=== PATIENT | female | born 1940 | race Caucasian/White ===

== ENCOUNTER 2016-06-26 16:55 | Observation (INO) | payer OTHER ==
[~2016-06-26] VITALS: Ht 151.1 cm; Wt 66.1 kg
[~2016-06-26 16:55] MED LIST: ACET-1256 PO; ALEN70TA2 PO; ALUM-51 PO; ARTISOL OPB; ASPI81TA28 PO; ATOR-24 PO; CHOL100027 PO; CLON1TAB3 PO; GABA-113 PO; GABA300C19 PO; IMD/2 PO; LEVO75TA PO; LISI5TAB PO; NTRGSL/4 UT; PANT1TAB48 PO; POLY335040 PO; TRAM-10 PO; VENL75CA PO; VNCS125 PO; [UNRECOGNIZED DRUG - OTHER] PO; [UNRECOGNIZED DRUG - SUPPLY]; [UNRECOGNIZED DRUG - SUPPLY]
[2016-06-26] MEDS ORDERED: PRLSR20 PO (17:34)
[2016-06-26] MEDS ORDERED: PHARMACIST DISCHARGE MED REC CONSULT PRN (17:45)
[2016-06-26] MEDS ORDERED: ACETAMINOPHEN 325 MG TAB PO PRN (18:45)
[2016-06-26] MEDS ORDERED: ONDANSETRON INJ 2 MG/ML 2 ML VIAL IV PRN (18:45)
[2016-06-26 20:45] VITALS: BP 160/63; PULSE 60; TEMP 36.6; O2SAT 97
--- NOTE | 2016-06-26 21:01 | DIAGNOSTIC IMAGING REPORT ---
BILATERAL CAROTID DOPPLER STUDY HISTORY: Stroke symptoms. Headache. Altered mental status. COMPARISON: Carotid Doppler 01/29/2012. TECHNIQUE: Real-time, grayscale, and color Doppler sonography of the carotid arteries was performed. Imaging reviewed in the transverse and longitudinal planes. All measurements were calculated based on NASCET criteria. FINDINGS: Antegrade flow is seen in the bilateral vertebral arteries. The brachial pressures are hemodynamically similar. Mild calcified plaque within the right carotid bifurcation. The peak systolic velocity within the right ICA is 75 cm/s. The right systolic ratio is 1.1. The peak systolic velocity within the left ICA is 90 cm/s. The left systolic ratio is 1.1. IMPRESSION: No hemodynamically significant stenosis seen within the carotid arteries. Electronically signed by: Yinka Mora M.D. 06/26/2016 9:00 PM Dictated Date/Time: 06/26/2016 8:58 PM
[2016-06-26 21:37] LABS: BASO % 0.7 %; BASO ABS # 0.04 K/uL (0-0.2); COMPLETE YES; EOS % 1.7 %; HEMATOCRIT 40.9 % (37-47); IG% 0.3 %; LYMPH % 45.4 %; LYMPH ABS # 2.63 K/uL (1.2-3.4); MEAN CELL VOLUME 91.9 fL (80-100); MEAN CORPUSCULAR HEMOGLOBIN 30.3 pg (25-34); MEAN PLATELET VOLUME 9.9 fL (7.4-10.4); MONO % 10.2 %; NEUT % 41.7 %; PLATELET COUNT 206 K/uL (130-400); RED BLOOD COUNT 4.45 M/uL (4.2-5.4); WHITE BLOOD COUNT 5.79 K/uL (4.8-10.8)
[2016-06-26] MEDS ORDERED: IV FLUIDS COMPLETED PRN (21:45)
[2016-06-26 22:09] VITALS: BP 164/99; TEMP 37; O2SAT 95; Ht 151.1 cm; Wt 66.1 kg
[2016-06-26 22:27] LABS: BLOOD UREA NITROGEN 16 mg/dl (7-18); BUN/CREATININE RATIO 11.3 (10-20); CALCIUM 9.5 mg/dl (8.5-10.1); CARBON DIOXIDE 24 mmol/L (21-32); CHLORIDE 109 mmol/L (98-107); GLUCOSE 86 mg/dl (70-99); POTASSIUM 3.8 mmol/L (3.5-5.1); SODIUM 143 mmol/L (136-145)
[2016-06-26] MEDS ORDERED: CLONIDINE HCL 0.1 MG TAB PO PRN (23:30)
--- NOTE | 2016-06-26 23:49 | History and Physical ---
History & Physical Date & Time of Service: Jun 26, 2016 at 23:31 Chief Complaint: Altered Awareness, Transient Primary Care Physician: Roberto Galeas M.D. History of Present Illness Source: patient, family, other (ER MD from [place]) 76 year old female, resident of [place], with history of CAD/CABG, DM, HTN, CKD 3, Hypothyroidism, Depression/Anxiety presenting with syncope followed by confusion, slurred speech. Patient follow with Dr. Galeas for PCP. Patient was apparently at her baseline state of health until this morning. She was with her son who was supposed to have a dental surgery in [facility] today. Upon learning that her son's surgery was cancelled, patient became very upset. She reported headache, then was noted to be weak and passed out for a few seconds. No seizure like movements, no incontinence/tongue biting. Son noted that patient woke up after a few seconds, but was incoherent, with slurred speech. She was then brought to the ED. CT head was negative. During observation, patient's family noted that she was still not responding to questions, cannot move her extremities, not following commands, and at one point , was "stiff", which lasted for a few seconds. ER doctor requested transfer to [facility]. She only became more responsive while en route to [facility]. On my exam, patient was awake, alert, oriented x 3. Denies any symptoms. Family at the bedside states she has been having frequent spells the past few weeks described as being "spacy", disoriented which lasts for a few seconds, sometimes preceded with emotional upset. Past Medical/Surgical History Medical Problems: (1) CAD (coronary artery disease) Status: Chronic (2) CKD (chronic kidney disease), stage III Status: Chronic (3) CVA (cerebral vascular accident) Status: Chronic (4) Depression Status: Chronic (5) HLD (hyperlipidemia) Status: Chronic (6) HTN (hypertension) Status: Chronic (7) Hypothyroidism Status: Chronic Surgical Problems: (1) H/O: hysterectomy Status: Chronic (2) History of appendectomy Status: Chronic (3) History of carpal tunnel surgery Status: Chronic (4) History of esophagogastroduodenoscopy (EGD) Status: Chronic (5) Hx of CABG Status: Chronic (6) S/P cholecystectomy Status: Chronic Family History FHx: diabetes mellitus Social History Smoking Status: Former Smoker Marital Status: Housing status: assisted living Occupational Status: retired Immunizations History of Influenza Vaccine: Yes Influenza Vaccine Date: Jan 27, 2012 History of Tetanus Vaccine?: No History of Pneumococcal: Yes Pneumococcal Date: Feb 03, 2012 History of Hepatitis B Vaccine: No Multi-Drug Resistant Organisms History of MDRO: Yes Type of MDRO: MRSA Allergies Coded Allergies: No Known Allergies (Verified , 06/26/16) Home Medications Scheduled Acetaminophen (Tylenol), 1,000 MG PO TID Alendronate Sodium (Fosamax), 70 MG PO WK Artificial Tear Solution (Tears Naturale), 2 DROPS OPB QID Atorvastatin (Lipitor), 40 MG PO QPM Cholecalciferol (Vitamin D 1000 Unit), 1,000 INTER.UNIT PO 3XWK Clonazepam (Klonopin), 2 MG PO QPM Clonazepam (Klonopin), 0.5 MG PO BID Gabapentin (Neurontin), 600 MG PO HS Gabapentin (Neurontin), 300 MG PO BID Levothyroxine Sodium (Synthroid), 75 MCG PO QAM Lisinopril (Prinivil), 5 MG PO QAM Omeprazole (Prilosec), 20 MG PO BID Polyethylene (Miralax Powder Packet), 17 GM PO Q24H PRN Tramadol (Ultram), 50 MG PO TID Venlafaxine Hcl (Effexor Xr), 75 MG PO BID Scheduled PRN Alum & Mag Hydrox-Simethicone (Qc Antacid), 0 PO QID PRN for Indigestion Loperamide Hcl (Imodium), 2 MG PO DAILY PRN for Diarrhea Nitroglycerin (Nitrostat), 0.4 MG UT UD PRN for Chest Pain Review of Systems Constitutional- no fever; no weight loss Eyes- no acute visual changes ENT- no sinus drainage; no pharyngitis Pulmonary- no cough, no wheezing, no shortness of breath Cardiac- no chest pain, no palpitations, no orthopnea, no dependent edema GI- no nausea, no vomiting, no diarrhea, no melena, no hematochezia - no dysuria, no hematuria Musculoskeletal- no arthralgias, no myalgias Derm- no rashes, no new skin lesions, no changing skin lesions Hematologic- no unusual bruising, no unusual bleeding Lymphatics- no adenopathy Endocrine- no polyuria or polydipsia; no heat or cold intolerance Neuro- (+) as noted above Psych- (+) as noted above Physical Exam Vital Signs Date Time Temp Pulse Resp B/P Pulse Ox O2 Delivery O2 Flow Rate FiO2 06/26/16 22:09 37.0 18 164/99 95 Room Air 06/26/16 20:08 62 18 164/99 97 Room Air 06/26/16 18:50 82 18 161/74 95 Room Air 06/26/16 16:55 37.0 66 18 176/79 99 Room Air General Appearance: WD/WN, no apparent distress Head: normocephalic, atraumatic Eyes: normal inspection, PERRL, EOMI, sclerae normal ENT: normal ENT inspection, hearing grossly normal, pharynx normal Neck: supple, no adenopathy, thyroid normal, no JVD, trachea midline Respiratory/Chest: chest non-tender, lungs clear, normal breath sounds, no respiratory distress, no accessory muscle use Cardiovascular: regular rate, rhythm, no edema, no JVD, no murmur, normal peripheral pulses Abdomen/GI: normal bowel sounds, non tender, soft, no organomegaly Back: normal inspection, no CVA tenderness Extremities/Musculoskelatal: normal inspection, no calf tenderness, normal capillary refill, no pedal edema, normal range of motion Neurologic/Psych: case monitor II-XII nml as tested, no motor/sensory deficits, alert, normal mood/affect, normal reflexes, oriented x 3 Skin: normal color, warm/dry, no rash Lymphatic: no adenopathy Diagnostics Laboratory Results Results Past 24 Hours Test 06/26/16 17:41 06/26/16 21:06 Range/Units Creatine Kinase MB Ratio 0-3.0 White Blood Count 5.79 4.8-10.8 K/uL Red Blood Count 4.45 4.2-5.4 M/uL Hemoglobin 13.5 12.0-16.0 g/dL Hematocrit 40.9 37-47 % Mean Corpuscular Volume 91.9 80-100 fL Mean Corpuscular Hemoglobin 30.3 25-34 pg Mean Corpuscular Hemoglobin Concent 33.0 32-36 g/dl Platelet Count 206 130-400 K/uL Mean Platelet Volume 9.9 7.4-10.4 fL Neutrophils (%) (Auto) 41.7 % Lymphocytes (%) (Auto) 45.4 % Monocytes (%) (Auto) 10.2 % Eosinophils (%) (Auto) 1.7 % Basophils (%) (Auto) 0.7 % Neutrophils # (Auto) 2.41 1.4-6.5 K/uL Lymphocytes # (Auto) 2.63 1.2-3.4 K/uL Monocytes # (Auto) 0.59 0.11-0.59 K/uL Eosinophils # (Auto) 0.10 0-0.5 K/uL Basophils # (Auto) 0.04 0-0.2 K/uL RDW Standard Deviation 46.9 36.4-46.3 fL RDW Coefficient of Variation 13.9 11.5-14.5 % Immature Granulocyte % (Auto) 0.3 % Immature Granulocyte # (Auto) 0.02 0.00-0.02 K/uL Sodium Level 143 136-145 mmol/L Potassium Level 3.8 3.5-5.1 mmol/L Chloride Level 109 98-107 mmol/L Carbon Dioxide Level 24 21-32 mmol/L Anion Gap 10.0 3-11 mmol/L Blood Urea Nitrogen 16 7-18 mg/dl Creatinine 1.40 0.60-1.20 mg/dl Est Creatinine Clear Calc Drug Dose 28.3 ml/min Estimated GFR () 41.9 Estimated GFR (Non- 36.2 BUN/Creatinine Ratio 11.3 10-20 Random Glucose 86 70-99 mg/dl Calcium Level 9.5 8.5-10.1 mg/dl Total Creatine Kinase 45 26-192 U/L Creatine Kinase MB < 0.5 0.5-3.6 ng/ml Troponin I < 0.015 0-0.045 ng/ml Diagnostic Radiology CT head from [facility]: no acute findings Impression Assessment and Plan 76 year old female, resident of [place], with history of CAD/CABG, DM, HTN, CKD 3, Hypothyroidism, Depression/Anxiety presenting with syncope followed by confusion, slurred speech. SYNCOPE WITH ALTERED MENTAL STATUS r/o TIA/CVA, SEIZURE, ARRHYTHMIA, HYPERTENSIVE URGENCY - check Brain MRI, Carotid US EEG ECHO, Telemetry monitoring - Neurology consult ACUTE RENAL FAILURE ON CKD 3 baseline 0.9 IV fluids monitor CAD EKG no change from baseline HISTORY OF DM not on medications ISS HYPERTENSION continue Lisinopril monitor HYPOTHYROIDISM continue L thyroxine DEPRESSION/ANXIETY continue usual medications HISTORY OF DM diet controlled last a1c 5.9 monitor BSGs DVT prophylaxis SCDs Disposition pending resident of [facility] Advanced Directives Existing Living Will: No Existing Power of Marketer: No VTE Prophylaxis VTE Risk Assessment Done? Y/N: Yes Risk Level: Moderate
[2016-06-26] MEDS ORDERED: CLONAZEPAM 1 MG TAB ONE (23:53)
[2016-06-27] VITALS (11 sets, daily range): BP systolic 114–163; BP diastolic 44–90; PULSE 63–85; TEMP 36.4–36.9; O2SAT 95–98
[2016-06-27] MEDS ORDERED: SODIUM CHLORIDE 0.9% 1000ML 1,000 ML IV SCH ×2 (02:00→19:30)
[2016-06-27] MEDS: LEVOTHYROXINE 75 MCG TAB PO SCH (05:53)
[2016-06-27 06:56] LABS: ESTIMATED AVERAGE GLUCOSE 117 mg/dl; HA1C FLAG Normal (Normal)
[2016-06-27 08:32] LABS: BASO % 0.5 %; BASO ABS # 0.03 K/uL (0-0.2); COMPLETE YES; EOS % 1.1 %; IG% 0.3 %; LYMPH % 28.5 %; MEAN CELL VOLUME 92.7 fL (80-100); MEAN CORPUSCULAR HEMOGLOBIN 30.2 pg (25-34); MEAN CORPUSCULAR HGB CONC 32.6 g/dl (32-36); MEAN PLATELET VOLUME 10.1 fL (7.4-10.4); MONO % 9.3 %; NEUT % 60.3 %; PLATELET COUNT 223 K/uL (130-400); RED BLOOD COUNT 4.64 M/uL (4.2-5.4); WHITE BLOOD COUNT 6.66 K/uL (4.8-10.8)
[2016-06-27 08:45] LABS: BUN/CREATININE RATIO 13.1 (10-20); CALCIUM 9.5 mg/dl (8.5-10.1); CREATININE 1.4 mg/dl (0.60-1.20); POTASSIUM 4.1 mmol/L (3.5-5.1)
[2016-06-27] MEDS: ARTIFICIAL TEARS OP SOLN OPB SCH ×8 (09:00→21:55)
--- NOTE | 2016-06-27 09:06 | DIAGNOSTIC IMAGING REPORT ---
MRI OF THE BRAIN WITHOUT CONTRAST CLINICAL HISTORY: Stroke like symptoms. Altered mental status. Headache. COMPARISON STUDY: Head CT dated 01/10/2016, MRI the brain dated 01/29/2012 FINDINGS: Sagittal T1, axial diffusion, proton density and T2 weighted axial, coronal FLAIR, and axial T1-weighted images were acquired. No intra or extra-axial mass lesions are visualized Axial diffusion-weighted images reveal no evidence of acute or subacute infarction. There is no evidence of ventricular dilatation. Proton density T2-weighted and FLAIR images reveal scattered foci of increased T2 signal within the white matter, likely on a small vessel basis. There are no abnormal flow voids. There is a stable expanded empty sella. There are foci of increased T2 signal within the left mastoid, likely inflammatory IMPRESSION: 1. No acute intracranial findings 2. No evidence of acute or subacute infarction 3. Stable expanded empty sella 4. Scattered foci of increased T2 signal within the white matter, likely on a small vessel basis Electronically signed by: Keyon Arreola M.D. 06/27/2016 9:05 AM Dictated Date/Time: 06/27/2016 8:52 AM
--- NOTE | 2016-06-27 09:10 | ECHOCARDIOGRAM REPORT ---
*NOTICE TO RECEIVING REPUBLICAN AGENCY This information is strictly Confidential and protected under [place] law. [place] law prohibits you from making any further disclosure of this information unless further disclosure is expressly permitted by the written consent of the person to whom it pertains or is authorized by law. A general authorization for the release of medical or other information is not sufficient for this purpose. Hospital accepts no responsibility if the information is made available to any other person, INCLUDING THE PATIENT. Interpretation Summary * Name: SOPHIA JORDAN Study Date: 06/27/2016 08:19 AM BP: 150/78 mmHg * Patient Location: .[facility]\S\N279\S\1 HR: 78 * : 1940 (M/d/yyyy) Gender: Female Height: 59 in * Age: 76 yrs Ethnicity: CA Weight: 150 lb * Ordering Physician: Yuriy Mead * Referring Physician: Self, Referred * Performed By: Alda Roper RCS * * Reason For Study: SYNCOPE * BSA: 1.6 m2 * -- Conclusions -- * No change compared to previous study of 01/10/16. * Normal LV chamber size with moderate concentric LVH. * Normal LV systolic function, EF 55-60%. * No segmental left ventricular wall motion abnormalities are noted. * Grade I diastolic dysfunction. * Aortic valve sclerosis mild, without significant aortic valvular stenosis. Mild aortic regurgitation. * Moderate atheromatous diisease of the ascending aorta. Procedure Details * A complete two-dimensional transthoracic echocardiogram was performed (2D, M-mode, Doppler and color flow Doppler). Left Ventricle * The left ventricle is normal in size. * There is moderate concentric left ventricular hypertrophy. * Ejection Fraction = 55-60%. * Left ventricular systolic function is normal. * No segmental left ventricular wall motion abnormalities are noted. * The left ventricular wall motion is normal. Right Ventricle * The right ventricular cavity size is normal (basal dimension <4.2 cm in right ventricular apical 4-chamber view). * The right ventricular systolic function is normal as assessed by tricuspid annular plane systolic excursion (TAPSE) (normal >1.5 cm). Atria * The left atrial size is normal. * Right atrial size is normal. * No ASD detected; PFO is not assessed. Mitral Valve * The mitral valve is normal in structure and function. Tricuspid Valve * The tricuspid valve is normal in structure and function. Aortic Valve * Aortic valve sclerosis mild, without significant aortic valvular stenosis. * No hemodynamically significant valvular aortic stenosis. * Mild aortic regurgitation. Pulmonic Valve * The pulmonary valve is not well seen, but the Doppler examination is normal without significant regurgitation or stenosis. Great Vessels * The aortic root and proximal ascending aorta are normal sized. Pericardium/Pleural * There is no pericardial effusion. Left Ventricular Diastolic Function * Grade I diastolic dysfunction, (abnormal relaxation pattern). MMode 2D Measurements and Calculations IVSd 1.4 cm IVSs 2.4 cm LVIDd 4.6 cm LVIDs 3.4 cm LVPWd 1.1 cm LVPWs 1.3 cm IVS/LVPW 1.2 FS 25.5 % EDV(Teich) 95.1 ml ESV(Teich) 47.2 ml EF(Teich) 50.4 % EDV(cubed) 94.5 ml ESV(cubed) 39.1 ml EF(cubed) 58.6 % % IVS thick 67.2 % % LVPW thick 11.3 % LV mass(C)d 223.8 grams LV mass(C)dI 137.1 grams/m\S\2 LV mass(C)s 260.7 grams LV mass(C)sI 159.8 grams/m\S\2 SV(Teich) 47.9 ml SI(Teich) 29.4 ml/m\S\2 SV(cubed) 55.4 ml SI(cubed) 34.0 ml/m\S\2 Ao root diam 3.7 cm Ao root area 10.8 cm\S\2 ACS 2.1 cm LA dimension 2.4 cm LA/Ao 0.65 LVOT diam 2.0 cm LVOT area 3.0 cm\S\2 LVAd ap4 17.7 cm\S\2 LVLd ap4 5.7 cm EDV(MOD-sp4) 46.6 ml EDV(sp4-el) 46.7 ml LVAs ap4 12.3 cm\S\2 LVLs ap4 5.1 cm ESV(MOD-sp4) 25.8 ml ESV(sp4-el) 25.4 ml EF(MOD-sp4) 44.6 % EF(sp4-el) 45.5 % LVAd ap2 16.3 cm\S\2 LVLd ap2 5.7 cm EDV(MOD-sp2) 39.0 ml EDV(sp2-el) 39.5 ml LVAs ap2 11.8 cm\S\2 LVLs ap2 5.5 cm ESV(MOD-sp2) 21.4 ml ESV(sp2-el) 21.5 ml EF(MOD-sp2) 45.2 % EF(sp2-el) 45.6 % LVLd %diff 0.87 % EDV(MOD-bp) 42.4 ml LVLs %diff 7.7 % ESV(MOD-bp) 24.2 ml EF(MOD-bp) 42.9 % SV(MOD-sp4) 20.8 ml SI(MOD-sp4) 12.8 ml/m\S\2 SV(MOD-sp2) 17.6 ml SI(MOD-sp2) 10.8 ml/m\S\2 SV(MOD-bp) 18.2 ml SI(MOD-bp) 11.2 ml/m\S\2 SV(sp4-el) 21.2 ml SI(sp4-el) 13.0 ml/m\S\2 SV(sp2-el) 18.0 ml SI(sp2-el) 11.1 ml/m\S\2 Doppler Measurements and Calculations MV E max wing 63.6 cm/sec MV A max wing 100.8 cm/sec MV E/A 0.63 MV P1/2t max wing 70.6 cm/sec MV P1/2t 99.6 msec MVA(P1/2t) 2.2 cm\S\2 MV dec slope 207.7 cm/sec\S\2 MV dec time 0.27 sec Ao V2 max 104.8 cm/sec Ao max PG 4.4 mmHg Ao max PG (full) 2.2 mmHg LISSETTE(V,A) 2.2 cm\S\2 LISSETTE(V,D) 2.2 cm\S\2 AI max wing 434.3 cm/sec AI max PG 75.5 mmHg AI dec slope 167.1 cm/sec\S\2 AI P1/2t 761.4 msec LV V1 max PG 2.2 mmHg LV V1 max 74.4 cm/sec PA V2 max 88.3 cm/sec PA max PG 3.1 mmHg TR max wing 220.1 cm/sec
[2016-06-27] MEDS: ASPIRIN 81 MG ECTAB PO SCH (09:49)
[2016-06-27] MEDS: ACETAMINOPHEN 500 MG TAB PO SCH ×3 (09:50→21:59)
[2016-06-27] MEDS: PANTOprazole SOD 40 MG TAB PO SCH ×2 (09:50→21:58)
[2016-06-27] MEDS: LISINOPRIL 5 MG TAB PO SCH (09:51)
[2016-06-27] MEDS: VENLAFAXINE HCL XR 75 MG CAPXR PO SCH ×2 (09:51→21:57)
[2016-06-27] MEDS: GABAPENTIN 300 MG CAP PO SCH ×2 (09:52→14:38)
[2016-06-27] MEDS: TRAMADOL HCL 50 MG TAB PO SCH ×3 (09:58→22:00)
[2016-06-27] MEDS: CLONAZEPAM 1 MG TAB PO SCH ×2 (09:58→13:11)
--- NOTE | 2016-06-27 12:59 | Neurology Consultation ---
Neurology Consultation Date of Consultation: Jun 27, 2016. Attending Physician: Prashant Lion MD Primary Care Physician: Roberto Galeas M.D. Reason for Consultation: altered MS History of Present Illness Source: patient Yvonne is a 76 year old woman with a PMH CAD, HTN, HLD, hypothyroid, CKD who was with her son who was supposed to have a dental surgery in [facility] today. Upon learning that her son's surgery was cancelled, patient became very upset. She reported headache, then was noted to be weak and passed out for a few seconds. She states afterward she was having difficulty speaking but denies biting her tongue, incontinence of bowel or urine. She states she remembers feeling weak all over. She states when she gets upset she does shudder and that was happening during this event. She thinks by the time she got to [facility] she was back to baseline. She states she has no history of stroke or seizure disorder. denies ill exposures, fever, chills, night sweats, CP, SOB , dizziness, N, V, current weakness, numbness, tingling. According to OSH record her blood pressure was 141/52, O2 99%, T: 36.5, pulse 70 , R-20, BS 203 Past Medical/Surgical History Medical Problems: (1) Abdominal pain Status: Acute (2) Bilateral flank pain Status: Acute (3) Confusion Status: Acute (4) Diarrhea Status: Acute (5) Fever Status: Acute (6) Fever Status: Acute (7) Hypomagnesemia Status: Acute (8) Hypotension Status: Acute (9) Leukocytosis Status: Acute (10) UTI (lower urinary tract infection) Status: Acute Social History Smoking Status: Former smoker Marital Status: Housing Status: correction Occupation Status: retired Allergies Coded Allergies: No Known Allergies (Verified , 06/26/16) Current Inpatient Medications Current Inpatient Medications Medications (Trade) Dose Ordered Sig/Ana Route Start Time Stop Time Status Last Admin Dose Admin Miscellaneous Information (Pharmacist Discharge Med Rec Consult) 1 ea UD PRN N/A 06/26/16 17:45 07/26/16 17:44 Ondansetron HCl (Zofran Inj) 4 mg Q6H PRN IV 06/26/16 18:45 07/26/16 18:44 Miscellaneous (Iv Fluids Completed) 1 ea PRN PRN N/A 06/26/16 21:45 06/26/17 21:44 Acetaminophen (Tylenol Tab) 1,000 mg TID PO 06/27/16 09:00 07/27/16 08:59 06/27/16 09:50 1,000 MG Atorvastatin Calcium (Lipitor Tab) 40 mg QPM PO 06/27/16 21:00 07/27/16 20:59 Clonazepam (Klonopin Tab) 0.5 mg BID@0900,1400 PO 06/27/16 09:00 07/27/16 08:59 06/27/16 09:58 0.5 MG Clonazepam (Klonopin Tab) 1 mg QPM PO 06/27/16 21:00 07/27/16 20:59 Gabapentin (Neurontin Cap) 300 mg BID@0900,1400 PO 06/27/16 09:00 07/27/16 08:59 06/27/16 09:52 300 MG Gabapentin (Neurontin Tab) 600 mg HS PO 06/27/16 21:00 07/27/16 20:59 Levothyroxine Sodium (Synthroid Tab) 75 mcg DAILYBB PO 06/27/16 06:30 07/27/16 06:29 06/27/16 05:53 75 MCG Lisinopril (Zestril Tab) 5 mg QAM PO 06/27/16 09:00 07/27/16 08:59 06/27/16 09:51 5 MG Tramadol HCl (Ultram Tab) 50 mg TID PO 06/27/16 09:00 07/27/16 08:59 06/27/16 09:58 50 MG Venlafaxine HCl (effeXOR EXTENDED REL CAP) 75 mg BID PO 06/27/16 09:00 07/27/16 08:59 06/27/16 09:51 75 MG Artificial Tears (Artificial Tears) 2 drops QID OPB 06/27/16 09:00 07/27/16 08:59 Pantoprazole Sodium (Protonix Tab) 40 mg BID PO 06/27/16 09:00 07/27/16 08:59 06/27/16 09:50 40 MG Clonidine HCl (Catapres Tab) 0.1 mg Q6H PRN PO 06/26/16 23:30 07/26/16 23:29 Aspirin 81 mg 81 mg QAM PO 06/27/16 09:00 07/27/16 08:59 06/27/16 09:49 81 MG Sodium Chloride (Nss 1000ml) 1,000 ml @ 75 mls/hr [id number] IV 06/27/16 02:00 06/27/16 15:19 06/27/16 02:08 75 MLS/HR Physical Exam Vital Signs (Past 24 Hrs): Date Time Temp Pulse Resp B/P Pulse Ox O2 Delivery O2 Flow Rate FiO2 06/27/16 11:16 36.8 83 22 146/77 98 Room Air 06/27/16 08:00 97 Room Air 06/27/16 07:32 36.4 69 20 150/78 97 06/27/16 05:02 36.6 71 18 158/67 97 Room Air 06/27/16 04:00 Room Air 06/27/16 00:06 36.5 67 18 114/44 95 Room Air 06/27/16 00:00 Room Air 06/26/16 22:09 37.0 18 164/99 95 Room Air 06/26/16 20:45 36.6 60 18 160/63 97 Room Air 06/26/16 20:08 62 18 164/99 97 Room Air 06/26/16 18:50 82 18 161/74 95 Room Air 06/26/16 16:55 37.0 66 18 176/79 99 Room Air Physical Exam: Constitutional: appearance nourished, healthy and obese Ears, Nose, Mouth and Throat: mucous membranes moist, no injection and skin normal, eyes normal Cardiovascular: normal S-1 and S-2 and regular rate and rhythm Respiratory: clear to auscultation (CTA) and no rales, rhonchi or wheeze Musculoskeletal: no peripheral edema and good distal pulses Skin: no stigmata of neurocutaneous disease noted and normal and intact Eyes: extraocular muscles intact (EOMI) and pupils equal, round and reactive to light (PERRL) NEUROLOGIC EXAMINATION: Mental status: Alert and interactive Oriented 2017, at [facility], red Olguin is president Oriented to person Speech fluent with no evidence of aphasia Cranial Nerves smile, eye brow raise symmetric, tongue midline Reflexes: Deep tendon reflexes were symmetrical and graded 2/5. Plantar responses were flexor. Sensory: no deficit to light touch Coordination: finger to nose with no bi pass or tremor Gait/Stance: sitting in bed Motor: Negative for pronator drift of out stretched arms with eyes closed. 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 Laboratory Results Past 24 Hours: 06/27/16 08:07 Red Blood Count 4.64, Mean Corpuscular Volume 92.7, Mean Corpuscular Hemoglobin 30.2, Mean Corpuscular Hemoglobin Concent 32.6, Mean Platelet Volume 10.1, Neutrophils (%) (Auto) 60.3, Lymphocytes (%) (Auto) 28.5, Monocytes (%) (Auto) 9.3, Eosinophils (%) (Auto) 1.1, Basophils (%) (Auto) 0.5, Neutrophils # (Auto) 4.02, Lymphocytes # (Auto) 1.90, Monocytes # (Auto) 0.62, Eosinophils # (Auto) 0.07, Basophils # (Auto) 0.03 06/27/16 08:07 Test 06/26/16 21:06 06/27/16 08:07 06/27/16 11:19 Estimated Average Glucose 117 mg/dl Hemoglobin A1c 5.7 % (4.5-5.6) Total Creatine Kinase 45 U/L (26-192) Creatine Kinase MB < 0.5 ng/ml (0.5-3.6) Creatine Kinase MB Ratio (0-3.0) Troponin I < 0.015 ng/ml (0-0.045) White Blood Count 6.66 K/uL (4.8-10.8) Red Blood Count 4.64 M/uL (4.2-5.4) Hemoglobin 14.0 g/dL (12.0-16.0) Hematocrit 43.0 % (37-47) Mean Corpuscular Volume 92.7 fL (80-100) Mean Corpuscular Hemoglobin 30.2 pg (25-34) Mean Corpuscular Hemoglobin Concent 32.6 g/dl (32-36) Platelet Count 223 K/uL (130-400) Mean Platelet Volume 10.1 fL (7.4-10.4) Neutrophils (%) (Auto) 60.3 % Lymphocytes (%) (Auto) 28.5 % Monocytes (%) (Auto) 9.3 % Eosinophils (%) (Auto) 1.1 % Basophils (%) (Auto) 0.5 % Neutrophils # (Auto) 4.02 K/uL (1.4-6.5) Lymphocytes # (Auto) 1.90 K/uL (1.2-3.4) Monocytes # (Auto) 0.62 K/uL (0.11-0.59) Eosinophils # (Auto) 0.07 K/uL (0-0.5) Basophils # (Auto) 0.03 K/uL (0-0.2) RDW Standard Deviation 47.7 fL (36.4-46.3) RDW Coefficient of Variation 14.1 % (11.5-14.5) Immature Granulocyte % (Auto) 0.3 % Immature Granulocyte # (Auto) 0.02 K/uL (0.00-0.02) Anion Gap 11.0 mmol/L (3-11) Est Creatinine Clear Calc Drug Dose 28.6 ml/min Estimated GFR () 41.9 Estimated GFR (Non- 36.2 BUN/Creatinine Ratio 13.1 (10-20) Calcium Level 9.5 mg/dl (8.5-10.1) Bedside Glucose 141 mg/dl (70-90) Imaging MRI brain without- FINDINGS: Sagittal T1, axial diffusion, proton density and T2 weighted axial, coronal FLAIR, and axial T1-weighted images were acquired. No intra or extra-axial mass lesions are visualized Axial diffusion-weighted images reveal no evidence of acute or subacute infarction. There is no evidence of ventricular dilatation.Proton density T2-weighted and FLAIR images reveal scattered foci of increased T2 signal within the white matter, likely on a small vessel basis. There are no abnormal flow voids.There is a stable expanded empty sella. There are foci of increased T2 signal within the left mastoid, likely inflammatory TTE- No change compared to previous study of 01/10/16. * Normal LV chamber size with moderate concentric LVH. * Normal LV systolic function, EF 55-60%. * No segmental left ventricular wall motion abnormalities are noted. * Grade I diastolic dysfunction. * Aortic valve sclerosis mild, without significant aortic valvular stenosis. Mild aortic regurgitation. * Moderate atheromatous disease of the ascending aorta. NO ASD Carotid doppler- No hemodynamically significant stenosis seen within the carotid arteries. Impression 76 year old with syncope episode Plan 1. cardiac work up so far no revealing findings. 2. EEG -pending 3. MRI with no acute or subacute findings 4. according to outside facility she stated she had a headache and then said she was going to pass out. She also was talking to her son during the time she was in their ER but would not cooperate during their evaluation 5. orthostatic blood pressure 6. currently on aspirin 81 mg 7. fall precautions 8. further recommendations to follow Reviewed and discussed with Candice Salas and patient interviewed and examined imaging and eeg reviewed event was more of a near syncopal one precipitated by stress and she apparently has had similar but less dramatic events in the past in stressful situations denies migraines etc currently exam is normal her mental status is clear there are no indications that this was a seizure and mri and eeg normnal If cleared by cardioology she could be discharged from neurology point of view Andrew Norton MD I have seen and discussed above patient with Dr Andrew Norton
--- NOTE | 2016-06-27 14:38 | ELECTROENCEPHALOGRAPH REPORT ---
REQUESTING PHYSICIAN: Dr. Mead. CLINICAL DIAGNOSIS: Transient altered awareness with memory loss and near syncope. ELECTROENCEPHALOGRAM DIAGNOSIS: Essentially normal during wakefulness. DESCRIPTION OF TRACING: This EEG obtained during full clinical wakefulness is of reasonable technical quality with a few muscle movement artifacts. Video analysis of patient movement and behavior was performed and photic stimulation was the only stimulus parameter utilized. Hyperventilation was not performed. Drowsiness and light sleep were not recorded. Under these conditions, there is evidence for normal appearing background rhythm in the alpha range of up to 10 Hz of maximum frequency and of up to 30 microvolts of maximum amplitude. This is maximum in posterior head regions and bilaterally symmetrical. Polymorphic mid frequency theta activity is seen over all head regions without clear focal or regional predominance. Anterior head region maximum bilaterally symmetrical low voltage fast activity in the beta range is present. Photic stimulation provoked some modest driving response without a photomyogenic or photoparoxysmal component. At no time during the waking tracing is there evidence for potentially epileptogenic activity in the form of polyspike or spike wave bursts, focal sharp waves or focal spikes. INTERPRETATION: This EEG is essentially normal during wakefulness without evidence for focal or generalized encephalopathy and without evidence for potentially epileptogenic activity. MTDD
--- NOTE | 2016-06-27 19:18 | Progress Note ---
Internal Med Progress Note Date of Service: Jun 27, 2016. Provider Documentation: SUBJECTIVE: Patient is seen and examined at bedside. She feels she is back to her baseline. Denies any dizziness, headache, blurry vision, slurred speech, chest pain, SOB, palpitations. OBJECTIVE: Vital Signs-as noted below Exam: Physical Exam: General Appearance:Moderately built and nourished, no apparent distress Head: normocephalic, Atraumatic Eyes: normal inspection, EOMI, PERRLA Neck: supple, Trachea midline Respiratory/Chest: Normal breath sounds, CTA Cardiovascular: S1, S2, No murmur Abdomen/GI:Soft, Non tender, Bowel sounds present Extremities/Musculoskelatal:normal inspection, no edema Neurologic/Psych:Grossly no focal neurological deficits Skin: normal color, warm Lab data as noted below. ASSESSMENT & PLAN: Patient is a 76 yr old female, resident of [place], with PMH of CAD/CABG, DM II, HTN, CKD 3, Hypothyroidism, Depression/Anxiety presents with an episode of syncope followed by confusion, slurred speech. SYNCOPE WITH ALTERED MENTAL STATUS Likely Vasovagal CT head/MRI brain, ECHO, Carotid Duplex, EEG: Negative Neurology on board Symptoms completely resolved Check Orthostatics Speech and Swallow eval DIANE on CKD III: baseline 0.9 Cr:1.4 today Continue IV fluids monitor renal function CAD EKG no change from baseline Continue home meds H/O DM II Diet controlled ISS, Accu checks Last A1C: HYPERTENSION Stable continue Lisinopril HYPOTHYROIDISM continue L thyroxine DEPRESSION/ANXIETY continue home meds DVT prophylaxis SCDs Disposition Resident of [facility] SN[facility] Likely discharge tomorrow once cleared by Neurology Vital Signs: Date Time Temp Pulse Resp B/P Pulse Ox O2 Delivery O2 Flow Rate FiO2 06/27/16 16:00 97 Room Air 06/27/16 14:40 36.8 65 20 163/72 97 74 148/85 85 153/84 06/27/16 12:00 95 Room Air 06/27/16 11:16 36.8 83 22 146/77 98 Room Air 06/27/16 08:00 97 Room Air 06/27/16 07:32 36.4 69 20 150/78 97 06/27/16 05:02 36.6 71 18 158/67 97 Room Air 06/27/16 04:00 Room Air 06/27/16 00:06 36.5 67 18 114/44 95 Room Air 06/27/16 00:00 Room Air 06/26/16 22:09 37.0 18 164/99 95 Room Air 06/26/16 20:45 36.6 60 18 160/63 97 Room Air 06/26/16 20:08 62 18 164/99 97 Room Air Lab Results: Results Past 24 Hours Test 06/26/16 21:06 06/27/16 07:32 06/27/16 08:07 06/27/16 11:19 Range/Units White Blood Count 5.79 6.66 4.8-10.8 K/uL Red Blood Count 4.45 4.64 4.2-5.4 M/uL Hemoglobin 13.5 14.0 12.0-16.0 g/dL Hematocrit 40.9 43.0 37-47 % Mean Corpuscular Volume 91.9 92.7 80-100 fL Mean Corpuscular Hemoglobin 30.3 30.2 25-34 pg Mean Corpuscular Hemoglobin Concent 33.0 32.6 32-36 g/dl Platelet Count 206 223 130-400 K/uL Mean Platelet Volume 9.9 10.1 7.4-10.4 fL Neutrophils (%) (Auto) 41.7 60.3 % Lymphocytes (%) (Auto) 45.4 28.5 % Monocytes (%) (Auto) 10.2 9.3 % Eosinophils (%) (Auto) 1.7 1.1 % Basophils (%) (Auto) 0.7 0.5 % Neutrophils # (Auto) 2.41 4.02 1.4-6.5 K/uL Lymphocytes # (Auto) 2.63 1.90 1.2-3.4 K/uL Monocytes # (Auto) 0.59 0.62 0.11-0.59 K/uL Eosinophils # (Auto) 0.10 0.07 0-0.5 K/uL Basophils # (Auto) 0.04 0.03 0-0.2 K/uL RDW Standard Deviation 46.9 47.7 36.4-46.3 fL RDW Coefficient of Variation 13.9 14.1 11.5-14.5 % Immature Granulocyte % (Auto) 0.3 0.3 % Immature Granulocyte # (Auto) 0.02 0.02 0.00-0.02 K/uL Sodium Level 143 143 136-145 mmol/L Potassium Level 3.8 4.1 3.5-5.1 mmol/L Chloride Level 109 111 98-107 mmol/L Carbon Dioxide Level 24 21 21-32 mmol/L Anion Gap 10.0 11.0 3-11 mmol/L Blood Urea Nitrogen 16 18 7-18 mg/dl Creatinine 1.40 1.40 0.60-1.20 mg/dl Est Creatinine Clear Calc Drug Dose 28.3 28.6 ml/min Estimated GFR () 41.9 41.9 Estimated GFR (Non- 36.2 36.2 BUN/Creatinine Ratio 11.3 13.1 10-20 Random Glucose 86 151 70-99 mg/dl Estimated Average Glucose 117 mg/dl Hemoglobin A1c 5.7 4.5-5.6 % Calcium Level 9.5 9.5 8.5-10.1 mg/dl Total Creatine Kinase 45 26-192 U/L Creatine Kinase MB < 0.5 0.5-3.6 ng/ml Creatine Kinase MB Ratio 0-3.0 Troponin I < 0.015 0-0.045 ng/ml Bedside Glucose 125 141 70-90 mg/dl Test 06/27/16 16:07 Range/Units Bedside Glucose 112 70-90 mg/dl Microbiology Results 06/26/16 MRSA DNA Surveillance Screen, Received Pending
[2016-06-27] MEDS ORDERED: GABAPENTIN 600 MG TAB PO SCH (21:00)
[2016-06-27] MEDS ORDERED: CLONAZEPAM 1 MG TAB PO SCH (21:00)
[2016-06-27] MEDS ORDERED: ATORVASTATIN 40 MG TAB PO SCH (21:00)
[2016-06-28 04:35] VITALS: BP 127/94; PULSE 62; TEMP 36.4; O2SAT 99
[2016-06-28] MEDS: LEVOTHYROXINE 75 MCG TAB PO SCH (06:21)
[2016-06-28 06:48] LABS: BASO % 0.4 %; BASO ABS # 0.02 K/uL (0-0.2); COMPLETE YES; EOS % 1.7 %; HEMATOCRIT 39.4 % (37-47); LYMPH % 42.4 %; LYMPH ABS # 1.94 K/uL (1.2-3.4); MEAN CELL VOLUME 92.3 fL (80-100); MEAN CORPUSCULAR HEMOGLOBIN 31.1 pg (25-34); MEAN CORPUSCULAR HGB CONC 33.8 g/dl (32-36); MONO % 8.7 %; NEUT % 46.8 %; PLATELET COUNT 197 K/uL (130-400); RED BLOOD COUNT 4.27 M/uL (4.2-5.4); WHITE BLOOD COUNT 4.58 K/uL (4.8-10.8)
[2016-06-28 07:07] LABS: BUN/CREATININE RATIO 13.6 (10-20); CALCIUM 9.7 mg/dl (8.5-10.1); CREATININE 1.4 mg/dl (0.60-1.20); POTASSIUM 3.9 mmol/L (3.5-5.1)
[2016-06-28 07:17] VITALS: BP 169/79; PULSE 66; TEMP 36.5; O2SAT 99
[2016-06-28 08:00] VITALS: O2SAT 99
[2016-06-28] MEDS: ARTIFICIAL TEARS OP SOLN OPB SCH ×4 (09:00→14:06)
[2016-06-28] MEDS: TRAMADOL HCL 50 MG TAB PO SCH ×2 (09:00→14:06)
[2016-06-28] MEDS: CLONAZEPAM 1 MG TAB PO SCH ×2 (09:01→14:06)
[2016-06-28] MEDS: VENLAFAXINE HCL XR 75 MG CAPXR PO SCH (09:02)
[2016-06-28] MEDS: PANTOprazole SOD 40 MG TAB PO SCH (09:02)
[2016-06-28] MEDS: LISINOPRIL 5 MG TAB PO SCH (09:03)
[2016-06-28] MEDS: GABAPENTIN 300 MG CAP PO SCH ×2 (09:03→14:07)
[2016-06-28] MEDS: ACETAMINOPHEN 500 MG TAB PO SCH ×2 (09:03→14:08)
[2016-06-28] MEDS: ASPIRIN 81 MG ECTAB PO SCH (09:04)
[2016-06-28 11:21] VITALS: BP 164/90; PULSE 93; TEMP 36.5; O2SAT 98
[2016-06-28 12:00] VITALS: O2SAT 99
--- NOTE | 2016-06-28 13:44 | Progress Note ---
Internal Med Progress Note Date of Service: Jun 28, 2016. Provider Documentation: SUBJECTIVE: Patient is seen and examined at bedside. She feels much better. Denies any symptoms. Slurred speech resolved. No syncopal episodes since admission. OBJECTIVE: Vital Signs-as noted below Exam: Physical Exam: General Appearance:Moderately built and nourished, no apparent distress Head: normocephalic, Atraumatic Eyes: normal inspection, EOMI, PERRLA Neck: supple, Trachea midline Respiratory/Chest: Normal breath sounds, CTA Cardiovascular: S1, S2, No murmur Abdomen/GI:Soft, Non tender, Bowel sounds present Extremities/Musculoskelatal:normal inspection, no edema Neurologic/Psych:Grossly no focal neurological deficits Skin: normal color, warm Lab data as noted below. ASSESSMENT & PLAN: Patient is a 76 yr old female, resident of [place], with PMH of CAD/CABG, DM II, HTN, CKD 3, Hypothyroidism, Depression/Anxiety presents with an episode of syncope followed by confusion, slurred speech. SYNCOPE WITH ALTERED MENTAL STATUS Likely Vasovagal CT head/MRI brain, ECHO, Carotid Duplex, EEG: Negative Neurology on board Symptoms completely resolved Check Orthostatics-Negative DIANE on CKD III: Cr:1.4 Conitor renal function Encourage to increase oral fluid intake CAD EKG no change from baseline Continue home meds H/O DM II Diet controlled ISS, Accu checks HYPERTENSION Stable continue Lisinopril HYPOTHYROIDISM continue L thyroxine DEPRESSION/ANXIETY continue home meds DVT prophylaxis SCDs Disposition Resident of [facility] SN[facility] Plan to discharge today. Vital Signs: Date Time Temp Pulse Resp B/P Pulse Ox O2 Delivery O2 Flow Rate FiO2 06/28/16 11:21 36.5 93 16 164/90 98 Room Air 06/28/16 08:00 99 Room Air 06/28/16 07:17 36.5 66 16 169/79 99 Room Air 06/28/16 04:35 36.4 62 18 127/94 99 Room Air 06/28/16 04:00 Room Air 06/28/16 00:00 Room Air 06/27/16 20:32 63 163/76 63 163/90 63 148/83 06/27/16 20:00 97 Room Air 06/27/16 19:36 36.9 65 18 157/71 96 Room Air 06/27/16 16:00 97 Room Air 06/27/16 14:40 36.8 65 20 163/72 97 74 148/85 85 153/84 Lab Results: Results Past 24 Hours Test 06/27/16 16:07 06/27/16 20:06 06/28/16 06:31 06/28/16 07:27 Range/Units Bedside Glucose 112 99 129 70-90 mg/dl White Blood Count 4.58 4.8-10.8 K/uL Red Blood Count 4.27 4.2-5.4 M/uL Hemoglobin 13.3 12.0-16.0 g/dL Hematocrit 39.4 37-47 % Mean Corpuscular Volume 92.3 80-100 fL Mean Corpuscular Hemoglobin 31.1 25-34 pg Mean Corpuscular Hemoglobin Concent 33.8 32-36 g/dl Platelet Count 197 130-400 K/uL Mean Platelet Volume 10.0 7.4-10.4 fL Neutrophils (%) (Auto) 46.8 % Lymphocytes (%) (Auto) 42.4 % Monocytes (%) (Auto) 8.7 % Eosinophils (%) (Auto) 1.7 % Basophils (%) (Auto) 0.4 % Neutrophils # (Auto) 2.14 1.4-6.5 K/uL Lymphocytes # (Auto) 1.94 1.2-3.4 K/uL Monocytes # (Auto) 0.40 0.11-0.59 K/uL Eosinophils # (Auto) 0.08 0-0.5 K/uL Basophils # (Auto) 0.02 0-0.2 K/uL RDW Standard Deviation 47.5 36.4-46.3 fL RDW Coefficient of Variation 14.1 11.5-14.5 % Immature Granulocyte % (Auto) 0.0 % Immature Granulocyte # (Auto) 0.00 0.00-0.02 K/uL Sodium Level 145 136-145 mmol/L Potassium Level 3.9 3.5-5.1 mmol/L Chloride Level 111 98-107 mmol/L Carbon Dioxide Level 23 21-32 mmol/L Anion Gap 11.0 3-11 mmol/L Blood Urea Nitrogen 19 7-18 mg/dl Creatinine 1.40 0.60-1.20 mg/dl Est Creatinine Clear Calc Drug Dose 28.2 ml/min Estimated GFR () 41.9 Estimated GFR (Non- 36.2 BUN/Creatinine Ratio 13.6 10-20 Random Glucose 122 70-99 mg/dl Calcium Level 9.7 8.5-10.1 mg/dl Test 06/28/16 11:35 Range/Units Bedside Glucose 159 70-90 mg/dl Microbiology Results 06/27/16 MRSA DNA Surveillance Screen, Cris Batch Pending
--- NOTE | 2016-06-28 13:52 | Discharge Instructions ---
Discharge Instructions Admission Reason for Admission: Altered Awareness, Transient Discharge Discharge Diagnosis / Problem: Syncope-Likley Vasovagal Discharge Goals Goal(s): Decrease discomfort, Improve function Activity Recommendations Activity Limitations: resume your previous activity Exercise/Sports Limitations: as tolerated . Instructions / Follow-Up Instructions / Follow-Up Follow up with on 07/02/16 at 3:20PM Seek immediate medical attention if your symptoms reoccur. Current Hospital Diet Patient's current hospital diet: AHA Diet (Heart Healthy), Diabetes Type 2 Diet Discharge Diet Recommended Diet: Diabetes Type 2 Diet Pending Studies Studies pending at discharge: no Laboratory Results Hemoglobin A1c Test 06/26/16 21:06 Range/Units Estimated Average Glucose 117 mg/dl Hemoglobin A1c 5.7 H 4.5-5.6 % Medical Emergencies . Who to Call and When: Medical Emergencies: If at any time you feel your situation is an emergency, please call 911 immediately. . Non-Emergent Contact Non-Emergency issues call your: Primary Care Provider Call Non-Emergent contact if: you have any medication questions You experience any dizziness, slurred speech, weakness, blurred vision. . . "Provider Documentation" section prepared by Prashant Lion. VTE Core Measure Inpt VTE Proph given/why not?: SCD's
[2016-06-28 13:54] VITALS: BP 164/90; PULSE 93; TEMP 36.5; O2SAT 98
--- NOTE | 2016-06-28 14:29 | PROGRESS NOTE ---
DATE: 06/28/2016 DATE: 06/28/2016. Yvonne looks great today. She is wanting to go home. Apparently there has been no cardiac arrhythmias. From a neurologic point of view we found no evidence for structural disease of significance and no evidence for a seizure. The whole event, in retrospect may simply have been an emotionally triggered one and she admits that she often will have similar events when under stress. She claims that she really was not totally unconscious, that she was aware of people talking to her and just felt lightheaded and was unable to communicate. Whatever the case, I do not think she needs further neurologic evaluation and as per my note yesterday I think she can be discharged if cleared medically. I did discuss this with Dr. Lion today and I am simply going to recommend that she go back with her primary care physician and if he or she feels neurology needs to see her we would be happy to reassess her, but for now I do not think she needs followup. ELTON
--- NOTE | 2016-06-28 19:29 | Discharge Summary ---
Discharge Summary Admission Date: Jun 26, 2016 at 17:38 Discharge Date: Jun 28, 2016 Discharge Disposition: Personal care Principal Diagnosis: Syncope-Likely Vasovagal Procedures: MRI Brain: 1. No acute intracranial findings 2. No evidence of acute or subacute infarction 3. Stable expanded empty sella 4. Scattered foci of increased T2 signal within the white matter, likely on a small vessel basis Carotid Duplex: No hemodynamically significant stenosis seen within the carotid arteries. ECHO: No change compared to previous study of 01/10/16. * Normal LV chamber size with moderate concentric LVH. * Normal LV systolic function, EF 55-60%. * No segmental left ventricular wall motion abnormalities are noted. * Grade I diastolic dysfunction. * Aortic valve sclerosis mild, without significant aortic valvular stenosis. Mild aortic regurgitation. * Moderate atheromatous diisease of the ascending aorta. EEG: This EEG is essentially normal during wakefulness without evidence for focal or generalized encephalopathy and without evidence for potentially epileptogenic activity Consultations: Neurology Pending Studies/Follow-Up: Follow up with on 07/02/16 at 3:20PM Medication Reconciliation Continued Medications: Acetaminophen (Tylenol) 500 Mg Tab 1000 MG PO TID, TAB Alendronate Sodium (Fosamax) 70 Mg Tab 70 MG PO WK, TAB Alum & Mag Hydrox-Simethicone (Qc Antacid) 1 Corina Corina 0 PO QID PRN for Indigestion Artificial Tear Solution (Tears Naturale) 1 Kimberly Kimberly 2 DROPS OPB QID Atorvastatin (Lipitor) 40 Mg Tab 40 MG PO QPM, TAB Cholecalciferol (Vitamin D 1000 Unit) 1,000 Unit Cap 1000 INTER.UNIT PO 3XWK, CAP Clonazepam (Klonopin) 1 Mg Tab 2 MG PO QPM, TAB Clonazepam (Klonopin) 1 Mg Tab 0.5 MG PO BID Gabapentin (Neurontin) 300 Mg Cap 600 MG PO HS, CAP Gabapentin (Neurontin) 300 Mg Cap 300 MG PO BID, CAP Levothyroxine Sodium (Synthroid) 75 Mcg Tab 75 MCG PO QAM, TAB Lisinopril (Prinivil) 5 Mg Tab 5 MG PO QAM, TAB Loperamide Hcl (Imodium) 2 Mg Cap 2 MG PO DAILY PRN for Diarrhea, CAP Nitroglycerin (Nitrostat) 0.4 Mg Tab 0.4 MG UT UD PRN for Chest Pain Omeprazole (Prilosec) 20 Mg Capcr 20 MG PO BID, CAP Polyethylene (Miralax Powder Packet) 17 Gm Pack 17 GM PO Q24H PRN, PACK Tramadol (Ultram) 50 Mg Tab 50 MG PO TID Venlafaxine Hcl (Effexor Xr) 75 Mg Cap 75 MG PO BID Admission Information HPI (per Admitting provider): 76 year old female, resident of [place], with history of CAD/CABG, DM, HTN, CKD 3, Hypothyroidism, Depression/Anxiety presenting with syncope followed by confusion, slurred speech. Patient follow with Dr. Galeas for PCP. Patient was apparently at her baseline state of health until this morning. She was with her son who was supposed to have a dental surgery in [facility] today. Upon learning that her son's surgery was cancelled, patient became very upset. She reported headache, then was noted to be weak and passed out for a few seconds. No seizure like movements, no incontinence/tongue biting. Son noted that patient woke up after a few seconds, but was incoherent, with slurred speech. She was then brought to the ED. CT head was negative. During observation, patient's family noted that she was still not responding to questions, cannot move her extremities, not following commands, and at one point , was "stiff", which lasted for a few seconds. ER doctor requested transfer to [facility]. She only became more responsive while en route to [facility]. On my exam, patient was awake, alert, oriented x 3. Denies any symptoms. Family at the bedside states she has been having frequent spells the past few weeks described as being "spacy", disoriented which lasts for a few seconds, sometimes preceded with emotional upset. Physical Exam (per Admitting): General Appearance: WD/WN, no apparent distress Head: normocephalic, atraumatic Eyes: normal inspection, PERRL, EOMI, sclerae normal ENT: normal ENT inspection, hearing grossly normal, pharynx normal Neck: supple, no adenopathy, thyroid normal, no JVD, trachea midline Respiratory/Chest: chest non-tender, lungs clear, normal breath sounds, no respiratory distress, no accessory muscle use Cardiovascular: regular rate, rhythm, no edema, no JVD, no murmur, normal peripheral pulses Abdomen/GI: normal bowel sounds, non tender, soft, no organomegaly Back: normal inspection, no CVA tenderness Extremities/Musculoskelatal: normal inspection, no calf tenderness, normal capillary refill, no pedal edema, normal range of motion 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 SYNCOPE WITH ALTERED MENTAL STATUS Likely Vasovagal CT head/MRI brain, ECHO, Carotid Duplex, EEG: Negative Neurology on board Symptoms completely resolved Check Orthostatics-Negative DIANE on CKD III: Cr:1.4 Conitor renal function Encourage to increase oral fluid intake CAD EKG no change from baseline Continue home meds H/O DM II Diet controlled ISS, Accu checks HYPERTENSION Stable continue Lisinopril HYPOTHYROIDISM continue L thyroxine DEPRESSION/ANXIETY continue home meds DVT prophylaxis SCDs Disposition Resident of [facility] Plan to discharge today. Total time spent on discharge = This includes examination of the patient, discharge planning, medication reconciliation, and communication with other providers. Discharge Instructions Discharge Instructions Admission Reason for Admission: Altered Awareness, Transient Discharge Discharge Diagnosis / Problem: Syncope-Likely Vasovagal Discharge Goals Goal(s): Decrease discomfort, Improve function Activity Recommendations Activity Limitations: resume your previous activity Exercise/Sports Limitations: as tolerated . Instructions / Follow-Up Instructions / Follow-Up Follow up with on 07/02/16 at 3:20PM Seek immediate medical attention if your symptoms reoccur. Current Hospital Diet Patient's current hospital diet: AHA Diet (Heart Healthy), Diabetes Type 2 Diet Discharge Diet Recommended Diet: Diabetes Type 2 Diet Pending Studies Studies pending at discharge: no Laboratory Results Hemoglobin A1c Test 06/26/16 21:06 Range/Units Estimated Average Glucose 117 mg/dl Hemoglobin A1c 5.7 H 4.5-5.6 % Medical Emergencies . Who to Call and When: Medical Emergencies: If at any time you feel your situation is an emergency, please call 911 immediately. . Non-Emergent Contact Non-Emergency issues call your: Primary Care Provider Call Non-Emergent contact if: you have any medication questions You experience any dizziness, slurred speech, weakness, blurred vision. . . "Provider Documentation" section prepared by Prashant Lion. VTE Core Measure Inpt VTE Proph given/why not?: SCD's
== END 2016-06-28 15:51 | disposition home or self-care (01) ==
LOC: ENRESERVDT → ENRESERVTM → EDBD 16:55 → C.EDA 17:00 → C.MED 17:38 → EDBEDREQ 18:07
PROVIDERS: ADMIT Internal Medicine; ATTEND Internal Medicine
DX: F32.9 Major depressive disorder, single episode, unspecified (principal); E03.9 Hypothyroidism, unspecified; E11.9 Type 2 diabetes mellitus without complications; E78.5 Hyperlipidemia, unspecified; F41.9 Anxiety disorder, unspecified; G93.40 Encephalopathy, unspecified; I12.9 Hypertensive chronic kidney disease with stage 1 through stage 4 chronic kidney disease, or unspecified chronic kidney disease; I25.10 Atherosclerotic heart disease of native coronary artery without angina pectoris; I35.1 Nonrheumatic aortic (valve) insufficiency; N17.9 Acute kidney failure, unspecified; N18.3 Chronic kidney disease, stage 3 (moderate); R55 Syncope and collapse; Z86.73 Personal history of transient ischemic attack (TIA), and cerebral infarction without residual deficits; Z87.891 Personal history of nicotine dependence; Z95.1 Presence of aortocoronary bypass graft

== ENCOUNTER → 2017-04-13 | Day surgery (SDC) | payer OTHER ==
[~2017-04-13] VITALS: Ht 149.9 cm; Wt 68.0 kg
[~2017-04-13] MED LIST changes: -ALUM-51 PO; +ATROPINE SULFATE 0.1 MG/ML 5ML SYR IV PRN; +CLON0.5T3 PO; -CLON1TAB3 PO; +EpHEDrine SULFATE INJ 50 MG/ML AMP IV PRN; +GABA-1218 PO; -GABA300C19 PO; -IMD/2 PO; +LIDOCAINE HCL 2% 2 ML VIAL (20MG/ML) ONE; +NEOM-25 TOP; -PANT1TAB48 PO; +PANT40TA PO; -POLY335040 PO; +PROPOFOL IV EMULSION 10 MG/ML 20 ML VIAL IV ONE; +SODIUM CHLORIDE 0.9% 500ML 500 ML IV ONE; +THROLOZ22 PO; +VENL150T33 PO; -VENL75CA PO; -VNCS125 PO; +[UNRECOGNIZED DRUG - OTHER] PO; -[UNRECOGNIZED DRUG - OTHER] PO; -[UNRECOGNIZED DRUG - SUPPLY]; -[UNRECOGNIZED DRUG - SUPPLY]
[2017-04-13 09:41] VITALS: Ht 149.9 cm; Wt 68.0 kg
--- NOTE | 2017-04-13 09:52 | Endo History and Physical ---
History & Physical Date of Service: Apr 13, 2017. Chief Complaint: dysphagia, food getting stuck Referring Physician: Dr. Galeas History of Present Illness Patient with dysphagia. Past Medical History Diabetes, Hypertension, Other, Depression Past Surgical History Hx Cardiac Surgery: Yes Hx Internal Defibrillator: No Hx Abdominal Surgery: Yes Hx Cancer Surgery: Yes Hx Thoracic Surgery: No Hx Orthopedic: Yes Hx Urinary Tract Surgery: No Family History None Social History Smoking Status: Former Smoker Hx Substance Use: Yes (occasional smoker in the past) Hx Alcohol Use: Yes (occasional beer) Allergies Coded Allergies: No Known Allergies (Verified , 04/09/17) Current Medications Reported Home Medications Medications Dose Route/Sig Max Daily Dose Days Date Category Aspirin Ec (Aspirin) 81 Mg Tab 81 Mg PO DAILY 04/09/17 Reported Triple Antibiotic (Dvbljqtn-Cvxdrmashw-Ictjwosjq) 1 Oin Oin 1 Dose TOP DAILY PRN 04/09/17 Reported [Qc Cough & Cold Hbp] 1 Tab PO Q4H PRN 04/09/17 Reported [place] Cough Drops (Menthol (Mouth-Throat)) 7 Mg Jessica 1 Jessica PO UD PRN 04/09/17 Reported Protonix (Pantoprazole Sodium) 40 Mg Tab 40 Mg PO DAILY 04/09/17 Reported Klonopin (Clonazepam) 0.5 Mg Tab 1 Tab PO BID 04/09/17 Reported Klonopin (Clonazepam) 0.5 Mg Tab 2 Tabs PO QPM 04/09/17 Reported Venlafaxine Hcl Er (Venlafaxine Hcl) 150 Mg Tab 1 Tab PO DAILY 04/09/17 Reported Tylenol (Acetaminophen) 500 Mg Tab 1,000 Mg PO TID 01/24/16 Reported Nitrostat (Nitroglycerin) 0.4 Mg Tab 0.4 Mg UT UD PRN 11/20/15 Reported Lipitor (Atorvastatin Calcium) 40 Mg Tab 40 Mg PO QPM 11/20/15 Reported Fosamax (Alendronate Sodium) 70 Mg Tab 70 Mg PO WK 11/20/15 Reported Tears Naturale (Artificial Tear Solution) 1 Kimberly Kimberly 2 Drops OPB QID 10/19/14 Reported Neurontin (Gabapentin) 300 Mg Cap 300 Mg PO BID 10/19/14 Reported Prinivil (Lisinopril) 5 Mg Tab 5 Mg PO QAM 10/19/14 Reported Synthroid (Levothyroxine Sodium) 75 Mcg Tab 75 Mcg PO QAM 10/19/14 Reported Ultram (Tramadol HCl) 50 Mg Tab 50 Mg PO TID 09/01/13 Reported Neurontin (Gabapentin) 300 Mg Cap 600 Mg PO HS 09/01/13 Reported Vitamin D 1000 Unit (Cholecalciferol) 1,000 Unit Cap 1,000 Inter.unit PO DAILY 01/19/12 Reported Vital Signs Weight (Kilograms): 68.00 Height (Feet): 4 Height (Inches): 11 Date Time Temp Pulse Resp B/P (MAP) Pulse Ox O2 Delivery O2 Flow Rate FiO2 04/13/17 09:46 36.8 84 18 169/60 (96) 97 Room Air Physical Exam General Appearance: no apparent distress Respiratory/Chest: Auscultation: breath sounds normal Cardiovascular: Heart Auscultation: RRR Abdomen: Inspection & Palpation: soft Liver: non-tender Assessment and Plan stable for EGD
--- NOTE | 2017-04-13 10:24 | GI REPORT ---
Procedure Date: 04/13/2017 9:54 AM Procedure: Upper GI endoscopy Indications: Dysphagia, Heartburn Medicines: See the Anesthesia note for documentation of the administered medications Complications: No immediate complications. Estimated Blood Loss: Estimated blood loss was minimal. Procedure: Pre-Anesthesia Assessment: - Prior to the procedure, a History and Physical was performed, and patient medications, allergies and sensitivities were reviewed. The patient's tolerance of previous anesthesia was reviewed. - The risks and benefits of the procedure and the sedation options and risks were discussed with the patient. All questions were answered and informed consent was obtained. - Patient identification and proposed procedure were verified prior to the procedure by the physician and the nurse. The procedure was verified in the pre-procedure area. - Pre-procedure physical examination revealed no contraindications to sedation. - After reviewing the risks and benefits, the patient was deemed in satisfactory condition to undergo the procedure. After obtaining informed consent, the endoscope was passed under direct vision. Throughout the procedure, the patient's blood pressure, pulse, and oxygen saturations were monitored continuously. The Scope was introduced through the mouth, and advanced to the third part of duodenum. The upper GI endoscopy was accomplished without difficulty. The patient tolerated the procedure well. Findings: The esophagus was normal. Diffuse mildly erythematous mucosa without bleeding was found in the gastric antrum. Biopsies were taken with a cold forceps for Helicobacter pylori testing. Verification of patient identification for the specimen was done by the physician and nurse using the patient's name and medical record number. Estimated blood loss was minimal. The examined duodenum was normal. The cardia and gastric fundus were normal on retroflexion. Impression: - Normal esophagus. - No stricture seen. - Erythematous mucosa in the antrum, most likely from ASA use. Biopsied. - Normal examined duodenum. Recommendation: - Await pathology results. - Discharge patient to home. Reggie Torres M.D. Reggie Torres MD 04/13/2017 10:23:43 AM This report has been signed electronically. Note Initiated On: 04/13/2017 9:54 AM I attest to the content of the Intraoperative Record and orders documented therein, exceptions below
--- NOTE | 2017-04-13 10:30 | Discharge Instructions ---
Endoscopy Patient Instructions Date / Procedure(s) Performed Apr 13, 2017. EGD Allergy Information Coded Allergies: No Known Allergies (Verified , 04/09/17) Discharge Date / Findings Apr 13, 2017. No worrisome pathology seen. Provider Instructions Activity Restrictions - No exercising or heavy lifting for 24 hours. - Do not drink alcohol the day of the procedure. - Do not drive a car or operate machinery until the day after the procedure. - Do not make any important decisions or sign important papers in 24 hours after the procedure. Following Day: - Return to full activity which may include returning to work/school. Diet Start your diet with liquids and light foods (jello, soup, juice, toast). Then eat your usual diet if not nauseated. Treatment For Common After Affects For mild abdominal pain, bloating, or excessive gas: - Rest - Eat lightly - Lie on right side Follow-Up Information Follow-up with Dr. Galeas as scheduled Anesthesia Information What You Should Know You have had a procedure that required some medicine to reduce anxiety and discomfort. This treatment is called moderate sedation. After receiving the treatment, you may be sleepy, but you will be able to breathe on your own. The effects of the treatment may last for several hours. Follow these instructions along with Activity/Diet recommendations noted above: * Do NOT do anything where dizziness or clumsiness would be dangerous. * Rest quietly at home today, then you can be up and about tomorrow. * Have a responsible person stay with you the rest of today. * You may have had an I.V. today. If so, you may take the dressing off later today. Recommendations Call your doctor if: * Trouble breathing * Continuous vomiting for more than 24 hours * Temperature above 101 degrees * Severe abdominal pain or bloating * Pain not relieved by pain medicine ordered * There is increased drainage or redness from any incision * A large amount of rectal bleeding greater than 2-3 tablespoons. (If you had a polyp/s removed or have hemorrhoids, a small amount of blood - from the rectum is to be expected.) * You have any unanswered questions or concerns. IN THE EVENT OF A SERIOUS EMERGENCY, GO TO THE NEAREST EMERGENCY ROOM Your discharge instructions were prepared by provider Reggie Torres. Patient Instructions Signature Page Yvonne Greenfield Patient (or Guardian) Signature/Date: I have read and understand the instructions given to me by my caregivers. Caregiver/RN/Doctor Signature/Date: The above-named patient and/or guardian has received patient instructions on this date. + Original Patient Signature Page (only) stays with chart. Please make copy for patient.
[2017-04-13 10:50] VITALS: BP 164/68; PULSE 81; O2SAT 96
--- NOTE | 2017-04-13 10:56 | Anesthesiology Progress Note ---
Anesthesia Post Op Note Date & Time Apr 13, 2017 at 10:55 Vital Signs Pain Intensity: 0 Vital Signs Past 12 Hours Date Time Temp Pulse Resp B/P (MAP) Pulse Ox O2 Delivery O2 Flow Rate FiO2 04/13/17 10:50 81 18 164/68 (100) 96 Room Air 04/13/17 10:35 79 18 136/67 (90) 96 Room Air 04/13/17 10:25 36.4 79 18 127/59 (81) 94 Room Air 04/13/17 09:46 36.8 84 18 169/60 (96) 97 Room Air Notes Mental Status: alert / awake / arousable, participated in evaluation Pt Amnestic to Procedure: Yes Nausea / Vomiting: adequately controlled Pain: adequately controlled Airway Patency, RR, SpO2: stable & adequate BP & HR: stable & adequate Hydration State: stable & adequate Anesthetic Complications: no major complications apparent
== END | disposition home or self-care (01) ==
LOC: C.GI 09:22
PROVIDERS: ATTEND Internal Medicine Gastroenterology
DX: K29.50 Unspecified chronic gastritis without bleeding (principal); R13.10 Dysphagia, unspecified; E11.9 Type 2 diabetes mellitus without complications; I10 Essential (primary) hypertension; F32.9 Major depressive disorder, single episode, unspecified; Z87.891 Personal history of nicotine dependence; Z79.82 Long term (current) use of aspirin; Z79.899 Other long term (current) drug therapy

== ENCOUNTER → 2017-05-05 | Outpatient (CLI) | payer OTHER ==
[~2017-05-05] MED LIST changes: -ATROPINE SULFATE 0.1 MG/ML 5ML SYR IV PRN; -EpHEDrine SULFATE INJ 50 MG/ML AMP IV PRN; -LIDOCAINE HCL 2% 2 ML VIAL (20MG/ML) ONE; -PROPOFOL IV EMULSION 10 MG/ML 20 ML VIAL IV ONE; -SODIUM CHLORIDE 0.9% 500ML 500 ML IV ONE
[2017-05-05 08:32] LABS: URINE APPEARANCE CLEAR (CLEAR); URINE BILIRUBIN NEG (NEG); URINE COLOR YELLOW; URINE NITRITE NEG (NEG); URINE PH 5.5 (4.5-7.5); UROBILINOGEN NEG (NEG)
[2017-05-05 08:35] LABS: MANUAL MICROSCOPIC REQUIRED? NO; REVIEW REQ? NO
== END | disposition home or self-care (01) ==
LOC: C.LABWYN 07:57
PROVIDERS: ATTEND Family Medicine
DX: R30.0 Dysuria (principal)

== ENCOUNTER → 2017-07-10 | Outpatient (CLI) | payer OTHER | END | disposition home or self-care (01) | LOC: C.LABWYN 12:09 | PROVIDERS: ATTEND Family Medicine | DX: R30.0 Dysuria (principal); R32 Unspecified urinary incontinence ==

== ENCOUNTER 2017-10-06 08:51 | Emergency (ER) | payer OTHER ==
[~2017-10-06] VITALS: Ht 147.3 cm; Wt 67.5 kg
[2017-10-06 08:59] VITALS: TEMP 37; Ht 147.3 cm; Wt 67.5 kg
[2017-10-06] MEDS ORDERED: ONDANSETRON INJ 2 MG/ML 2 ML VIAL IV STA (09:28)
[2017-10-06] MEDS ORDERED: MoRPHine SULFATE 4 MG/ML 1 ML CARP\\VIAL IV STA (09:28)
[2017-10-06] MEDS ORDERED: SODIUM CHLORIDE 0.9% 500ML 500 ML IV STA (09:28)
[2017-10-06 09:36] VITALS: O2SAT 95
[2017-10-06] MEDS ORDERED: OPTIRAY 320 IV PRN (09:45)
[2017-10-06 09:48] LABS: BASO % 0.7 %; BASO ABS # 0.04 K/uL (0-0.2); EOS % 1.3 %; EOS ABS # 0.07 K/uL (0-0.5); HEMOGLOBIN 13.7 g/dL (12.0-16.0); IG# 0.01 K/uL (0.00-0.02); LYMPH % 27.2 %; LYMPH ABS # 1.48 K/uL (1.2-3.4); MEAN CELL VOLUME 93.6 fL (80-100); MEAN CORPUSCULAR HEMOGLOBIN 31.3 pg (25-34); MEAN CORPUSCULAR HGB CONC 33.4 g/dl (32-36); MONO % 9.7 %; MONO ABS # 0.53 K/uL (0.11-0.59); NEUT % 60.9 %; NEUT ABS # 3.32 K/uL (1.4-6.5); PLATELET COUNT 221 K/uL (130-400); RED CELL DISTRIBUTION WIDTH CV 12.7 % (11.5-14.5); RED CELL DISTRIBUTION WIDTH SD 43.5 fL (36.4-46.3); WHITE BLOOD COUNT 5.45 K/uL (4.8-10.8)
--- NOTE | 2017-10-06 09:52 | EMERGENCY ROOM VISIT NOTE ---
History Report prepared by Iliana: Tony Llanos Under the Supervision of: Dr. Chucho Alas M.D. First contact with patient: 09:18 Chief Complaint: FLANK PAIN Stated Complaint: PAIN IN BACK AND SIDES,POSSIBLE KIDNEY PROBLEM History of Present Illness The patient is a 77 year old female who presents to the Emergency Room with complaints of worsening pain in her lower back/flanks bilaterally. The patient states that this pain has been present for "a long time," but has worsened acutely over the past week. The patient's pain is worsened by deep inhalation. She continues to complain of diffuse "aches." She adds that she believes she has issues with her kidneys, which per PCP is aware of. Source of History: patient Onset: 1 week Position: back (lower) Quality: ache Timing: worsening Modifying Factors (Worsening): breathing (deep inhalation) Review of Systems See HPI for pertinent positives & negatives. A total of 10 systems reviewed and were otherwise negative. Past Medical & Surgical Medical Problems: (1) Altered awareness, transient (2) CAD (coronary artery disease) (3) CKD (chronic kidney disease), stage III (4) CVA (cerebral vascular accident) (5) Depression (6) HLD (hyperlipidemia) (7) HTN (hypertension) (8) Hypothyroidism Surgical Problems: (1) H/O: hysterectomy (2) History of appendectomy (3) History of carpal tunnel surgery (4) History of cataract surgery (5) History of esophagogastroduodenoscopy (EGD) (6) Hx of CABG (7) S/P cholecystectomy Family History FHx: diabetes mellitus Social History Smoking Status: Current Some Day Smoker Marital Status: Housing Status: detention Occupation Status: retired Current/Historical Medications Scheduled Acetaminophen (Tylenol), 1,000 MG PO TID Alendronate Sodium (Fosamax), 70 MG PO WK Artificial Tear Solution (Tears Naturale), 2 DROPS OPB QID Aspirin (Aspirin Ec), 81 MG PO DAILY Atorvastatin (Lipitor), 40 MG PO QPM Cholecalciferol (Vitamin D 1000 Unit), 1,000 INTER.UNIT PO DAILY Clonazepam (Klonopin), 1 MG PO QPM Clonazepam (Klonopin), 0.5 MG PO BID Docusate Sodium (Colace), 1 CAP PO BID Gabapentin (Neurontin), 600 MG PO HS Gabapentin (Neurontin), 300 MG PO BID Levothyroxine Sodium (Synthroid), 75 MCG PO QAM Lidocaine (Lidocaine), 5 % TD DAILY Lisinopril (Prinivil), 5 MG PO QAM Pantoprazole (Protonix), 40 MG PO DAILY Polyethylene Glycol 3350 (Miralax), 17 GM PO Q2D Sennosides (Senokot), 8.6 MG PO HS Tramadol (Ultram), 50 MG PO TID Valacyclovir Hcl (Valtrex), 1,000 MG PO TID Venlafaxine Hcl (Venlafaxine Hcl Er), 150 MG PO DAILY Scheduled PRN Menthol (Mouth-Throat) ([place] Cough Drops), 1 NITA PO UD PRN for Cough Ytxyhdfe-Aibcdchfqb-Vevpohflo (Triple Antibiotic), 1 DOSE TOP DAILY PRN for PRN Nitroglycerin (Nitrostat), 0.4 MG UT UD PRN for Chest Pain Oxycodone Immediate Rel Tab (Roxicodone Ir), 1-2 TAB PO Q4H PRN for Severe Pain Allergies Coded Allergies: No Known Allergies (Verified , 04/09/17) Physical Exam Vital Signs Date Time Temp Pulse Resp B/P (MAP) Pulse Ox O2 Delivery O2 Flow Rate FiO2 10/06/17 12:47 72 156/71 98 Room Air 10/06/17 11:33 68 166/78 95 Nasal Cannula 2.0 10/06/17 10:20 64 10/06/17 10:16 67 18 166/78 95 Room Air 10/06/17 09:36 97 Room Air 10/06/17 09:36 95 Room Air 10/06/17 08:59 37.0 88 20 114/74 99 Room Air Physical Exam GENERAL: Awake, alert, well-appearing, in no acute distress HENT: Normocephalic, atraumatic. Oropharynx unremarkable. EYES: Normal conjunctiva. Sclera non-icteric. NECK: Supple. No nuchal rigidity. FROM. No JVD. RESPIRATORY: Clear to auscultation. CARDIAC: Regular rate, normal rhythm. Extremities warm and well perfused. Pulses equal. ABDOMEN: Soft, non-distended. No tenderness to palpation. No rebound or guarding. No masses. RECTAL: Deferred. MUSCULOSKELETAL: Chest examination reveals no tenderness. The back is symmetrical on inspection without obvious abnormality. There is no CVA tenderness to palpation. No joint edema. LOWER EXTREMITIES: Calves are equal size bilaterally and non-tender. No edema. No discoloration. NEURO: Normal sensorium. No sensory or motor deficits noted. SKIN: There is a rash pattern in one dermatome that reaches around the back. The beginning of what appears to be a blister type rash. Medical Decision & Procedures ER Provider Diagnostic Interpretation: Radiology results as stated below per my review and radiologist interpretation: CT ABD/PELVIS IV AND ORAL CONT CLINICAL HISTORY: Diffuse abdominal pain COMPARISON STUDY: January 10, 2016 TECHNIQUE: Following the IV administration of 119 mL of Optiray-320, CT scan of the abdomen and pelvis was performed from the lung bases to the proximal femurs. Images are reviewed in the axial, sagittal, and coronal planes. IV contrast was administered without complication. A dose lowering technique was utilized adhering to the principles of ALARA. CT DOSE: FINDINGS: Lower chest: There are coronary artery calcifications. There are dependent atelectatic changes present. Liver: No space-occupying hepatic masses are visualized. There is pneumobilia present similar to the preceding study. Common bile duct is mildly dilated measuring 11 mm. Gallbladder: Surgically absent Spleen: Normal in size and attenuation. Pancreas: Unremarkable. Adrenal glands: Unremarkable. Kidneys: Both kidneys demonstrate a lobulated contour. No solid renal masses are visualized. There are bilateral renal cysts. The largest measures 8 mm on the left and 14 mm in the right. There is no hydronephrosis. Bowel: There are no transition zones indicate bowel obstruction. By history the patient is status post a prior appendectomy. There is extensive left colonic diverticulosis. There are no acute peridiverticular inflammatory changes. Incidental note is made of distal ileal diverticulosis. Peritoneum: There is no intraperitoneal free air or abdominal ascites. There is a tiny fat-containing umbilical hernia. Vasculature: The abdominal aorta is normal in course and caliber. Adenopathy: None. Pelvic viscera: The patient is status post a prior hysterectomy. Skeletal structures: No destructive osseous lesions are seen. IMPRESSION: 1. No acute abdominal or pelvic findings 2. Stable pneumobilia 3. No evidence of bowel obstruction. No evidence of free air 4. Colonic and ileal diverticulosis. No evidence of acute diverticulitis Electronically signed by: Keyon Arreola M.D. 10/06/2017 12:54 PM Dictated Date/Time: 10/06/2017 12:48 PM CHEST ONE VIEW PORTABLE HISTORY: Atypical CHEST PAIN COMPARISON: Chest 01/24/2016. FINDINGS: No pneumothorax. No pleural effusions. Cholecystectomy. Poststernotomy changes. No focal lung consolidations to suggest pneumonia. No evidence for pulmonary edema. The heart is normal in size. A 6 mm nodule within the right upper lobe. A few linear densities at the left lung base favor subsegmental atelectasis. IMPRESSION: 1. No acute process within the chest. 2. A 6 mm right upper lobe nodule. This could represent a calcified granuloma. This will be better assessed on the same day chest CT. Electronically signed by: Yinka Mora M.D. 10/06/2017 10:11 AM Dictated Date/Time: 10/06/2017 10:[address] ANGIOGRAM OF THE CHEST CLINICAL HISTORY: Atypical chest pain. Back pain. COMPARISON STUDY: Chest CT dated 10/06/2017. TECHNIQUE: Following the IV administration of 119 cc of Optiray 320, CT angiogram of the chest was performed from the upper abdomen to the thoracic inlet utilizing the pulmonary embolus protocol. Images are reviewed in the axial, sagittal, and coronal planes. 3-D MIPS images are created and assessed. IV contrast was administered without complication. A dose lowering technique was utilized adhering to the principles of ALARA. CT DOSE: 1010.63 mGy.cm FINDINGS: Thyroid: Atrophic. Thoracic aorta: There is atherosclerotic calcification of the thoracic aorta, which is normal in caliber and demonstrates standard 3-vessel arch anatomy. No dissection is seen. Pulmonary vasculature: Enlargement of the pulmonary arteries suggests pulmonary artery hypertension. There are no filling defects identified in main, lobar, or segmental pulmonary branches to suggest pulmonary embolus. Heart: The patient is status post midline sternotomy. The heart is enlarged and without pericardial effusion. Lungs and pleural spaces: Evaluation of lung parenchyma is degraded by motion artifact. No airspace consolidation or pleural effusion is identified. Dependent scarring/atelectasis is noted. The trachea and central airways are clear. Mediastinum: There is no mediastinal lymphadenopathy. Julissa: Clear. Axillae: There is no axillary lymphadenopathy. Upper abdomen: Cholecystectomy clips are noted. There is pneumobilia and mild intrahepatic biliary ductal dilatation. This is similar to previous. Numerous calcified splenic granulomas are observed. There is a tiny hiatal hernia. Diverticulosis is noted in the partially imaged colon. 1.4 cm cyst is seen in the partially imaged right kidney. Skeletal structures: The skeletal structures are osteopenic. Degenerative change and hyperkyphosis are noted in the thoracic spine. No lytic or blastic bony lesions are seen. Arthritic change is noted in the shoulders. IMPRESSION: 1. There is no evidence of pulmonary embolus in the main, lobar, or segmental pulmonary arteries. 2. Cardiomegaly. 3. There is no airspace consolidation or pleural effusion. 4. Additional findings as above. Electronically signed by: Todd Perales M.D. 10/06/2017 12:58 PM Dictated Date/Time: 10/06/2017 12:52 PM Laboratory Results 10/06/17 09:35 Red Blood Count 4.38, Mean Corpuscular Volume 93.6, Mean Corpuscular Hemoglobin 31.3, Mean Corpuscular Hemoglobin Concent 33.4, Mean Platelet Volume 9.0, Neutrophils (%) (Auto) 60.9, Lymphocytes (%) (Auto) 27.2, Monocytes (%) (Auto) 9.7, Eosinophils (%) (Auto) 1.3, Basophils (%) (Auto) 0.7, Neutrophils # (Auto) 3.32, Lymphocytes # (Auto) 1.48, Monocytes # (Auto) 0.53, Eosinophils # (Auto) 0.07, Basophils # (Auto) 0.04 10/06/17 09:35 Test 10/06/17 09:35 10/06/17 12:12 White Blood Count 5.45 K/uL (4.8-10.8) Red Blood Count 4.38 M/uL (4.2-5.4) Hemoglobin 13.7 g/dL (12.0-16.0) Hematocrit 41.0 % (37-47) Mean Corpuscular Volume 93.6 fL (80-100) Mean Corpuscular Hemoglobin 31.3 pg (25-34) Mean Corpuscular Hemoglobin Concent 33.4 g/dl (32-36) Platelet Count 221 K/uL (130-400) Mean Platelet Volume 9.0 fL (7.4-10.4) Neutrophils (%) (Auto) 60.9 % Lymphocytes (%) (Auto) 27.2 % Monocytes (%) (Auto) 9.7 % Eosinophils (%) (Auto) 1.3 % Basophils (%) (Auto) 0.7 % Neutrophils # (Auto) 3.32 K/uL (1.4-6.5) Lymphocytes # (Auto) 1.48 K/uL (1.2-3.4) Monocytes # (Auto) 0.53 K/uL (0.11-0.59) Eosinophils # (Auto) 0.07 K/uL (0-0.5) Basophils # (Auto) 0.04 K/uL (0-0.2) RDW Standard Deviation 43.5 fL (36.4-46.3) RDW Coefficient of Variation 12.7 % (11.5-14.5) Immature Granulocyte % (Auto) 0.2 % Immature Granulocyte # (Auto) 0.01 K/uL (0.00-0.02) Prothrombin Time 10.4 SECONDS (9.0-12.0) Prothromb Time International Ratio 1.0 (0.9-1.1) Anion Gap 8.0 mmol/L (3-11) Est Creatinine Clear Calc Drug Dose 24.7 ml/min Estimated GFR () 37.4 Estimated GFR (Non- 32.2 BUN/Creatinine Ratio 13.1 (10-20) Calcium Level 9.8 mg/dl (8.5-10.1) Total Bilirubin 0.4 mg/dl (0.2-1) Direct Bilirubin 0.1 mg/dl (0-0.2) Aspartate Amino Transf (AST/SGOT) 17 U/L (15-37) Alanine Aminotransferase (ALT/SGPT) 23 U/L (12-78) Alkaline Phosphatase 73 U/L (45-117) Total Creatine Kinase 59 U/L (26-192) Creatine Kinase MB < 0.5 ng/ml (0.5-3.6) Creatine Kinase MB Ratio (0-3.0) Troponin I < 0.015 ng/ml (0-0.045) Total Protein 7.4 gm/dl (6.4-8.2) Albumin 3.9 gm/dl (3.4-5.0) Lipase 172 U/L (73-393) Urine Color YELLOW Urine Appearance CLEAR (CLEAR) Urine pH 6.5 (4.5-7.5) Urine Specific [place] 1.008 (1.000-1.030) Urine Protein NEG (NEG) Urine Glucose (UA) NEG (NEG) Urine Ketones NEG (NEG) Urine Occult Blood NEG (NEG) Urine Nitrite NEG (NEG) Urine Bilirubin NEG (NEG) Urine Urobilinogen NEG (NEG) Urine Leukocyte Esterase NEG (NEG) Labs reviewed by ED physician. Medications Administered Medications (Trade) Dose Ordered Sig/Ana Route Start Time Stop Time Status Last Admin Dose Admin Morphine Sulfate (MoRPHine SULFATE INJ) 4 mg NOW STAT IV 10/06/17 09:28 10/06/17 09:32 DC 10/06/17 10:13 4 MG Ondansetron HCl (Zofran Inj) 4 mg NOW STAT IV 10/06/17 09:28 10/06/17 09:32 DC 10/06/17 10:13 4 MG Sodium Chloride 500 ml @ 999 mls/hr Q31M STAT IV 10/06/17 09:28 10/06/17 09:58 DC 10/06/17 10:13 999 MLS/HR Valacyclovir HCl (Valtrex Tab) 1,000 mg NOW STAT PO 10/06/17 13:21 10/06/17 13:22 DC 10/06/17 13:39 1,000 MG ECG Per My Interpretation Indication: back/shoulder pain Rate (beats per minute): 66 Rhythm: normal sinus Findings: RBBB, other (No JAZMYNE/STD) Comparison ECG Date: 06/27/2016 Change: no significant change ED Course 0922: Past medical records reviewed. The patient was evaluated in room A10. A complete history and physical examination was performed. 0928: Ordered Sodium Chloride 500 mL @ 999 mL/hr IV, Zofran 4 mg IV, Morphine Sulfate 4 mg IV. 1334: Upon reexamination the patient is resting in bed. I discussed results and treatment plan with the patient. She verbalizes agreement and understanding. The patient is ready for discharge. Medical Decision Differential diagnosis: Etiologies such as musculoskeletal, disc herniation, fracture, aortic disease, metastatic disease, cord compression, discitis, infection, renal colic, gastrointestinal, acute exacerbation of chronic back pain, sciatica, cauda equina, as well as others were entertained. This is a 77-year-old female who presents emergency department complaining of right-sided flank pain. Because of the nature of the patient's complaints she was sent for CAT scan of the chest abdomen and pelvis as well as the thoracic spine however this does not show any evidence of acute process. On examination the patient has a very faint rash in the pattern of a dermatome and I suspect this may be a shingles outbreak. Because of this I placed the patient on a Lidoderm patch and placed her on Valtrex. I will know she has a normal CBC normal renal profile normal liver profile normal lipase normal cardiac enzymes normal EKG. She was given 4 mg of morphine in the emergency department repeat examination revealed much improvement the patient's symptoms. I do feel that the patient is well enough to be discharged home follow-up with her primary care physician. Patient was in agreement with the treatment plan. Medication Reconcilliation Current Medication List: was personally reviewed by me Blood Pressure Screening Patient's blood pressure: Elevated blood pressure Blood pressure disposition: Referred to PCP Impression Primary Impression: Right flank pain Scribe Attestation The scribe's documentation has been prepared under my direction and personally reviewed by me in its entirety. I confirm that the note above accurately reflects all work, treatment, procedures, and medical decision making performed by me. Departure Information Dispostion Home / Self-Care Prescriptions Lidocaine (Lidocaine) 1 Patch Tdsy 5 % TD DAILY for 30 Days, #30 PATCH Prov: Chucho Alas MD 10/06/17 Docusate Sodium (COLACE) 100 Mg Cap 1 CAP PO BID for 15 Days, #30 CAP Prov: Chucho Alas MD 10/06/17 Sennosides (SENOKOT) 8.6 Mg Tab 8.6 MG PO HS for 30 Days, #30 TAB Prov: Chucho Alas MD 10/06/17 Oxycodone Immediate Rel Tab (ROXICODONE IR) 5 Mg Tab 1-2 TAB PO Q4H Y for Severe Pain, #14 TAB Prov: Chucho Alas MD 10/06/17 Valacyclovir Hcl (VALTREX) 1 Gm Tab 1000 MG PO TID, #21 TAB Prov: Chucho Alas MD 10/06/17 Referrals [facility] CARLY REYES (PCP) Forms HOME CARE DOCUMENTATION FORM, IMPORTANT VISIT INFORMATION Patient Instructions My [facility] Additional Instructions STRONGLY SUSPECT SHINGLES You received narcotic or benzodiazepene medication while in the emergency room today. This is an addictive medication that may cause drowziness as well as constipation. Do not drive, operate heavy machinery, or drink alcohol under the influence of this medication. Take 1000 mg Tylenol every 6 hours Apply Lidoderm patch Take oxy for breakthrough pain You have been examined and treated today on an emergency basis only. This is not a substitute for, or an effort to provide, complete comprehensive medical care. It is impossible to recognize and treat all injuries or illnesses in a single emergency department visit. It is therefore important that you follow up closely with Dr Galeas. Call as soon as possible for an appointment. Thank you for your time and consideration. I look forward to speaking with you again soon. Please don't hesitate to call us if you have any questions.
--- NOTE | 2017-10-06 10:12 | DIAGNOSTIC IMAGING REPORT ---
CHEST ONE VIEW PORTABLE HISTORY: Atypical CHEST PAIN COMPARISON: Chest 01/24/2016. FINDINGS: No pneumothorax. No pleural effusions. Cholecystectomy. Poststernotomy changes. No focal lung consolidations to suggest pneumonia. No evidence for pulmonary edema. The heart is normal in size. A 6 mm nodule within the right upper lobe. A few linear densities at the left lung base favor subsegmental atelectasis. IMPRESSION: 1. No acute process within the chest. 2. A 6 mm right upper lobe nodule. This could represent a calcified granuloma. This will be better assessed on the same day chest CT. Electronically signed by: Yinka Mora M.D. 10/06/2017 10:11 AM Dictated Date/Time: 10/06/2017 10:09 AM
[2017-10-06 10:18] LABS: BLOOD UREA NITROGEN 20 mg/dl (7-18); CREATININE 1.53 mg/dl (0.60-1.20); GLUCOSE 124 mg/dl (70-99); POTASSIUM 4.3 mmol/L (3.5-5.1); SODIUM 137 mmol/L (136-145)
[2017-10-06 10:19] LABS: ALBUMIN 3.9 gm/dl (3.4-5.0); ALKALINE PHOSPHATASE 73 U/L (45-117); ALT/SGPT 23 U/L (12-78); AST/SGOT 17 U/L (15-37); CALCIUM 9.8 mg/dl (8.5-10.1); CARBON DIOXIDE 26 mmol/L (21-32); CKMB < 0.5 ng/ml (0.5-3.6); LIPASE 172 U/L (73-393); TOTAL PROTEIN 7.4 gm/dl (6.4-8.2)
[2017-10-06] MEDS ORDERED: POLY335019 PO (10:31)
[2017-10-06 12:47] VITALS: BP 156/71
--- NOTE | 2017-10-06 12:55 | DIAGNOSTIC IMAGING REPORT ---
CT ABD/PELVIS IV AND ORAL CONT CLINICAL HISTORY: Diffuse abdominal pain COMPARISON STUDY: January 10, 2016 TECHNIQUE: Following the IV administration of 119 mL of Optiray-320, CT scan of the abdomen and pelvis was performed from the lung bases to the proximal femurs. Images are reviewed in the axial, sagittal, and coronal planes. IV contrast was administered without complication. A dose lowering technique was utilized adhering to the principles of ALARA. CT DOSE: FINDINGS: Lower chest: There are coronary artery calcifications. There are dependent atelectatic changes present. Liver: No space-occupying hepatic masses are visualized. There is pneumobilia present similar to the preceding study. Common bile duct is mildly dilated measuring 11 mm. Gallbladder: Surgically absent Spleen: Normal in size and attenuation. Pancreas: Unremarkable. Adrenal glands: Unremarkable. Kidneys: Both kidneys demonstrate a lobulated contour. No solid renal masses are visualized. There are bilateral renal cysts. The largest measures 8 mm on the left and 14 mm in the right. There is no hydronephrosis. Bowel: There are no transition zones indicate bowel obstruction. By history the patient is status post a prior appendectomy. There is extensive left colonic diverticulosis. There are no acute peridiverticular inflammatory changes. Incidental note is made of distal ileal diverticulosis. Peritoneum: There is no intraperitoneal free air or abdominal ascites. There is a tiny fat-containing umbilical hernia. Vasculature: The abdominal aorta is normal in course and caliber. Adenopathy: None. Pelvic viscera: The patient is status post a prior hysterectomy. Skeletal structures: No destructive osseous lesions are seen. IMPRESSION: 1. No acute abdominal or pelvic findings 2. Stable pneumobilia 3. No evidence of bowel obstruction. No evidence of free air 4. Colonic and ileal diverticulosis. No evidence of acute diverticulitis Electronically signed by: Keyon Arreola M.D. 10/06/2017 12:54 PM Dictated Date/Time: 10/06/2017 12:48 PM
--- NOTE | 2017-10-06 12:59 | DIAGNOSTIC IMAGING REPORT ---
CT ANGIOGRAM OF THE CHEST CLINICAL HISTORY: Atypical chest pain. Back pain. COMPARISON STUDY: Chest CT dated 10/06/2017. TECHNIQUE: Following the IV administration of 119 cc of Optiray 320, CT angiogram of the chest was performed from the upper abdomen to the thoracic inlet utilizing the pulmonary embolus protocol. Images are reviewed in the axial, sagittal, and coronal planes. 3-D MIPS images are created and assessed. IV contrast was administered without complication. A dose lowering technique was utilized adhering to the principles of ALARA. CT DOSE: 1010.63 mGy.cm FINDINGS: Thyroid: Atrophic. Thoracic aorta: There is atherosclerotic calcification of the thoracic aorta, which is normal in caliber and demonstrates standard 3-vessel arch anatomy. No dissection is seen. Pulmonary vasculature: Enlargement of the pulmonary arteries suggests pulmonary artery hypertension. There are no filling defects identified in main, lobar, or segmental pulmonary branches to suggest pulmonary embolus. Heart: The patient is status post midline sternotomy. The heart is enlarged and without pericardial effusion. Lungs and pleural spaces: Evaluation of lung parenchyma is degraded by motion artifact. No airspace consolidation or pleural effusion is identified. Dependent scarring/atelectasis is noted. The trachea and central airways are clear. Mediastinum: There is no mediastinal lymphadenopathy. Julissa: Clear. Axillae: There is no axillary lymphadenopathy. Upper abdomen: Cholecystectomy clips are noted. There is pneumobilia and mild intrahepatic biliary ductal dilatation. This is similar to previous. Numerous calcified splenic granulomas are observed. There is a tiny hiatal hernia. Diverticulosis is noted in the partially imaged colon. 1.4 cm cyst is seen in the partially imaged right kidney. Skeletal structures: The skeletal structures are osteopenic. Degenerative change and hyperkyphosis are noted in the thoracic spine. No lytic or blastic bony lesions are seen. Arthritic change is noted in the shoulders. IMPRESSION: 1. There is no evidence of pulmonary embolus in the main, lobar, or segmental pulmonary arteries. 2. Cardiomegaly. 3. There is no airspace consolidation or pleural effusion. 4. Additional findings as above. Electronically signed by: Todd Perales M.D. 10/06/2017 12:58 PM Dictated Date/Time: 10/06/2017 12:52 PM
[2017-10-06] MEDS ORDERED: LIDODERM (LIDOCAINE) PATCH 5% TD STA (13:21)
--- NOTE | 2017-10-06 13:22 | DIAGNOSTIC IMAGING REPORT ---
THORACIC SPINE CT CT DOSE: HISTORY: Pt c/o back pain TECHNIQUE: Multiaxial CT images of the thoracic spine were performed and reformatted in the sagittal and coronal plane without the use of contrast. A dose lowering technique was utilized adhering to the principles of ALARA. COMPARISON: None. FINDINGS: Mild dextroscoliosis of the thoracic spine. There are flowing anterior osteophytes consistent with diffuse hepatic skeletal hyperostosis. No fracture or subluxation. Mild disc space narrowing throughout the majority of the thoracic spine. No pneumothorax. IMPRESSION: No fractures within the thoracic spine. Electronically signed by: Yinka Mora M.D. 10/06/2017 1:21 PM Dictated Date/Time: 10/06/2017 12:53 PM
[2017-10-06] MEDS ORDERED: VALA1TAB2 PO (13:23)
[2017-10-06] MEDS ORDERED: OXYC1TAB3 PO (13:23)
[2017-10-06] MEDS ORDERED: DOCU-94 PO (13:23)
[2017-10-06] MEDS ORDERED: SENN1TAB77 PO (13:23)
[2017-10-06] MEDS ORDERED: LDDP5 TD (13:29)
[2017-10-06 13:40] VITALS: PULSE 75; O2SAT 98
--- NOTE | 2017-10-06 18:39 | Pharmacy Progress Note ---
ED Pharmacist Progress Note Date of Service: October 06, 2017. Received call from outpatient pharmacy requesting change to lidocaine patch - they noted lidocaine 5% patch would be well above $100-200 but that 4% patch would only be $30-40. Case discussed w Dr. Allison - confirmed switch to 4% patch was OK. Notified outpatient pharmacist.
== END 2017-10-06 13:40 | disposition home or self-care (01) ==
LOC: C.EDB 08:52 → C.EDA 13:40
DX: R10.31 Right lower quadrant pain (principal); R21 Rash and other nonspecific skin eruption; I25.10 Atherosclerotic heart disease of native coronary artery without angina pectoris; N18.3 Chronic kidney disease, stage 3 (moderate); I12.9 Hypertensive chronic kidney disease with stage 1 through stage 4 chronic kidney disease, or unspecified chronic kidney disease; Z86.73 Personal history of transient ischemic attack (TIA), and cerebral infarction without residual deficits; F32.9 Major depressive disorder, single episode, unspecified; E78.5 Hyperlipidemia, unspecified; E03.9 Hypothyroidism, unspecified; Z90.49 Acquired absence of other specified parts of digestive tract; Z90.710 Acquired absence of both cervix and uterus; Z98.49 Cataract extraction status, unspecified eye; Z95.1 Presence of aortocoronary bypass graft; F17.210 Nicotine dependence, cigarettes, uncomplicated; Z83.3 Family history of diabetes mellitus; Z79.82 Long term (current) use of aspirin; Z79.899 Other long term (current) drug therapy

== ENCOUNTER 2018-11-14 13:18 | Observation (INO) ==
[2018-11-14] MEDS ORDERED: ASPIRIN CHEW 324 MG PO STA (13:36)
[2018-11-14] MEDS ORDERED: SODIUM CHLORIDE 0.9% 500 ML IV SCH (13:45)
[2018-11-14 13:55] LABS: Basophils # (auto) 0.04 K/uL (0-0.2); Basophils % (auto) 0.9 %; Eosinophils # (auto) 0.08 K/uL (0-0.5); Eosinophils % (auto) 1.7 %; Hematocrit (blood only) 37.1 % (37-47); Hemoglobin 12.5 g/dL (12.0-16.0); Immature Granulocytes # (auto) 0.01 K/uL (0.00-0.02); Immature Granulocytes % (auto) 0.2 %; Lymphocytes # (auto) 1.89 K/uL (1.2-3.4); Lymphocytes % (auto) 40.2 %; Mean Corpuscular Hgb Conc 33.7 g/dL (32-36); Mean Corpuscular Volume 90.7 fL (80-100); Mean Platelet Volume 9.1 fL (7.4-10.4); Monocytes # (auto) 0.49 K/uL (0.11-0.59); Monocytes % (auto) 10.4 %; Neutrophils # (auto) 2.19 K/uL (1.4-6.5); Neutrophils % (auto) 46.6 %; Platelet Count 201 K/uL (130-400); RDW Coefficient of Variation 12.5 % (11.5-14.5); RDW Standard Deviation 41.5 fL (36.4-46.3); Red Blood Count 4.09 M/uL (4.2-5.4)
[2018-11-14] MEDS: NITROGLYCERIN SL 0.4 MG/TAB TAB SL PRN ×2 (13:55→14:02)
--- NOTE | 2018-11-14 13:59 | XRay Report ---
XR chest 1V portable CLINICAL HISTORY: Atypical chest pain COMPARISON STUDY: 10/06/2017 FINDINGS: There are postsurgical changes of a midline sternotomy. The heart is normal in size. There is no failure. There is no focal pulmonary consolidation. There are no pleural effusions.[ IMPRESSION: No active disease in the chest. Electronically signed by: Keyon Arreola M.D. 11/14/2018 1:58 PM
[2018-11-14 14:05] LABS: Partial Thromboplastin Time 27.2 Seconds (21.0-31.0); Prothrombin Time 10.3 Seconds (9.0-12.0)
[2018-11-14 14:16] LABS: Alanine Aminotransferase 24 U/L (12-78); Albumin Level 3.5 gm/dl (3.4-5.0); Aspartate Aminotransferase 16 U/L (15-37); BUN Creatinine Ratio 13.5 (10-20); Blood Urea Nitrogen 19 mg/dl (7-18); Calcium 8.6 mg/dl (8.5-10.1); Carbon Dioxide 29 mmol/L (21-32); Chloride 99 mmol/L (98-107); Est GFR (African American) 39.9; Est GFR (Non-African American) 34.5; Glucose 88 mg/dl (70-99); Potassium 4.3 mmol/L (3.5-5.1); Sodium 135 mmol/L (136-145)
[2018-11-14] MEDS ORDERED: fentaNYL citrate 100 MCG/2 ML VIAL IV ONE (14:18)
[2018-11-14 14:21] LABS: Albumin Globulin Ratio 0.9 (0.9-2); Alkaline Phosphatase 127 U/L (45-117); Bilirubin,Total 0.3 mg/dl (0.2-1); Globulin 3.7 gm/dl (2.5-4.0); Total Protein 7.2 gm/dl (6.4-8.2); Troponin I < 0.015 ng/ml (0-0.045)
[2018-11-14] MEDS ORDERED: OPTIRAY 320 125ml IV PRN (14:38)
--- NOTE | 2018-11-14 15:07 | CT Scan Report ---
CT ANGIOGRAPHY THE CHEST WITHOUT A WITH CONTRAST CLINICAL HISTORY: Atypical chest pain. Possible dissection. COMPARISON STUDY: Chest CT dated 10/06/2017 TECHNIQUE: Unenhanced images were obtained through the chest. The patient was then scanned in a dynam ic helical fashion during intravenous administration 120 cc of Optiray 320. MIP imaging was performed . IV contrast was administered without complication. A dose lowering technique was utilized adhering to the principles of ALARA. CT DOSE: FINDINGS: Thyroid: Imaged portions of the thyroid gland are normal in appearance. Thoracic aorta: Noncontrast images reveal no evidence of acute aortic hematoma. Postcontrast images r eveal no evidence of aortic aneurysm or dissection. Pulmonary vasculature: There are no filling defects to indicate acute pulmonary embolism. HEART: There are postsurgical changes of a midline sternotomy. There are coronary artery calcificatio ns present. There is no significant pericardial effusion. Lungs and pleural spaces: No pleural effusions are visualized. There are mild dependent atelectatic c hanges. There is a 15 mm groundglass opacity within the right upper lobe. This is likely infectious/i nflammatory. A three-month follow-up study is recommended Mediastinum: There is no mediastinal lymphadenopathy. Julissa: There is no evidence of pathologic hilar lymphadenopathy Axilla: There is no evidence of pathologic axillary lymphadenopathy Upper abdomen: There is pneumobilia Skeletal structures: There are no lytic or blastic osseous lesions. IMPRESSION: 1. No evidence of acute pulmonary embolism 2. No evidence of thoracic aortic aneurysm or dissection 3. 15 mm groundglass opacity within the right upper lobe. This is likely infectious/inflammatory. A p recautionary three-month follow-up chest CT is recommended. Electronically signed by: Keyon Arreola M.D. 11/14/2018 3:06 PM
--- NOTE | 2018-11-14 15:14 | CT Scan Report ---
CT angio abd pelvis wo/w con CT DOSE: 1000.86 mGy.cm CLINICAL HISTORY: Abdominal pain. Possible aneurysm/dissection. TECHNIQUE: Unenhanced images were obtained through the upper abdomen. CT angiography was then perform ed in a dynamic helical fashion during intravenous administration of 120 cc of Optiray 320. MIP IMAGE S WERE ACQUIRED. A dose lowering technique was utilized adhering to the principles of ALARA. COMPARISON STUDY: September 2017 FINDINGS: Lung bases reveal mild dependent atelectatic changes. No focal hepatic masses are visualized. There is pneumobilia. The gallbladder surgically absent. No splenic masses are visualized. No pancreatic masses are visualized. No adrenal masses are visualized. No renal calculi are visualized. There are no solid renal masses. There are several small renal cysts the largest of which measures 13 mm. There are no transition zones indicate bowel obstruction. There is colonic diverticulosis. There is n o evidence of acute diverticulitis. The appendix is surgically absent. There is no pathologic adenopathy. There is no evidence for abdominal aortic aneurysm or dissection. There is no evidence for celiac or superior mesenteric arterial stenosis. There is a greater than 80% stenosis of the proximal left lianne l artery. Inferior mesenteric artery is patent. There is no ascites. There is no free air. There is small fat-containing umbilical hernia. The uterus is surgically absent. IMPRESSION: 1. No evidence of bowel obstruction. No evidence of free air 2. Stable pneumobilia 3. Diverticulosis. No evidence of acute diverticulitis 4. No evidence of abdominal aortic aneurysm or dissection 5. Proximal left renal artery stenosis Electronically signed by: Keyon Arreola M.D. 11/14/2018 3:12 PM
--- NOTE | 2018-11-14 15:44 | Emergency Department Note ---
Entered by Cedric Barrett acting as a scribe for Andre Wilburn M.D. History of Present Illness General Chief complaint: Chest Pain Stated complaint: CHEST PAIN,NUMBNESS,SOB,DIZZINESS Source: patient History of Present Illness Onset (ago): day(s) 1 Location: chest Radiation: back and extremity Pain Consistency: + constant Exacerbated By: + other (breathing) Associated symptoms: + other (denies abominal or lower back pain); no nausea/ vomiting and no shortness of breath The patient is a 78 year old female who presents to the Emergency Room with complaints of constant left-sided chest pain beginning yesterday that worsened in the past few hours. The patient reports that the pain radiates to her left shoulder and to the back around her shoulder blade. The patient denies shortness of breath but states that her pain is worsened with breathing. She notes that over the past 2 months she has had intermittent numbness in the left shoulder. She states that she takes baby aspirin. She took her usual medications prior to arrival but has not taken any pain medications. The patient denies abdominal pain, lower back pain, nausea, increased leg swelling, recent travel, or history of these symptoms. Family reports that the patient had CABG performed 20 years ago. They note that the patient has kidney problems and on some days is unable to urinate. Home Medications Home Medications Medication Instructions Recorded Confirmed Type Artificial Tears (PF) 2 drp OPHTHALMIC (EYE) BID 06/02/18 11/14/18 History acetaminophen [Acetaminophen Extra 1,000 mg PO PM PRN 06/02/18 11/14/18 History Strength] alendronate 70 mg PO WK 06/02/18 11/14/18 History aspirin [Aspirin Low Dose] 81 mg PO QAM 06/02/18 11/14/18 History atorvastatin 40 mg PO PM 06/02/18 11/14/18 History cholecalciferol (vitamin D3) 1,000 unit PO QAM 06/02/18 11/14/18 History [Vitamin D3] cinacalcet [Sensipar] 30 mg PO QAM 06/02/18 11/14/18 History clonazepam 0.5 mg PO BID 06/02/18 11/14/18 History clonazepam 2 tabs PO QPM 06/02/18 11/14/18 History docusate sodium [Colace] 100 mg PO BID 06/02/18 11/14/18 History gabapentin 300 mg PO BID 06/02/18 11/14/18 History gabapentin 600 mg PO HS 06/02/18 11/14/18 History levothyroxine 75 mcg PO QAM 06/02/18 11/14/18 History lisinopril 1 tab PO QAM 06/02/18 11/14/18 History nitroglycerin 1 tab SUBLINGUAL UD PRN 06/02/18 11/14/18 History pantoprazole 40 mg PO QAM 06/02/18 11/14/18 History polyethylene glycol 3350 17 g PO Q OTHER DAY PRN 06/02/18 11/14/18 History tramadol 50 mg PO TID PRN 06/02/18 11/14/18 History venlafaxine 150 mg PO QAM 06/02/18 11/14/18 History melatonin 10 mg PO HS PRN 11/14/18 11/14/18 History sennosides [senna] 8.6 mg PO BID 11/14/18 11/14/18 History Allergies Allergy/AdvReac Type Severity Reaction Status Date / Time No Known Allergies Allergy Verified 06/07/18 09:09 Past Med/Surg History Medical History Chronic kidney disease (CKD) Coronary artery disease Degenerative joint disease Diabetes mellitus Dysphagia Gastritis HTN (hypertension) Neurotic depression Panic disorder Syncope Trigeminal neuralgia Surgical History History of appendectomy History of bilateral carpal tunnel release History of cardiac catheterization History of cholecystectomy History of esophagogastroduodenoscopy (EGD) History of facial surgery facial nerve surgery History of surgery on extremity left leg/knee History of total abdominal hysterectomy and bilateral salpingo-oophorectomy S/P CABG x 3 Family History Other Family history non-contributory Social History Preferred Language: Luxembourger Communication Ability: Effective Beliefs That Will Affect Care: None Current Living Situation: Group Home Feels Safe at Home: Yes Smoking Status: Never smoker Hx Alcohol Use: No (unknown, pt is a resident of [facility]) Hx Substance Use: No (unknown, pt is a resident of [facility]) Review of Systems See HPI for pertinent positives & negatives. and A total of 10 systems reviewed and were otherwise negative Physical Exam Vital Signs Vital Signs - 24 hr 11/14/18 13:20 11/14/18 13:33 11/14/18 13:55 Temperature 36.9 C Temperature Source Oral Sepsis Recent Fever Within 48 Hours No Sepsis New/Unexplained Change in Mental Status No Sepsis Action Taken by Nursing No Action Required Pulse Rate 65 Pulse Rate [Apical] 68 65 Respiratory Rate 20 18 18 Respiratory Effort / Characteristics Non-Labored Respiratory Depth Normal Blood Pressure 174/81 H Blood Pressure [Right Arm] 192/112 H 173/78 H Blood Pressure Mean 112 Blood Pressure Mean [Right Arm] 138 109 Pulse Oximetry 99 98 94 Oxygen Delivery Method Room Air Room Air Room Air 11/14/18 14:01 11/14/18 14:09 11/14/18 15:03 Temperature Temperature Source Sepsis Recent Fever Within 48 Hours Sepsis New/Unexplained Change in Mental Status Sepsis Action Taken by Nursing Pulse Rate Pulse Rate [Apical] 74 72 68 Respiratory Rate 18 18 18 Respiratory Effort / Characteristics Non-Labored Non-Labored Non-Labored Respiratory Depth Normal Normal Normal Blood Pressure Blood Pressure [Right Arm] 133/81 141/65 H 189/77 H Blood Pressure Mean Blood Pressure Mean [Right Arm] 98 90 114 Pulse Oximetry 93 93 95 Oxygen Delivery Method Room Air Room Air Room Air GENERAL: Eyes closed, uncomfortable appearing HENT: Normocephalic, atraumatic. EYES: Normal conjunctiva. Sclera non-icteric. NECK: Supple. No nuchal rigidity. RESPIRATORY: Clear to auscultation. No wheezes. Normal respiratory effort. CARDIAC: Normal rate. Normal rhythm. Extremities warm and well perfused. GI: Soft, non-distended. Mild abdominal tenderness to palpation. No rebound or guarding. No masses. RECTAL: Deferred. MUSCULOSKELETAL: Atraumatic. Chest examination reveals left-sided tenderness. There is some left upper back tenderness. There is no CVA tenderness to palpation. LOWER EXTREMITIES: Calves are equal size bilaterally and non-tender. No edema NEURO: Normal sensorium. No sensory or motor deficits noted. No facial droop or slurred speech. SKIN: Warm and dry. No rash or jaundice noted. Course 1331: The patient was evaluated in room B4B. A complete history and physical examination were performed. 1520: I discussed current findings with the patient and family. 1545: I consulted Dr. Jarvis Mullen Hospitalist. The patient will be reevaluated for hospitalization. Administered Medications Ioversol (Optiray 320 125ml) 120 ml IV ONCE PRN PRN Reason: Interaction Checking Stop: 11/18/18 14:37 Last Admin: 11/14/18 14:38 Dose: 120 ml Documented by: [id number] Nitroglycerin (Nitrostat) 0.4 mg SL UD PRN PRN Reason: Chest Pain Stop: 12/14/18 13:35 Last Admin: 11/14/18 14:02 Dose: 0.4 mg Documented by: [id number] Admin: 11/14/18 13:55 Dose: 0.4 mg Documented by: [id number] Discontinued Medications Aspirin (Aspirin) 324 mg PO NOW STA Stop: 11/14/18 13:37 Last Admin: 11/14/18 13:55 Dose: 324 mg Documented by: [id number] Fentanyl Citrate (Fentanyl Citrate) 25 mcg IV NOW ONE Stop: 11/14/18 14:19 Last Admin: 11/14/18 14:24 Dose: 25 mcg Documented by: [id number] Sodium Chloride (Nss) 500 mls @ 999 mls/hr IV .Q31M SAHRA Stop: 11/14/18 14:15 Last Infusion: 11/14/18 14:27 Dose: 0 mls/hr Documented by: [id number] Admin: 11/14/18 13:57 Dose: 999 mls/hr Documented by: [id number] Medical Decision Making Differential Diagnosis Differential diagnosis includes: cardiac ischemia, aortic dissection, pulmonary embolism, pneumonia, pneumothorax, musculoskeletal, infections, pericarditis, myocarditis, esophageal rupture, gastrointestinal, as well as others were entertained. Medical Records Attestation: I reviewed the patient's medical records. Home Medications Current Medication List: was personally reviewed by me Laboratory Data Attestation: I reviewed the patient's lab results. Result diagrams: 11/14/18 13:46 11/14/18 13:45 Lab Results 11/14/18 11/14/18 11/14/18 Range/Units 13:45 13:45 13:46 WBC 4.70 L (4.8-10.8) K/uL RBC 4.09 L (4.2-5.4) M/uL Hgb 12.5 (12.0-16.0) g/dL Hct 37.1 (37-47) % MCV 90.7 (80-100) fL MCH 30.6 (25-34) pg MCHC 33.7 (32-36) g/dL RDW Std Deviation 41.5 (36.4-46.3) fL RDW Coeff of Keshia 12.5 (11.5-14.5) % Plt Count 201 (130-400) K/uL MPV 9.1 (7.4-10.4) fL Immature Gran % (Auto) 0.2 % Neut % (Auto) 46.6 % Lymph % (Auto) 40.2 % Bethel % (Auto) 10.4 % Eos % (Auto) 1.7 % Baso % (Auto) 0.9 % Immature Gran # (Auto) 0.01 (0.00-0.02) K/uL Neut # (Auto) 2.19 (1.4-6.5) K/uL Lymph # (Auto) 1.89 (1.2-3.4) K/uL Bethel # (Auto) 0.49 (0.11-0.59) K/uL Eos # (Auto) 0.08 (0-0.5) K/uL Baso # (Auto) 0.04 (0-0.2) K/uL PT 10.3 (9.0-12.0) Seconds INR 1.0 (0.9-1.1) APTT 27.2 (21.0-31.0) Seconds PTT Ratio 1.0 Sodium 135 L (136-145) mmol/L Potassium 4.3 (3.5-5.1) mmol/L Chloride 99 (98-107) mmol/L Carbon Dioxide 29 (21-32) mmol/L Anion Gap 7.0 (3-11) BUN 19 H (7-18) mg/dl Creatinine 1.44 H (0.6-1.2) mg/dl Est Cr Clr Drug Dosing Not Reportable Est GFR ( Amer) 39.9 Est GFR (Non-Af Amer) 34.5 BUN/Creatinine Ratio 13.5 (10-20) Glucose 88 (70-99) mg/dl Calcium 8.6 (8.5-10.1) mg/dl Total Bilirubin 0.3 (0.2-1) mg/dl AST 16 (15-37) U/L ALT 24 (12-78) U/L Alkaline Phosphatase 127 H (45-117) U/L Troponin I < 0.015 (0-0.045) ng/ml Total Protein 7.2 (6.4-8.2) gm/dl Albumin 3.5 (3.4-5.0) gm/dl Globulin 3.7 (2.5-4.0) gm/dl Albumin/Globulin Ratio 0.9 (0.9-2) Lipase 188 (73-393) U/L Imaging Data Radiologist's Impression: Radiology results as stated below per my review and the radiologist's interpreta tion: CT angio abd pelvis wo/w con CT DOSE: 1000.86 mGy.cm CLINICAL HISTORY: Abdominal pain. Possible aneurysm/dissection. TECHNIQUE: Unenhanced images were obtained through the upper abdomen. CT angiography was then performed in a dynamic helical fashion during intravenous administration of 120 cc of Optiray 320. MIP IMAGES WERE ACQUIRED. A dose lowering technique was utilized adhering to the principles of ALARA. COMPARISON STUDY: September 2017 FINDINGS: Lung bases reveal mild dependent atelectatic changes. No focal hepatic masses are visualized. There is pneumobilia. The gallbladder surgically absent. No splenic masses are visualized. No pancreatic masses are visualized. No adrenal masses are visualized. No renal calculi are visualized. There are no solid renal masses. There are several small renal cysts the largest of which measures 13 mm. There are no transition zones indicate bowel obstruction. There is colonic diverticulosis. There is no evidence of acute diverticulitis. The appendix is surgically absent. There is no pathologic adenopathy. There is no evidence for abdominal aortic aneurysm or dissection. There is no evidence for celiac or superior mesenteric arterial stenosis. There is a greater than 80% stenosis of the proximal left renal artery. Inferior mesenteric artery is patent. There is no ascites. There is no free air. There is small fat-containing umbilical hernia. The uterus is surgically absent. IMPRESSION: 1. No evidence of bowel obstruction. No evidence of free air 2. Stable pneumobilia 3. Diverticulosis. No evidence of acute diverticulitis 4. No evidence of abdominal aortic aneurysm or dissection 5. Proximal left renal artery stenosis Electronically signed by: Keyon Arreola M.D. 11/14/2018 3:[address] ANGIOGRAPHY THE CHEST WITHOUT A WITH CONTRAST CLINICAL HISTORY: Atypical chest pain. Possible dissection. COMPARISON STUDY: Chest CT dated 10/06/2017 TECHNIQUE: Unenhanced images were obtained through the chest. The patient was then scanned in a dynamic helical fashion during intravenous administration 120 cc of Optiray 320. MIP imaging was performed. IV contrast was administered without complication. A dose lowering technique was utilized adhering to the principles of ALARA. CT DOSE: FINDINGS: Thyroid: Imaged portions of the thyroid gland are normal in appearance. Thoracic aorta: Noncontrast images reveal no evidence of acute aortic hematoma. Postcontrast images reveal no evidence of aortic aneurysm or dissection. Pulmonary vasculature: There are no filling defects to indicate acute pulmonary embolism. HEART: There are postsurgical changes of a midline sternotomy. There are coronary artery calcifications present. There is no significant pericardial effusion. Lungs and pleural spaces: No pleural effusions are visualized. There are mild dependent atelectatic changes. There is a 15 mm groundglass opacity within the right upper lobe. This is likely infectious/inflammatory. A three-month follow- up study is recommended Mediastinum: There is no mediastinal lymphadenopathy. Julissa: There is no evidence of pathologic hilar lymphadenopathy Axilla: There is no evidence of pathologic axillary lymphadenopathy Upper abdomen: There is pneumobilia Skeletal structures: There are no lytic or blastic osseous lesions. IMPRESSION: 1. No evidence of acute pulmonary embolism 2. No evidence of thoracic aortic aneurysm or dissection 3. 15 mm groundglass opacity within the right upper lobe. This is likely infectious/inflammatory. A precautionary three-month follow-up chest CT is recommended. Electronically signed by: Keyon Arreola M.D. 11/14/2018 3:06 PM XR chest 1V portable CLINICAL HISTORY: Atypical chest pain COMPARISON STUDY: 10/06/2017 FINDINGS: There are postsurgical changes of a midline sternotomy. The heart is normal in size. There is no failure. There is no focal pulmonary consolidation. There are no pleural effusions.[ IMPRESSION: No active disease in the chest. Electronically signed by: Keyon Arreola M.D. 11/14/2018 1:58 PM ECG Data Attestation: I personally reviewed and interpreted this ECG as follows: Indication: chest pain Rate (beats per minute): 65 Rhythm: normal sinus Findings: + RBBB and + T-wave inversion (anterior); no PVC and no ST elevation Comparison ECG Date: from (10/06/17) Change: no significant change Blood Pressure Blood Pressure Findings: Elevated blood pressure Blood Pressure Disposition: further management by hospitalist EVELYN Narrative Patient is a 78-year-old female with a past medical history of CAD, hypertension, hyperlipidemia, CKD, CVA, CABG presenting today with complaints of chest pain with inspiration and some shortness of breath. Started yesterday. No trauma or fevers reported. Brought in by granddaughter. Patient started yesterday but again significant he worsened over the last 3 to 4 hours. Pain left upper shoulder in the left upper back. Patient does have CKD. Stat creatinine was ordered. Given a small amount of duration, aspirin, nitroglycerin to try to help with pain symptoms. Does additionally have a little bit of pain with palpation of the abdomen. In discussion with the family proceed with a CT angiogram of the chest abdomen pelvis to exclude aortic disease. EKG today appears similar to previous from September 2017 with persistent T wave inversions right bundle branch block. No acute ST segment elevation is noted. Troponin was sent and returned negative. Lipase is also negative without evidence of acute hepatitis. Kidney function with GFR greater than 30 discussed with patient and feel that its best to proceed with CTs. CT showed no acute aortic pathology. Only noted finding was acute with some right upper lobe nodularity question inflammatory versus infectious but does not correlate with symptoms at all. Symptoms could be more musculoskeletal in nature but have concerns history and risk factors and she has a moderate risk heart score. We did discuss this is more likely muscular but they also concerned about going home on any pain medicine. Given this discussed with the hospitalist as the patient and family wish to proceed with observation overnight. No change in pain with nitro. Some mild improvement with morphine. Impression & Plan Chest pain, Acute pain of left shoulder Discharge Plan Visit Data Chief Complaint: Chest Pain Stated Complaint: CHEST PAIN,NUMBNESS,SOB,DIZZINESS ED Provider: Andre Wilburn Discharge Problem: Chest pain, Acute pain of left shoulder Patient Disposition: Being Evaluated by Hospitalist Forms Stand Alone Forms: Call Back Authorization, [employer] Prescriptions Prescriptions: No Action atorvastatin 40 mg Tablet 40 mg PO PM RF: 0 polyethylene glycol 3350 17 gram Powder In Packet 17 g PO Q OTHER DAY PRN (Reason: Constipation) RF: 0 alendronate 70 mg Tablet 70 mg PO WK RF: 0 clonazepam 0.5 mg Tablet 2 tabs PO QPM RF: 0 clonazepam 0.5 mg Tablet 0.5 mg PO BID RF: 0 venlafaxine 150 mg Capsule,Extended Release 24hr 150 mg PO QAM RF: 0 aspirin [Aspirin Low Dose] 81 mg Tablet,Delayed Release (Dr/Ec) 81 mg PO QAM RF: 0 tramadol 50 mg Tablet 50 mg PO TID PRN (Reason: Pain) RF: 0 acetaminophen [Acetaminophen Extra Strength] 500 mg Tablet 1,000 mg PO PM PRN (Reason: Pain) RF: 0 levothyroxine 75 mcg Tablet 75 mcg PO QAM RF: 0 pantoprazole 40 mg Tablet,Delayed Release (Dr/Ec) 40 mg PO QAM RF: 0 nitroglycerin 0.4 mg Tablet, Sublingual 1 tab Sublingual UD PRN (Reason: Angina) RF: 0 docusate sodium [Colace] 100 mg Capsule 100 mg PO BID RF: 0 gabapentin 300 mg Capsule 300 mg PO BID RF: 0 gabapentin 300 mg Capsule 600 mg PO HS RF: 0 lisinopril 5 mg Tablet 1 tab PO QAM RF: 0 cholecalciferol (vitamin D3) [Vitamin D3] 1,000 unit Capsule 1,000 unit PO QAM RF: 0 Artificial Tears (PF) Dropperette 2 drp OPHTHALMIC (EYE) BID RF: 0 cinacalcet [Sensipar] 30 mg Tablet 30 mg PO QAM RF: 0 sennosides [senna] 8.6 mg Tablet 8.6 mg PO BID RF: 0 melatonin 10 mg Tablet 10 mg PO HS PRN (Reason: Insomnia) RF: 0 Referrals Referrals: Melody Hassan [Primary Care Provider] - Discharge Problem: Chest pain Qualifiers: Chest pain type: unspecified Qualified Code(s): R07.9 - Chest pain, unspecified The scribe's documentation has been prepared under my direction and personally reviewed by me in its entirety. I confirm that the note above accurately reflects all work, treatment, procedures, and medical decision making performed by me.
--- NOTE | 2018-11-14 17:25 | History & Physical Report ---
Date of Service November 14, 2018 Assessment & Plan (1) Acute pain of left shoulder: (2) Back pain: (3) Neck pain: Present with neck pain/back pain radiating to her left shoulder associated with SOB and palpitation Mostly related to muscular skeleton Need to R/O ACS due to her cardiac history Initial troponin negative EKG showed no significant changes when compared to previous one CTA showed no PE or aortic dissection Will trend troponin Will get an echo in am Will get xray of the neck Continue pain control Continue aspirin and statin Will monitor in tele (4) Hypothyroidism: Check TSH in am Continue levothyroxine (5) HTN (hypertension): BP elevated Possible related to hospital setting On lisinopril 5 mg daily Will add hydralazine prn Continue monitor BP (6) CAD (coronary artery disease): Continue aspirin and statin Not on beta luis, Might consider to add on low dose metoprolol (7) Renal artery stenosis: CT abd/pelvis showed left renal artery stenosis Will consult nephrology Monitor BP closely (8) CKD (chronic kidney disease), stage III: Creatinine 1.4 on admission Monitor BMP stable Diabetes Not on any DM meds Last Hba1c 5.9 on 04/11 Will check HBa1c DVT px on heparin subq Code Status FULL CODE History of Present Illness Chief Complaint: Back and Neck Pain Primary Care Provider: [facility] Melody 78 yo Female from [facility] with PMH of Vit D deficiency, CKD stage 3, HTN, Dyslipidemia, Hypothyroidism, type 2 DM, anxiety, GERD, hyperparathyroidism was sent to the ER for Neck and back pain. Pt said that neck pain started last night while sitting on the chair. Pt said that today pain worsening in the neck radiating to back and left shoulder blade area. Pt described the pain as sharp and constant. She said that the pain is very bad and worsening with movement and deep breathing. She said that she was given tylenol and tramadol with no relief. Pt said that she had palpitation but now palpitation resolves. She said that she did not have any chest pain. Pt said that she CABG performed 20 years ago. Currently she said that pain improves after receiving pain med in the ER. Denies abdominal pain, fever, dizziness, nausea, vomiting and SOB. Allergies Allergy/AdvReac Type Severity Reaction Status Date / Time No Known Allergies Allergy Verified 06/07/18 09:09 Home Medications Home Medications Medication Instructions Recorded Confirmed Type Artificial Tears (PF) 2 drp OPHTHALMIC (EYE) BID 06/02/18 11/14/18 History acetaminophen [Acetaminophen Extra 1,000 mg PO PM PRN 06/02/18 11/14/18 History Strength] alendronate 70 mg PO WK 06/02/18 11/14/18 History aspirin [Aspirin Low Dose] 81 mg PO QAM 06/02/18 11/14/18 History atorvastatin 40 mg PO PM 06/02/18 11/14/18 History cholecalciferol (vitamin D3) 1,000 unit PO QAM 06/02/18 11/14/18 History [Vitamin D3] cinacalcet [Sensipar] 30 mg PO QAM 06/02/18 11/14/18 History clonazepam 0.5 mg PO BID 06/02/18 11/14/18 History clonazepam 2 tabs PO QPM 06/02/18 11/14/18 History docusate sodium [Colace] 100 mg PO BID 06/02/18 11/14/18 History gabapentin 300 mg PO BID 06/02/18 11/14/18 History gabapentin 600 mg PO HS 06/02/18 11/14/18 History levothyroxine 75 mcg PO QAM 06/02/18 11/14/18 History lisinopril 1 tab PO QAM 06/02/18 11/14/18 History nitroglycerin 1 tab SUBLINGUAL UD PRN 06/02/18 11/14/18 History pantoprazole 40 mg PO QAM 06/02/18 11/14/18 History polyethylene glycol 3350 17 g PO Q OTHER DAY PRN 06/02/18 11/14/18 History tramadol 50 mg PO TID PRN 06/02/18 11/14/18 History venlafaxine 150 mg PO QAM 06/02/18 11/14/18 History melatonin 10 mg PO HS PRN 11/14/18 11/14/18 History sennosides [senna] 8.6 mg PO BID 11/14/18 11/14/18 History Past Med/Surg History Medical History Chronic kidney disease (CKD) Coronary artery disease Degenerative joint disease Diabetes mellitus Dysphagia Gastritis HTN (hypertension) Neurotic depression Panic disorder Syncope Trigeminal neuralgia Surgical History History of appendectomy History of bilateral carpal tunnel release History of cardiac catheterization History of cholecystectomy History of esophagogastroduodenoscopy (EGD) History of facial surgery facial nerve surgery History of surgery on extremity left leg/knee History of total abdominal hysterectomy and bilateral salpingo-oophorectomy S/P CABG x 3 Family History Other Family history non-contributory Social History Preferred Language: Portuguese Communication Ability: Effective 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: No Beliefs That Will Affect Care: None Current Living Situation: Skilled Nursing Other Information That Helps Us Care for You: No Feels Safe at Home: Yes Safety Concerns: Feels Safe At This Time Smoking Status: Current every day smoker Tobacco Type: cigarettes Cigarettes Per Day: 30 Do You Dip or Chew Tobacco: No Second Hand Exposure: No Tobacco Cessation Education Requested by Patient: No Hx Alcohol Use: No Hx Substance Use: Yes substance use type: marijuana Last Used Substance: Unknown Last Used Substance Other:: history in 2018 Review of Systems Review of Systems: All systems reviewed & are unremarkable except as noted in HPI & below Physical Exam Physical Exam: General- No acute distress Head- atraumatic Eyes- PERRL, EOMI, ENT- oropharynx clear Neck- supple, no JVD Lungs- clear to auscultation Heart- regular rhythm; no murmur Abdomen- normal bowel sounds, soft, nontender Extremities- no calf tenderness Neuro- alert, oriented x 3; PERRL, EOMI; no facial palsy; no dysarthria Skin- warm & dry Results & Data Vital Signs (Past 12 Hours) Vital Signs Temp Pulse Pulse Resp BP BP Pulse Ox 11/14/18 15:03 68 18 189/77 H 95 11/14/18 14:09 72 18 141/65 H 93 11/14/18 14:01 74 18 133/81 93 11/14/18 13:55 65 18 173/78 H 94 11/14/18 13:33 68 18 192/112 H 98 11/14/18 13:20 36.9 C 65 20 174/81 H 99 Diagnostic Findings XR chest 1V portable CLINICAL HISTORY: Atypical chest pain COMPARISON STUDY: 10/06/2017 FINDINGS: There are postsurgical changes of a midline sternotomy. The heart is normal in size. There is no failure. There is no focal pulmonary consolidation. There are no pleural effusions.[ IMPRESSION: No active disease in the chest. Electronically signed by: Keyon Arreola M.D. 11/14/2018 1:58 PM Dictated: 11/14/18 1357 Transcribed: 11/14/[address] angio abd pelvis wo/w con CT DOSE: 1000.86 mGy.cm CLINICAL HISTORY: Abdominal pain. Possible aneurysm/dissection. TECHNIQUE: Unenhanced images were obtained through the upper abdomen. CT angiography was then performed in a dynamic helical fashion during intravenous administration of 120 cc of Optiray 320. MIP IMAGES WERE ACQUIRED. A dose lowering technique was utilized adhering to the principles of ALARA. COMPARISON STUDY: September 2017 FINDINGS: Lung bases reveal mild dependent atelectatic changes. No focal hepatic masses are visualized. There is pneumobilia. The gallbladder surgically absent. No splenic masses are visualized. No pancreatic masses are visualized. No adrenal masses are visualized. No renal calculi are visualized. There are no solid renal masses. There are several small renal cysts the largest of which measures 13 mm. There are no transition zones indicate bowel obstruction. There is colonic diverticulosis. There is no evidence of acute diverticulitis. The appendix is surgically absent. There is no pathologic adenopathy. There is no evidence for abdominal aortic aneurysm or dissection. There is no evidence for celiac or superior mesenteric arterial stenosis. There is a greater than 80% stenosis of the proximal left renal artery. Inferior mesenteric artery is patent. There is no ascites. There is no free air. There is small fat-containing umbilical hernia. The uterus is surgically absent. IMPRESSION: 1. No evidence of bowel obstruction. No evidence of free air 2. Stable pneumobilia 3. Diverticulosis. No evidence of acute diverticulitis 4. No evidence of abdominal aortic aneurysm or dissection 5. Proximal left renal artery stenosis Electronically signed by: Keyon Arreola M.D. 11/14/2018 3:12 PM Dictated: 11/14/18 1506 Transcribed: 11/14/[address] ANGIOGRAPHY THE CHEST WITHOUT A WITH CONTRAST CLINICAL HISTORY: Atypical chest pain. Possible dissection. COMPARISON STUDY: Chest CT dated 10/06/2017 TECHNIQUE: Unenhanced images were obtained through the chest. The patient was then scanned in a dynamic helical fashion during intravenous administration 120 cc of Optiray 320. MIP imaging was performed. IV contrast was administered without complication. A dose lowering technique was utilized adhering to the principles of ALARA. CT DOSE: FINDINGS: Thyroid: Imaged portions of the thyroid gland are normal in appearance. Thoracic aorta: Noncontrast images reveal no evidence of acute aortic hematoma. Postcontrast images reveal no evidence of aortic aneurysm or dissection. Pulmonary vasculature: There are no filling defects to indicate acute pulmonary embolism. HEART: There are postsurgical changes of a midline sternotomy. There are coronary artery calcifications present. There is no significant pericardial effusion. Lungs and pleural spaces: No pleural effusions are visualized. There are mild dependent atelectatic changes. There is a 15 mm groundglass opacity within the right upper lobe. This is likely infectious/inflammatory. A three-month follow- up study is recommended Mediastinum: There is no mediastinal lymphadenopathy. Julissa: There is no evidence of pathologic hilar lymphadenopathy Axilla: There is no evidence of pathologic axillary lymphadenopathy Upper abdomen: There is pneumobilia Skeletal structures: There are no lytic or blastic osseous lesions. IMPRESSION: 1. No evidence of acute pulmonary embolism 2. No evidence of thoracic aortic aneurysm or dissection 3. 15 mm groundglass opacity within the right upper lobe. This is likely infectious/inflammatory. A precautionary three-month follow-up chest CT is recommended. Electronically signed by: Keyon Arreola M.D. 11/14/2018 3:06 PM Dictated: 11/14/18 1458 Transcribed: 11/14/18 1501
[2018-11-14] MEDS ORDERED: NITROGLYCERIN SL 0.4 MG/TAB TAB SL PRN (18:12)
[2018-11-14] MEDS ORDERED: HydrALAZINE HCL 20 MG/ML VIAL IV PRN (18:12)
[2018-11-14] MEDS ORDERED: TRAMADOL HCL 50 MG TABLET PO PRN ×2 (18:12→22:15)
[2018-11-14] MEDS: LIDOCAINE 5% 1 PATCH TD SCH (18:28)
[2018-11-14 19:46] LABS: Hemoglobin 13.5 g/dL (12.0-16.0); Mean Corpuscular Hgb Conc 34.6 g/dL (32-36); Mean Corpuscular Volume 91.1 fL (80-100); Mean Platelet Volume 9.2 fL (7.4-10.4); Platelet Count 218 K/uL (130-400); RDW Coefficient of Variation 12.5 % (11.5-14.5); RDW Standard Deviation 41.7 fL (36.4-46.3); Red Blood Count 4.28 M/uL (4.2-5.4); White Blood Count 5.67 K/uL (4.8-10.8)
--- NOTE | 2018-11-14 19:51 | XRay Report ---
XR cervical spine 2 or 3V CLINICAL HISTORY: neck pain COMPARISON STUDY: No previous studies for comparison. FINDINGS: The prevertebral soft tissues are normal. No fractures are visualized. There are degenerati ve changes with disc space narrowing at the C5-6 level. There is 2.5 mm of anterolisthesis of C6 on C 7, likely arthritic. IMPRESSION: 1. No acute fractures 2. Degenerative changes most pronounced the C5-6 level 3. 2.5 mm of anterolisthesis of C6 on C7, statistically arthritic Electronically signed by: Keyon Arreola M.D. 11/14/2018 7:50 PM
[2018-11-14 20:03] LABS: BUN Creatinine Ratio 15.2 (10-20); Blood Urea Nitrogen 21 mg/dl (7-18); Calcium 8.6 mg/dl (8.5-10.1); Carbon Dioxide 27 mmol/L (21-32); Chloride 103 mmol/L (98-107); Creatinine Clr Calc Pharmacy 26.9 ml/min; Est GFR (African American) 41.7; Glucose 104 mg/dl (70-99); Potassium 4.1 mmol/L (3.5-5.1); Sodium 137 mmol/L (136-145)
[2018-11-14 20:07] LABS: Troponin I < 0.015 ng/ml (0-0.045)
[2018-11-14] MEDS: ARTIFICIAL TEARS OP SCH (20:28)
[2018-11-14] MEDS: ATORVASTATIN 40 MG TAB PO SCH (20:31)
[2018-11-14] MEDS: GABAPENTIN 300 MG CAP PO SCH (20:32)
[2018-11-14] MEDS: DOCUSATE SODIUM 100 MG CAP PO SCH (20:32)
[2018-11-14] MEDS: SENNA 8.6 MG TAB PO SCH (20:32)
[2018-11-14] MEDS: HEPARIN SOD 5,000 UNIT/0.5 ML VIAL SQ SCH (20:33)
[2018-11-14] MEDS: clonazePAM 0.5 MG TAB PO SCH (20:35)
[2018-11-14] MEDS ORDERED: HYDROmorphone INJ 0.5 MG/0.5 ML SYR IV PRN (22:14)
[2018-11-14] MEDS ORDERED: HYDROmorphone INJ 0.5 MG/0.5 ML SYR ONE (22:22)
[2018-11-15 02:29] LABS: Troponin I < 0.015 ng/ml (0-0.045)
[2018-11-15] MEDS: HEPARIN SOD 5,000 UNIT/0.5 ML VIAL SQ SCH ×3 (06:04→21:21)
[2018-11-15 06:32] LABS: Estimated Average Glucose 114 mg/dl; Hemoglobin A1C 5.6 % (4.5-5.6)
[2018-11-15] MEDS: LEVOTHYROXINE SODIUM 75 MCG TABLET PO SCH (07:04)
[2018-11-15] MEDS: LISINOPRIL 5 MG TAB PO SCH (08:55)
[2018-11-15] MEDS: ASPIRIN 81 MG ECTAB PO SCH (08:55)
[2018-11-15] MEDS: GABAPENTIN 300 MG CAP PO SCH ×3 (08:55→21:20)
[2018-11-15] MEDS: VENLAFAXINE HCL XR 150 MG CAPXR PO SCH (08:55)
[2018-11-15] MEDS: SENNA 8.6 MG TAB PO SCH ×2 (08:55→21:20)
[2018-11-15] MEDS: DOCUSATE SODIUM 100 MG CAP PO SCH ×2 (08:55→21:20)
[2018-11-15] MEDS: ARTIFICIAL TEARS OP SCH ×2 (08:56→21:20)
[2018-11-15] MEDS: CHOLECALCIFEROL 1,000 UNITS TAB PO SCH (08:56)
[2018-11-15] MEDS: PANTOprazole 40 MG TAB PO SCH (08:56)
[2018-11-15] MEDS ORDERED: LEVOTHYROXINE SODIUM 75 MCG TABLET PO SCH (09:00)
[2018-11-15] MEDS: clonazePAM 0.5 MG TAB PO SCH ×2 (09:17→21:20)
[2018-11-15] MEDS: LIDOCAINE 5% 1 PATCH TD SCH (09:18)
[2018-11-15] MEDS ORDERED: PERFLUTREN LIPID MICROSPHERE (DEFINITY) IV ONE (11:54)
--- NOTE | 2018-11-15 16:45 | Hospitalist Progress Note ---
Date of Service November 15, 2018 Assessment & Plan (1) Acute pain of left shoulder: (2) Back pain: (3) Neck pain: Cervical Radiculopathy Secondary to degenerative disc disease, arthritis Neck X ray:No acute fractures. Degenerative changes most pronounced the C5-6 level. 2.5 mm of anterolisthesis of C6 on C7, statistically arthritic Pain control Continue gabapentin Patient prefers no surgical procedures Likely will need evaluation by orthopedics as outpatient PT/OT CAD S/P CABG R/O ACS CTA: No PE, No evidence of thoracic aortic aneurysm or dissection. 15 mm groundglass opacity within the right upper lobe. This is likely infectious/inflammatory. A precautionary three-month follow-up chest CT is recommended. Cardiac Enzymes X 3: negative ECHO: No segmental wall motion abnormalities EKG: NSR, RBBB, nonspecific T wave abnormality improved in inferior leads when compared to prior EKG Currently denies any chest pain, SOB Continue Aspirin, Statin, lisinopril Right upper lobe ground glass opacity: No known smoking history Incidental finding on CAT scan Denies any respiratory symptoms currently Empirically start on Doxycycline Needs repeat chest CT in 3 months and follow-up as outpatient (4) Hypothyroidism: TSH: Normal Continue levothyroxine (5) HTN (hypertension): BP slightly elevated Likely situational due to pain Continue lisinopril 5 mg daily Hydralazine PRN monitor (6) CAD (coronary artery disease): Continue aspirin, statin, lisinopril Not on beta luis at home (7) Renal artery stenosis: CT abd/pelvis showed left renal artery stenosis Appreciate Nephrology Input Continue Aspirin, statin BP control (8) CKD (chronic kidney disease), stage III: Creatinine at baseline Monitor renal function Avoid nephrotoxic agents as able DM II: Diet controlled Hb A1C:5.6 DVT Px: Heparin SQ Code Status: FULL Subjective Patient is seen and examined at bedside Neck and back pain improved when compared to yesterday Denies any chest pain, shortness of breath, nausea, dizziness, abd pain Discussed with Nephrology and patient's family in detail Offers no other complaints Blood pressure slightly elevated, asymptomatic Review of Systems Review of Systems: All systems reviewed & are unremarkable except as noted in HPI & below Physical Exam Physical Exam: Physical Exam: Vitals signs as noted above General Appearance:Moderately built and nourished, no apparent distress Head: normocephalic, Atraumatic Eyes: normal inspection, EOMI Neck: supple, Trachea midline Respiratory/Chest: Normal breath sounds, CTA Cardiovascular: S1, S2, No murmur Abdomen/GI:Soft, Non tender, Bowel sounds present Extremities/Musculoskelatal:normal inspection, no edema Neurologic/Psych:AAOX3, grossly no focal neurological deficits Skin: normal color, warm Results & Data Vital Signs (Past 12 Hours) Vital Signs Temp Pulse Pulse Resp BP BP Pulse Ox 11/15/18 15:26 71 11/15/18 14:56 36.7 C 80 18 155/89 H 96 11/15/18 11:26 36.7 C 73 18 132/79 94 11/15/18 08:15 37.1 C 57 L 20 147/71 H 96 11/15/18 07:00 68 11/15/18 04:40 36.5 C 78 20 130/63 97 Laboratory Results Short CBC 11/14/18 Range/Units 19:34 WBC 5.67 (4.8-10.8) K/uL Hgb 13.5 (12.0-16.0) g/dL Hct 39.0 (37-47) % Plt Count 218 (130-400) K/uL BMP 11/14/18 19:34 Sodium 137 Potassium 4.1 Chloride 103 Carbon Dioxide 27 BUN 21 H Creatinine 1.39 H Glucose 104 H Calcium 8.6 Cardiac Enzymes 11/14/18 11/15/18 Range/Units 19:34 01:48 Troponin I < 0.015 < 0.015 (0-0.045) ng/ml
--- NOTE | 2018-11-15 21:04 | Nephrology Consultation ---
Date of Consultation November 15, 2018 Assessment & Plan (1) Renal artery stenosis: Patient found to have left renal artery stenosis of 80%. She has small kidneys at baseline. I do believe her renal stenosis is chronic given small kidneys at baseline. Her renal function is at baseline. Her BP is acceptable today. BP was high yesterday but in setting of pain. Given stability in her renal function and improving BP today, I recommend conservative management at this point. Will consider vascular surgery evaluation as an outpatient (2) HTN (hypertension): BP is acceptable today. Continue current regimen (3) CKD (chronic kidney disease), stage III: Renal function is at baseline. Monitor with daily BMP. Patient got a lot contrast and is at risk for MODE. avoid further nephrotoxins. (4) Back pain: Likely musculoskeletal. She might benefit from ortho or sport medicine eval. She knows not to take NSAIDs. History of Present Illness Reason for Consultation: CKD, renal artery stenosis Requesting Physician: Prashant Lion MD Attending Physician: Prashant Lion MD History of Present Illness 78 yo Female from [facility] with PMH of Vit D deficiency, CKD stage 3, HTN, Dyslipidemia, Hypothyroidism, type 2 DM, anxiety, GERD, hyperparathyroidism who was admitted 11/14 with Neck and back pain for 2 days. Pt said that today pain worsening in the neck radiating to back and left shoulder blade area. Pt described the pain as sharp and constant. She said that the pain is very bad and worsening with movement and deep breathing. She said that she was given tylenol and tramadol with no relief. In the ED CTA of chest and abdomen showed no PE or dissection. She was found to have left renal artery stenosis of 80%. We are asked to comment on her CKD, HTN and renal artery stenosis. her BP has been albile. Today, she feels better but still mild neck pain and chest pain. No SOB or urinary symptoms Allergies Allergy/AdvReac Type Severity Reaction Status Date / Time No Known Allergies Allergy Verified 06/07/18 09:09 Home Medications Home Medications Medication Instructions Recorded Confirmed Type Artificial Tears (PF) 2 drp OPHTHALMIC (EYE) BID 06/02/18 11/14/18 History acetaminophen [Acetaminophen Extra 1,000 mg PO PM PRN 06/02/18 11/14/18 History Strength] alendronate 70 mg PO WK 06/02/18 11/14/18 History aspirin [Aspirin Low Dose] 81 mg PO QAM 06/02/18 11/14/18 History atorvastatin 40 mg PO PM 06/02/18 11/14/18 History cholecalciferol (vitamin D3) 1,000 unit PO QAM 06/02/18 11/14/18 History [Vitamin D3] cinacalcet [Sensipar] 30 mg PO QAM 06/02/18 11/14/18 History clonazepam 0.5 mg PO BID 06/02/18 11/14/18 History clonazepam 2 tabs PO QPM 06/02/18 11/14/18 History docusate sodium [Colace] 100 mg PO BID 06/02/18 11/14/18 History gabapentin 300 mg PO BID 06/02/18 11/14/18 History gabapentin 600 mg PO HS 06/02/18 11/14/18 History levothyroxine 75 mcg PO QAM 06/02/18 11/14/18 History lisinopril 1 tab PO QAM 06/02/18 11/14/18 History nitroglycerin 1 tab SUBLINGUAL UD PRN 06/02/18 11/14/18 History pantoprazole 40 mg PO QAM 06/02/18 11/14/18 History polyethylene glycol 3350 17 g PO Q OTHER DAY PRN 06/02/18 11/14/18 History tramadol 50 mg PO TID PRN 06/02/18 11/14/18 History venlafaxine 150 mg PO QAM 06/02/18 11/14/18 History melatonin 10 mg PO HS PRN 11/14/18 11/14/18 History sennosides [senna] 8.6 mg PO BID 11/14/18 11/14/18 History Patient History Medical History Chronic kidney disease (CKD) Coronary artery disease Degenerative joint disease Diabetes mellitus Dysphagia Gastritis HTN (hypertension) Neurotic depression Panic disorder Syncope Trigeminal neuralgia Surgical History History of appendectomy History of bilateral carpal tunnel release History of cardiac catheterization History of cholecystectomy History of esophagogastroduodenoscopy (EGD) History of facial surgery facial nerve surgery History of surgery on extremity left leg/knee History of total abdominal hysterectomy and bilateral salpingo-oophorectomy S/P CABG x 3 Family History Other Family history non-contributory Social History Preferred Language: [place] Verdean Communication Ability: Effective Presser Cotton Ginning Required: No Beliefs That Will Affect Care: None Current Living Situation: Care Home Other Information That Helps Us Care for You: No Feels Safe at Home: Yes Safety Concerns: Feels Safe At This Time Smoking Status: Current every day smoker Tobacco Type: cigarettes Cigarettes Per Day: 30 Do You Dip or Chew Tobacco: No Second Hand Exposure: No Tobacco Cessation Education Requested by Patient: No Hx Alcohol Use: No Hx Substance Use: Yes substance use type: marijuana Last Used Substance: Unk nown Last Used Substance Other:: history in 2018 Review of Systems Review of Systems: All systems reviewed & are unremarkable except as noted in HPI & below Physical Exam Physical Exam: General exam: Appears comfortable, no acute distress HEENT: Pupils are equal and reactive to light Neck: No JVD, neck is supple trachea is midline Respiratory system: Clear breath sounds bilaterally. Gastrointestinal: Abdomen is soft, non distended, non tender, bowel sounds are present CVS: Regular rate and rhythm. No murmurs, rubs or gallops Musculoskeletal: cervical tenderness Extremities: Non tender, no edema, peripheral pulses are present Neuro: Oriented, no tremors, no focal neurological deficits Skin: No rashes Results & Data Vital Signs (Past 12 Hours) Vital Signs Temp Pulse Pulse Resp BP BP Pulse Ox 11/15/18 20:01 36.5 C 64 18 156/75 H 98 11/15/18 15:26 71 11/15/18 14:56 36.7 C 80 18 155/89 H 96 11/15/18 11:26 36.7 C 73 18 132/79 94 Laboratory Results Laboratory Results - last 24 hr 11/15/18 11/15/18 01:48 01:48 Estimat Average Glucose 114 Hemoglobin A1c 5.6 Troponin I < 0.015 TSH 3.610
[2018-11-15] MEDS: DOXYCYCLINE HYCLATE 100 MG CAP PO SCH (21:20)
[2018-11-15] MEDS: ATORVASTATIN 40 MG TAB PO SCH (21:20)
[2018-11-16] MEDS: LEVOTHYROXINE SODIUM 75 MCG TABLET PO SCH (05:59)
[2018-11-16] MEDS: HEPARIN SOD 5,000 UNIT/0.5 ML VIAL SQ SCH (05:59)
[2018-11-16 06:54] LABS: Calcium 8.4 mg/dl (8.5-10.1); Creatinine Clr Calc Pharmacy 25.6 ml/min; Est GFR (African American) 39.3; Est GFR (Non-African American) 33.9; Potassium 4.4 mmol/L (3.5-5.1)
[2018-11-16] MEDS: clonazePAM 0.5 MG TAB PO SCH (08:59)
[2018-11-16] MEDS: SENNA 8.6 MG TAB PO SCH (08:59)
[2018-11-16] MEDS: LIDOCAINE 5% 1 PATCH TD SCH (09:00)
[2018-11-16] MEDS: DOCUSATE SODIUM 100 MG CAP PO SCH (09:01)
[2018-11-16] MEDS: DOXYCYCLINE HYCLATE 100 MG CAP PO SCH (09:01)
[2018-11-16] MEDS: ASPIRIN 81 MG ECTAB PO SCH (09:01)
[2018-11-16] MEDS: GABAPENTIN 300 MG CAP PO SCH (09:01)
[2018-11-16] MEDS: ARTIFICIAL TEARS OP SCH (09:01)
[2018-11-16] MEDS: PANTOprazole 40 MG TAB PO SCH (09:01)
[2018-11-16] MEDS: LISINOPRIL 5 MG TAB PO SCH (09:01)
[2018-11-16] MEDS: CHOLECALCIFEROL 1,000 UNITS TAB PO SCH (09:01)
[2018-11-16] MEDS: VENLAFAXINE HCL XR 150 MG CAPXR PO SCH (09:01)
--- NOTE | 2018-11-16 11:25 | Hospitalist Progress Note ---
Date of Service November 16, 2018 Assessment & Plan (1) Acute pain of left shoulder: (2) Back pain: (3) Neck pain: Cervical Radiculopathy Secondary to degenerative disc disease, arthritis Neck X ray:No acute fractures. Degenerative changes most pronounced the C5-6 level. 2.5 mm of anterolisthesis of C6 on C7, statistically arthritic Pain control Continue gabapentin Patient prefers no surgical procedures Likely will need evaluation by orthopedics as outpatient Neck pain much improved Continue pain control CAD S/P CABG R/O ACS CTA: No PE, No evidence of thoracic aortic aneurysm or dissection. 15 mm groundglass opacity within the right upper lobe. This is likely infectious/i nflammatory. A precautionary three-month follow-up chest CT is recommended. Cardiac Enzymes X 3: negative ECHO: No segmental wall motion abnormalities EKG: NSR, RBBB, nonspecific T wave abnormality improved in inferior leads when compared to prior EKG Currently denies any chest pain, SOB Continue Aspirin, Statin, lisinopril Right upper lobe ground glass opacity: No known smoking history Incidental finding on CAT scan Denies any respiratory symptoms currently Empirically Continue Doxycycline Day 2/[address] in 3 months and follow-up as outpatient (4) Hypothyroidism: TSH: Normal Continue levothyroxine (5) HTN (hypertension): Elevated initially likely situational due to pain Continue lisinopril 5 mg daily Hydralazine PRN monitor (6) CAD (coronary artery disease): Continue aspirin, statin, lisinopril Not on beta luis at home (7) Renal artery stenosis: CT abd/pelvis showed left renal artery stenosis 80% Likely chronic given small kidneys at baseline Appreciate Nephrology Input Continue Aspirin, statin Needs follow up with Nephrology as outpatient (8) CKD (chronic kidney disease), stage III: Creatinine at baseline Monitor renal function Avoid nephrotoxic agents as able DM II: Diet controlled Hb A1C:5.6 DVT Px: Heparin SQ Code Status: FULL Disposition: Plan to discharge back to personal Retirement Subjective Patient is seen and examined at bedside Doing much better today Neck and back pain much improved. Denies any chest pain, shortness of breath, nausea, dizziness, abd pain Discussed with Nephrology today Offers no other complaints Blood pressure stable Review of Systems Review of Systems: All systems reviewed & are unremarkable except as noted in HPI & below Physical Exam Physical Exam: Physical Exam: Vitals signs as noted above General Appearance:Moderately built and nourished, no apparent distress Head: normocephalic, Atraumatic Eyes: normal inspection, EOMI Neck: supple, Trachea midline Respiratory/Chest: Normal breath sounds, CTA Cardiovascular: S1, S2, No murmur Abdomen/GI:Soft, Non tender, Bowel sounds present Extremities/Musculoskelatal:normal inspection, no edema Neurologic/Psych:AAOX3, grossly no focal neurological deficits Skin: normal color, warm Results & Data Vital Signs (Past 12 Hours) Vital Signs Temp Pulse Pulse Resp BP Pulse Ox 11/16/18 09:34 63 11/16/18 07:40 36.8 C 72 20 133/79 98 11/16/18 04:40 36.6 C 71 18 150/77 H 95 11/15/18 23:59 65 11/15/18 23:52 36.9 C 69 18 159/76 H 97 Laboratory Results [facility] 11/16/18 05:55 Sodium 135 L Potassium 4.4 Chloride 103 Carbon Dioxide 26 BUN 23 H Creatinine 1.46 H Glucose 90 Calcium 8.4 L
--- NOTE | 2018-11-16 11:32 | Discharge Summary ---
Date of Service November 16, 2018 Admission HPI Per Admitting Provider 78 yo Female from [facility] with PMH of Vit D deficiency, CKD stage 3, HTN, Dyslipidemia, Hypothyroidism, type 2 DM, anxiety, GERD, hyperparathyroidism was sent to the ER for Neck and back pain. Pt said that neck pain started last night while sitting on the chair. Pt said that today pain worsening in the neck radiating to back and left shoulder blade area. Pt described the pain as sharp and constant. She said that the pain is very bad and worsening with movement and deep breathing. She said that she was given tylenol and tramadol with no relief. Pt said that she had palpitation but now palpitation resolves. She said that she did not have any chest pain. Pt said that she CABG performed 20 years ago. Currently she said that pain improves after receiving pain med in the ER. Denies abdominal pain, fever, dizziness, nausea, vomiting and SOB. Admission Exam Per Admitting Provider General- No acute distress Head- atraumatic Eyes- PERRL, EOMI, ENT- oropharynx clear Neck- supple, no JVD Lungs- clear to auscultation Heart- regular rhythm; no murmur Abdomen- normal bowel sounds, soft, nontender Extremities- no calf tenderness Neuro- alert, oriented x 3; PERRL, EOMI; no facial palsy; no dysarthria Skin- warm & dry Principal Diagnosis Discharge Information Discharge Diagnosis Cervical Radiculopathy Right upper lobe ground glass opacity Left Renal artery stenosis Discharge Goals Decrease discomfort,Improve disease control, Improve function Discharge Activity Limitations Resume your previous activity Discharge Data Allergies Allergy/AdvReac Type Severity Reaction Status Date / Time No Known Allergies Allergy Verified 06/07/18 09:09 Consultations 11/14/18 15:43 ED Decision to Admit Stat 11/14/18 18:24 Consult Nephrology Routine Procedures Performed ABD CTA: 1. No evidence of bowel obstruction. No evidence of free air 2. Stable pneumobilia 3. Diverticulosis. No evidence of acute diverticulitis 4. No evidence of abdominal aortic aneurysm or dissection 5. Proximal left renal artery stenosis Chest CTA: 1. No evidence of acute pulmonary embolism 2. No evidence of thoracic aortic aneurysm or dissection 3. 15 mm groundglass opacity within the right upper lobe. This is likely infectious/inflammatory. A precautionary three-month follow-up chest CT is recommended. Neck X ray: 1. No acute fractures 2. Degenerative changes most pronounced the C5-6 level 3. 2.5 mm of anterolisthesis of C6 on C7, statistically arthritic Ordered Studies 11/14/18 14:18 CT angio abd pelvis wo/w con Stat CT angio chest dissec wo/w con Stat Hospital Course (1) Acute pain of left shoulder: (2) Back pain: (3) Neck pain: Cervical Radiculopathy Secondary to degenerative disc disease, arthritis Neck X ray:No acute fractures. Degenerative changes most pronounced the C5-6 level. 2.5 mm of anterolisthesis of C6 on C7, statistically arthritic Pain control Continue gabapentin Patient prefers no surgical procedures Likely will need evaluation by orthopedics as outpatient Neck pain much improved Continue pain control CAD S/P CABG R/O ACS CTA: No PE, No evidence of thoracic aortic aneurysm or dissection. 15 mm groundglass opacity within the right upper lobe. This is likely infectious/inflammatory. A precautionary three-month follow-up chest CT is recommended. Cardiac Enzymes X 3: negative ECHO: No segmental wall motion abnormalities EKG: NSR, RBBB, nonspecific T wave abnormality improved in inferior leads when compared to prior EKG Currently denies any chest pain, SOB Continue Aspirin, Statin, lisinopril Right upper lobe ground glass opacity: No known smoking history Incidental finding on CAT scan Denies any respiratory symptoms currently Empirically Continue Doxycycline Day 2/[address] in 3 months and follow-up as outpatient (4) Hypothyroidism: TSH: Normal Continue levothyroxine (5) HTN (hypertension): Elevated initially likely situational due to pain Continue lisinopril 5 mg daily Hydralazine PRN monitor (6) CAD (coronary artery disease): Continue aspirin, statin, lisinopril Not on beta luis at home (7) Renal artery stenosis: CT abd/pelvis showed left renal artery stenosis 80% Likely chronic given small kidneys at baseline Appreciate Nephrology Input Continue Aspirin, statin Needs follow up with Nephrology as outpatient (8) CKD (chronic kidney disease), stage III: Creatinine at baseline Monitor renal function Avoid nephrotoxic agents as able DM II: Diet controlled Hb A1C:5.6 DVT Px: Heparin SQ Code Status: FULL Disposition: Plan to discharge back to [facility] Total Time Total Time Spent Total Time Spent (In Minutes): 39 minutes Total Time Includes: Examination of the Patient, Discharge Planning, Medication Reconciliation, Communication With Other Providers and Other Discharge Plan Discharge Items Patient Disposition: [facility] Reason For Visit: back pain/neck pain Discharge Diagnosis: Cervical Radiculopathy Right upper lobe ground glass opacity Left Renal artery stenosis Discharge Goals: Decrease discomfort, Improve disease control and Improve function Activity: Resume your previous activity Exercise/Sports: Gradually increase as tolerated Non-emergency contact: Primary Care Provider and Visiting Professor Call non-emergency contact if: you have any medication questions, your symptoms worsen, your pain is not controlled, your pain is worsening, your pain is unusual for you, your pain is concerning for you and you have a fever Follow-up/Referrals: Melody Hassan [Primary Care Provider] - Diet: Carb Consistent or DM2 and Heart Healthy Diet Texture: Dental soft (bite-sized) Addtl Provider Instructions: Follow-up with your primary care physician Dr. Galeas on November 22, 2018 at 2:55 PM Follow-up with your rewards consultant Dr. Gillette in 4 to 6 weeks Follow-up with your orthopedic surgeon for evaluation of your neck pain as advised Complete the antibiotic course as prescribed Get repeat CT chest in 2 to 3 months as advised. Follow-up with your primary care physician for further management. Seek immediate medical attention if your symptoms reoccur or worsen Prescriptions: New doxycycline hyclate 100 mg Capsule 100 mg PO BID Qty: 8 RF: 0 Continued atorvastatin 40 mg Tablet 40 mg PO PM RF: 0 polyethylene glycol 3350 17 gram Powder In Packet 17 g PO Q OTHER DAY PRN (Reason: Constipation) RF: 0 alendronate 70 mg Tablet 70 mg PO WK RF: 0 clonazepam 0.5 mg Tablet 2 tabs PO QPM RF: 0 clonazepam 0.5 mg Tablet 0.5 mg PO BID RF: 0 venlafaxine 150 mg Capsule,Extended Release 24hr 150 mg PO QAM RF: 0 aspirin [Aspirin Low Dose] 81 mg Tablet,Delayed Release (Dr/Ec) 81 mg PO QAM RF: 0 tramadol 50 mg Tablet 50 mg PO TID PRN (Reason: Pain) RF: 0 acetaminophen [Acetaminophen Extra Strength] 500 mg Tablet 1,000 mg PO PM PRN (Reason: Pain) RF: 0 levothyroxine 75 mcg Tablet 75 mcg PO QAM RF: 0 pantoprazole 40 mg Tablet,Delayed Release (Dr/Ec) 40 mg PO QAM RF: 0 nitroglycerin 0.4 mg Tablet, Sublingual 1 tab Sublingual UD PRN (Reason: Angina) RF: 0 docusate sodium [Colace] 100 mg Capsule 100 mg PO BID RF: 0 gabapentin 300 mg Capsule 300 mg PO BID RF: 0 gabapentin 300 mg Capsule 600 mg PO HS RF: 0 lisinopril 5 mg Tablet 1 tab PO QAM RF: 0 cholecalciferol (vitamin D3) [Vitamin D3] 1,000 unit Capsule 1,000 unit PO QAM RF: 0 Artificial Tears (PF) Dropperette 2 drp OPHTHALMIC (EYE) BID RF: 0 cinacalcet [Sensipar] 30 mg Tablet 30 mg PO QAM RF: 0 sennosides [senna] 8.6 mg Tablet 8.6 mg PO BID RF: 0 melatonin 10 mg Tablet 10 mg PO HS PRN (Reason: Insomnia) RF: 0 Stand-Alone Forms: Call Back Authorization, [facility] Discharge Orders: Discharge Order (Routine); Ordered 11/16/18 Ordered By: Prashant Lion Admission Data Admit Date/Time: 11/14/18 17:16 Attending Provider: Prashant Lion Admit Provider: Lenny Conley Primary Care Provider: Melody Hassan Other Providers: Lenny Conley ; Adrianne Gillette Service: Telemetry Medical Other Interventions: Discharge Summary Assessment (RN) Last Done: 11/16/18 11:44 Pending Studies at Discharge: No DC Date/Time DO NOT enter until pt leaves facility: 11/16/18 13:00
--- NOTE | 2018-11-16 19:56 | Nephrology Progress Note ---
Date of Service November 16, 2018 Assessment & Plan (1) Renal artery stenosis: Patient found to have left renal artery stenosis of 80%. She has small kidneys at baseline. I do believe her renal stenosis is chronic given small kidneys at baseline. Her renal function is at baseline. Her BP is acceptable today. Given stability in her renal function and improving BP today, I recommend conservative management at this point. Will consider vascular surgery evaluation as an outpatien. she will follow up with me in clinic (2) HTN (hypertension): BP is acceptable today. Continue current regimen (3) CKD (chronic kidney disease), stage III: Renal functionis a little worse, cr at 1.46. Monitor with daily BMP. Patient got a lot contrast and is at risk for MODE. avoid further nephrotoxins. (4) Back pain: Likely musculoskeletal. She might benefit from ortho or sport medicine eval. She knows not to take NSAIDs. Subjective Seen in the morning during rounds. She feels better, denies back or neck pain. No SOB or urinary symptoms. Cr stable. BP controlled. Pt eager to go back to [place] Review of Systems Review of Systems: All systems reviewed & are unremarkable except as noted in HPI & below Physical Exam Physical Exam: General exam: Appears comfortable, no acute distress HEENT: Pupils are equal and reactive to light Neck: No JVD, neck is supple trachea is midline Respiratory system: Clear breath sounds bilaterally. Gastrointestinal: Abdomen is soft, non distended, non tender, bowel sounds are present CVS: Regular rate and rhythm. No murmurs, rubs or gallops Musculoskeletal: No joint or muscle tenderness Extremities: Non tender, no edema, peripheral pulses are present Neuro: Oriented, no tremors, no focal neurological deficits Skin: No rashes Results & Data Vital Signs (Past 12 Hours) Vital Signs Temp Pulse Pulse Resp BP BP Pulse Ox 11/16/18 12:38 36.3 C L 65 18 150/84 H 96 11/16/18 11:44 36.8 C 72 20 132/79 133/79 98 11/16/18 09:34 63 Laboratory Results Laboratory Results - last 24 hr 11/16/18 05:55 Sodium 135 L Potassium 4.4 Chloride 103 Carbon Dioxide 26 Anion Gap 6.0 BUN 23 H Creatinine 1.46 H Est Cr Clr Drug Dosing 25.6 Est GFR ( Amer) 39.3 Est GFR (Non-Af Amer) 33.9 BUN/Creatinine Ratio 16.0 Glucose 90 Calcium 8.4 L
== END 2018-11-16 13:00 | disposition home or self-care (01) ==
LOC: ED 13:18 → 2N 13:18
DX: I12.9 Hypertensive chronic kidney disease with stage 1 through stage 4 chronic kidney disease, or unspecified chronic kidney disease; E11.22 Type 2 diabetes mellitus with diabetic chronic kidney disease; Z95.5 Presence of coronary angioplasty implant and graft; R07.9 Chest pain, unspecified; M54.12 Radiculopathy, cervical region; Z79.899 Other long term (current) drug therapy; R91.8 Other nonspecific abnormal finding of lung field; I70.1 Atherosclerosis of renal artery; I25.10 Atherosclerotic heart disease of native coronary artery without angina pectoris; E03.9 Hypothyroidism, unspecified; N18.3 Chronic kidney disease, stage 3 (moderate); Z86.73 Personal history of transient ischemic attack (TIA), and cerebral infarction without residual deficits; Z79.82 Long term (current) use of aspirin

== ENCOUNTER 2021-10-17 18:21 | Inpatient (IN) ==
--- NOTE | 2021-10-17 18:25 | Emergency Department Note ---
Impression & Plan Weakness, COVID-19, Hypomagnesemia, Acute electrocardiogram changes ED Provider Note NAME: SOPHIA JORDAN AGE: 81 SEX: F : 1940 ARRIVES VIA: Ambulance INFORMANT: Patient, ED PROVIDER(S): Tani William MD Chief Complaint: Weakness, covid+ HPI: Patient presents due to concern for fatigue and tiredness. The patient noticed that she was having increasing sleep over the last week and was tested today for COVID and was positive. The patient does complain of some chronic low back discomfort thinks may be related to her kidneys that she has "kidney trouble." The patient denies any dysuria or hematuria. The patient states that she has a recurrence of falls and states that she struck the back of her head on her bed frame today. The patient does have an irregular potentially traumatic left pupil and when questioned the patient states that she has had that for many months. 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 Patient denies any recent changes. Patient denies any chest pains or shortness of breath. The patient has had productive cough with discolored sputum. Patient is a non-smoker. Patient does reside at [facility]. The patient does have some mild abdominal discomfort but no nausea or vomiting. The patient is a decreased p.o. intake. ROS: See HPI for pertinent positives and negatives. A total of 10 systems were reviewed and otherwise negative. Past medical history: See below Surgical history: See below Social history: See below Physical Exam: GENERAL: NAD, wearing a mask, non-toxic. EYE EXAM: Normal conjunctiva. PERRL, no anisocoria and EOM's grossly intact w/o pain. OROPHARYNX: Moist mucus membranes. Grossly normal dentition. NECK: Supple, no nuchal rigidity, no adenopathy, non-tender. No signs of meningismus. LUNGS: Clear to auscultation. Normal chest wall mechanics. HEART: NSR, no MRG. ABDOMEN: Abdomen soft, mild diffuse discomfort but without localizing pain, normo-active bowel sounds, no masses, no rebound or guarding. BACK: No CVA TTP. SKIN: No rashes and no bruising. UPPER EXTREMITIES: Skin tear of the lateral aspect of the right elbow, hemostatic, neurovascular tact distally soft compartments and no pain LOWER EXTREMITIES: Grossly normal, no edema. NEURO EXAM: A&O x3, cranial nerves II-XII grossly intact, normal speech, moves all 4 extremities on command w/o issue. Good finger to nose, no drift, no sensory deficits. Differential diagnoses: Infection, dehydration, metabolic abnormality, hypo/hyperglycemia, electrolyte disturbance, anemia, hypoxia, cardiac sources, intracerebral event, toxicologic, neurologic, as well as other pathologies. Course: Patient was seen and evaluated the bedside. Full history physical exam was performed. EKG interpreted by ct Sinus with PACs, rate of 70, wide QRS, right bundle branch block pattern, T wave inversion anteriorly. Patient's right bundle branch block appears to be old from comparison EKG April 12, 2020. T wave inversions may be new Imaging Studies: See Below Cardiac monitoring: An order was placed for continuous cardiac monitoring. The monitor shows a rate of with rhythm. MDM: Patient was seen due to concern for recent COVID illness weakness and fatigue. The patient did have associated lumbar discomfort recent fall with head pain and had some vague abdominal discomfort. Blood work was obtained along with CT of the head lumbar spine and abdomen pelvis. Patient's blood work shows leukopenia with a normal H&H and platelet count. Patient does have mild elevation in creatinine 1.8 baseline of 1.4. Patient does have mild hypomagnesemia. Given the patient's slightly elevated troponin believe the patient would benefit from continuing to trend enzymes. Patient denies any current chest pains. Procalcitonin is not elevated. Patient's EKG does show some new T wave inversions compared to prior but prior was from March 2020. L spine CT shows old superior endplate compression deformity at L1 patient CT of the head is negative. Chest x-ray with no acute findings. Patient's CT is not show any concerning findings. I did speak the on-call hospitalist Dr. Okeefe and the patient was admitted to the medicine service. Past Med/Surg History Medical History (Updated 10/17/21 @ 22:58 by Tani William MD) Chronic kidney disease (CKD) Coronary artery disease Degenerative joint disease Diabetes mellitus Dysphagia Gastritis HTN (hypertension) Neurotic depression Panic disorder Syncope Trigeminal neuralgia Surgical History History of appendectomy History of bilateral carpal tunnel release History of cardiac catheterization History of cholecystectomy History of esophagogastroduodenoscopy (EGD) History of facial surgery facial nerve surgery History of surgery on extremity left leg/knee History of total abdominal hysterectomy and bilateral salpingo-oophorectomy S/P CABG x 3 Family History Other Family history non-contributory Social History Smoking Status: Never smoker Second Hand Exposure: No; Hx Alcohol Use: No Hx Substance Use: Yes Last Used Substance: Unknown Last Used Substance Other:: history in 2018 Preferred Language: French Communication Ability: Effective Production Internship Required: No Beliefs That Will Affect Care: None Current Living Situation: Group Home Feels Safe at Home: Yes Assistive Devices: Glasses and Walker Allergies Allergies Allergy/AdvReac Type Severity Reaction Status Date / Time No Known Allergies Allergy Verified 10/17/21 20:05 Home Meds Home Medications Medication Instructions Recorded Confirmed acetaminophen 500 mg tablet 1,000 mg PO HS 06/02/18 10/17/21 (Acetaminophen Extra Strength) alendronate 70 mg tablet 70 mg PO WK 06/02/18 10/17/21 aspirin 81 mg tablet,delayed 81 mg PO QAM 06/02/18 10/17/21 release (Aspirin Low Dose) cholecalciferol (vitamin D3) 25 1,000 unit PO QAM 06/02/18 10/17/21 mcg (1,000 unit) capsule (Vitamin D3) clonazepam 0.5 mg tablet 0.5 mg PO BID 06/02/18 10/17/21 clonazepam 0.5 mg tablet 2 tabs PO HS 06/02/18 10/17/21 dextran 70-hypromellose eye drops 2 drp OPB BID 06/02/18 10/17/21 in a dropperette (Artificial Tears (PF)) gabapentin 300 mg capsule 300 mg PO BID 06/02/18 10/17/21 gabapentin 300 mg capsule 600 mg PO HS 06/02/18 10/17/21 levothyroxine 75 mcg tablet 75 mcg PO QAM 06/02/18 10/17/21 lisinopril 5 mg tablet 5 mg PO QAM 06/02/18 10/17/21 pantoprazole 40 mg tablet,delayed 40 mg PO QAM 06/02/18 10/17/21 release tramadol 50 mg tablet 50 mg PO TID PRN 06/02/18 10/17/21 venlafaxine 150 mg 150 mg PO QAM 06/02/18 10/17/21 capsule,extended release 24 hr acetaminophen 500 mg tablet 1,000 mg PO BID PRN 07/21/20 10/17/21 (Tylenol Extra Strength) biotin 1,000 mcg chewable tablet 1,000 mcg PO DAILY 07/21/20 10/17/21 carboxymethylcellulose sodium 1 % 1 drp OPB BID 07/21/20 10/17/21 eye liquid gel drops (Refresh Liquigel) cimetidine 400 mg tablet 400 mg PO HS 07/21/20 10/17/21 docusate sodium 100 mg capsule 100 mg PO DAILY 07/21/20 10/17/21 rosuvastatin 40 mg tablet (Crestor) 40 mg PO DAILY 07/21/20 10/17/21 trazodone 100 mg tablet 100 mg PO HS 07/21/20 10/17/21 cyanocobalamin (vitamin B-12) 1,000 mcg PO DAILY 09/22/21 10/17/21 1,000 mcg tablet Results & Data (ED) Vital Signs Vital Signs - 24 hr 10/17/21 18:43 10/17/21 19:38 10/17/21 19:40 Temperature 37.4 C Temperature Source Oral Pulse Rate [Apical] Pulse Rhythm [Apical] Pulse Strength [Apical] Respiratory Rate 21 Respiratory Effort / Characteristics Non-Labored Respiratory Depth Normal Respiratory Pattern Regular Pulse Oximetry 96 93 93 Oxygen Delivery Method Room Air Room Air Room Air Sepsis Recent Fever Within 48 Hours Yes Sepsis New/Unexplained Change in Mental Status No Sepsis Action Taken by Nursing No Action Required 10/17/21 19:42 10/17/21 21:00 Temperature Temperature Source Pulse Rate [Apical] 62 Pulse Rhythm [Apical] Regular Pulse Strength [Apical] Normal Respiratory Rate 16 Respiratory Effort / Characteristics Non-Labored Non-Labored Respiratory Depth Normal Normal Respiratory Pattern Regular Pulse Oximetry 98 Oxygen Delivery Method Room Air Room Air Sepsis Recent Fever Within 48 Hours Sepsis New/Unexplained Change in Mental Status Sepsis Action Taken by Group Home Medications Current Medication List: was personally reviewed by me Laboratory Data Attestation: I reviewed the patient's lab results. Result diagrams: 10/17/21 19:25 10/17/21 19:25 Lab Results 10/17/21 10/17/21 10/17/21 Range/Units 19:15 19:25 19:25 WBC 3.60 L (4.8-10.8) K/uL RBC 4.13 L (4.2-5.4) M/uL Hgb 13.1 (12.0-16.0) g/dL Hct 38.7 (37-47) % MCV 93.7 (80-100) fL MCH 31.7 (25-34) pg MCHC 33.9 (32-36) g/dL RDW Std Deviation 45.3 (36.4-46.3) fL RDW Coeff of [place] 13.0 (11.5-14.5) % Plt Count 170 (130-400) K/uL MPV 9.8 (7.4-10.4) fL Immature Gran % (Auto) 0.8 % Neut % (Auto) 57.8 % Lymph % (Auto) 15.6 % [place] % (Auto) 25.0 % Eos % (Auto) 0.0 % Baso % (Auto) 0.8 % Neut # (Auto) 2.08 (1.4-6.5) K/uL Lymph # (Auto) 0.56 L (1.2-3.4) K/uL [place] # (Auto) 0.90 H (0.11-0.59) K/uL Eos # (Auto) 0.00 (0-0.5) K/uL Baso # (Auto) 0.03 (0-0.2) K/uL Immature Gran # (Auto) 0.03 H (0.00-0.02) K/uL Sodium 136 (136-145) mmol/L Potassium 3.7 (3.5-5.1) mmol/L Chloride 102 (98-107) mmol/L Carbon Dioxide 26 (21-32) mmol/L Anion Gap 8 (3-11) BUN 17 (6-23) mg/dl Creatinine 1.81 H (0.6-1.2) mg/dl Est Cr Clr Drug Dosing Not Reportable Est GFR ( Amer) 29.7 ml/min Est GFR (Non-Af Amer) 25.6 ml/min BUN/Creatinine Ratio 9.4 L (10-20) Glucose 87 (70-99(Fasting)) mg/dl Calcium 9.7 (8.5-10.1) mg/dl Magnesium 1.5 L (1.7-2.4) mg/dl Total Bilirubin 0.3 (0.2-1.0) mg/dl AST 25 (13-39) U/L ALT 11 (7-52) U/L Alkaline Phosphatase 75 (34-104) U/L Troponin I High Sens 32.5 H (0-14) pg/ml Total Protein 6.7 (6.0-8.3) gm/dl Albumin 4.1 (3.4-5.0) gm/dl Globulin 2.6 (2.5-4.0) gm/dl Albumin/Globulin Ratio 1.6 (0.9-2) Procalcitonin (0-0.5) ng/ml TSH (0.300-4.500) uIu/ml SARS-CoV-2 (PCR) POSITIVE A* (Negative) Influenza Type A (PCR) Negative (Neg) Influenza Type B (PCR) Negative (Neg) RSV (RT-PCR) Negative (Neg) 10/17/21 10/17/21 Range/Units 19:25 19:25 WBC (4.8-10.8) K/uL RBC (4.2-5.4) M/uL Hgb (12.0-16.0) g/dL Hct (37-47) % MCV (80-100) fL MCH (25-34) pg MCHC (32-36) g/dL RDW Std Deviation (36.4-46.3) fL RDW Coeff of [place] (11.5-14.5) % Plt Count (130-400) K/uL MPV (7.4-10.4) fL Immature Gran % (Auto) % Neut % (Auto) % Lymph % (Auto) % [place] % (Auto) % Eos % (Auto) % Baso % (Auto) % Neut # (Auto) (1.4-6.5) K/uL Lymph # (Auto) (1.2-3.4) K/uL [place] # (Auto) (0.11-0.59) K/uL Eos # (Auto) (0-0.5) K/uL Baso # (Auto) (0-0.2) K/uL Immature Gran # (Auto) (0.00-0.02) K/uL Sodium (136-145) mmol/L Potassium (3.5-5.1) mmol/L Chloride (98-107) mmol/L Carbon Dioxide (21-32) mmol/L Anion Gap (3-11) BUN (6-23) mg/dl Creatinine (0.6-1.2) mg/dl Est Cr Clr Drug Dosing Est GFR ( Amer) ml/min Est GFR (Non-Af Amer) ml/min BUN/Creatinine Ratio (10-20) Glucose (70-99(Fasting)) mg/dl Calcium (8.5-10.1) mg/dl Magnesium (1.7-2.4) mg/dl Total Bilirubin (0.2-1.0) mg/dl AST (13-39) U/L ALT (7-52) U/L Alkaline Phosphatase (34-104) U/L Troponin I High Sens (0-14) pg/ml Total Protein (6.0-8.3) gm/dl Albumin (3.4-5.0) gm/dl Globulin (2.5-4.0) gm/dl Albumin/Globulin Ratio (0.9-2) Procalcitonin 0.08 (0-0.5) ng/ml TSH 0.491 (0.300-4.500) uIu/ml SARS-CoV-2 (PCR) (Negative) Influenza Type A (PCR) (Neg) Influenza Type B (PCR) (Neg) RSV (RT-PCR) (Neg) Administered Medications Discontinued Medications Acetaminophen (Acetaminophen 500 Mg Tab) 1,000 mg PO NOW STA Stop: 10/17/21 18:42 Last Admin: 10/17/21 19:30 Dose: 1,000 mg Documented by: [id number] Sodium Chloride (Nss 1000ml) 1,000 mls @ 999 mls/hr IV .Q1H1M SAHRA Stop: 10/17/21 19:45 Last Admin: 10/17/21 19:44 Dose: 999 mls/hr Documented by: [id number] Imaging Data Radiologist's Impression: Abdomen/Pelvis CT 10/17/21 18:[address] WITHOUT CONTRAST CT DOSE: HISTORY: Generalized abdominal pain. TECHNIQUE: Multiaxial CT images of the abdomen and pelvis were performed without contrast. A dose lowering technique was utilized adhering to the principles of ALARA. COMPARISON STUDY: Abdomen and pelvis CT 07/21/2020. FINDINGS: The lung bases are essentially clear. No pneumoperitoneum. No pneumatosis. There is an old mild superior endplate compression deformity at L1. No acute fractures within the visualized osseous structures. There are poststernotomy changes. Mild pelvic floor collapse. Prior hysterectomy. The bladder is distended. No bladder wall thickening. No retroperitoneal or pelvic lymphadenopathy. Calcified plaque within the normal caliber abdominal aorta. Prior cholecystectomy. Pneumobilia is again noted. The unenhanced pancreas and adrenal glands are unremarkable. Multiple splenic calcified granulomas are again noted. No renal or ureteral stones. Mild fullness within the bilateral renal collecting systems without hydronephrosis. This is likely due to the distended bladder. There are few hypoechoic and hyperdense right renal lesions. These are incompletely characterized on this noncontrast study but statistically represent cysts. Suboptimal evaluation for bowel pathology due to the lack of intravenous and oral contrast. However, there is no definite bowel wall thickening or obstruction. Colonic diverticulosis. No evidence for acute diverticulitis. The appendix is not identified and likely surgically absent. IMPRESSION: 1. No bowel wall thickening or obstruction. 2. Colonic diverticulosis. No evidence for acute diverticulitis. 3. Prior hysterectomy and appendectomy. 4. Additional findings as described above. ACT 112: Negative or not required by law. Electronically signed by: Yinka Mora M.D. 10/17/2021 9:14 PM Chest X-Ray 10/17/21 18:41 XR chest 1V portable CLINICAL HISTORY: weakness COMPARISON STUDY: Chest CT November 14, 2018. Chest radiograph September 22, 2021. FINDINGS: Median sternotomy wires and mediastinal surgical clips are again noted Lung volumes are normal. Lungs are clear. There is no pneumothorax or pleural effusion. Cardiac size is stable. Mediastinal contours are normal. There is no evidence for pulmonary edema. Old right rib fractures are incidentally noted. IMPRESSION: No acute cardiopulmonary findings. No change in appearance of the chest. ACT 112: Negative or not required by law. Electronically signed by: Marvin Larsen M.D. 10/17/2021 8:[address] 10/17/21 18:[address] DOSE: HISTORY: fall TECHNIQUE: Multiaxial CT images of the head were performed without the use of in travenous contrast. Automated exposure control was utilized for this study. A dose lowering technique was utilized adhering to the principles of ALARA. Comparison: Head CT 09/22/2021. Findings: Left mastoid effusion, unchanged. The paranasal sinuses and right mastoid air cells are clear. The calvarium and skull base are intact. There is no mass, hematoma, midline shift, acute infarct. White matter hypodensity is nonspecific but suggestive of microvascular ischemic change. The ventricles and sulci demonstrate mild age-related involutional changes. Prior right suboccipital craniotomy. Impression: No significant change compared to the prior study. No acute intracranial abnormality. ACT 112: Negative or not required by law. Electronically signed by: Yinka Mora M.D. 10/17/2021 8:[address] 10/17/21 18:[address] DOSE: 1393.50 mGy.cm HISTORY: Fall. midline mid LBP TECHNIQUE: Multiaxial CT images of the lumbar spine were performed and reformatted in the sagittal and coronal plane without the use of contrast. A dose lowering technique was utilized adhering to the principles of ALARA. COMPARISON: Lumbar spine CT 07/21/2020. FINDINGS: There is an old mild superior endplate compression deformity at L1. No acute fracture or subluxation within the lumbar spine. Moderate facet degen erative changes within the lumbar spine. The visualized sacrum appears intact. Paravertebral soft tissues are unremarkable. IMPRESSION: 1. No acute fracture or subluxation within the lumbar spine. 2. Old mild superior endplate compression deformity at L1. ACT 112: Negative or not required by law. Electronically signed by: Yinka Mora M.D. 10/17/2021 9:08 PM Discharge Plan Visit Data Chief Complaint: Illness Stated Complaint: Covid+ ED Provider: Tani William Discharge Problem: Weakness, COVID-19, Hypomagnesemia, Acute electrocardiogram changes Patient Disposition: Admitted As Inpatient Condition: Good Forms Stand Alone Forms: [employer] Prescriptions Prescriptions: No Action alendronate 70 mg Tablet 70 mg PO WK RF: 0 clonazepam 0.5 mg Tablet 2 tabs PO HS RF: 0 clonazepam 0.5 mg Tablet 0.5 mg PO BID RF: 0 venlafaxine 150 mg Capsule,Extended Release 24hr 150 mg PO QAM RF: 0 aspirin [Aspirin Low Dose] 81 mg Tablet,Delayed Release (Dr/Ec) 81 mg PO QAM RF: 0 tramadol 50 mg Tablet 50 mg PO TID PRN (Reason: Pain) RF: 0 acetaminophen [Acetaminophen Extra Strength] 500 mg Tablet 1,000 mg PO HS RF: 0 levothyroxine 75 mcg Tablet 75 mcg PO QAM RF: 0 pantoprazole 40 mg Tablet,Delayed Release (Dr/Ec) 40 mg PO QAM RF: 0 gabapentin 300 mg Capsule 300 mg PO BID RF: 0 gabapentin 300 mg Capsule 600 mg PO HS RF: 0 lisinopril 5 mg Tablet 5 mg PO QAM RF: 0 cholecalciferol (vitamin D3) [Vitamin D3] 1,000 unit Capsule 1,000 unit PO QAM RF: 0 Artificial Tears (PF) Dropperette 2 drp OPB BID RF: 0 cimetidine 400 mg tablet 400 mg PO HS RF: 0 docusate sodium 100 mg Capsule 100 mg PO DAILY RF: 0 biotin 1,000 mcg Tablet,Chewable 1,000 mcg PO DAILY RF: 0 acetaminophen [Tylenol Extra Strength] 500 mg Tablet 1,000 mg PO BID PRN (Reason: Pain) RF: 0 trazodone 100 mg tablet 100 mg PO HS RF: 0 carboxymethylcellulose sodium [Refresh Liquigel] 1 % Drops, Liquid Gel 1 drp OPB BID RF: 0 rosuvastatin [Crestor] 40 mg tablet 40 mg PO DAILY RF: 0 cyanocobalamin (vitamin B-12) 1,000 mcg Tablet 1,000 mcg PO DAILY RF: 0 Referrals Referrals: Melody Hassan [Primary Care Provider] -
[2021-10-17] MEDS ORDERED: ACETAMINOPHEN 500 MG TAB PO STA (18:41)
[2021-10-17] MEDS ORDERED: SODIUM CHLORIDE 0.9% 1000ML 1,000 ML IV SCH (18:45)
[2021-10-17 19:48] LABS: Basophils # (auto) 0.03 K/uL (0-0.2); Basophils % (auto) 0.8 %; Hematocrit (blood only) 38.7 % (37-47); Hemoglobin 13.1 g/dL (12.0-16.0); Immature Granulocytes # (auto) 0.03 K/uL (0.00-0.02); Immature Granulocytes % (auto) 0.8 %; Lymphocytes # (auto) 0.56 K/uL (1.2-3.4); Lymphocytes % (auto) 15.6 %; Mean Corpuscular Hemoglobin 31.7 pg (25-34); Mean Corpuscular Hgb Conc 33.9 g/dL (32-36); Mean Corpuscular Volume 93.7 fL (80-100); Mean Platelet Volume 9.8 fL (7.4-10.4); Neutrophils # (auto) 2.08 K/uL (1.4-6.5); Neutrophils % (auto) 57.8 %; Platelet Count 170 K/uL (130-400); RDW Standard Deviation 45.3 fL (36.4-46.3); Red Blood Count 4.13 M/uL (4.2-5.4)
[2021-10-17 20:16] LABS: Alanine Aminotransferase 11 U/L (7-52); Albumin Globulin Ratio 1.6 (0.9-2); Albumin Level 4.1 gm/dl (3.4-5.0); Alkaline Phosphatase 75 U/L (34-104); Anion Gap 8 (3-11); Aspartate Aminotransferase 25 U/L (13-39); BUN Creatinine Ratio 9.4 (10-20); Bilirubin,Total 0.3 mg/dl (0.2-1.0); Blood Urea Nitrogen 17 mg/dl (6-23); Calcium 9.7 mg/dl (8.5-10.1); Carbon Dioxide 26 mmol/L (21-32); Chloride 102 mmol/L (98-107); Est GFR (African American) 29.7 ml/min; Est GFR (Non-African American) 25.6 ml/min; Globulin 2.6 gm/dl (2.5-4.0); Glucose 87 mg/dl (70-99(Fasting)); Magnesium 1.5 mg/dl (1.7-2.4); Potassium 3.7 mmol/L (3.5-5.1); Sodium 136 mmol/L (136-145); Total Protein 6.7 gm/dl (6.0-8.3)
[2021-10-17 20:17] LABS: Troponin I High Sensitivity 32.5 pg/ml (0-14)
--- NOTE | 2021-10-17 20:27 | XRay Report ---
XR chest 1V portable CLINICAL HISTORY: weakness COMPARISON STUDY: Chest CT November 14, 2018. Chest radiograph September 22, 2021. FINDINGS: Median sternotomy wires and mediastinal surgical clips are again noted Lung volumes are nor mal. Lungs are clear. There is no pneumothorax or pleural effusion. Cardiac size is stable. Mediastin al contours are normal. There is no evidence for pulmonary edema. Old right rib fractures are inciden tally noted. IMPRESSION: No acute cardiopulmonary findings. No change in appearance of the chest. ACT 112: Negative or not required by law. Electronically signed by: Marvin Larsen M.D. 10/17/2021 8:26 PM
--- NOTE | 2021-10-17 20:54 | CT Scan Report ---
HEAD CT NONCONTRAST CT DOSE: HISTORY: fall TECHNIQUE: Multiaxial CT images of the head were performed without the use of intravenous contrast. A utomated exposure control was utilized for this study. A dose lowering technique was utilized adheri ng to the principles of ALARA. Comparison: Head CT 09/22/2021. Findings: Left mastoid effusion, unchanged. The paranasal sinuses and right mastoid air cells are aura ar. The calvarium and skull base are intact. There is no mass, hematoma, midline shift, acute infarct . White matter hypodensity is nonspecific but suggestive of microvascular ischemic change. The ventri cles and sulci demonstrate mild age-related involutional changes. Prior right suboccipital craniotomy . Impression: No significant change compared to the prior study. No acute intracranial abnormality. ACT 112: Negative or not required by law. Electronically signed by: Yinka Mora M.D. 10/17/2021 8:53 PM
[2021-10-17 21:01] LABS: Influenza A virus by PCR Negative (Neg); Influenza B virus by PCR Negative (Neg); RSV by PCR Negative (Neg)
--- NOTE | 2021-10-17 21:09 | CT Scan Report ---
LUMBAR SPINE CT CT DOSE: 1393.50 mGy.cm HISTORY: Fall. midline mid LBP TECHNIQUE: Multiaxial CT images of the lumbar spine were performed and reformatted in the sagittal an d coronal plane without the use of contrast. A dose lowering technique was utilized adhering to the principles of ALARA. COMPARISON: Lumbar spine CT 07/21/2020. FINDINGS: There is an old mild superior endplate compression deformity at L1. No acute fracture or arzate bluxation within the lumbar spine. Moderate facet degenerative changes within the lumbar spine. The v isualized sacrum appears intact. Paravertebral soft tissues are unremarkable. IMPRESSION: 1. No acute fracture or subluxation within the lumbar spine. 2. Old mild superior endplate compression deformity at L1. ACT 112: Negative or not required by law. Electronically signed by: Yinka Mora M.D. 10/17/2021 9:08 PM
[2021-10-17 21:14] LABS: SARS CoV2 RNA(COVID-19) InHosp POSITIVE (Negative)
--- NOTE | 2021-10-17 21:16 | CT Scan Report ---
ABDOMEN AND PELVIS CT WITHOUT CONTRAST CT DOSE: HISTORY: Generalized abdominal pain. TECHNIQUE: Multiaxial CT images of the abdomen and pelvis were performed without contrast. A dose lo wering technique was utilized adhering to the principles of ALARA. COMPARISON STUDY: Abdomen and pelvis CT 07/21/2020. FINDINGS: The lung bases are essentially clear. No pneumoperitoneum. No pneumatosis. There is an old mild superior endplate compression deformity at L1. No acute fractures within the visualized osseous structures. There are poststernotomy changes. Mild pelvic floor collapse. Prior hysterectomy. The lima dder is distended. No bladder wall thickening. No retroperitoneal or pelvic lymphadenopathy. Calcifie d plaque within the normal caliber abdominal aorta. Prior cholecystectomy. Pneumobilia is again noted . The unenhanced pancreas and adrenal glands are unremarkable. Multiple splenic calcified granulomas are again noted. No renal or ureteral stones. Mild fullness within the bilateral renal collecting sys tems without hydronephrosis. This is likely due to the distended bladder. There are few hypoechoic an d hyperdense right renal lesions. These are incompletely characterized on this noncontrast study but statistically represent cysts. Suboptimal evaluation for bowel pathology due to the lack of intraveno us and oral contrast. However, there is no definite bowel wall thickening or obstruction. Colonic div erticulosis. No evidence for acute diverticulitis. The appendix is not identified and likely surgical ly absent. IMPRESSION: 1. No bowel wall thickening or obstruction. 2. Colonic diverticulosis. No evidence for acute diverticulitis. 3. Prior hysterectomy and appendectomy. 4. Additional findings as described above. ACT 112: Negative or not required by law. Electronically signed by: Yinka Mora M.D. 10/17/2021 9:14 PM
[2021-10-17] MEDS ORDERED: MAGNESIUM SULFATE / D5W 1 GM/100 ML BAG IV STA (21:49)
[2021-10-18 03:20] LABS: Appearance Urine Clear (Clear); Bacteria Urine Automated Negative (Negative); Bilirubin Urine Negative (Negative); Blood Urine 1+ (Negative); Cast Urine Automated 0 /lpf (0-5); Color Urine Yellow; Epithelial Cell Urine Auto 0-5 /lpf (0-5); Glucose Urine UA Negative (Negative); Ketones Urine Negative (Negative); Leukocyte Esterase Urine Negative (Negative); Nitrite Urine Negative (Negative); Protein Urine 2+ (Negative); Specific Gravity Urine 1.007 (1.000-1.030); Urobilinogen Urine Negative (Negative); WBC Urine Automated 0 /hpf (0-5); pH Urine 6.5 (4.5-7.5)
[2021-10-18] MEDS ORDERED: NITROGLYCERIN SL 0.4 MG/TAB TAB SL PRN (03:30)
[2021-10-18] MEDS ORDERED: ACETAMINOPHEN 325 MG TAB PO PRN (03:30)
[2021-10-18] MEDS ORDERED: POLYETHYLENE (MIRALAX) 17 GM PACK PO PRN (03:30)
[2021-10-18] MEDS ORDERED: SODIUM CHLORIDE 0.9% 1000ML 1,000 ML IV SCH (03:30)
[2021-10-18] MEDS ORDERED: traMADol HCL 50 MG TABLET PO PRN (03:30)
[2021-10-18] MEDS ORDERED: GLUCOSE 40% GEL 15 GM TUBE PO PRN (03:45)
[2021-10-18] MEDS ORDERED: GLUCAGON FOR INJ 1 MG VIAL IM PRN (03:45)
[2021-10-18] MEDS ORDERED: DEXTROSE 50% 50 ML SYRINGE IV PRN (03:45)
[2021-10-18] MEDS ORDERED: CARBOHYDRATES FOR HYPOGLYCEMIA PO PRN (03:45)
[2021-10-18] MEDS ORDERED: GLUCOSE 10 TABS/TUBE PO PRN (03:45)
[2021-10-18] MEDS: LEVOTHYROXINE SODIUM 75 MCG TABLET PO SCH (05:18)
[2021-10-18] MEDS: HEPARIN SOD 5,000 UNIT/0.5 ML VIAL SQ SCH ×3 (05:18→20:01)
--- NOTE | 2021-10-18 06:45 | History and Physical Report ---
DATE OF ADMISSION: 10/18/2021. CHIEF COMPLAINT: Weakness, COVID. HISTORY OF PRESENT ILLNESS: This is an 81-year-old female with past medical history significant for hypothyroidism, hyperlipidemia, diabetes, diabetic peripheral neuropathy, primary hyperparathyroidism, renal artery stenosis, hypertension, CAD s/p CABG nonrheumatic aortic valve insufficiency, history of bradycardia, GERD, female stress incontinence, chronic kidney disease stage III, proteinuria, primary open angle glaucoma, trigeminal neuralgia, anxiety state, panic disorder, depression, who lives at [facility], presents with weakness. The patient states since last couple of days she is sleeping a lot and she is feeling very weak and she tested for COVID positive and was sent in here. She is saturating okay on room air. She says she vaccinated , she does not know when was last time she was vaccinated. She is afebrile. Complains of severe back pain. Some abdominal discomfort. Denies any chest pain. No shortness of breath. No nausea, no vomiting. Appetite is down. She did not eat for the last couple of days. Has some cough, bringing some mucous stuff. Has some headache. Vision is not that great. No runny nose, no sore throat. She says she is having difficulty swallowing and is supposed to to see doctor for that this coming week. She is hemodynamically stable. ALLERGIES: No known drug allergies. PAST MEDICAL HISTORY: As mentioned above. PAST SURGICAL HISTORY: Carpal tunnel surgery, EGDs, left leg surgery, appendectomy, cholecystectomy, CABG, stereotactic cranial intradural navigation, total abdominal hysterectomy with removal of tubes. MEDICATIONS: The patient is on Tylenol Extra Strength 1000 mg p.o. at bedtime, Tylenol Extra Strength 1000 mg p.o. b.i.d. p.r.n., alendronate 70 mg p.o. weekly, artificial tears 2 drops ophthalmic b.i.d., aspirin 81 mg p.o. daily, biotin 1000 mcg p.o. daily, vitamin D 1000 units p.o. daily, cimetidine 400 mg p.o. at bedtime, clonazepam 1 mg p.o. at bedtime, clonazepam 0.5 mg p.o. b.i.d., vitamin B12 1000 mcg p.o. daily, Colace 100 mg p.o. daily, gabapentin 300 mg p.o. b.i.d., gabapentin 600 mg p.o. at bedtime, levothyroxine 75 mcg p.o. a.m., lisinopril 5 mg p.o. a.m., Protonix 40 mg p.o. daily, Crestor 40 mg p.o. daily, tramadol 50 mg p.o. t.i.d. p.r.n., trazodone 100 mg p.o. at bedtime, venlafaxine 150 mg p.o. a.m. FAMILY HISTORY: Significant for daughter has throat cancer, brother has heart disorder, father has heart disorder, sister has heart disorder. SOCIAL HISTORY: . No smoking, no alcohol, no drug use. Currently lives at [facility]. REVIEW OF SYSTEMS: As per HPI. Rest of review of systems is negative. PHYSICAL EXAMINATION: GENERAL: The patient is of moderate build, not in acute distress. VITAL SIGNS: Temperature 37.4, pulse 65, respiratory rate 18, blood pressure 140/87, oxygen 94% on room air. HEENT: Pupils equal, round and reactive to light. Oral mucosa moist. NECK: No JVD, no neck masses. CARDIOVASCULAR: S1 and S2 heard. Regular rate and rhythm. No murmur, no gallop. RESPIRATORY SYSTEM: Normal AP diameter. No accessory muscle use. No wheezing, no crackles. ABDOMEN: Soft. Bowel sounds are present. Mild abdominal discomfort. No guarding, no rigidity, no distention. CENTRAL NERVOUS SYSTEM: Cranial nerves II-XII grossly intact, nonfocal. EXTREMITIES: No edema, no erythema. LABORATORY DATA: WBC 3.6, hemoglobin 13.1, hematocrit 38.7, platelets 170. Sodium 136, potassium 3.7, chloride 102, bicarbonate 26, BUN 17, creatinine 1.8, serum glucose 87, calcium 9.7, magnesium 1.5, total bilirubin 0.3, AST 25, ALT 11, alkaline phosphatase 75, troponin I high sensitivity 32.5. TSH 0.4. Procalcitonin 0.08. SARS-CoV-2 PCR positive. Influenza A and B PCR negative. RSV PCR negative. IMAGING DATA: Lumbar spine CT, no acute fractures. Old mild superior endplate compression deformity at L1. CT of the head noncontrast, no significant change was found. Chest x-ray, no acute cardiopulmonary findings. CT of the abdomen and pelvis without contrast, no bowel wall thickening or obstruction, colonic diverticulosis, no evidence for acute diverticulitis. ASSESSMENT AND PLAN: This 81-year-old female presents with weakness and was found to have COVID. 1. Weakness and COVID: Saturating okay on room air. The patient is vaccinated and states she is also boosted. Will monitor in the hospital. COVID precautions. Can consider 3 days IV remdesivir because of risk factors.. 2. Mild elevation of troponin: Will follow serial enzymes. If any concern, will get echo and cardiac consult. 3. History of dysphagia: The patient states she is having some difficulty swallowing. Will get a GI consult while the patient is in the hospital. 4. History of coronary artery disease: Status post coronary artery bypass graft. Continue her aspirin, statin, and lisinopril. 5. History of severe back pain: Continue gabapentin. PT, OT when stable, pain control.Can consider imaging studies. 6. Hypothyroidism: Continue Synthroid. 7. Hypertension: Continue her home medication of lisinopril. 8. History of gastroesophageal reflux disease: Continue cimetidine and Protonix. 9. Hyperlipidemia: Continue statin. 10. Depression: Continue venlafaxine, trazodone, and Klonopin. 11. History of coronary artery disease. 12. History of renal artery stenosis: Needs followup. 13. Acute kidney injury on chronic kidney disease stage III: Presents with creatinine of 1.8. Seems to be baseline around 1.4. Getting gentle fluids. Follow the repeat labs in the a.m. 14. Hypomagnesemia: Will replace. 15. Deep venous thrombosis prophylaxis: Heparin subcutaneously. DISPOSITION: Closely monitor in the med tele. PT/OT prior to discharge. Social service to help with discharge planning. Level 1 full code. Job ID: [id number] [facility]
[2021-10-18 07:09] LABS: Basophils # (auto) 0.02 K/uL (0-0.2); Basophils % (auto) 0.5 %; Hematocrit (blood only) 41.3 % (37-47); Immature Granulocytes # (auto) 0.01 K/uL (0.00-0.02); Immature Granulocytes % (auto) 0.3 %; Lymphocytes # (auto) 0.76 K/uL (1.2-3.4); Lymphocytes % (auto) 20.5 %; Mean Corpuscular Hemoglobin 31.8 pg (25-34); Mean Corpuscular Hgb Conc 33.9 g/dL (32-36); Mean Corpuscular Volume 93.9 fL (80-100); Mean Platelet Volume 9.9 fL (7.4-10.4); Monocytes # (auto) 0.58 K/uL (0.11-0.59); Monocytes % (auto) 15.6 %; Neutrophils # (auto) 2.34 K/uL (1.4-6.5); Neutrophils % (auto) 63.1 %; Platelet Count 165 K/uL (130-400); RDW Coefficient of Variation 13.1 % (11.5-14.5); RDW Standard Deviation 45.3 fL (36.4-46.3); White Blood Count 3.71 K/uL (4.8-10.8)
[2021-10-18 07:25] LABS: Estimated Average Glucose 111 mg/dl; Hemoglobin A1C 5.5 % (4.5-5.6)
[2021-10-18 07:26] LABS: BUN Creatinine Ratio 9.2 (10-20); Calcium 9.4 mg/dl (8.5-10.1); Creatinine Clr Calc Pharmacy 23.4 ml/min; Est GFR (African American) 36.6 ml/min; Est GFR (Non-African American) 31.6 ml/min; Magnesium 1.7 mg/dl (1.7-2.4); Potassium 3.6 mmol/L (3.5-5.1)
[2021-10-18 07:50] LABS: Troponin I High Sensitivity 38.8 pg/ml (0-14)
[2021-10-18] MEDS: INSULIN ASPART PER UNIT SC SCH ×4 (08:00→23:48)
[2021-10-18] MEDS: ARTIFICIAL TEARS OP SCH ×2 (09:00→20:04)
[2021-10-18] MEDS ORDERED: CARBOXYMETHYLCELLULOSE SODIUM 1% OPB SCH (09:00)
[2021-10-18] MEDS ORDERED: NON-FORMULARY MEDICATION (Biotin 1,000 mcg Tablet,Chewable) PO SCH (09:00)
[2021-10-18] MEDS ORDERED: [UNRECOGNIZED DRUG - OTHER] OPB SCH (09:00)
[2021-10-18] MEDS: PANTOprazole 40 MG TAB PO SCH (09:10)
[2021-10-18] MEDS: CYANOCOBALAMIN (B-12) 500 MCG TABLET PO SCH (09:10)
[2021-10-18] MEDS: ASPIRIN 81 MG ECTAB PO SCH (09:10)
[2021-10-18] MEDS: DOCUSATE SODIUM 100 MG CAP PO SCH (09:10)
[2021-10-18] MEDS: ROSUVASTATIN CALCIUM 20 MG TAB PO SCH (09:10)
[2021-10-18] MEDS: VENLAFAXINE HCL XR 150 MG CAPXR PO SCH (09:10)
[2021-10-18] MEDS: CHOLECALCIFEROL 1,000 UNITS 25 MCG TAB PO SCH (09:10)
[2021-10-18] MEDS: lisinopril 5 MG TAB PO SCH (09:10)
[2021-10-18] MEDS: GABAPENTIN 300 MG CAP PO SCH ×2 (09:10→16:52)
[2021-10-18] MEDS: clonazePAM 0.5 MG TAB PO SCH ×2 (09:22→12:38)
--- NOTE | 2021-10-18 09:27 | Communication Note ---
Date of Service: October 18, 2021 Received GI consult request to evaluate pt for dysphagia. She is currently in isolation room due to COVID 19 infection. I called her room but pt states she's too "sick to talk". Her nurse (Laura) who was in pt's room stated that pt is confused. Chart was reviewed. She was recently seen by myself in outpt GI clinic on 10/02/2021 for the same reason of dysphagia. 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 She has had EGD with prior esophageal dilation which usually helps with her symptoms. She had Speech Therapy and video swallow study in July which showed silent aspiration with thin liquid barium, possibly small Zenker's diverticulum, moderate mid to distal esophageal dysmotility. We have arranged outpt EGD w possible repeat dilation to be done at [facility] on 11/06/2021. This will allow time for her to recover from COVID19. Recommend continuing PPI and Soft, slippery diet w GERD and aspiration precautions. Recall GI prn I reviewed the patient's chart as she was admitted with COVID-pneumonia. Patient has been seen by our service as an outpatient and has an upper endoscopy planned for sometime next month. We were consulted due to her intermittent difficulty with swallowing. Given the long history of her symptoms there is not a need for an inpatient intervention especially given her COVID-positive status. Would recommend use of a slippery or mechanical soft diet as above. Please avoid bread chicken and steak and pork. Please call with any questions or concerns, GI to sign off
--- NOTE | 2021-10-18 15:42 | Electrocardiogram Report ---
Test Reason : Blood Pressure : / mmHG Vent. Rate : 070 BPM Atrial Rate : 070 BPM P-R Int : 138 ms QRS Dur : 142 ms QT Int : 444 ms P-R-T Axes : 012 015 000 degrees QTc Int : 479 ms Poor data quality, interpretation may be adversely affected Sinus rhythm with Premature atrial complexes Right bundle branch block Abnormal ECG When compared with ECG of 12-APR-2020 18:54, Significant changes have occurred Confirmed by Suhail Mtz ([id number]) on 10/18/2021 3:41:58 PM Referred By: REFERRED SELF Confirmed By:Suhail Mtz
--- NOTE | 2021-10-18 15:58 | Electrocardiogram Report ---
Test Reason : Blood Pressure : / mmHG Vent. Rate : 090 BPM Atrial Rate : 090 BPM P-R Int : 142 ms QRS Dur : 140 ms QT Int : 402 ms P-R-T Axes : 018 041 -24 degrees QTc Int : 491 ms Sinus rhythm with Premature atrial complexes Right bundle branch block Inferior infarct , age undetermined T wave abnormality, consider lateral ischemia Abnormal ECG When compared with ECG of 17-OCT-2021 21:24, (unconfirmed) Inferior infarct is now Present Confirmed by Suhail Mtz ([id number]) on 10/18/2021 3:58:01 PM Referred By: REFERRED SELF Confirmed By:Suhail Mtz
--- NOTE | 2021-10-18 16:05 | Hospitalist Progress Note ---
Date of Service October 18, 2021 Assessment & Plan (1) Weakness: Plan: per Dr. Okeefe's notes with addendum: ASSESSMENT AND PLAN: This 81-year-old female presents with weakness and was found to have COVID. 1. Weakness and COVID: Saturating okay on room air. The patient is vaccinated and states she is also boosted. Will monitor in the hospital. COVID precautions. Can consider 3 days IV remdesivir because of risk factors. 10/18 on room air CXR: no pneumonia (+) diarrhea cannot start Remdesivir due to Crea Cl< 30 check stool PCR continue to monitor closely 2. Mild elevation of troponin: Will follow serial enzymes. If any concern, will get echo and cardiac consult. 10/18 Troponins 32, 38, 48 EKG: New T wave inversions in V4 V5 compared to 2019 Patient has no chest pain or cardiac symptoms Check echocardiogram 3. History of dysphagia: The patient states she is having some difficulty swallowing. Will get a GI consult while the patient is in the hospital. 10/18 Speech therapist consulted GI consulted Continue clear liquid diet 4. History of coronary artery disease: Status post coronary artery bypass graft. Continue her aspirin, statin, and lisinopril. 5. History of severe back pain: Continue gabapentin. 10/18 No back pain on exam this afternoon PT and OT evaluation 6. Hypothyroidism: Continue Synthroid. 7. Hypertension: Continue her home medication of lisinopril. 8. History of gastroesophageal reflux disease: Continue cimetidine and Protonix. 9. Hyperlipidemia: Continue statin. 10. Depression: Continue venlafaxine, trazodone, and Klonopin. 11. History of coronary artery disease. 12. History of renal artery stenosis: Needs followup. 13. Acute kidney injury on chronic kidney disease stage III: Presents with creatinine of 1.8. Seems to be baseline around 1.4. Getting gentle fluids. Follow the repeat labs in the a.m. 10/18 Creatinine 1.5 DC IV fluids 14. Hypomagnesemia: 10/18 Resolved 15. Deep venous thrombosis prophylaxis: Heparin subcutaneously. DISPOSITION: Closely monitor in the [employer] tele. PT/OT prior to discharge. Social service to help with discharge planning. Level 1 full code. (2) COVID-19: Admission and Anticipated Discharge Date Admission Date: October 18, 2021 Subjective ff up for weakness, COVID 19 infection, etc seen resting in bed, comfortable states she feels fine some dry cough, no myalgias/arthralgias, nasal congestion, loss of taste or smell (+) 3 diarrhea episodes no chest pain, dyspnea, palpitations, dizziness no problems with clear liquids, reports some trouble with meat no other symptoms Review of Systems Review of Systems: all noted and negative except for above Physical Exam Physical Exam: General- oriented x 3, not in distress, speaks in sentences with no effort or accessory muscle use Head- atraumatic Eyes- PERRL, EOMI, anicteric ENT- oropharynx clear Neck- supple, no JVD, no adenopathy, no thyromegaly; carotids +2/2, no bruits appreciated Lungs- clear to auscultation bilaterally, no rales/wheezes Heart- normal rate, regular rhythm; no murmur, no gallop, no rub appreciated Abdomen- normal bowel sounds, nondistended, soft, nontender, no masses or hepatosplenomegaly Extremities- no pretibial edema, no calf tenderness; peripheral pulses intact Neuro- alert, oriented x 3; CN 2-12 grossly intact; motor 5/5 bilaterally;sensat ion 100% on all extremities; no other gross focal neurologic deficits Skin- warm & dry Results & Data Results & Data ([facility]) Vital Signs (Past 12 Hours) Vital Signs Temp Pulse Pulse Resp BP Pulse Ox 10/18/21 15:12 37.1 C 87 18 124/68 93 10/18/21 12:36 36.8 C 83 16 150/73 H 93 10/18/21 11:50 36.7 C 88 16 151/76 H 97 10/18/21 10:29 37.1 C 10/18/21 09:06 38.0 C H 99 H 18 154/68 H 94 10/18/21 06:40 78 all noted and reviewed including below
[2021-10-18 20:55] LABS: Adenovirus F 40/41 PCR Not Detected (NotDetected); Astrovirus PCR Not Detected (NotDetected); Campylobacter PCR Not Detected (NotDetected); Clostridium diff Toxin A/B PCR Not Detected (NotDetected); Cryptosporidium PCR Not Detected (NotDetected); Cyclospora cayetanensis PCR Not Detected (NotDetected); Entamoeba histolytica PCR Not Detected (NotDetected); Enteroaggregative E.coli(EAEC) Not Detected (NotDetected); Enteropathogenic E.coli (EPEC) Not Detected (NotDetected); Enterotoxigenic E.coli (ETEC) Not Detected (NotDetected); Giardia lamblia PCR Not Detected (NotDetected); Norovirus GI/GII PCR Not Detected (NotDetected); Plesiomonas shigelloides PCR Not Detected (NotDetected); Rotavirus A PCR Not Detected (NotDetected); Salmonella PCR Not Detected (NotDetected); Sapovirus PCR Not Detected (NotDetected); Shiga-like Toxin E.coli (STEC) Not Detected (NotDetected); Shigella/Enteroinvasive E.coli Not Detected (NotDetected); Vibrio cholerae PCR Not Detected (NotDetected); Vibrio species PCR Not Detected (NotDetected); Yersinia enterocolitica PCR Not Detected (NotDetected)
[2021-10-18] MEDS ORDERED: clonazePAM 1 MG TAB PO SCH (21:00)
[2021-10-18] MEDS ORDERED: GABAPENTIN 600 MG TAB PO SCH (21:00)
[2021-10-18] MEDS ORDERED: ACETAMINOPHEN 500 MG TAB PO SCH (21:00)
[2021-10-18] MEDS ORDERED: FAMOTIDINE 20 MG TAB PO SCH (21:00)
[2021-10-18] MEDS ORDERED: traZODone HCL 100 MG TAB PO SCH (21:00)
[2021-10-19] MEDS: HEPARIN SOD 5,000 UNIT/0.5 ML VIAL SQ SCH ×2 (05:38→13:02)
[2021-10-19] MEDS: LEVOTHYROXINE SODIUM 75 MCG TABLET PO SCH (05:38)
[2021-10-19] MEDS: INSULIN ASPART PER UNIT SC SCH ×2 (08:00→12:42)
[2021-10-19] MEDS: CYANOCOBALAMIN (B-12) 500 MCG TABLET PO SCH (08:06)
[2021-10-19] MEDS: clonazePAM 0.5 MG TAB PO SCH ×2 (08:06→13:02)
[2021-10-19] MEDS: CHOLECALCIFEROL 1,000 UNITS 25 MCG TAB PO SCH (08:06)
[2021-10-19] MEDS: DOCUSATE SODIUM 100 MG CAP PO SCH (08:06)
[2021-10-19] MEDS: PANTOprazole 40 MG TAB PO SCH (08:06)
[2021-10-19] MEDS: ROSUVASTATIN CALCIUM 20 MG TAB PO SCH (08:07)
[2021-10-19] MEDS: GABAPENTIN 300 MG CAP PO SCH (08:07)
[2021-10-19] MEDS: ASPIRIN 81 MG ECTAB PO SCH (08:07)
[2021-10-19] MEDS: ARTIFICIAL TEARS OP SCH (08:07)
[2021-10-19] MEDS: lisinopril 5 MG TAB PO SCH (08:07)
[2021-10-19] MEDS: VENLAFAXINE HCL XR 150 MG CAPXR PO SCH (08:07)
--- NOTE | 2021-10-19 12:48 | Hospitalist Progress Note ---
Date of Service October 19, 2021 delayed entry date of service noted above Assessment & Plan (1) Weakness: (2) COVID-19: Plan: (1) Weakness: per Dr. Okeefe's notes with addendum: ASSESSMENT AND PLAN: This 81-year-old female presents with weakness and was found to have COVID. 1. Weakness and COVID: Saturating okay on room air. The patient is vaccinated and states she is also boosted. 10/19 Remains stable overall Remained on room air with oxygen saturation more than 93 CXR: no pneumonia cannot start Remdesivir due to Crea Cl< 30 Continue supportive care Continue to monitor closely 2. Mild elevation of troponin: 10/19 Troponins 32, 38, 48 EKG: No signs of acute ischemia or infarct Patient has no chest pain or cardiac symptoms No further cardiology intervention at this time, mild troponin elevation likely secondary to underlying COVID infection Discussed with guide alpine Dr. Pineda 3. History of dysphagia: GI consulted Recommend outpatient EGD on November 07, 2019 at [facility] Continue strict aspiration precautions, mechanical soft slippery diet 4. History of coronary artery disease: Status post coronary artery bypass graft. Continue her aspirin, statin, and lisinopril. 5. History of severe back pain: Continue gabapentin. 10/19 No back pain on exam this afternoon 6. Hypothyroidism: Continue Synthroid. 7. Hypertension: Continue her home medication of lisinopril. 8. History of gastroesophageal reflux disease: Continue cimetidine and Protonix. 9. Hyperlipidemia: Continue statin. 10. Depression: Continue venlafaxine, trazodone, and Klonopin. 11. History of coronary artery disease. 12. History of renal artery stenosis: Needs followup. 13. Acute kidney injury on chronic kidney disease stage III: Presents with creatinine of 1.8. Seems to be baseline around 1.4. Getting gentle fluids. Follow the repeat labs in the a.m. 10/19 Given IV fluids Creatinine improved to 1.5 Encourage to drink plenty of water daily 14. Hypomagnesemia: 10/19 Resolved 15. Deep venous thrombosis prophylaxis:Given Heparin subcutaneously. DISPOSITION: Return to [facility] today Follow-up with primary care physician in 1 week (2) COVID-19: Per above Admission and Anticipated Discharge Date Admission Date: October 18, 2021 Subjective ff up for COVID 19 infection, etc seen resting in bed, comfortable alert, oriented states she feels fine overall breathing is fine, minimal cough no chest pain, dyspnea, palpitations, dizziness no other new symptoms states she is ready and adamant on being discharged- "I will go crazy here." Review of Systems Review of Systems: all noted and negative except for above Physical Exam Physical Exam: General- oriented x 2, not in distress, speaks in sentences with no effort or accessory muscle use Eyes- anicteric Neck- no JVD Lungs- clear BS bilaterally, no rales/wheezes Heart- normal rate, regular rhythm; no murmurs Abdomen- normal bowel sounds, nondistended, soft, nontender Extremities- no pretibial edema, no calf tenderness Neuro- alert, oriented x 2; no gross focal neurologic deficits Skin- warm & dry Results & Data Results & Data ([facility]) Vital Signs (Past 12 Hours) Vital Signs Temp Pulse Pulse Resp BP Pulse Ox 10/19/21 11:57 36.6 C 81 17 146/83 H 98 10/19/21 08:01 36.8 C 79 18 160/79 H 94 10/19/21 06:11 82 10/19/21 03:00 36.6 C 71 20 93/54 L 94 all noted and reviewed including below
--- NOTE | 2021-10-19 13:05 | Discharge Summary ---
Date of Service October 19, 2021 Admission HPI Per Admitting Provider HISTORY OF PRESENT ILLNESS: This is an 81-year-old female with past medical history significant for hypothyroidism, hyperlipidemia, diabetes, diabetic peripheral neuropathy, primary hyperparathyroidism, renal artery stenosis, hypertension, CAD s/p CABG nonrheumatic aortic valve insufficiency, history of bradycardia, GERD, female stress incontinence, chronic kidney disease stage III, proteinuria, primary open angle glaucoma, trigeminal neuralgia, anxiety state, panic disorder, depression, who lives at [facility], presents with weakness. The patient states since last couple of days she is sleeping a lot and she is feeling very weak and she tested for COVID positive and was sent in here. She is saturating okay on room air. She says she vaccinated , she does not know when was last time she was vaccinated. She is afebrile. Complains of severe back pain. Some abdominal discomfort. Denies any chest pain. No shortness of breath. No nausea, no vomiting. Appetite is down. She did not eat for the last couple of days. Has some cough, bringing some mucous stuff. Has some headache. Vision is not that great. No runny nose, no sore throat. She says she is having difficulty swallowing and is supposed to to see doctor for that this coming week. She is hemodynamically stable. Admission Exam Per Admitting Provider GENERAL: The patient is of moderate build, not in acute distress. VITAL SIGNS: Temperature 37.4, pulse 65, respiratory rate 18, blood pressure 140/87, oxygen 94% on room air. HEENT: Pupils equal, round and reactive to light. Oral mucosa moist. NECK: No JVD, no neck masses. CARDIOVASCULAR: S1 and S2 heard. Regular rate and rhythm. No murmur, no gallop. RESPIRATORY SYSTEM: Normal AP diameter. No accessory muscle use. No wheezing, no crackles. ABDOMEN: Soft. Bowel sounds are present. Mild abdominal discomfort. No guarding, no rigidity, no distention. CENTRAL NERVOUS SYSTEM: Cranial nerves II-XII grossly intact, nonfocal. EXTREMITIES: No edema, no erythema. Principal Diagnosis Weakness secondary to COVID-19 infection Dysphagia Discharge Exam General- oriented x 2, not in distress, speaks in sentences with no effort or accessory muscle use Eyes- anicteric Neck- no JVD Lungs- clear breath sounds bilaterally, no wheezing, no crackles Heart- normal rate, regular rhythm; no murmurs Abdomen- normal bowel sounds, nondistended, soft, nontender Extremities- no pretibial edema, no calf tenderness Neuro- alert, oriented x 3; no gross focal neurologic deficits Skin- warm & dry Discharge Data Allergies Allergy/AdvReac Type Severity Reaction Status Date / Time No Known Allergies Allergy Verified 10/17/21 20:05 Consultations 10/17/21 22:08 ED Decision to Admit Stat 10/18/21 08:00 Consult Gastroenterology Routine Ordered Studies 10/17/21 18:41 CT abd pelvis wo con Stat COMPARISON STUDY: Abdomen and pelvis CT 07/21/2020. FINDINGS: The lung bases are essentially clear. No pneumoperitoneum. No pneumatosis. There is an old mild superior endplate compression deformity at L1. No acute fractures within the visualized osseous structures. There are poststernotomy changes. Mild pelvic floor collapse. Prior hysterectomy. The bladder is distended. No bladder wall thickening. No retroperitoneal or pelvic lymphadenopathy. Calcified plaque within the normal caliber abdominal aorta. Prior cholecystectomy. Pneumobilia is again noted. The unenhanced pancreas and adrenal glands are unremarkable. Multiple splenic calcified granulomas are again noted. No renal or ureteral stones. Mild fullness within the bilateral renal collecting systems without hydronephrosis. This is likely due to the distended bladder. There are few hypoechoic and hyperdense right renal lesions. These are incompletely characterized on this noncontrast study but statistically represent cysts. Suboptimal evaluation for bowel pathology due to the lack of intravenous and oral contrast. However, there is no definite bowel wall thickening or obstruction. Colonic diverticulosis. No evidence for acute diverticulitis. The appendix is not identified and likely surgically absent. IMPRESSION: 1. No bowel wall thickening or obstruction. 2. Colonic diverticulosis. No evidence for acute diverticulitis. 3. Prior hysterectomy and appendectomy. 4. Additional findings as described above. ACT 112: Negative or not required by law. CT head/brain wo con Stat Comparison: Head CT 09/22/2021. Findings: Left mastoid effusion, unchanged. The paranasal sinuses and right mastoid air cells are clear. The calvarium and skull base are intact. There is no mass, hematoma, midline shift, acute infarct. White matter hypodensity is nonspecific but suggestive of microvascular ischemic change. The ventricles and sulci demonstrate mild age-related involutional changes. Prior right suboccipital craniotomy. Impression: No significant change compared to the prior study. No acute intracranial abnormality. ACT 112: Negative or not required by law. Electronically signed by: Yinka Mora M.D. 10/17/2021 8:[address] lumbar spine wo con Stat FINDINGS: There is an old mild superior endplate compression deformity at L1. No acute fracture or subluxation within the lumbar spine. Moderate facet degenerative changes within the lumbar spine. The visualized sacrum appears intact. Paravertebral soft tissues are unremarkable. IMPRESSION: 1. No acute fracture or subluxation within the lumbar spine. 2. Old mild superior endplate compression deformity at L1. ACT 112: Negative or not required by law. Electronically signed by: Yinka Mora M.D. 10/17/2021 9:08 PM Hospital Course (1) Weakness: per Dr. Okeefe's notes with addendum: ASSESSMENT AND PLAN: This 81-year-old female presents with weakness and was found to have COVID. 1. Weakness and COVID: Saturating okay on room air. The patient is vaccinated and states she is also boosted. 10/19 Remains stable overall Remained on room air with oxygen saturation more than 93 CXR: no pneumonia cannot start Remdesivir due to Crea Cl< 30 Continue supportive care Continue to monitor closely 2. Mild elevation of troponin: 10/19 Troponins 32, 38, 48 EKG: No signs of acute ischemia or infarct Patient has no chest pain or cardiac symptoms No further cardiology intervention at this time, mild troponin elevation likely secondary to underlying COVID infection Discussed with table tender sludge Dr. Pineda 3. History of dysphagia: GI consulted Recommend outpatient EGD on November 07, 2019 at [facility] Continue strict aspiration precautions, mechanical soft slippery diet 4. History of coronary artery disease: Status post coronary artery bypass graft. Continue her aspirin, statin, and lisinopril. 5. History of severe back pain: Continue gabapentin. 10/19 No back pain on exam this afternoon 6. Hypothyroidism: Continue Synthroid. 7. Hypertension: Continue her home medication of lisinopril. 8. History of gastroesophageal reflux disease: Continue cimetidine and Protonix. 9. Hyperlipidemia: Continue statin. 10. Depression: Continue venlafaxine, trazodone, and Klonopin. 11. History of coronary artery disease. 12. History of renal artery stenosis: Needs followup. 13. Acute kidney injury on chronic kidney disease stage III: Presents with creatinine of 1.8. Seems to be baseline around 1.4. Getting gentle fluids. Follow the repeat labs in the a.m. 10/19 Given IV fluids Creatinine improved to 1.5 Encourage to drink plenty of water daily 14. Hypomagnesemia: 10/19 Resolved 15. Deep venous thrombosis prophylaxis:Given Heparin subcutaneously. DISPOSITION: Return to [facility] Follow-up with primary care physician in 1 week (2) COVID-19: Per above Total Time Total Time Spent Total Time Spent (In Minutes): >30 MINUTES Discharge Plan Discharge Items Patient Disposition: Transfer [facility] Reason For Visit: ILLNESS Discharge Diagnosis: Weakness secondary to COVID-19 infection Condition on Discharge: Good Activity: Resume your previous activity Activity Comment: Increase gradually as tolerated, fall precautions Lifting: Wait until after follow-up appointment Exercise/Sports: Wait until after follow-up appointment Non-emergency contact: Primary Care Provider Call non-emergency contact if: you have any medication questions, your symptoms worsen and you have a fever Follow-up/Referrals: Melody Hassan [Primary Care Provider] - Diet: Heart Healthy Diet Texture: Mechanical soft (ground) Diet Comment: SLIPPERY, MECHANICAL SOFT DIET; ASPIRATION PRECAUTIONS PLEASE Addtl Attending Provider Instructions: RESUME YOUR USUAL MEDICATION REGIMEN. SLIPPERY, MECHANICAL SOFT DIET. STRICT ASPIRATION AND GERD PRECAUTIONS. OUTPATIENT EGD ON NOVEMBER 06, 2021 AT [facility]. PLEASE CALL YOUR PRIMARY CARE PHYSICIAN OR RETURN TO THE ER IF WITH WORSENING OF SYMPTOMS, INCLUDING Worsening cough, shortness of breath, oxygen saturation less than 92%, fevers or chills, chest pain, leg swelling, etc. FOLLOW UP WITH PRIMARY CARE PHYSICIAN in 1 week. PATIENT NEEDS TO BE ISOLATED FOR AT LEAST 9 MORE DAYS AND UNTIL COUGH RESOLVES. Home Isolation COVID-19 Instructions The following information about Home Isolation is from the CDC Website: https://www.cdc.gov/coronavirus/2019-ncov/hcp/pvckqtxj-dokddzz-mtuupf.html Stay home except to get medical care People who are mildly ill with COVID-19 are able to isolate at home during their illness. You should restrict activities outside your home, except for getting medical care. Do not go to work, school, or public areas. Avoid using public transportation, ride-sharing, or taxis. Separate yourself from other people and animals in your home People: As much as possible, you should stay in a specific room and away from other people in your home. Also, you should use a separate bathroom, if available. Animals: You should restrict contact with pets and other animals while you are sick with COVID-19, just like you would around other people. Although there have not been reports of pets or other animals becoming sick with COVID-19, it is still recommended that people sick with COVID-19 limit contact with animals until more information is known about the virus. When possible, have another member of your household care for your animals while you are sick. If you are sick with COVID-19, avoid contact with your pet, including petting, snuggling, being kissed or licked, and sharing food. If you must care for your pet or be around animals while you are sick, wash your hands before and after you interact with pets and wear a face mask. Call ahead before visiting your doctor If you have a medical appointment, call the healthcare provider and tell them that you have or may have COVID-19. This will help the healthcare providers office take steps to keep other people from getting infected or exposed. Wear a face mask You should wear a face mask when you are around other people (e.g., sharing a room or vehicle) or pets and before you enter a healthcare providers office. If you are not able to wear a face mask (for example, because it causes trouble breathing), then people who live with you should not stay in the same room with you, or they should wear a face mask if they enter your room. Cover your coughs and sneezes Cover your mouth and nose with a tissue when you cough or sneeze. Throw used tissues in a lined trash can. Immediately wash your hands with soap and water for at least 20 seconds or, if soap and water are not available, clean your hands with an alcohol-based hand accounts receivable associate that contains at least 60% alcohol. Clean your hands often Wash your hands often with soap and water for at least 20 seconds, especially after blowing your nose, coughing, or sneezing; going to the bathroom; and before eating or preparing food. If soap and water are not readily available, use an alcohol-based hand accounts receivable associate with at least 60% alcohol, covering all surfaces of your hands and rubbing them together until they feel dry. Soap and water are the best option if hands are visibly dirty. Avoid touching your eyes, nose, and mouth with unwashed hands. Avoid sharing personal household items You should not share dishes, drinking glasses, cups, eating utensils, towels, or bedding with other people or pets in your home. After using these items, they should be washed thoroughly with soap and water. Clean all high-touch surfaces everyday High touch surfaces include counters, tabletops, doorknobs, bathroom fixtures, toilets, phones, keyboards, tablets, and bedside tables. Also, clean any surfaces that may have blood, stool, or body fluids on them. Use a household cleaning spray or wipe, according to the label instructions. Labels contain instructions for safe and effective use of the cleaning product including precautions you should take when applying the product, such as wearing gloves and making sure you have good ventilation during use of the product. Monitor your symptoms Seek prompt medical attention if your illness is worsening (e.g., difficulty breathing).Beforeseeking care, call your healthcare provider and tell them that you have, or are being evaluated for, COVID-19. Put on a face mask before you enter the facility. These steps will help the healthcare providers office to keep other people in the office or waiting room from getting infected or exposed. Ask your healthcare provider to call the local or state health department. Persons who are placed under active monitoring or facilitated self- monitoring should follow instructions provided by their local health department or occupational health professionals, as appropriate. When working with your local health department check their available hours. If you have a medical emergency and need to call 911, notify the dispatch personnel that you have, or are being evaluated for COVID-19. If possible, put on a face mask before emergency medical services arrive. Discontinuing home isolation Patients with confirmed COVID-19 should remain under home isolation precautions until the risk of secondary transmission to others is thought to be low. The decision to discontinue home isolation precautions should be made on a [id number] basis, in consultation with healthcare providers and state and local health departments. Pending Studies at Discharge: Yes Studies:: Outpatient EGD November 06, 2021, [facility] Stand-Alone Forms: My [facility] Skilled Items Patient informed of condition?: Yes DNR: No Discharge Level of Care: Skilled Communicable Disease: Yes Discharge Prognosis: Stable Lines: None Urinary Catheter: No Medications and DC Order Prescriptions: Continued alendronate 70 mg Tablet 70 mg PO WK RF: 0 clonazepam 0.5 mg Tablet 2 tabs PO HS RF: 0 clonazepam 0.5 mg Tablet 0.5 mg PO BID RF: 0 venlafaxine 150 mg Capsule,Extended Release 24hr 150 mg PO QAM RF: 0 aspirin [Aspirin Low Dose] 81 mg Tablet,Delayed Release (Dr/Ec) 81 mg PO QAM RF: 0 tramadol 50 mg Tablet 50 mg PO TID PRN (Reason: Pain) RF: 0 acetaminophen [Acetaminophen Extra Strength] 500 mg Tablet 1,000 mg PO HS RF: 0 levothyroxine 75 mcg Tablet 75 mcg PO QAM RF: 0 pantoprazole 40 mg Tablet,Delayed Release (Dr/Ec) 40 mg PO QAM RF: 0 gabapentin 300 mg Capsule 300 mg PO BID RF: 0 gabapentin 300 mg Capsule 600 mg PO HS RF: 0 lisinopril 5 mg Tablet 5 mg PO QAM RF: 0 cholecalciferol (vitamin D3) [Vitamin D3] 1,000 unit Capsule 1,000 unit PO QAM RF: 0 Artificial Tears (PF) Dropperette 2 drp OPB BID RF: 0 cimetidine 400 mg tablet 400 mg PO HS RF: 0 docusate sodium 100 mg Capsule 100 mg PO DAILY RF: 0 biotin 1,000 mcg Tablet,Chewable 1,000 mcg PO DAILY RF: 0 acetaminophen [Tylenol Extra Strength] 500 mg Tablet 1,000 mg PO BID PRN (Reason: Pain) RF: 0 trazodone 100 mg tablet 100 mg PO HS RF: 0 carboxymethylcellulose sodium [Refresh Liquigel] 1 % Drops, Liquid Gel 1 drp OPB BID RF: 0 rosuvastatin [Crestor] 40 mg tablet 40 mg PO DAILY RF: 0 cyanocobalamin (vitamin B-12) 1,000 mcg Tablet 1,000 mcg PO DAILY RF: 0 Discharge Orders: Discharge Order (Routine); Ordered 10/19/21 Ordered By: Yuriy Mead Admission Data Admit Date/Time: 10/18/21 01:23 Attending Provider: Yuriy Mead Admit Provider: Juan Okeefe Primary Care Provider: Melody Hassan Other Providers: Juan Okeefe ; Joe Kruse
== END 2021-10-19 14:30 | disposition home or self-care (01) | DRG 178 ==
LOC: ED 18:21 → 2S 10-18 01:23

== ENCOUNTER 2024-01-06 11:16 | Inpatient (IN) ==
--- NOTE | 2024-01-06 12:01 | Emergency Department Note ---
Impression & Plan Acute hypoxic respiratory failure, Back pain, CKD (chronic kidney disease) ED Provider Note NAME: SOPHIA JORDAN AGE: 83 SEX: F : 1940 ARRIVES VIA: Ambulance INFORMANT: Patient, ED PROVIDER(S): Tani William MD CHIEF COMPLAINT: Pain MEDICAL DECISION MAKING: Patient presents due to concern for allover body pain but does complain of some back and hip pain. Patient did have a chest x-ray also performed as the patient was intermittently hypoxemic. Patient is clear lung sounds. Patient's blood work shows a normal white count hemoglobin and platelet count. The patient's kidney function with creatinine 2.2. BioFire negative. Patient's chest x-ray shows cardiomegaly and possible congestion. No evidence of obvious rib fracture or pneumothorax. No fracture in the hip or pelvis and lumbar spine x-rays do not show any fracture. Patient was not feeling well enough to go home. I did speak the on-call hospital service Brittany Rodas PA-C with Dr. Bolivar. Critical Care: I have personally spent 35 minutes of critical care time in direct management of this patient. This includes bedside care, interpretation of diagnostic studies, and testing, discussion with consultants, patient, and family members, and other require inpatient management activities. This 35 minutes is in excess of all separately billable procedures. Discussion w/ other healthcare providers: Brittany Rodas PA-C and Dr. Bolivar Prior /Outside records reviewed: None Differential diagnosis: Infection, dehydration, metabolic abnormality, hypo/hyperglycemia, electrolyte imbalance, anemia, UTI, pneumonia, thyroid dysfunction among others were considered. Diagnostics, as interpreted by me: ECG: Normal sinus rhythm, rate of 62, wide QRS, right bundle branch block pattern, Q waves noted in 3 and aVF T wave inversions also present. No ST elevations. Cardiac monitoring: An order was placed for continuous cardiac monitoring. The monitor shows a rate of 65 with sinus rhythm. Patient was placed on pulse oximetry Medical decision rules: None Imaging studies: I informally interpreted the patient's left hip and pelvis x-ray does not show obvious fracture or dislocation with formal report to follow. HPI: Patient presents due to concern for increasing weakness associated fatigue and allover body pain. Patient reportedly had a fall and was seen in the emergency department back on January 02. The patient did have imaging that was negative at that time but still complained of leg pain as well as left-sided hip pain. Patient denies any falls since then. The patient does typically use a wheelchair at baseline. Patient denies any chest pains. PAST MEDICAL HISTORY: See Below PAST SURGICAL HISTORY: See Below SOCIAL HISTORY: See Below HOME MEDICATIONS: See Below ALLERGIES: See Below VITALS: See Below PHYSICAL EXAMINATION: GENERAL: NAD, non-toxic. EYE EXAM: Normal conjunctiva. PERRL, no anisocoria and EOM's grossly intact w/o pain. OROPHARYNX: Moist mucus membranes, grossly normal dentition. NECK: Trachea midline, no stridor. Supple, no nuchal rigidity, no adenopathy, non-tender. No signs of meningismus. FROM of the neck with good chin to chest and neck extension. LUNGS: Clear to auscultation. Normal chest wall mechanics. HEART: NSR, no MRG. ABDOMEN: Abdomen soft, non-tender, no masses, no rebound or guarding. BACK: Lumbar TTP. No overlying skin changes. SKIN: No rashes and no bruising. UPPER EXTREMITIES: Upper extremities are grossly normal. LOWER EXTREMITIES: Mina pain to the left hip no obvious leg length discrepancy able to weakly raise both legs up off the bed bilaterally. NEURO EXAM: A&O x3, cranial nerves II-XII grossly intact, normal speech, moves all 4 extremities. Past Med/Surg History Problem List CKD (chronic kidney disease) (Acute) Acute kidney injury superimposed on stage 4 chronic kidney disease Lumbar disc herniation with radiculopathy Low back pain radiating to both legs Abnormal urinalysis GERD (gastroesophageal reflux disease) Anxiety CKD (chronic kidney disease), stage IV Extremity pain Acute hypoxic respiratory failure (Acute) Fall (Acute) Back pain (Acute) Contusion, hip Elbow contusion Shoulder strain Diabetes mellitus Weakness (Acute) COVID-19 (Acute) Hypomagnesemia (Acute) Acute electrocardiogram changes (Acute) Renal artery stenosis Back pain Palpitation Neck pain Chest pain (Acute) Acute pain of left shoulder (Acute) Esophageal dysphagia Dysphagia Encounter for pre-operative examination CAD (coronary artery disease) (Chronic) HTN (hypertension) (Chronic) HLD (hyperlipidemia) (Chronic) Depression (Chronic) Hypothyroidism (Chronic) CKD (chronic kidney disease), stage III (Chronic) CVA (cerebral vascular accident) (Chronic) Altered awareness, transient Hx of CABG (Chronic) History of appendectomy (Chronic) S/P cholecystectomy (Chronic) H/O: hysterectomy (Chronic) History of carpal tunnel surgery (Chronic) History of esophagogastroduodenoscopy (EGD) (Chronic) Medical History Syncope Chronic kidney disease (CKD) HTN (hypertension) Degenerative joint disease Gastritis Coronary artery disease Trigeminal neuralgia Dysphagia Neurotic depression Panic disorder Surgical History History of esophagogastroduodenoscopy (EGD) History of bilateral carpal tunnel release History of facial surgery facial nerve surgery History of surgery on extremity left leg/knee History of total abdominal hysterectomy and bilateral salpingo-oophorectomy History of cholecystectomy History of cardiac catheterization S/P CABG x 3 History of appendectomy Family History Other Family history non-contributory Social History Smoking Status: Never smoker Tobacco Type: Cigarettes Second Hand Exposure: No; Do You Dip or Chew Tobacco: No; Hx Alcohol Use: No Hx Substance Use: No Preferred Language: Croatian Communication Ability: Effective Canary Raiser Required: No Beliefs That Will Affect Care: None Current Living Situation: [facility] Feels Safe at Home: Yes Assistive Devices: Walker and Wheelchair Allergies Allergies Allergy/AdvReac Type Severity Reaction Status Date / Time No Known Allergies Allergy Verified 01/03/24 23:00 Home Meds Home Medications Medication Instructions Recorded Confirmed alendronate 70 mg tablet 70 mg PO WK 06/13/22 01/06/24 aspirin 81 mg tablet,delayed 81 mg PO DAILY 06/13/22 01/06/24 release cimetidine 400 mg tablet 400 mg PO HS 06/13/22 01/06/24 clonazepam 0.5 mg tablet 1 mg PO HS 06/13/22 01/06/24 cyanocobalamin (vitamin B-12) 1,000 mcg PO Q OTHER DAY 06/13/22 01/06/24 1,000 mcg tablet (Vitamin B-12) docusate sodium 100 mg capsule 100 mg PO DAILY 06/13/22 01/06/24 levothyroxine 75 mcg tablet 75 mcg PO DAILYBB 06/13/22 01/06/24 pantoprazole 40 mg tablet,delayed 40 mg PO DAILY 06/13/22 01/06/24 release polyethylene glycol 3350 17 gram 17 g PO Q OTHER DAY 06/13/22 01/06/24 oral powder packet (Miralax) rosuvastatin 10 mg tablet 10 mg PO DAILY 06/13/22 01/06/24 trazodone 100 mg tablet 100 mg PO HS 06/13/22 01/06/24 venlafaxine 150 mg 150 mg PO DAILY 06/13/22 01/06/24 capsule,extended release 24 hr fluticasone propionate 50 2 spray intranasal DAILY 01/03/24 01/06/24 mcg/actuation nasal spray,suspension polyvinyl alcohol-povidone 0.5 1 drp OPB BID 01/03/24 01/06/24 %-0.6 % eye drops (Artificial Tears (polyvinyl alcohol/povidone)) cyclosporine 0.05 % eye drops in a 1 drp OPB BID 01/09/24 01/09/24 dropperette Previous Rx's Medication Instructions Recorded acetaminophen 500 mg tablet 1,000 mg (2 x 500 mg) PO Q8 30 01/11/24 (Tylenol Extra Strength) days #180 tabs clonazepam 0.5 mg tablet 0.5 mg PO BID@0800,1300 #10 tabs 01/11/24 diclofenac sodium 1 % topical gel 2 g EXT Q8 msk pain #100 grams 01/11/24 (Voltaren Arthritis Pain) gabapentin 300 mg capsule 300 mg PO TID #90 caps 01/11/24 lidocaine 5 % topical patch 1 patch transdermal HS #30 ea 01/11/24 methylprednisolone 4 mg tablet See Rx Instructions .Route 01/11/24 (Medrol) .COMPLEX #12 tabs torsemide 40 mg tablet 40 mg PO BID #60 tabs 01/11/24 tramadol 50 mg tablet 50 mg PO TID@0800,1400,2000 #20 01/11/24 tabs Results & Data (ED) Vital Signs Vital Signs - 24 hr 01/06/24 11:25 01/06/24 11:29 01/06/24 11:46 Temperature 36.8 C Temperature Source Oral Pulse Rate 71 74 Respiratory Rate 20 20 Respiratory Effort / Characteristics Non-Labored Non-Labored Respiratory Depth Normal Normal Blood Pressure 171/90 H Blood Pressure Mean 117 Pulse Oximetry 90 Oxygen Delivery Method Room Air Oxygen Flow Rate Sepsis Recent Fever Within 48 Hours No Sepsis New/Unexplained Change in Mental Status No Sepsis Action Taken by Nursing No Action Required Oxygen Flow Rate - Titration Pulse Oximetry Post Tiitration 01/06/24 11:53 01/06/24 11:54 Temperature Temperature Source Pulse Rate Respiratory Rate Respiratory Effort / Characteristics Respiratory Depth Blood Pressure Blood Pressure Mean Pulse Oximetry 90 88 L Oxygen Delivery Method Room Air Room Air Oxygen Flow Rate 0 Sepsis Recent Fever Within 48 Hours Sepsis New/Unexplained Change in Mental Status Sepsis Action Taken by Nursing Oxygen Flow Rate - Titration 2 Pulse Oximetry Post Tiitration 96 Home Medications Current Medication List: was personally reviewed by nm Laboratory Data Attestation: I reviewed the patient's lab results. 01/10/24 06:16 01/11/24 08:02 Lab Results 01/06/24 Range/Units 11:44 WBC 6.51 (4.8-10.8) K/ul RBC 4.22 (4.20-5.40) M/uL Hgb 12.9 (12.0-16.0) g/dl Hct 40.5 (37.0-47.0) % MCV 96.0 (80.0-100.0) fL MCH 30.6 (25.0-34.0) pg MCHC 31.9 L (32.0-36.0) g/dL RDW Std Deviation 44.4 (36.4-46.3) fL RDW Coeff of Keshia 12.6 (11.5-14.5) % Plt Count 242 (130-400) K/uL MPV 9.4 (9.4-12.4) fL Immature Gran % (Auto) 0.5 % Neut % (Auto) 68.5 % Lymph % (Auto) 20.7 % [place] % (Auto) 8.3 % Eos % (Auto) 0.9 % Baso % (Auto) 1.1 % Neut # (Auto) 4.46 (1.40-6.50) K/uL Lymph # (Auto) 1.35 (1.20-3.40) K/uL [place] # (Auto) 0.54 (0.11-0.59) K/uL Eos # (Auto) 0.06 (0.00-0.50) K/uL Baso # (Auto) 0.07 (0.00-0.20) K/uL Immature Gran # (Auto) 0.03 (0.01-0.20) K/uL Sodium 137 (136-145) mmol/L Potassium 4.8 (3.5-5.1) mmol/L Chloride 104 (98-107) mmol/L Carbon Dioxide 26 (21-32) mmol/L Anion Gap 7 (3-11) BUN 30 H (6-23) mg/dl Creatinine 2.20 H (0.6-1.2) mg/dl Est Cr Clr Drug Dosing 15.7 ml/min Est GFR ( Amer) 23.1 ml/min Est GFR (Non-Af Amer) 19.9 ml/min BUN/Creatinine Ratio 13.6 (10-20) Glucose 144 H (70-99(Fasting)) mg/dl Calcium 11.0 H (8.6-10.3) mg/dl Total Bilirubin 0.2 (0.2-1.0) mg/dl AST 13 (13-39) U/L ALT 6 L (7-52) U/L Alkaline Phosphatase 69 (34-104) U/L Total Protein 7.0 (6.0-8.3) gm/dl Albumin 4.2 (3.4-5.0) gm/dl Globulin 2.8 (2.5-4.0) gm/dl Albumin/Globulin Ratio 1.5 (0.9-2) TSH 0.601 (0.300-4.500) uIu/ml Adenovirus (PCR) Not Detected (NotDetected) B. pertussis DNA (PCR) Not Detected (NotDetected) B.parapertussis DNA PCR Not Detected (NotDetected) C. pneumoniae DNA (PCR) Not Detected (NotDetected) Coronavirus OC43 (PCR) Not Detected (NotDetected) Coronavirus HKU1 (PCR) Not Detected (NotDetected) Coronavirus 229E (PCR) Not Detected (NotDetected) SARS-CoV-2 (PCR) Not Detected (NotDetected) Coronavirus NL63 (PCR) Not Detected (NotDetected) Human Metapneumovir PCR Not Detected (NotDetected) Influenza Type A (PCR) Not Detected (NotDetected) Influenza Type B (PCR) Not Detected (NotDetected) M. pneumoniae (PCR) Not Detected (NotDetected) Parainfluenza 1 (PCR) Not Detected (NotDetected) Parainfluenza 2 (PCR) Not Detected (NotDetected) Parainfluenza 3 (PCR) Not Detected (NotDetected) Parainfluenza 4 (PCR) Not Detected (NotDetected) RSV (PCR) Not Detected (NotDetected) Entero/Rhino (PCR) Not Detected (NotDetected) Administered Medications Acetaminophen (Acetaminophen 500 Mg Tab) 1,000 mg PO Q8 [facility] Stop: 02/05/24 21:59 Last Admin: 01/11/24 13:36 Dose: 1,000 mg Documented By: Admin: 01/11/24 06:30 Dose: 1,000 mg Documented By: Admin: 01/10/24 22:14 Dose: 1,000 mg Documented By: Admin: 01/10/24 16:51 Dose: 1,000 mg Documented By: Admin: 01/10/24 06:37 Dose: 1,000 mg Documented By: Admin: 01/09/24 20:20 Dose: 1,000 mg Documented By: Admin: 01/09/24 13:32 Dose: 1,000 mg Documented By: Admin: 01/09/24 06:05 Dose: 1,000 mg Documented By: Admin: 01/08/24 21:10 Dose: 1,000 mg Documented By: Admin: 01/08/24 14:00 Dose: 1,000 mg Documented By: Admin: 01/08/24 05:28 Dose: 1,000 mg Documented By: Admin: 01/07/24 20:30 Dose: 1,000 mg Documented By: Admin: 01/07/24 13:40 Dose: 1,000 mg Documented By: Admin: 01/07/24 05:34 Dose: 1,000 mg Documented By: Admin: 01/06/24 20:27 Dose: 1,000 mg Documented By: SRW Artificial Tears (Artificial Tears) 1 drops OPB QID [facility] Stop: 02/08/24 16:59 Last Admin: 01/11/24 16:38 Dose: 1 drops Documented By: Admin: 01/11/24 13:34 Dose: 1 drops Documented By: Admin: 01/11/24 08:47 Dose: 1 drops Documented By: Admin: 01/10/24 19:56 Dose: 1 drops Documented By: Admin: 01/10/24 16:25 Dose: 1 drops Documented By: Admin: 01/10/24 11:56 Dose: 1 drops Documented By: Admin: 01/10/24 09:09 Dose: 1 drops Documented By: Admin: 01/09/24 20:18 Dose: Not Given Documented By: Admin: 01/09/24 17:32 Dose: 1 drops Documented By: BETSY Aspirin (Aspirin 81 Mg Ectab) 81 mg PO DAILY [facility] Stop: 02/06/24 08:59 Last Admin: 01/11/24 08:46 Dose: 81 mg Documented By: Admin: 01/10/24 09:09 Dose: 81 mg Documented By: Admin: 01/09/24 08:23 Dose: 81 mg Documented By: Admin: 01/08/24 08:50 Dose: 81 mg Documented By: Admin: 01/07/24 08:12 Dose: 81 mg Documented By: BETSY Clonazepam (Clonazepam 0.5 Mg Tab) 0.5 mg PO BID@0800,1300 [facility] Stop: 02/06/24 07:59 Last Admin: 01/11/24 13:36 Dose: 0.5 mg Documented By: Admin: 01/11/24 08:44 Dose: 0.5 mg Documented By: Admin: 01/10/24 11:58 Dose: 0.5 mg Documented By: Admin: 01/10/24 09:17 Dose: 0.5 mg Documented By: Admin: 01/09/24 12:29 Dose: 0.5 mg Documented By: Admin: 01/09/24 08:23 Dose: 0.5 mg Documented By: Admin: 01/08/24 13:08 Dose: 0.5 mg Documented By: Admin: 01/08/24 09:04 Dose: 0.5 mg Documented By: Admin: 01/07/24 13:39 Dose: 0.5 mg Documented By: Admin: 01/07/24 08:11 Dose: 0.5 mg Documented By: BETSY Clonazepam (Clonazepam 1 Mg Tab) 1 mg PO HS [facility] Stop: 02/05/24 20:59 Last Admin: 01/10/24 19:56 Dose: 1 mg Documented By: Admin: 01/09/24 20:20 Dose: 1 mg Documented By: Admin: 01/08/24 21:10 Dose: 1 mg Documented By: Admin: 01/07/24 20:27 Dose: 1 mg Documented By: Admin: 01/06/24 20:27 Dose: 1 mg Documented By: ROHIT Cyanocobalamin (Cyanocobalamin (B-12) 500 Mcg Tablet) 1,000 mcg PO Q2D [facility] Stop: 02/06/24 08:59 Last Admin: 01/11/24 08:46 Dose: 1,000 mcg Documented By: Admin: 01/09/24 08:23 Dose: 1,000 mcg Documented By: Admin: 01/07/24 08:12 Dose: 1,000 mcg Documented By: BETSY Diclofenac Sodium (Diclofenac Sod 1% Gel 100 Gm Tube) 2 gm EXT Q8 [facility]; Protocol Stop: 02/06/24 14:14 Last Admin: 01/11/24 13:34 Dose: 2 gm Documented By: Admin: 01/11/24 06:31 Dose: 2 gm Documented By: Admin: 01/10/24 22:15 Dose: 2 gm Documented By: Admin: 01/10/24 16:51 Dose: 2 gm Documented By: Admin: 01/10/24 06:35 Dose: 2 gm Documented By: Admin: 01/09/24 20:18 Dose: 2 gm Documented By: Admin: 01/09/24 13:32 Dose: 2 gm Documented By: Admin: 01/09/24 06:05 Dose: 2 gm Documented By: Admin: 01/08/24 21:11 Dose: 2 gm Documented By: Admin: 01/08/24 13:08 Dose: 2 gm Documented By: Admin: 01/08/24 05:16 Dose: 2 gm Documented By: Admin: 01/07/24 20:28 Dose: 2 gm Documented By: Admin: 01/07/24 15:53 Dose: 2 gm Documented By: BETSY Docusate Sodium (Docusate Sodium 100 Mg Cap) 100 mg PO DAILY [facility] Stop: 02/06/24 08:59 Last Admin: 01/11/24 08:50 Dose: 100 mg Documented By: Admin: 01/10/24 09:10 Dose: 100 mg Documented By: Admin: 01/09/24 08:26 Dose: 100 mg Documented By: Admin: 01/08/24 09:04 Dose: 100 mg Documented By: Admin: 01/07/24 08:13 Dose: 100 mg Documented By: BETSY Famotidine (Famotidine 20 Mg Tab) 20 mg PO HS [facility]; Protocol Stop: 02/05/24 20:59 Last Admin: 01/10/24 20:03 Dose: 20 mg Documented By: Admin: 01/09/24 20:21 Dose: 20 mg Documented By: Admin: 01/08/24 21:10 Dose: 20 mg Documented By: Admin: 01/07/24 20:27 Dose: 20 mg Documented By: Admin: 01/06/24 20:27 Dose: 20 mg Documented By: SRRobert Fluticasone Propionate (Fluticasone Propionate Na Spr 16 Gm Btl) 2 sprays [place] DAILY [facility] Stop: 02/06/24 08:59 Last Admin: 01/11/24 08:45 Dose: 2 sprays Documented By: Admin: 01/10/24 09:10 Dose: 2 sprays Documented By: Admin: 01/09/24 08:23 Dose: 2 sprays Documented By: Admin: 01/08/24 08:49 Dose: 2 sprays Documented By: Admin: 01/07/24 08:13 Dose: 2 sprays Documented By: BETSY Furosemide (Furosemide 40 Mg/4 Ml Vial) 40 mg IV BID [facility] Stop: 02/09/24 08:59 Last Admin: 01/11/24 08:47 Dose: 40 mg Documented By: Admin: 01/10/24 20:00 Dose: 40 mg Documented By: Admin: 01/10/24 09:10 Dose: 40 mg Documented By: SHARMILA Gabapentin (Gabapentin 300 Mg Cap) 300 mg PO BID [facility] Stop: 02/05/24 18:29 Last Admin: 01/11/24 08:46 Dose: 300 mg Documented By: Admin: 01/10/24 19:57 Dose: 300 mg Documented By: Admin: 01/10/24 09:11 Dose: 300 mg Documented By: Admin: 01/09/24 20:23 Dose: 300 mg Documented By: Admin: 01/09/24 08:24 Dose: 300 mg Documented By: Admin: 01/08/24 21:10 Dose: 300 mg Documented By: Admin: 01/08/24 08:50 Dose: 300 mg Documented By: Admin: 01/07/24 20:27 Dose: 300 mg Documented By: Admin: 01/07/24 08:13 Dose: 300 mg Documented By: Admin: 01/06/24 20:28 Dose: 300 mg Documented By: ROHIT Heparin Sodium (Porcine) (Heparin Sod 5,000 Unit/0.5 Ml Vial) 5,000 units SQ Q12 [facility] Stop: 02/05/24 20:59 Last Admin: 01/11/24 08:45 Dose: 5,000 units Documented By: Admin: 01/10/24 19:57 Dose: 5,000 units Documented By: Admin: 01/10/24 09:11 Dose: 5,000 units Documented By: Admin: 01/09/24 20:23 Dose: 5,000 units Documented By: Admin: 01/09/24 08:24 Dose: 5,000 units Documented By: Admin: 01/08/24 21:10 Dose: 5,000 units Documented By: Admin: 01/08/24 08:50 Dose: 5,000 units Documented By: Admin: 01/07/24 20:28 Dose: 5,000 units Documented By: Admin: 01/07/24 08:13 Dose: 5,000 units Documented By: Admin: 01/06/24 20:27 Dose: 5,000 units Documented By: ROHIT Ceftriaxone Sodium (Rocephin) 1,000 mg in 50 mls @ 100 mls/hr IV Q24H [facility] Stop: 01/11/24 17:59 Last Infusion: 01/10/24 17:27 Dose: Infused Documented By: Admin: 01/10/24 16:52 Dose: 100 mls/hr Documented By: Infusion: 01/09/24 18:46 Dose: Infused Documented By: Infusion: 01/09/24 18:11 Dose: 100 mls/hr Documented By: Infusion: 01/09/24 17:38 Dose: 0 mls/hr Documented By: Admin: 01/09/24 17:34 Dose: 100 mls/hr Documented By: Infusion: 01/08/24 17:51 Dose: Infused Documented By: Admin: 01/08/24 17:21 Dose: 100 mls/hr Documented By: Infusion: 01/07/24 18:22 Dose: Infused Documented By: Admin: 01/07/24 17:48 Dose: 100 mls/hr Documented By: Infusion: 01/06/24 19:04 Dose: Infused Documented By: Admin: 01/06/24 18:25 Dose: 100 mls/hr Documented By: VAN Levothyroxine Sodium (Levothyroxine Sodium 75 Mcg Tablet) 75 mcg PO DAILYBB [facility] Stop: 02/06/24 06:29 Last Admin: 01/11/24 06:32 Dose: 75 mcg Documented By: Admin: 01/10/24 06:36 Dose: 75 mcg Documented By: Admin: 01/09/24 06:05 Dose: 75 mcg Documented By: Admin: 01/08/24 05:16 Dose: 75 mcg Documented By: Admin: 01/07/24 05:34 Dose: 75 mcg Documented By: ROHIT Methylprednisolone (Methylprednisolone 4 Mg Tab) 4 mg PO 0700,1300,2100 [facility] Stop: 01/11/24 21:01 Last Admin: 01/11/24 13:37 Dose: 4 mg Documented By: Admin: 01/11/24 06:33 Dose: 4 mg Documented By: KEYLA Miscellaneous (Remove Lidoderm Patch) 1 each N/A DAILY@0900 [facility] Stop: 02/10/24 08:59 Last Admin: 01/11/24 08:48 Dose: 1 each Documented By: ZEFERINO Pantoprazole Sodium (Pantoprazole 40 Mg Tab) 40 mg PO DAILY [facility] Stop: 02/06/24 08:59 Last Admin: 01/11/24 08:47 Dose: 40 mg Documented By: Admin: 01/10/24 09:11 Dose: 40 mg Documented By: Admin: 01/09/24 08:24 Dose: 40 mg Documented By: Admin: 01/08/24 08:50 Dose: 40 mg Documented By: Admin: 01/07/24 08:12 Dose: 40 mg Documented By: BETSY Polyethylene Glycol (Polyethylene (Miralax) 17 Gm Pack) 17 gm PO Q2D [facility] Stop: 02/06/24 08:59 Last Admin: 01/11/24 08:50 Dose: 17 gm Documented By: Admin: 01/09/24 08:26 Dose: 17 gm Documented By: Admin: 01/07/24 08:13 Dose: 17 gm Documented By: BETSY Rosuvastatin Calcium (Rosuvastatin Calcium 10 Mg Tab) 10 mg PO DAILY [facility] Stop: 02/06/24 08:59 Last Admin: 01/11/24 08:46 Dose: 10 mg Documented By: Admin: 01/10/24 09:12 Dose: 10 mg Documented By: Admin: 01/09/24 08:24 Dose: 10 mg Documented By: Admin: 01/08/24 08:50 Dose: 10 mg Documented By: Admin: 01/07/24 08:12 Dose: 10 mg Documented By: BETSY Sodium Zirconium Cyclosilicate (Sodium Zirconium Cyclosilicate 10 Gm Packet) 10 gm PO TID@1100,1600,2300 [facility] Stop: 01/11/24 23:01 Last Admin: 01/11/24 16:38 Dose: Not Given Documented By: Admin: 01/11/24 10:11 Dose: 10 gm Documented By: Admin: 01/11/24 00:45 Dose: 10 gm Documented By: Admin: 01/10/24 17:26 Dose: Not Given Documented By: Admin: 01/10/24 13:54 Dose: 10 gm Documented By: SHARMILA Tramadol HCl (Tramadol Hcl 50 Mg Tablet) 50 mg PO TID@0800,1400,2000 [facility] Stop: 02/05/24 19:59 Last Admin: 01/11/24 13:37 Dose: 50 mg Documented By: Admin: 01/11/24 08:44 Dose: 50 mg Documented By: Admin: 01/10/24 19:55 Dose: 50 mg Documented By: Admin: 01/10/24 16:52 Dose: 50 mg Documented By: Admin: 01/10/24 09:16 Dose: 50 mg Documented By: Admin: 01/09/24 20:20 Dose: 50 mg Documented By: Admin: 01/09/24 12:29 Dose: 50 mg Documented By: Admin: 01/09/24 08:23 Dose: 50 mg Documented By: Admin: 01/08/24 20:35 Dose: 50 mg Documented By: Admin: 01/08/24 14:00 Dose: 50 mg Documented By: Admin: 01/08/24 08:49 Dose: 50 mg Documented By: Admin: 01/07/24 20:25 Dose: 50 mg Documented By: Admin: 01/07/24 13:39 Dose: 50 mg Documented By: Admin: 01/07/24 08:11 Dose: 50 mg Documented By: Admin: 01/06/24 20:26 Dose: 50 mg Documented By: ROHIT Trazodone HCl (Trazodone Hcl 100 Mg Tab) 100 mg PO HS [facility] Stop: 02/05/24 20:59 Last Admin: 01/10/24 19:58 Dose: 100 mg Documented By: Admin: 01/09/24 20:22 Dose: 100 mg Documented By: Admin: 01/08/24 21:10 Dose: 100 mg Documented By: Admin: 01/07/24 20:29 Dose: 100 mg Documented By: Admin: 01/06/24 20:27 Dose: 100 mg Documented By: ROHIT Venlafaxine HCl (Venlafaxine Hcl Xr 150 Mg Capxr) 150 mg PO DAILY [facility] Stop: 02/06/24 08:59 Last Admin: 01/11/24 08:46 Dose: 150 mg Documented By: Admin: 01/10/24 09:12 Dose: 150 mg Documented By: Admin: 01/09/24 08:23 Dose: 150 mg Documented By: Admin: 01/08/24 08:50 Dose: 150 mg Documented By: Admin: 01/07/24 08:12 Dose: 150 mg Documented By: EBTSY Discontinued Medications Acetaminophen (Acetaminophen 325 Mg Tab) 650 mg PO NOW STA Stop: 01/06/24 15:08 Last Admin: 01/06/24 15:14 Dose: 650 mg Documented By: VAN Bisacodyl (Bisacodyl 10 Mg Supp) 10 mg AR NOW STA Stop: 01/09/24 10:18 Last Admin: 01/09/24 12:20 Dose: 10 mg Documented By: BETSY Bisacodyl (Bisacodyl 5 Mg Tabec) 5 mg PO NOW ONE Stop: 01/09/24 10:18 Last Admin: 01/09/24 12:20 Dose: 5 mg Documented By: BETSY Furosemide (Furosemide 40 Mg/4 Ml Vial) 40 mg IV ONE ONE Stop: 01/06/24 15:26 Last Admin: 01/06/24 15:35 Dose: 40 mg Documented By: VAN Furosemide (Furosemide 40 Mg/4 Ml Vial) 40 mg IV DAILY [facility] Stop: 02/06/24 08:59 Last Admin: 01/07/24 08:13 Dose: 40 mg Documented By: BETSY Furosemide (Furosemide 40 Mg Tab) 40 mg PO [id number] [facility] Stop: 02/08/24 13:59 Last Admin: 01/09/24 15:27 Dose: 40 mg Documented By: BETSY Furosemide (Furosemide 40 Mg Tab) 40 mg PO BID17 [facility] Stop: 01/09/24 21:01 Last Admin: 01/09/24 20:23 Dose: 40 mg Documented By: PAUL Lactated Ringer's (Lr) 500 mls @ 999 mls/hr IV .Q31M ONE Stop: 01/08/24 16:01 Last Infusion: 01/08/24 16:34 Dose: Infused Documented By: Admin: 01/08/24 16:02 Dose: 999 mls/hr Documented By: ZEFERINO Lidocaine (Lidocaine 5% 1 Patch) 1 patch TD NOW STA Stop: 01/06/24 18:06 Last Admin: 01/06/24 18:24 Dose: 1 patch Documented By: VAN Lidocaine (Lidocaine 5% 1 Patch) 1 patch TD [facility] Stop: 02/06/24 14:14 Last Admin: 01/10/24 18:02 Dose: Not Given Documented By: Admin: 01/09/24 08:24 Dose: Not Given Documented By: Admin: 01/08/24 08:50 Dose: 1 patch Documented By: Admin: 01/07/24 15:53 Dose: 1 patch Documented By: BETSY Lisinopril (Lisinopril 40 Mg Tab) 40 mg PO [facility] Stop: 02/06/24 08:59 Last Admin: 01/07/24 08:12 Dose: 40 mg Documented By: BETSY Methylprednisolone (Methylprednisolone 4 Mg Tab) 8 mg PO 1200,2100 [facility] Stop: 01/08/24 21:01 Last Admin: 01/08/24 21:10 Dose: 8 mg Documented By: Admin: 01/08/24 13:08 Dose: 8 mg Documented By: ZEFERINO Methylprednisolone (Methylprednisolone 4 Mg Tab) 4 mg PO 1400,1800 [facility] Stop: 01/08/24 18:01 Last Admin: 01/08/24 17:21 Dose: 4 mg Documented By: Admin: 01/08/24 14:00 Dose: 4 mg Documented By: ZEFERINO Methylprednisolone (Methylprednisolone 4 Mg Tab) 4 mg PO 0700,1300,1800 [facility] Stop: 01/09/24 18:01 Last Admin: 01/09/24 17:31 Dose: 4 mg Documented By: Admin: 01/09/24 12:29 Dose: 4 mg Documented By: Admin: 01/09/24 06:05 Dose: 4 mg Documented By: ILIANA Methylprednisolone (Methylprednisolone 4 Mg Tab) 8 mg PO HS [facility] Stop: 01/09/24 21:01 Last Admin: 01/09/24 20:21 Dose: 8 mg Documented By: PAUL Methylprednisolone (Methylprednisolone 4 Mg Tab) 4 mg PO 0700,1300,1800,2100 [facility] Stop: 01/10/24 21:01 Last Admin: 01/10/24 19:58 Dose: 4 mg Documented By: Admin: 01/10/24 16:53 Dose: 4 mg Documented By: Admin: 01/10/24 11:58 Dose: 4 mg Documented By: Admin: 01/10/24 06:38 Dose: 4 mg Documented By: PAUL Robles (Remove Lidoderm Patch) 1 each N/A ONE ONE Stop: 01/07/24 06:01 Last Admin: 01/07/24 05:35 Dose: 1 each Documented By: ROHIT Robles (Remove Lidoderm Patch) 1 each N/A DAILY@2100 [facility] Stop: 02/06/24 23:29 Last Admin: 01/09/24 20:18 Dose: 1 each Documented By: Admin: 01/08/24 21:10 Dose: 1 each Documented By: Admin: 01/07/24 22:37 Dose: 1 each Documented By: MCS Miscellaneous (Restasis--Order Awaiting Action) 1 each N/A QS [facility] Stop: 02/08/24 15:59 Last Admin: 01/11/24 15:02 Dose: Not Given Documented By: Admin: 01/11/24 07:18 Dose: Not Given Documented By: Admin: 01/10/24 22:15 Dose: Not Given Documented By: Admin: 01/10/24 16:52 Dose: Not Given Documented By: Admin: 01/10/24 09:09 Dose: Not Given Documented By: Admin: 01/09/24 21:16 Dose: Not Given Documented By: Admin: 01/09/24 15:56 Dose: Not Given Documented By: KS Oxycodone HCl (Oxycodone Hcl Ir 5 Mg Tab (Immediate Release)) 5 mg PO NOW STA Stop: 01/07/24 00:05 Last Admin: 01/07/24 00:42 Dose: 5 mg Documented By: SRW Phenazopyridine HCl (Phenazopyridine Hcl 200 Mg Tab) 200 mg PO NOW STA Stop: 01/08/24 13:58 Last Admin: 01/08/24 14:35 Dose: 200 mg Documented By: AMS Tramadol HCl (Tramadol Hcl 50 Mg Tablet) 50 mg PO NOW STA Stop: 01/06/24 15:08 Last Admin: 01/06/24 15:15 Dose: 50 mg Documented By: SNS Imaging Data Radiologist's Impression: Chest X-Ray 01/06/24 11:49 XR chest 1V not portable HISTORY: 83 years-old Female weakness, borderling hypoxia CT chest, status post fall COMPARISON: Chest CT 04/12/2023 TECHNIQUE: AP view of the chest FINDINGS: Cardiac silhouette is enlarged. Median sternotomy with mediastinal surgical clips redemonstrated no pneumothorax, pleural effusion or overt pulmonary edema. Pulmonary vascular congestion. Mild subsegmental bibasilar densities. Cholecystectomy. Bones appear grossly intact. IMPRESSION: 1. Cardiomegaly with pulmonary vascular congestion. 2. Mild subsegmental bibasilar densities favor atelectasis. 3. No acute displaced rib fracture or pneumothorax identified ACT 112: Negative or not required by law. The above report was generated using voice recognition software. It may contain grammatical, syntax or spelling errors. Electronically signed by: Fuentes Han M.D. 01/06/2024 1:56 PM Hip/Pelvis X-Ray 01/06/24 11:49 XR hip LT 2V w pelvis CLINICAL HISTORY: reported fall, L hip/pelvis pain COMPARISON: Pelvis radiograph January 03, 2024. FINDINGS: Sacroiliac joints and symphysis pubis are intact. There are no acute fractures within the pelvis or hips. There are right groin surgical clips. There is moderate bilateral hip osteoarthritis. No evidence for avascular necrosis of the femoral heads. IMPRESSION: No fractures within the pelvis or hips. ACT 112: Negative or not required by law. Electronically signed by: Marvin Larsen M.D. 01/06/2024 1:33 PM Lumbar Spine X-Ray 01/06/24 11:49 LUMBAR SPINE 3 VIEWS HISTORY: upper lumbar pain. COMPARISON: None. FINDINGS: There is no fracture. No subluxation. The visualized sacrum is intact. Disc spaces are preserved. There are large partially fused anterior osteophytes within the lumbar spine. Moderate to severe facet degenerative changes within the lumbar spine most pronounced at the L4-5 and L5-S1 levels. IMPRESSION: No fracture or subluxation within the lumbar spine. ACT 112: Negative or not required by law. Electronically signed by: Yinka Mora M.D. 01/06/2024 1:58 PM Discharge Plan Visit Data Chief Complaint: Leg Injury/Pain Stated Complaint: LEG PAIN ED Provider: Tani William Discharge Problem: Acute hypoxic respiratory failure, Back pain, CKD (chronic kidney disease) Patient Disposition: Admitted As Inpatient Discharge Instructions Interventions: ED Discharge Assessment Last Done: 01/06/24 18:05 Discharge Problem: Back pain Qualifiers: Back pain location: low back pain Chronicity: acute Back pain laterality: m idline CKD (chronic kidney disease) Qualifiers: Chronic kidney disease stage: unspecified stage Qualified Code(s): N18.9 - Chronic kidney disease, unspecified
[2024-01-06 12:21] LABS: Basophils # (auto) 0.07 K/uL (0.00-0.20); Basophils % (auto) 1.1 %; Eosinophils # (auto) 0.06 K/uL (0.00-0.50); Eosinophils % (auto) 0.9 %; Hematocrit (blood only) 40.5 % (37.0-47.0); Hemoglobin 12.9 g/dl (12.0-16.0); Immature Granulocytes # (auto) 0.03 K/uL (0.01-0.20); Immature Granulocytes % (auto) 0.5 %; Lymphocytes # (auto) 1.35 K/uL (1.20-3.40); Lymphocytes % (auto) 20.7 %; Mean Corpuscular Hemoglobin 30.6 pg (25.0-34.0); Mean Corpuscular Hgb Conc 31.9 g/dL (32.0-36.0); Mean Platelet Volume 9.4 fL (9.4-12.4); Monocytes # (auto) 0.54 K/uL (0.11-0.59); Monocytes % (auto) 8.3 %; Neutrophils # (auto) 4.46 K/uL (1.40-6.50); Neutrophils % (auto) 68.5 %; Platelet Count 242 K/uL (130-400); RDW Coefficient of Variation 12.6 % (11.5-14.5); RDW Standard Deviation 44.4 fL (36.4-46.3); Red Blood Count 4.22 M/uL (4.20-5.40); White Blood Count 6.51 K/ul (4.8-10.8)
[2024-01-06 12:29] LABS: Albumin Globulin Ratio 1.5 (0.9-2); Albumin Level 4.2 gm/dl (3.4-5.0); BUN Creatinine Ratio 13.6 (10-20); Bilirubin,Total 0.2 mg/dl (0.2-1.0); Creatinine Clr Calc Pharmacy 15.7 ml/min; Est GFR (African American) 23.1 ml/min; Est GFR (Non-African American) 19.9 ml/min; Globulin 2.8 gm/dl (2.5-4.0); Potassium 4.8 mmol/L (3.5-5.1)
[2024-01-06 12:43] LABS: Thyroid Stimulating Hormone 0.601 uIu/ml (0.300-4.500)
[2024-01-06 12:54] LABS: Adenovirus PCR Not Detected (NotDetected); Bordetella parapertussis PCR Not Detected (NotDetected); Bordetella pertussis PCR Not Detected (NotDetected); Chlamydia pneumoniae PCR Not Detected (NotDetected); Coronavirus 229E PCR Not Detected (NotDetected); Coronavirus CoV-2 (COVID19)PCR Not Detected (NotDetected); Coronavirus HKU1 PCR Not Detected (NotDetected); Coronavirus NL63 PCR Not Detected (NotDetected); Coronavirus OC43PCR Not Detected (NotDetected); Human Metapneumovirus PCR Not Detected (NotDetected); Influenza A PCR Not Detected (NotDetected); Influenza B PCR Not Detected (NotDetected); Mycoplasma pneumoniae PCR Not Detected (NotDetected); Parainfluenza Virus 1 PCR Not Detected (NotDetected); Parainfluenza Virus 2 PCR Not Detected (NotDetected); Parainfluenza Virus 3 PCR Not Detected (NotDetected); Parainfluenza Virus 4 PCR Not Detected (NotDetected); Respiratory Syncytial VirusPCR Not Detected (NotDetected); Rhinovirus/Enterovirus PCR Not Detected (NotDetected)
--- NOTE | 2024-01-06 13:34 | XRay Report ---
XR hip LT 2V w pelvis CLINICAL HISTORY: reported fall, L hip/pelvis pain COMPARISON: Pelvis radiograph January 03, 2024. FINDINGS: Sacroiliac joints and symphysis pubis are intact. There are no acute fractures within the pelvis or hips. There are right groin surgical clips. There is moderate bilateral hip osteoarthritis. No evidence for avascular necrosis of the femoral heads. IMPRESSION: No fractures within the pelvis or hips. ACT 112: Negative or not required by law. Electronically signed by: Marvin Larsen M.D. 01/06/2024 1:33 PM
--- NOTE | 2024-01-06 13:46 | Electrocardiogram Report ---
Test Reason : Blood Pressure : */* mmHG Vent. Rate : 62 BPM Atrial Rate : 62 BPM P-R Int : 160 ms QRS Dur : 140 ms QT Int : 420 ms P-R-T Axes : 12 1 -14 degrees QTcB Int : 426 ms Normal sinus rhythm Right bundle branch block Inferior infarct (cited on or before 18-Oct-2021) Abnormal ECG When compared with ECG of 12-Apr-2023 15:48, Questionable change in initial forces of Inferior leads Confirmed by Suhail Mtz ([id number]) on 01/06/2024 1:46:18 PM [facility] Confirmed By: Suhail Mtz
--- NOTE | 2024-01-06 13:57 | XRay Report ---
XR chest 1V not portable HISTORY: 83 years-old Female weakness, borderling hypoxia CT chest, status post fall COMPARISON: Chest CT 04/12/2023 TECHNIQUE: AP view of the chest FINDINGS: Cardiac silhouette is enlarged. Median sternotomy with mediastinal surgical clips redemonstrated no p neumothorax, pleural effusion or overt pulmonary edema. Pulmonary vascular congestion. Mild subsegmen henry bibasilar densities. Cholecystectomy. Bones appear grossly intact. IMPRESSION: 1. Cardiomegaly with pulmonary vascular congestion. 2. Mild subsegmental bibasilar densities favor atelectasis. 3. No acute displaced rib fracture or pneumothorax identified ACT 112: Negative or not required by law. The above report was generated using voice recognition software. It may contain grammatical, syntax o r spelling errors. Electronically signed by: Fuentes Han M.D. 01/06/2024 1:56 PM
--- NOTE | 2024-01-06 13:59 | XRay Report ---
LUMBAR SPINE 3 VIEWS HISTORY: upper lumbar pain. COMPARISON: None. FINDINGS: There is no fracture. No subluxation. The visualized sacrum is intact. Disc spaces are pre served. There are large partially fused anterior osteophytes within the lumbar spine. Moderate to sev ere facet degenerative changes within the lumbar spine most pronounced at the L4-5 and L5-S1 levels. IMPRESSION: No fracture or subluxation within the lumbar spine. ACT 112: Negative or not required by law. Electronically signed by: Yinka oMra M.D. 01/06/2024 1:58 PM
--- NOTE | 2024-01-06 14:55 | History & Physical Report ---
<Statement entered by Allen Bolivar, - 01/06/24 18:52> I have seen and examined the patient and have discussed the case with the provider above. I have reviewed the advanced practitioner's documentation, and I agree with, and take responsibility for that plan of care. 17 minutes spent in coordination of care with FLOWER Patient seen and evaluated but still in the ED. Reports that her shortness of breath seems to be improved. Decreased breath sounds, no significant edema. Plan of care as outlined below Date of Service January 06, 2024 Assessment & Plan (1) Acute hypoxic respiratory failure: Plan: Patient is 83 year old female with PMH HTN, HLD, CAD s/p CABG, hypothyroidism, CKD IV, GERD, anxiety, depression, osteoporosis, RBBB presented to ER with c/o hip and leg pain, low back pain worse after fall out of wheelchair 01/02/24. 01/03/24 had pelvis, sacrum and coccyx x-rays that were negative for acute fracture and CT lumbar spine without acute fracture. In ER afebrile, P: 71, R: 20, BP 171/90, 90% on room air. Was noted to drop to 88% on room air and up to 98% on 2 L nasal cannula No leukocytosis, Negative [employer] respiratory panel, BNP: 103 CXR: Cardiomegaly, pulmonary vascular congestion Possible secondary to presumed diastolic heart failure Supplemental oxygen, wean as able Obtain resting echo 11/15/2018 echo: EF: 60-65%, mild concentric LVH, grade 1 diastolic dysfunction, mild aortic valve sclerosis without stenosis, mild-moderate aortic regurgitation, mild tricuspid regurgitation Start Lasix 40 mg IV daily Monitor I's and O's, daily weight, low-sodium diet Incentive spirometry CBC, BMP in a.m. (2) Back pain: (3) Extremity pain: Plan: Hip/pelvis x-ray: No acute fractures Lumbar x-ray: No acute fracture Scheduled Tylenol and tramadol per home schedule. Add lidocaine patch Continue home gabapentin Will attempt to obtain lumbar spine MRI if patient can tolerate PT/OT eval Uses wheelchair at baseline (4) Abnormal urinalysis: Plan: UA: +nitrite, 1+ leuk esterase, 4+ bacteria Possible UTI Patient denies dysuria, urinary frequency or urgency Obtain urine culture Start Rocephin pending culture (5) CKD (chronic kidney disease), stage IV: Plan: Cr: 2.2. Recent baseline 2.0-2.1 Monitor renal functions, avoid NSAIDs and other nephrotoxic agents (6) HTN (hypertension): Plan: BP elevated in ER may be secondary to underlying pain and anxiety Monitor Continue home lisinopril. May need to add additional agent (7) CAD (coronary artery disease): Plan: S/P CABG Denies CP, SOB Continue aspirin, rosuvastatin (8) HLD (hyperlipidemia): Plan: Continue rosuvastatin (9) Anxiety: (10) Depression: Plan: Continue venlafaxine, clonazepam (11) Hypothyroidism: Plan: Continue levothyroxine (12) GERD (gastroesophageal reflux disease): Plan: Continue PPI, H2 luis DVT Prophylaxis Heparin SQ Admit med/tele Full Code as per discussion with pt Follows with Dr Galeas for routine care Pt was seen and care coordinated with Dr Bolivar. See addendum I spent a total of 76minutes reviewing notes, outpatient records, labs, medication, coordinating, documenting and providing care for this patient excluding time spent in the performance of separately billed services. History of Present Illness Chief Complaint: Hip pain and leg pain Primary Care Provider: Dillon Ureña III, Patient is 83 year old female with PMH HTN, HLD, CAD s/p CABG, hypothyroidism, CKD IV, GERD, anxiety, depression, osteoporosis, RBBB presented to ER with c/o hip and leg pain. History obtained from patient, patient's granddaughter and outpatient chart review. Patient seen in ER 01/03/2024 for reported fall out of wheelchair onto her buttocks on 01/02/24 with negative pelvis, sacrum and coccyx x-rays and CT lumbar spine without acute fracture. Patient reports chronic bilateral hip and bilateral leg pain. States pain is aggravated with any movement of BLE extremities. Takes Tylenol and Tramadol chronically. Patient states did not have her dose this afternoon since being in ER and is requesting for pain control. She feels having more low back and bilateral leg pain since fall on 01/03/24. Uses wheelchair at baseline. Patient states no fall since her ER visit on 01/03/24 and denies hitting her head. Spoke to granddaughter on phone and she states patient always has bilateral knee pain but since last fall 01/03/24 patient has been complaining of more low back and bilateral hip pain. Patient states coughed a couple of days ago but doesn't feel she has been coughing much today. She states chronically has issues with her esophagus and sometimes feels like food gets stuck. Denies dysphagia with liquids. Patient denies recent choking. States for months having some nasal congestion. States usually has BM every 2-3 days and uses Miralax. Denies diarrhea, dysuria, hematuria, urinary frequency, loss control of bowel or bladder or saddle paresthesias. Denies fever/chills, diaphoresis, N/V, PETERS, dizziness, syncope, new vision changes, increased neck pain, CP, SOB, orthopnea, palpitations, hemoptys is, sore throat, otalgia, abdominal pain, extremity edema, rashes. Allergies Allergy/AdvReac Type Severity Reaction Status Date / Time No Known Allergies Allergy Verified 01/03/24 23:00 Home Medications Medication Instructions Recorded Confirmed Type acetaminophen 500 mg tablet 1,000 mg PO TID 06/13/22 01/06/24 History (Tylenol Extra Strength) alendronate 70 mg tablet 70 mg PO WK 06/13/22 01/06/24 History aspirin 81 mg tablet,delayed 81 mg PO DAILY 06/13/22 01/06/24 History release cimetidine 400 mg tablet 400 mg PO HS 06/13/22 01/06/24 History clonazepam 0.5 mg tablet 0.5 mg PO BID 06/13/22 01/06/24 History clonazepam 0.5 mg tablet 1 mg PO HS 06/13/22 01/06/24 History cyanocobalamin (vitamin B-12) 1,000 mcg PO Q OTHER DAY 06/13/22 01/06/24 History 1,000 mcg tablet (Vitamin B-12) cyclosporine 0.05 % eye drops in a 1 drp OPB BID 06/13/22 01/06/24 History dropperette docusate sodium 100 mg capsule 100 mg PO DAILY 06/13/22 01/06/24 History gabapentin 300 mg capsule 300 mg PO BID 06/13/22 01/06/24 History gabapentin 300 mg capsule 600 mg PO HS 06/13/22 01/06/24 History levothyroxine 75 mcg tablet 75 mcg PO DAILYBB 06/13/22 01/06/24 History pantoprazole 40 mg tablet,delayed 40 mg PO DAILY 06/13/22 01/06/24 History release polyethylene glycol 3350 17 gram 17 g PO Q OTHER DAY 06/13/22 01/06/24 History oral powder packet (Miralax) rosuvastatin 10 mg tablet 10 mg PO DAILY 06/13/22 01/06/24 History tramadol 50 mg tablet 50 mg PO TID Pain 06/13/22 01/06/24 History trazodone 100 mg tablet 100 mg PO HS 06/13/22 01/06/24 History venlafaxine 150 mg 150 mg PO DAILY 06/13/22 01/06/24 History capsule,extended release 24 hr biotin 5 mg tablet 5 mg PO DAILY 01/03/24 01/06/24 History fluticasone propionate 50 2 spray intranasal DAILY 01/03/24 01/06/24 History mcg/actuation nasal spray,suspension lidocaine HCl 4 %-menthol 1 % 1 applic topical QID PRN KNEE PAIN 01/03/24 01/06/24 History topical cream (Icy Hot Max (lidocaine HCl-menthol)) lisinopril 40 mg tablet 40 mg PO QAM 01/03/24 01/06/24 History polyethylene glycol 3350 17 17 g PO DAILY PRN Constipation 01/03/24 01/06/24 History gram/dose oral powder (Miralax) polyvinyl alcohol-povidone 0.5 1 drp OPB BID 01/03/24 01/06/24 History %-0.6 % eye drops (Artificial Tears (polyvinyl alcohol/povidone)) Past Med/Surg History Problem List Abnormal urinalysis GERD (gastroesophageal reflux disease) Anxiety CKD (chronic kidney disease), stage IV Extremity pain Acute hypoxic respiratory failure Fall (Acute) Back pain (Acute) Contusion, hip Elbow contusion Shoulder strain Diabetes mellitus Weakness (Acute) COVID-19 (Acute) Hypomagnesemia (Acute) Acute electrocardiogram changes (Acute) Renal artery stenosis Back pain Palpitation Neck pain Chest pain (Acute) Acute pain of left shoulder (Acute) Esophageal dysphagia Dysphagia Encounter for pre-operative examination CAD (coronary artery disease) (Chronic) HTN (hypertension) (Chronic) HLD (hyperlipidemia) (Chronic) Depression (Chronic) Hypothyroidism (Chronic) CKD (chronic kidney disease), stage III (Chronic) CVA (cerebral vascular accident) (Chronic) Altered awareness, transient Hx of CABG (Chronic) History of appendectomy (Chronic) S/P cholecystectomy (Chronic) H/O: hysterectomy (Chronic) History of carpal tunnel surgery (Chronic) History of esophagogastroduodenoscopy (EGD) (Chronic) Medical History Syncope Chronic kidney disease (CKD) HTN (hypertension) Degenerative joint disease Gastritis Coronary artery disease Trigeminal neuralgia Dysphagia Neurotic depression Panic disorder Surgical History History of esophagogastroduodenoscopy (EGD) History of bilateral carpal tunnel release History of facial surgery facial nerve surgery History of surgery on extremity left leg/knee History of total abdominal hysterectomy and bilateral salpingo-oophorectomy History of cholecystectomy History of cardiac catheterization S/P CABG x 3 History of appendectomy Family History Other Family history non-contributory Social History Smoking Status: Former smoker Tobacco Type: Cigarettes Second Hand Exposure: No; Do You Dip or Chew Tobacco: No; Hx Alcohol Use: No Hx Substance Use: No Preferred Language: Nigerien Communication Ability: Effective 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 Beliefs That Will Affect Care: None Current Living Situation: Custodial Feels Safe at Home: Yes Assistive Devices: Walker and Wheelchair Review of Systems Review of Systems: All systems reviewed & are unremarkable except as noted in HPI & below Physical Exam Physical Exam: General: +anxious appearing and voicing pain to bilateral hips, WDWN Head: normocephalic, atraumatic Eyes: conjunctiva non-injected, anicteric ENT: normal inspection external ears, nose, mucous membranes moist Neck: supple, trachea midline, non-tender to palpation Lungs: clear, no respiratory distress, no wheezing/rhonchi/rales CV: RRR, no murmur, no pretibial edema Abd: normal BS, soft, non-tender to palpation Back: no discoloration, +tenderness to palpation diffuse lower lumbar region Ext: no cyanosis, no erythema, no calf tenderness, +reported tenderness to bilateral hips with any attempted active ROM of hip and knees and with movement of torso, sensation to light touch intact BLE Neuro: +anxious, A&O x 3, no focal deficits noted Skin: warm, dry, +ecchymosis to arms Results & Data Results & Data Vital Signs (Past 12 Hours) Vital Signs Temp Pulse Pulse Resp BP Pulse Ox O2 Del Method 01/06/24 14:07 57 L 18 98 Nasal Cannula 01/06/24 11:54 88 L Room Air 01/06/24 11:53 90 Room Air 01/06/24 11:46 74 01/06/24 11:29 20 01/06/24 11:25 36.8 C 71 20 171/90 H 90 Room Air O2 Flow Rate 01/06/24 14:07 2 01/06/24 11:54 0 01/06/24 11:53 01/06/24 11:46 01/06/24 11:29 01/06/24 11:25 Laboratory Results Short CBC 01/06/24 Range/Units 11:44 WBC 6.51 (4.8-10.8) K/ul Hgb 12.9 (12.0-16.0) g/dl Hct 40.5 (37.0-47.0) % Plt Count 242 (130-400) K/uL BMP 01/06/24 11:44 Sodium 137 Potassium 4.8 Chloride 104 Carbon Dioxide 26 BUN 30 H Creatinine 2.20 H Glucose 144 H Calcium 11.0 H Liver Function 01/06/24 Range/Units 11:44 Total Bilirubin 0.2 (0.2-1.0) mg/dl AST 13 (13-39) U/L ALT 6 L (7-52) U/L Alkaline Phosphatase 69 (34-104) U/L Albumin 4.2 (3.4-5.0) gm/dl Urine 01/06/24 Range/Units 16:11 Urine Color Yellow Urine Appearance Clear (Clear) Urine pH 5.5 (4.5-7.5) Ur Specific [place] 1.014 (1.000-1.030) Urine Protein 2+ H (Negative) Urine Glucose (UA) Negative (Negative) Diagnostic Findings Chest X-Ray 01/06/24 11:49 XR chest 1V not portable HISTORY: 83 years-old Female weakness, borderling hypoxia CT chest, status post fall COMPARISON: Chest CT 04/12/2023 TECHNIQUE: AP view of the chest FINDINGS: Cardiac silhouette is enlarged. Median sternotomy with mediastinal surgical clips redemonstrated no pneumothorax, pleural effusion or overt pulmonary edema. Pulmonary vascular congestion. Mild subsegmental bibasilar densities. Cholecystectomy. Bones appear grossly intact. IMPRESSION: 1. Cardiomegaly with pulmonary vascular congestion. 2. Mild subsegmental bibasilar densities favor atelectasis. 3. No acute displaced rib fracture or pneumothorax identified ACT 112: Negative or not required by law. The above report was generated using voice recognition software. It may contain grammatical, syntax or spelling errors. Electronically signed by: Fuentes Han M.D. 01/06/2024 1:56 PM Hip/Pelvis X-Ray 01/06/24 11:49 XR hip LT 2V w pelvis CLINICAL HISTORY: reported fall, L hip/pelvis pain COMPARISON: Pelvis radiograph January 03, 2024. FINDINGS: Sacroiliac joints and symphysis pubis are intact. There are no acute fractures within the pelvis or hips. There are right groin surgical clips. There is moderate bilateral hip osteoarthritis. No evidence for avascular necrosis of the femoral heads. IMPRESSION: No fractures within the pelvis or hips. ACT 112: Negative or not required by law. Electronically signed by: Marvin Larsen M.D. 01/06/2024 1:33 PM Lumbar Spine X-Ray 01/06/24 11:49 LUMBAR SPINE 3 VIEWS HISTORY: upper lumbar pain. COMPARISON: None. FINDINGS: There is no fracture. No subluxation. The visualized sacrum is intact. Disc spaces are preserved. There are large partially fused anterior osteophytes within the lumbar spine. Moderate to severe facet degenerative changes within the lumbar spine most pronounced at the L4-5 and L5-S1 levels. IMPRESSION: No fracture or subluxation within the lumbar spine. ACT 112: Negative or not required by law. Electronically signed by: Yinka Mora M.D. 01/06/2024 1:58 PM ECG Additional Comments: rate 62, sinus rhythm, RBBB, Q waves inferior leads. Q waves present on EKG from 04/12/23. Per my interpretation (6) HTN (hypertension) Hypertension type: unspecified Qualified Code(s): I10 - Essential (primary) hypertension
[2024-01-06] MEDS: ACETAMINOPHEN 325 MG TAB PO STA (15:14)
[2024-01-06] MEDS: traMADol HCL 50 MG TABLET PO STA (15:15)
[2024-01-06] MEDS: FUROSEMIDE 40 MG/4 ML VIAL IV ONE (15:35)
[2024-01-06 16:23] LABS: Appearance Urine Clear (Clear); Bacteria Urine Automated 4+ (None Seen); Bilirubin Urine Negative (Negative); Blood Urine Negative (Negative); Cast Urine Automated 0-2 /lpf (0-2); Color Urine Yellow; Epithelial Cell Urine Auto 0-2 /hpf (0-2); Glucose Urine UA Negative (Negative); Ketones Urine Negative (Negative); Leukocyte Esterase Urine 1+ (Negative); Nitrite Urine Positive (Negative); Protein Urine 2+ (Negative); RBC Urine Automated 0-2 /hpf (0-2); Specific Gravity Urine 1.014 (1.000-1.030); Urobilinogen Urine Negative (Negative); pH Urine 5.5 (4.5-7.5)
[2024-01-06] MEDS ORDERED: ONDANSETRON INJ 2 MG/ML 2 ML VIAL IV PRN (18:05)
[2024-01-06] MEDS ORDERED: POLYETHYLENE (MIRALAX) 17 GM PACK PO PRN (18:05)
[2024-01-06] MEDS ORDERED: ARTIFICIAL TEARS OPB PRN (18:20)
[2024-01-06] MEDS: LIDOCAINE 5% 1 PATCH TD STA (18:24)
[2024-01-06] MEDS: cefTRIAXone SODIUM 1,000 MG/50 ML BAG IV SCH (18:25)
[2024-01-06] MEDS ORDERED: GABAPENTIN 300 MG CAP PO SCH ×2 (18:30→21:00)
--- OUTSIDE RECORDS SUMMARY | 2024-01-06 19:04 | External Medical Summary | Summary of Care ---
Author Name Unknown Organization [facility] Address [address] [facility] [place] [address] Phone [phone] Care Team Providers Care Seat Trimmer Name Role Phone Roberto Galeas MD Primary Care Provider [phone] Reason for Visit * Reason Onset Date Comments Follow Up 01/05/2024 Encounter Details Date Type Department Care Team (Late st Contact Info) Description 01/05/2024 Telephone Nephrology, [address] [address] Adrianne Gillette MD [address] [place] [id number] Follow Up Allergies No known active allergiesdocumented as of this encounter (statuses as of 01/05/2024) Medications Medication Sig Dispensed Refills Start Date End Date Status ARTIFICIAL TEARS 0.1-0.3 % OP SOLNIndications:Dry eyes, bilateral 2 drops to each eye twice daily 1 Bottle 11 03/14/2013 Active ASPIRIN EC LOW DOSE 81 MG TBEC TAKE 1 TABLET BY MOUTH ONCE DAILY *CAD*. 30 Tab 5 11/17/2016 Active NITROSTAT 0.4 MG SUBL (1) TAB DISSOLVED UNDER TONGUE NEEDED FOR CHEST PAIN, MAY REPEAT EVERY 5 MIN'S X 3 DOSES 25 Tab 11/17/2016 Active Cyanocobalamin 1000 MCG Oral Tablet (Cyanocobalamin)Shantelle cations:B12 deficiency Take 1 Tablet (1,000 mcg) by mouth every other day. 15 Tablet 11 05/04/2022 Active Rosuvastatin Calcium 10 MG Oral Tablet (Crestor)Indications :Dyslipidemia, goal LDL below 70 TAKE ONE TAB BY MOUTH DAILY FOR CHOLESTEROL 28 Tablet 10 03/20/2023 Active Icy Hot Max Lidocaine 4-1 % External Cream (Lidocaine-Menthol) Apply topically to affected area as needed. Apply to affected area Active cycloSPORINE 0.05 % Ophthalmic Emulsion (Restasis) USE 1 DROP IN EACH EYE TWICE DAILY DRY EYE 20.5 mL 3 05/22/2023 Active Fluticasone Propionate 50 MCG/ACT Nasal Suspension (Flonase) Administer 2 Sprays into each nostril in the morning. 16 g 3 06/30/2023 Active Alendronate Sodium 70 MG Oral Tablet (Fosamax) TAKE 1 TABLET BY MOUTH WEEKLY AT LEAST 1/2 HR. BEFORE BREAKFAST W/ 8-10OZ WATER DON'T RECLINE FOR 1/2 HR SUPPLEMENT *SUN*. 4 Tablet 11 07/13/2023 Active Cimetidine 400 MG Oral Tablet (Tagamet)Indications :Gastroesophageal reflux disease without esophagitis TAKE ONE TAB BY MOUTH AT BEDTIME *GERD* 28 Tablet 07/13/2023 Active Acetaminophen 500 MG Oral Tablet (Tylenol Extra Strength) Take 1 Tablet by mouth every 8 hours as needed for Pain, Mild. Active Biotin 5 MG Oral Capsule Take 1 Capsule by mouth in the morning. Active Docusate Sodium 100 MG Oral Capsule (DocQLace) Take 1 Capsule by mouth 2 times a day as needed for Constipation. Active Lisinopril 40 MG Oral Tablet TAKE ONE TABLET BY MOUTH DAILY *HTN* 30 Tablet 09/11/2023 Active Venlafaxine HCl ER 150 MG Oral Capsule Extended Release 24 Hour (Effexor XR)Indications:Chron ic depression TAKE 1 CAPSULE BY MOUTH ONCE DAILY FOR DEPRESSION *DO NOT CRUSH, CUT, OR CHEW* 28 Capsule 10/08/2023 Active traZODone HCl 100 MG Oral Tablet (Desyrel) TAKE 1 TABLET BY MOUTH AT BEDTIME (INSOMNIA) 28 Tablet 10/08/2023 Active Levothyroxine Sodium 75 MCG Oral Tablet (Levoxyl)Indications :Hypothyroidism, unspecified type TAKE 1 TABLET BY MOUTH IN THE MORNING 30MINS PRIOR TO BREAKFAST OR OTHER MEDS *THYROID* 90 Tablet 1 10/09/2023 Active clonazePAM 0.5 MG Oral Tablet (KlonoPIN)Indication s:Anxiety state TAKE ONE TABLET BY MOUTH TWICE A DAY FOR ANXIETY TAKE 2 TABS (1MG) BY MOUTH DAILY AT BEDTIME FOR ANXIETY 120 Tablet 5 10/21/2023 Active Gabapentin 400 MG Oral Capsule (Neurontin)Indicatio ns:Trigeminal neuralgia,DDD (degenerative disc disease), cervical TAKE 1 CAPSULE BY MOUTH TWICE DAILY *NEUROPATHY and TAKE 2 CAPSULES (=800MG) BY MOUTH AT BEDTIME *NEUROPATHY (total of 4 per day) 360 Capsule 1 12/16/2023 Active Lidocaine 4 % External Patch (Aspercreme)Indicati ons:DDD (degenerative disc disease), cervical Place 1 Patch over 12 hours topically on the skin daily. Place on L shoulder where it meets the neck 90 Patch 2 12/16/2023 Active Polyethylene Glycol 3350 17 GM Oral Packet (MiraLax) Take 1 packet by mouth every other day or as needed for constipation 14 Each 11 12/23/2023 Active traMADol HCl 50 MG Oral Tablet (Ultram)Indications: Generalized osteoarthritis Take 1 Tablet by mouth every 6 hours. This is specifically for 8AM, 2PM and 8PM. 90 Tablet 1 12/28/2023 Active Pantoprazole Sodium 40 MG Oral Tablet Delayed Release (Protonix) TAKE ONE TABLET BY MOUTH DAILY *GERD* 28 Tablet 1 01/01/2024 Active documented as of this encounter (statuses as of 01/05/2024) Active Problems Problem Noted Date Diagnosed Date Type 2 diabetes mellitus wit h diabetic chronic kidney disease 12/30/2023 Hyperparathyroidism, secondary renal 12/16/2023 Prediabetes 06/30/2023 Primary open-angle glaucoma, bilateral, severe s tage 03/16/2020 Trigeminal neuralgia 03/16/2020 Nonrheumatic aortic valve insufficiency 09/22/19 20 Bradycardia 09/22/2019 S/P CABG (coronary artery bypass graft) 09/22/19 20 Diabetic peripheral neuropathy 03/22/2019 Renal artery stenosis 11/26/2018 Overview: LT Renal Artery Osteoarthritis of spine with radiculopathy, cerv ical region 11/26/2018 Mild depressive disorder 08/04/2018 Gastroesophageal reflux disease without esophagi tis 06/15/2018 Hyperparathyroidism, primary 03/23/2018 Persistent proteinuria 03/23/2018 Hypertensive kidney disease with stage 3 chronic kidney disease 03/15/2018 Coronary artery disease invo lving [place]am[place] coronary artery of [place] heart without angina pectoris 03/15/2018 HTN, goal below 140/90 07/24/2014 Female stress incontinence 02/28/2014 Vitamin D deficiency 06/03/2010 DYSLIPIDEMIA, GOAL LDL BELOW 70 05/09/2009 Overview: Per Lipid Taxonomy. ADVANCE DIRECTIVE INFORMATION 12/02/2004 Overview: No, Advance Directive brochure offered , patient declined. Panic disorder 06/01/2003 Hypothyroidism 09/08/2002 GENERAL OSTEOARTHROSIS 02/01/1999 Other osteoporosis without current pathological fracture 01/30/1999 Overview: ICD-10 update of inactive term Anxiety state documented as of this encounter (statuses as of 01/05/2024) Resolved Problems Problem Noted Date Diagnosed Date Resolved Date Major depressive disorder, s sharmila episode, mild 11/26/2022 06/30/2023 ASCVD (arteriosclerotic card iovascular disease) 09/22/2019 04/23/2021 Overview: duplicate Type 2 diabetes mellitus wit h diabetic chronic kidney disease 03/15/2018 06/30/2023 Sicca syndrome with keratoconjunctivitis 03/15/2018 02/28/2021 Chronic depression 08/06/2016 9 Viral URI with cough 09/14/2014 017 Type 2 diabetes mellitus wit h hemoglobin A1c goal of less than 8.0% 07/06/2014 04/23/2021 Overview: ICD-10 update of inactive term Duplicate Osteoarthritis of knee 09/07/201310/31 Restless leg syndrome 06/07/20122016 Other specified pre-operative examination 02/20/2012 10/31/2016 Urge incontinence 11/21/2010 10/31/2016 Trigeminal neuralgia 04/17/2010 017 Phlebitis and thrombophlebit is of other deep vessels of lower extremities 10/12/2009 05/26/2017 Phlebitis and thrombophlebit is of other deep vessels of lower extremities 10/02/2009 03/15/2018 Osteoarthritis of multiple joints 07/17/2009 05/26/2017 Overview: ICD-10 update of inactive term HTN, goal below 130/80 04/17/200907/24 Overview: Modified per HTN protocol #16. Type 2 diabetes mellitus wit h hemoglobin A1c goal of less than 7.0% 03/22/2009 07/06/2014 Overview: Per Diabetes Taxonomy. ICD-10 update of inactive term Trigeminal neuralgia 12/08/2007 009 Overview: Resolved per Duplicate Protocol #2. Dry eyes 07/30/2007 10/31/2016 Kidney disease, chronic, sta ge III (GFR 30-59 ml/min) 06/25/2007 04/23/2021 Overview: Based on labs from 03/23/07 duplicate CHOLELITH W CHOLECYS NEC 12/29/200506/2017 CARDIAC DYSRHYTHMIAS NEC 12/29/200506/2017 Chronic cholecystitis 12/12/20052016 Trigeminal neuralgia 12/10/2004 017 ABN LIVER FUNCTION STUDY 08/13/200406/2017 Organic sleep disorder 06/01/200310/31 PULSATILE TINNITUS 06/01/2003 7 DYSFUNCT EUSTACHIAN TUBE 06/01/200301/2017 Major depressive disorder 01/20/2003 Overview: ICD-10 update of inactive term LUMB-LUMBOSAC DISC DEGEN 06/07/200201/2017 CHR ISCHEMIC HRT DIS NEC 08/31/200006/2017 CHR ISCHEMIC HRT DIS NOS 02/01/1999 Insomnia 02/01/1999 10/31/2016 Overview: ICD-10 update of inactive term HYPERLIPIDEMIA NEC-NOS 02/01/199905/09 Overview: Per Lipid Taxonomy. Bladder disorder 02/01/1999 10/31/2016 Type 2 diabetes mellitus wit h hemoglobin A1c goal of less than 7.0% 02/01/1999 03/22/2009 Overview: Per Diabetes Taxonomy. ICD-10 update of inactive term HYPERTENSION NOS 04/17/2009 Overview: Modified per HTN protocol #16. Gastritis and gastroduodenitis 10/31/2016 documented as of this encounter (statuses as of 01/05/2024) Immunizations Name Administration Dates Next Due COVID-19 mRNA, LNP-s, No Pre serve, 2-Dose Series (Moderna) 07/03/2020,06/05/2020 Pneumococcal Conjugate Vacc, 13 Valent (Prevnar) 05/01/2015 Pneumococcal Polysaccharide PPV23 (Pneumovax) 02/13/2009 Season Influenza, Quad, PF, Adjuvanted, 65+ Yrs, IM (FLUAD) 03/16/2020 Seasonal Influenza, PF, 6 M & above, IM , (FluLaval or Fluzone) 02/09/2018,03/24/2017 Seasonal Influenza, Quadriva lent Hd (Fluzone Hd) 02/28/2021 Seasonal Influenza, Quadriva lent, No Preserve, IM 02/22/2016 Seasonal Influenza, Split, I IV3, With Preserve, Inj 02/09/2015,02/28/2014,03/03/2013,01/26,06/06/2011,02/15/2010,02/13/2009 ,03/20/2008,03/23/2007 Seasonal Influenza, Trivalen t, Adjuvanted, 65+ yrs 01/23/2022,03/22/2019 TDAP (age 10 and older)(Boostrix) 09/24/2017 documented as of this encounter Social History Tobacco Use Types Packs/Day Years Used Date Smoking Tobacco: Never Passive Smoke Exposure: Past Smokeless Tobacco: Never Alcohol Use Standard Drinks/Week Comments No 0 (1 standard drink = 0.6 oz pur e alcohol) PHQ-2 Answer Date Recorded PHQ Adult Total Score 0 07/23/2023 Hunger Vital Sign Answer Date Recorded Within the past 12 months, y ou worried that your food would run out before you got the money to buy more. Never true 07/23/19 24 Within the past 12 months, t he food you bought just didn't last and you didn't have money to get more. Never true 07/23/2023 Childcare Answer Date Recorded Do you feel overwhelmed with taking care of a child, family member or friend? No 07/23/2023 Does your family need help f inding childcare? (Household - for ages 0-17 years) Not on file 07/23/2023 Clothing Answer Date Recorded Have you been unable to get clothing when it was really needed? No 07/23/2023 Is your family able to get c lothes or diapers when needed? (Household - for ages 0-17 years) Not on file 07/23/2023 Personal Safety Answer Date Recorded Do you feel unsafe or have concerns for your saf ety? No 07/23/2023 Do you have concerns for you r family's safety? (Household - for ages 0-17 years) Not on file 07/23/2023 Utilities Answer Date Recorded Do you have trouble paying y our heating, water, or electric bill? No 07/23/2023 Is your family able to pay t he heat, water, or electric bill? (Household - for ages 0-17 years) Not on file 07/23/2023 Does your family have access to good internet? (Household - for ages 0-17 years) Not on file 07/23/2023 Employment Status Answer Date Recorded Are you unemployed or without regular income? No 07/23/2023 Does the household have a re gular source of income? (Household - for ages 0-17 years) Not on file 07/23/2023 Social Connections Answer Date Recorded How often do you feel lonely or isolated from th ose around you? Never 07/23/2023 Financial Resource Strain Answer Date R ecorded Do you have any trouble payi ng for your medications, or do you think you might in the future? No 07/23/2023 Does your family have troubl e paying for medicine? (Household - for ages 0-17 years) Not on file 07/23/2023 Transportation Needs Answer Date Record ed READ ONLY Do you have troubl e getting a ride to medical visits or work? Never True 07/23/2023 Does your family have a hard time getting a ride to doctors visits? (Household - for ages 0-17 years) Not on file 07/23/2023 Has lack of transportation k ept you from medical appointments, meetings, work, or from getting things needed for daily living? Check all that apply. (Adult - for ages 18 years and over) Not on file 07/23/2023 Do you (or your family) have trouble finding or paying for a ride (transportation)? (Household - for ages 0-17 years) Not on file 07/23/2023 Housing Stability Answer Date Recorded Do you currently live in a s helter or have no steady place to sleep at night? No 07/23/2023 READ ONLY Do you think you a re at risk of becoming homeless? No 07/23/2023 Does your family worry about paying for your home or becoming homeless? (Household - for ages 0-17 years) Not on file 0 07/23/2023 Are you homeless or worried that you might be in the future? (Adult - for ages 18 years and over) Not on file Are you (or your family) olman eless or worried that you might be in the future? (Household - for ages 0-17 years) Not on file Food Insecurity Answer Date Recorded Do you need food for this week? No 07/23/2023 Are you able to get enough f ood for your family? (Household - for ages 0-17 years) Not on file 07/23/2023 Does your family need food t his week? (Household - for ages 0-17 years) Not on file 07/23/2023 Do you always have enough fo od for your family? (Household - for ages 0-17 years) Not on file 07/23/2023 Sex and Gender Information Value Date Recorded Sex Assigned at Female 03/22/2019 12:58 PM EDT Gender Identity Female 03/22/2019 12:58 PM EDT Sexual Orientation Straight 03/22/2019 12 :58 PM EDT Job Start Date Occupation Industry Not on file Not on file Not on file documented as of this encounter Miscellaneous Notes * Telephone Encounter - Rachna Reina RN - 01/05/2024 3:26 PM EDT Te with pt's daughter Renita regarding today's appointment. She is aware for pt to stop here Vitamin D. She is aware that she needs lab tests completed and that the slips were sent home with her. She was thankful for the call. She is also aware that she was having much pain while sitting in WC at her visit. Daughter is concerned that she may have had another fall at the home. She will follow up withpt and facility. * Telephone Encounter - Rachna Reina RN - 01/05/2024 3:10 PM EDT ----- Message from Adrianne Gillette MD sent at 01/05/2024 2:40 PM EDT ----- Please let daughter know to stop vitamin d supplements due to high calcium level on recent blood work Dr. Tavarezt office visit documented in this encounter Plan of Treatment Upcoming Encounters Date Type Department Care Team (Late st Contact Info) Description 01/08/2024 2:20 PM EDT Office Visit [facility] [address] [place] [id number] Roberto Galeas MD [address] [place] [address] 01/27/2024 10:30 AM EDT Office Visit [facility] [address] [address] Marvel Givens PA-C [address] [address] Health Maintenance Due Date Last Done Comments Zoster Vaccines (1 of 2) 1989 Adult Wellness Visit 11/10/2019 11/09/2018 Influenza Vaccine (FLU shot) (#1) 2024 01/23/2022, 02/28/2021, 03/16/2020, Additional history exists COVID-19 Vaccine (3 - 3-24 season) 2024 07/03/2020, 06/05/2020 Postponed from 01/23/2023 (Other) Depression Monitoring 07/22/2024 07/23/2023 TSH 12/29/2024 12/30/2023, 04/25, 04/14/2022, Additional history exists documented as of this encounter Medical Devices Implanted Type Area Coil Placer Device Identifier Shelf Expiration Date Model / Serial / Lot Alloderm 2x4cm [id number] - [id number] Implanted:Qty: 8 on 03[place]2012 [place] [facility] [place] - Human Right: Head InviBox 10/22/2013 [id number] / / [id number] Plate Ti Lo Pro Str 2h 421.502 - [id number] Implanted:Qty: 1 on 03/30/2012 [place] [facility] [place]: Head SYNTHES 421.502 / / Cover Bur Hol Ti Lo 17 421.527 - [id number] Implanted:Qty: 2 on 03/30/2012 [place] [facility] [place]: Head SYNTHES 421.527 / / Screw Ti Lo Pro Sd 4mm 400.834 - [id number] Implanted:Qty: 7 on 03/30/2012 [place] [facility] [place]: Head SYNTHES 400.834 / / documented as of this encounter Advance Directives Documents on File Type Date Recorded Patient [employer] Power of Pay Station Collector 07/17/2022 Becca Greenfield sign on d ate 07/17/2022 Health Care Power of Pay Station Collector and Living Will * Full Code (Latest Code Status on File) Date Activated Date Inactivated Comments 03/30/2012 11:24 AM 04/02/2012 8:10 PM This order reflects the patients wishes and were consensually agreed upon. * Full Code Date Activated Date Inactivated Comments 03/29/2012 8:19 PM 03/30/2012 11:24 AM This order reflects the patients wishes and were consensually agreed upon. * Full Code Date Activated Date Inactivated Comments 03/29/2012 6:22 PM 03/29/2012 8:19 PM This order r eflects the patients wishes and were consensually agreed upon. Healthcare Agents on File Name Relationship Healthcare Agent Relationship Communication Becca Greenfield Other - (no specific identity) Health Care Agent (per Health Care Power of Pay Station Collector document) Care Teams Seat Trimmer Relationship Specialty Start Date End Date Roberto Galeas MD [address] [phone] PCP - General Family Medicine 06/16/11 documented as of this encounter
--- OUTSIDE RECORDS SUMMARY | 2024-01-06 19:04 | External Medical Summary | Summary of Care ---
Author Name Unknown Organization [facility] Address [address] [facility] [place] [address] Phone [phone] Care Team Providers Care Substance Abuse Technician Name Role Phone Roberto Galeas MD Primary Care Provider [phone] Reason for Visit * Reason Comments Chronic Kidney Disease (CKD) Encounter Details Date Type Department Care Team (Late st Contact Info) Description 01/05/2024 2:40 PM EDT Office [place]phrology, [address] [place] [address] Adrianne Gillette [facility] [address] [facility] [place] [address] Kidney disease, chronic, stage IV (GFR 15-29 ml/min) ([facility])*; HTN, goal below 140/90; Dysuria Allergies No known active allergiesdocumented as of this encounter (statuses as of 01/05/2024) Medications Medication Sig Dispensed Refills Start Date End Date Status ARTIFICIAL TEARS 0.1-0.3 % OP SOLNIndications:Dr patel eyes, bilateral 2 drops to each eye twice daily 1 Bottle 11 3 Active ASPIRIN EC LOW DOSE 81 MG TBEC TAKE 1 TABLET BY MOUTH ONCE DAILY *CAD*. 30 Tab 5 7 Active NITROSTAT 0.4 MG SUBL (1) TAB DISSOLVED UNDER TONGUE NEEDED FOR CHEST PAIN, MAY REPEAT EVERY 5 MIN'S X 3 DOSES 25 Tab 7 Active Cyanocobalamin 1000 MCG Oral Tablet (Cyanocobalamin)In dications:B12 deficiency Take 1 Tablet (1,000 mcg) by mouth every other day. 15 Tablet 11 2 Active Rosuvastatin Calcium 10 MG Oral Tablet (Crestor)Indicatio ns:Dyslipidemia, goal LDL below 70 TAKE ONE TAB BY MOUTH DAILY FOR CHOLESTEROL 28 Tablet 10 3 Active Icy Hot Max Lidocaine 4-1 % External Cream (Lidocaine-Menthol ) Apply topically to affected area as needed. Apply to affected area Active cycloSPORINE 0.05 % Ophthalmic Emulsion (Restasis) USE 1 DROP IN EACH EYE TWICE DAILY DRY EYE 20.5 mL 3 3 Active Fluticasone Propionate 50 MCG/ACT Nasal Suspension (Flonase) Administer 2 Sprays into each nostril in the morning. 16 g 3 4 Active Alendronate Sodium 70 MG Oral Tablet (Fosamax) TAKE 1 TABLET BY MOUTH WEEKLY AT LEAST 1/2 HR. BEFORE BREAKFAST W/ 8-10OZ WATER DON'T RECLINE FOR 1/2 HR SUPPLEMENT *SUN*. 4 Tablet 11 4 Active Cimetidine 400 MG Oral Tablet (Tagamet)Indicatio ns:Gastroesophagea l reflux disease without esophagitis TAKE ONE TAB BY MOUTH AT BEDTIME *GERD* 28 Tablet 4 Active Acetaminophen 500 MG Oral Tablet (Tylenol [...] TABLET BY MOUTH DAILY *HTN* 30 Tablet 11 4 Active Venlafaxine HCl ER 150 MG Oral Capsule Extended Release 24 Hour (Effexor XR)Indications:Chr onic depression TAKE 1 CAPSULE BY MOUTH ONCE DAILY FOR DEPRESSION *DO NOT CRUSH, CUT, OR CHEW* 28 Capsule 4 Active traZODone HCl 100 MG Oral Tablet (Desyrel) TAKE 1 TABLET BY MOUTH AT BEDTIME (INSOMNIA) 28 Tablet 5 4 Active Levothyroxine Sodium 75 MCG Oral Tablet (Levoxyl)Indicatio ns:Hypothyroidism, unspecified type TAKE 1 TABLET BY MOUTH IN THE MORNING 30MINS PRIOR TO BREAKFAST OR OTHER MEDS *THYROID* 90 Tablet 1 4 Active clonazePAM 0.5 MG Oral Tablet (KlonoPIN)Indicati ons:Anxiety state TAKE ONE TABLET BY MOUTH TWICE A DAY FOR ANXIETY TAKE 2 TABS (1MG) BY MOUTH DAILY AT BEDTIME FOR ANXIETY 120 Tablet 5 4 Active Gabapentin 400 MG Oral Capsule (Neurontin)Indicat ions:Trigeminal neuralgia,DDD (degenerative disc disease), cervical TAKE 1 CAPSULE BY MOUTH TWICE DAILY *NEUROPATHY and TAKE 2 CAPSULES (=800MG) BY MOUTH AT BEDTIME *NEUROPATHY (total of 4 per day) 360 Capsule 1 4 Active Lidocaine 4 % External Patch (Aspercreme)Indica tions:DDD (degenerative disc disease), cervical Place 1 Patch over 12 hours topically on the skin daily. Place on L shoulder where it meets the neck 90 Patch 2 4 Active Polyethylene Glycol 3350 17 GM Oral Packet (MiraLax) Take 1 packet by mouth every other day or as needed for constipation 14 Each 11 4 Active traMADol HCl 50 MG Oral Tablet (Ultram)Indication s:Generalized osteoarthritis Take 1 Tablet by mouth every 6 hours. This is specifically for 8AM, 2PM and 8PM. 90 Tablet 1 4 Active Pantoprazole Sodium 40 MG Oral Tablet Delayed Release (Protonix) TAKE ONE TABLET BY MOUTH DAILY *GERD* 28 Tablet 1 4 Active Cholecalciferol (D-1000 EXTRA STRENGTH) 1000 units Tablet Take 1,000 Units by mouth daily. 30 Tab 11 7 01/05/20 24 Discontinued documented as of this encounter (statuses as [...] disease 03/15/2018 Coronary artery disease invo lving wales coronary artery of wales heart without angina pectoris 03/15/2018 HTN, goal [...] Passive Smoke Exposure: Past Smokeless Tobacco: Never Tobacco Cessation:Counseling Given: Not Answered Alcohol Use Standard Drinks/Week Comments No 0 [...] on file documented as of this encounter Last Filed Vital Signs Vital Sign Reading Time Taken Comments Blood Pressure 142/55 01/05/2024 1:54 PM EDT Pulse 69 01/05/2024 1:54 PM EDT Temperature 36.4 C (97.6 F) 01/05/2024 1:54 PM ED T Respiratory Rate 20 01/05/2024 1:54 PM EDT Oxygen Saturation 99% 01/05/2024 1:54 PM EDT Inhaled Oxygen Concentration - - Weight 65.3 kg (144 lb) 01/05/2024 1:54 PM EDT Height - - Body Mass Index 30.1 12/30/2023 12:20 PM EDT documented in this encounter Progress Notes * Adrianne Gillette MD - 01/05/2024 2:05 PM EDT REASON FOR VISIT: CKD HPI: Yvonne Greenfield is a 83 year old female seen in follow-up. She has history of type 2 diabetes for several yrs complicated by neuropathy now diet controlled, hypertension, hyperlipidemia, coronary artery disease status post CABG and hypothyroidism. She also has a 80% left renal artery stenosis. She has had progressive CKD stage for about 13 years. She also has history of hypercalcemia with high PTH. Renal ultrasound in January 2018 showed small kidneys 8.5 cm right kidney and 8.7 cm left kidneywith bilateral renal cysts largest measuring 1.6 cm. She has arthritis and takes tylenol and tramadol. No NSAIDs. Patient is now wheelchair-bound. She lives at [facility] living. Last OV was Apr 2023. She fell off wheelchair about 5 days ago. She went to ED and xrays were normal. She has back pain and multiple other pain sites. She has urine frequency and dysuria. No shortness of breath or leg swelling. Blood pressure is controlled. Recent labs reviewed with patient Past Medical History: Diagnosis Date Anxiety state Anxiety state Carcinoma in situ of cervix uteri Chronic ischemic heart disease Coronary atherosclerosis of artery bypass graft DM type 2, goal A1c below 7 Gastritis and gastroduodenitis 2005 see EUS report HTN, goal to be determined Hypothyroidism Insomnia, unspecified Mixed dyslipidemia Osteoporosis Renal failure Unspecified urinary incontinence Review of Systems: General ROS: negative for - chills or fever Psychological ROS: negative for - mood swings ENT ROS: negative for - nasal congestion or nasal discharge Endocrine ROS: negative Respiratory ROS: no cough, shortness of breath, or wheezing Cardiovascular ROS: no chest pain or dyspnea on exertion Gastrointestinal ROS: no abdominal pain, change in bowel habits, or black or bloody stools Genito-Urinary ROS: no dysuria, trouble voiding, or hematuria Musculoskeletal ROS: negative for - muscle pain Neurological ROS: no TIA or stroke symptoms Dermatological ROS: negative for rash Family History Problem Relation Name Age of Onset Heart Disorder Father Heart Attack Heart Disorder Sister All 7 sisters passed from Heart Attacks Heart Disorder Brother All 7 bros passed from Heart Attacks Cancer Daughter Throat cancer Social History Socioeconomic History Marital status: Spouse name: Not on file Number of children: Not on file Years of education: Not on file Highest education level: Not on file Occupational History Not on file Tobacco Use Smoking status: Never Passive exposure: Past Smokeless tobacco: Never Vaping Use Vaping status: Never Used Substance and Sexual Activity Alcohol use: No Drug use: No Sexual activity: Yes Other Topics Concern Not on file Social History Narrative Not on file Social Determinants of Health Financial Resource Strain: Low Risk (07/23/2023) Financial Resource Strain Do you have any trouble paying for your medications, or do you think you might in the future? (Adult - for ages 18 years and over): No Does your family have trouble paying for medicine? (Household - for ages 0-17 years): Not on file Food Insecurity: No Food Insecurity (07/23/2023) Food Insecurity Do you need food for this week? (Adult - for ages 18 years and over): No Are you able to get enough food for your family? (Household - for ages 0-17 years): Not on file Does your family need food this week? (Household - for ages 0-17 years): Not on file Do you always have enough food for your family? (Household - for ages 0-17 years): Not on file Transportation Needs: No Transportation Needs (07/23/2023) Transportation Needs Do you have trouble getting a ride to medical visits or work? (Adult - for ages 18 years and over):Never True Does your family have a hard time getting a ride to doctors visits? (Household - for ages 0-17 years): Not on file Has lack of transportation kept you from medical appointments, meetings, work, or from getting things needed for daily living? Check all that apply. (Adult - for ages 18 years and over): Not on file Do you (or your family) have trouble finding or paying for a ride (transportation)? (Household - for ages 0-17 years): Not on file Social Connections: Socially Integrated (07/23/2023) Social Connections How often do you feel lonely or isolated from those around you? (Adult - for ages 18 years and over): Never Housing Stability: Low Risk (07/23/2023) Housing Stability Do you currently live in a penitentiary or have no steady place to sleep at night? (Adult - for ages 18 years and over): No Do you think you are at risk of becoming homeless? (Adult - for ages 18 years and over): No Does your family worry about paying for your home or becoming homeless? (Household - for ages 0-17 years): Not on file Are you homeless or worried that you might be in the future? (Adult - for ages 18 years and over): Not on file Are you (or your family) homeless or worried that you might be in the future? (Household - for ages0-17 years): Not on file Current Outpatient Medications Medication Sig Dispense Refill ARTIFICIAL TEARS 0.1-0.3 % OP SOLN 2 drops to each eye twice daily 1 Bottle 11 ASPIRIN EC LOW DOSE 81 MG TBEC TAKE 1 TABLET BY MOUTH ONCE DAILY *CAD*. 30 Tab 5 Cholecalciferol (D-1000 EXTRA STRENGTH) 1000 units Tablet Take 1,000 Units by mouth daily. 30 Tab 11 Cyanocobalamin 1000 MCG Oral Tablet (Cyanocobalamin) Take 1 Tablet (1,000 mcg) by mouth every otherday. 15 Tablet 11 Rosuvastatin Calcium 10 MG Oral Tablet (Crestor) TAKE ONE TAB BY MOUTH DAILY FOR CHOLESTEROL 28 Tablet 10 Icy Hot Max Lidocaine 4-1 % External Cream (Lidocaine-Menthol) Apply topically to affected area as needed. Apply to affected area cycloSPORINE 0.05 % Ophthalmic Emulsion (Restasis) USE 1 DROP IN EACH EYE TWICE DAILY DRY EYE 20.5 mL 3 Fluticasone Propionate 50 MCG/ACT Nasal Suspension (Flonase) Administer 2 Sprays into each nostril in the morning. 16 g 3 Alendronate Sodium 70 MG Oral Tablet (Fosamax) TAKE 1 TABLET BY MOUTH WEEKLY AT LEAST 1/2 HR. BEFORE BREAKFAST W/ 8-10OZ WATER DON'T RECLINE FOR 1/2 HR SUPPLEMENT *SUN*. 4 Tablet 11 Cimetidine 400 MG Oral Tablet (Tagamet) TAKE ONE TAB BY MOUTH AT BEDTIME *GERD* 28 Tablet 5 Acetaminophen 500 MG Oral Tablet (Tylenol Extra Strength) Take 1 Tablet by mouth every 8 hours as needed for Pain, Mild. Biotin 5 MG Oral Capsule Take 1 Capsule by mouth in the morning. Docusate Sodium 100 MG Oral Capsule (DocQLace) Take 1 Capsule by mouth 2 times a day as needed for Constipation. Lisinopril 40 MG Oral Tablet TAKE ONE TABLET BY MOUTH DAILY *HTN* 30 Tablet 11 Venlafaxine HCl ER 150 MG Oral Capsule Extended Release 24 Hour (Effexor XR) TAKE 1 CAPSULE BY MOUTH ONCE DAILY FOR DEPRESSION *DO NOT CRUSH, CUT, OR CHEW* 28 Capsule 5 traZODone HCl 100 MG Oral Tablet (Desyrel) TAKE 1 TABLET BY MOUTH AT BEDTIME (INSOMNIA) 28 Tablet 5 Levothyroxine Sodium 75 MCG Oral Tablet (Levoxyl) TAKE 1 TABLET BY MOUTH IN THE MORNING 30MINS PRIOR TO BREAKFAST OR OTHER MEDS *THYROID* 90 Tablet 1 clonazePAM 0.5 MG Oral Tablet (KlonoPIN) TAKE ONE TABLET BY MOUTH TWICE A DAY FOR ANXIETY TAKE 2 TABS (1MG) BY MOUTH DAILY AT BEDTIME FOR ANXIETY 120 Tablet 5 Gabapentin 400 MG Oral Capsule (Neurontin) TAKE 1 CAPSULE BY MOUTH TWICE DAILY *NEUROPATHY and TAKE2 CAPSULES (=800MG) BY MOUTH AT BEDTIME *NEUROPATHY (total of 4 per day) 360 Capsule 1 Lidocaine 4 % External Patch (Aspercreme) Place 1 Patch over 12 hours topically on the skin daily. Place on L shoulder where it meets the neck 90 Patch 2 Polyethylene Glycol 3350 17 GM Oral Packet (MiraLax) Take 1 packet by mouth every other day or as needed for constipation 14 Each 11 traMADol HCl 50 MG Oral Tablet (Ultram) Take 1 Tablet by mouth every 6 hours. This is specifically for 8AM, 2PM and 8PM. 90 Tablet 1 Pantoprazole Sodium 40 MG Oral Tablet Delayed Release (Protonix) TAKE ONE TABLET BY MOUTH DAILY *GERD* 28 Tablet 1 NITROSTAT 0.4 MG SUBL (1) TAB DISSOLVED UNDER TONGUE NEEDED FOR CHEST PAIN, MAY REPEAT EVERY 5 MIN'S X 3 DOSES 25 Tab 0 No current facility-administered medications for this visit. Filed Vitals: 01/05/24 1354 BP: 142/55 Pulse: 69 Resp: 20 Temp: 36.4 C (97.6 F) SpO2: 99% Weight: 65.3 kg (144 lb) PHYSICAL EXAM: GENERAL: Alert, in no acute distress. EYES: PERRL, conjunctivae anicteric. ENT: Mucous membranes moist, oropharynx clear. NECK: Supple, no JVD. LYMPH: No cervical or supraclavicular lymphadenopathy. LUNGS: Clear to auscultation bilaterally, no respiratory distress. CARDIAC: Regular rate and rhythm, normal S1/S2, no murmurs, rubs, or gallops. ABDOMEN: Soft, non-tender, non-distended, bowel sounds present. EXT/MSK: No clubbing, cyanosis, or edema. SKIN: No rash, no jaundice. NEURO: No tremor, no asterixis. LABS/STUDIES: Recent Labs Units 12/30/23 1321 05/22/23 1424 10/22/22 1209 04/14/22 1226 SODIUM - [facility] mmol/L 138 139 142 141 POTASSIUM - [facility] mmol/L 5.0 4.5 4.8 4.9 CHLORIDE - [facility] mmol/L 100 104 106 105 CO2 - [facility] mmol/L 24 25 25 28 BUN - [facility] mg/dL 24* 23* 23* 17 CREATININE - [facility] mg/dL 2.1* 2.0* 1.7* 1.7* Recent Labs Units 12/30/23 1321 10/22/22 1209 WBC K/uL 6.11 6.22 HGB g/dL 13.6 12.8 PLT K/uL 282 240 Recent Labs Units 12/30/23 1321 05/22/23 1424 10/22/22 1209 04/14/22 1226 CALCIUM - [facility] mg/dL 10.7* 10.1 10.7* 10.2 PHOSPHORUS - [facility] mg/dL -- -- 3.0 -- 25-HYDROXY VITAMIN D - [facility] ng/mL -- 32 44 -- Recent Labs Units 12/30/23 1321 04/14/22 1226 02/19/22 0000 HEMOGLOBIN A1C - [facility] % 6.0* 5.8* -- HEMOGLOBIN, [id number] % -- -- 5.7* No results for input(s): "MICROALBUMIN", "PROCRRATIO" in the last 92060 hours. ASSESSMENT AND PLAN Yvonne was seen today for chronic kidney disease (ckd). Diagnoses and all orders for this visit: Kidney disease, chronic, stage IV (GFR 15-29 ml/min) (HCC) Patient with the CKD stage 4 due to renal vascular disease, Age, HTN and DM. She has had CKD for over 10 years with the steadily rising creatinine most recently was 2.1 giving GFR of 23. She has small kidneys on ultrasound. She has no signs of volume overload or electrolyte imbalance. Risk of ESRD is moderate to severe. Repeat BMP prior to next OV. HTN, goal below 140/90 Blood pressure is at target. Patient now has proteinuria of 1 g. Continue lisinopril 4 repeat BMP prior 0 mg daily. We are checking urine protein today Renal artery stenosis (HCC) Patient had CTA of the abdomen [facility] and was found to have 80% left renal artery stenosis. Given stability in renal function and blood pressure controlled on medications, no need for surgical intervention at the moment. Will continue to monitor blood pressure and renal function. Hyperparathyroidism, secondary renal (HCC) She will continue vitamin-D. Ca was high. Stop vitamin D. repeat PTH and vitamin-D level. Adrianne Gillette MD Nephrology, [address] [address] This note was generated with the help of voice recognition software. Please excuse for errors. documented in this encounter Nursing Notes * Rachna Reina RN - 01/05/2024 2:27 PM EDT Attempted to contact [facility] for med reconciliation. Lab slips printed and sent with pt to complete. 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 * Rachna Reina RN - 01/05/2024 1:56 PM EDT Follow up visit today. Pt somewhat confused but does reside in a SNF. Pt states she fell about 1 week ago and has pain across pelvis. States she was seen at the ER and was told she only has bruises. documented in this encounter Plan of Treatment Upcoming Encounters Date Type Department Care Team (Late st Contact Info) Description 01/08/2024 2:20 PM EDT Office Visit [facility] [address] [place] [id number] Roberto Galeas MD [address] [place] [address] 01/27/2024 10:30 AM EDT Office Visit Orthopaedics [facility] [address] [place] [address] Marvel Givens PA-C [address] [place] [address] Scheduled Orders Name Type Priority Associated Diagnoses Orde r Schedule URINALYSIS, REFLEX TO CULTURE (NOT FOR NEUTROPENIC PATIENTS) Lab Routine Dysuria Expected: 01/05/2024, Expires: 01/04/2025 PROTEIN/ CREATININE RATIO, URINE Lab Routine Kidney disease, chronic, stage IV (GFR 15-29 ml/min) ([facility]) Expected: 01/05/2024, Expires: 01/04/2025 25-HYDROXY VITAMIN D Lab Routine Kidney disease, chronic, stage IV (GFR 15-29 ml/min) ([facility]) Expected: 01/05/2024, Expires: 01/04/2025 PTH Lab Routine Kidney disease, chronic, stage IV (GFR 15-29 ml/min) ([facility]) Expected: 01/05/2024, Expires: 01/04/2025 Health Maintenance Due Date Last Done Comments Zoster Vaccines (1 of 2) 1990 Adult Wellness Visit 11/10/2019 11/09/2018 Influenza Vaccine (FLU shot) (#1) 2024 01/23/2022, 02/28/2021, 03/16/2020, Additional history exists COVID-19 Vaccine ( season) 2024 07/03/2020, 06/05/2020 Postponed from 01/23/2023 (Other) Depression Monitoring 07/22/2024 07/23/2023 TSH 12/29/2024 12/30/2023, 04/25, 04/14/2022, Additional history exists documented as of this encounter Medical Devices Implanted Type Area Grind Operator Device Identifier Shelf Expiration Date Model / Serial / Lot Alloderm 2x4cm [id number] - [id number] [place] [facility] [place] Right: Head Antenna Software 10/22/2013 [id number] / / [id number] Plate Ti Lo Pro Str 2h 421.502 - [id number] [place]planted:Qty: 1 [place] 03[place]30/[place] [facility] [place] Head SYNTHES 421.502 / / Cover Bur Hol Ti Lo 17 421.527 - [id number] Implanted:Qty: 2 on 03/30/2012 [place] [facility] [place] Head SYNTHES 421.527 / / Screw Ti Lo Pro Sd 4mm 400.834 - [id number] Implanted:Qty: 7 on 03/30/2012 [place] [facility] [place] Head SYNTHES 400.834 / / documented as of this encounter Visit Diagnoses Diagnosis Kidney disease, chronic, stage IV (GFR 15-29 ml/min) ([facility])- Primary Chronic kidney disease, Stage IV (severe) HTN, goal below 140/90 Unspecified essential hypertension Dysuria documented in this encounter Advance Directives Documents on File Type Date Recorded 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
--- OUTSIDE RECORDS SUMMARY | 2024-01-06 19:04 | External Medical Summary | Summary of Care ---
Author Name Unknown Organization [facility] Address [address] [facility] [place] [address] Phone [phone] Care Team Providers Care Ribbon Cleaner Name Role Phone Roberto Galeas MD Primary Care Provider [phone] Encounter Details Date Type Department Care Team (Late st Contact Info) Description 01/04/2024 Orders Only Outcomes Research Department [address] [place], [place] [id number] Becca Dickey CHRA MyCode Research Other*[id number] Allergies No known active allergiesdocumented as of this encounter (statuses as of 01/04/2024) Medications Medication Sig Dispensed Refills Start Date [...] X 3 DOSES 25 Tab 11/17/2016 Active Cholecalciferol (D-1000 EXTRA STRENGTH) 1000 units Tablet Take 1,000 Units by mouth daily. 30 Tab 11 01/05/2017 Active Cyanocobalamin 1000 MCG Oral Tablet (Cyanocobalamin)Shantelle [...] BY MOUTH DAILY *HTN* 30 Tablet 11 09/11/2023 Active Venlafaxine HCl ER 150 MG [...] as of this encounter (statuses as of 01/04/2024) Active Problems Problem Noted Date Diagnosed Date [...] disease 03/15/2018 Coronary artery disease invo lving [place] coronary artery of [place] heart without angina pectoris 03/15/2018 HTN, goal [...] as of this encounter (statuses as of 01/04/2024) Resolved Problems Problem Noted Date Diagnosed Date [...] as of this encounter (statuses as of 01/04/2024) Immunizations Name Administration Dates Next Due COVID-19 [...] on file documented as of this encounter Plan of Treatment Upcoming Encounters Date Type Department Care Team (Late st Contact Info) Description 01/05/2024 2:40 PM EDT Office Visit Nephrology, [facility] [address] [place] [address] Adrianne Gillette MD [address] [place], [place] [address], [place] [address] 01/08/2024 2:20 PM EDT Office Visit [facility] [address] [place] [phone] Roberto Galeas MD [address] [place] [address] 01/27/2024 10:30 AM EDT Office Visit Orthopaedics [facility] [address] [facility] [place] [address] Marvel Givens PA-C [address] [place] [address] Scheduled Orders Name Type Priority Associated Diagnoses Orde r Schedule MYCODE SUBSEQUENT ADULT Lab Routine MyCode Research Other*[id number] Every 6 Months for 2 Occurrences starting 01/04/2024 until 01/23/2025 Health Maintenance Due Date Last Done Comments Zoster Vaccines (1 of 2) 1990 Adult Wellness Visit 11/10/2019 11/09/2018 Influenza Vaccine (FLU shot) (#1) 2024 01/23/2022, 02/28/2021, 03/16/2020, Additional history exists COVID-19 Vaccine ( season) 2024 07/03/2020, 06/05/2020 Postponed from 01/23/2023 (Other) Depression Monitoring 07/22/2024 07/23/2023 TSH 12/29/2024 12/30/2023, 04/25, 04/14/2022, Additional history exists documented as of this encounter Medical Devices Implanted Type Area Wood Ski Maker Device Identifier Shelf Expiration Date Model / Serial / Lot Alloderm 2x4cm [id number] - [id number] Implanted:Qty: 8 on 03/30/2012 [place] [facility] [place] - Human Right: Head LIFE CELL AIRAM 10/22/2013 [id number] / / [id number] Plate Ti Lo Pro Str 2h 421.502 - [id number] Implanted:Qty: 1 on 03/30/2012 [place] [facility] [place] Head SYNTHES 421.502 / / Cover Bur Hol Ti Lo 17 421.527 - [id number] Implanted:Qty: 2 on 03/30/2012 [place] [facility] [place] Head SYNTHES 421.527 / / Screw Ti Lo Pro Sd 4mm 400.834 - [id number] Implanted:Qty: 7 on 03/30/2012 [place] [facility] [place] Head SYNTHES 400.834 / / documented as of this encounter Visit Diagnoses Diagnosis MyCode Research Other*[id number] documented in this encounter Advance Directives Documents on File Type Date Recorded Patient 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
--- NOTE | 2024-01-06 19:21 | Magnetic Resonance Report ---
MR lumbar spine wo con CLINICAL HISTORY: 83 years-old Female with Low back pain. Acute low back pain COMPARISON: Lumbar spine radiographs of same day TECHNIQUE: Multiplanar, multi sequence MRI of the lumbar spine was performed without intravenous cont rast. FINDINGS: Office Technology Instructor localizer images demonstrate no gross extraspinal abnormality. There is no acute fracture, subl uxation, endplate erosion or marrow replacing process. Conus medullaris terminates at T12-L1. Bilater al perinephric stranding with a few renal cysts noted bilaterally. Colonic diverticulosis. T12-L1: Mild intervertebral disc space narrowing, spondylotic spurring and moderate facet arthrosis. No central canal or neural foraminal stenosis. L1-L2: Anterior bridging osteophytosis. Moderate facet arthrosis. No central canal or neural foramin al stenosis. L2-L3: Mild to moderate intervertebral disc space narrowing with spondylotic spurring. Circumferenti al annular disc bulging is noted in conjunction with a posterior annular fissure. Ligamentum flavum t hickening with moderate facet arthrosis and trace facet effusions. Central disc extrusion demonstrate s both cephalad and caudal migration measuring up to 1.5 x 0.5 x 1.5 cm (image 9 series 5 image 9 ser ies 7). Stenosis with AP dimension of thecal sac measuring approximately 2 mm. There is a least moder ate narrowing of the lateral recesses. Mild bilateral foraminal stenosis. L3-L4: Mild spondylotic spurring. Ligamentum flavum thickening with moderate facet arthrosis. No morgan tral canal or neural foraminal stenosis. L4-L5: Mild spondylotic spurring with ligamentum flavum thickening and severe facet arthrosis with t race facet effusions. Severe central canal stenosis with AP dimension of the thecal sac measuring 4 m m. There is a least mild narrowing of the lateral recesses. Mild bilateral foraminal stenosis. L5-S1: Mild spondylotic spurring. Ligamentum flavum thickening with severe facet arthrosis. Central canal is patent. Mild bilateral foraminal narrowing. IMPRESSION: 1. At L2-L3 there is a central disc extrusion with associated spondylotic spurring, ligamentum flavum thickening and facet arthrosis causing severe central canal stenosis. 2. No high-grade neural foraminal narrowing. 3. No acute fracture or significant bone marrow edema. ACT 112: Negative or not required by law. The above report was generated using voice recognition software. It may contain grammatical, syntax o r spelling errors. Electronically signed by: Fuentes Han M.D. 01/06/2024 7:19 PM
[2024-01-06] MEDS: traMADol HCL 50 MG TABLET PO SCH (20:26)
[2024-01-06] MEDS: traZODone HCL 100 MG TAB PO SCH (20:27)
[2024-01-06] MEDS: HEPARIN SOD 5,000 UNIT/0.5 ML VIAL SQ SCH (20:27)
[2024-01-06] MEDS: ACETAMINOPHEN 500 MG TAB PO SCH (20:27)
[2024-01-06] MEDS: FAMOTIDINE 20 MG TAB PO SCH (20:27)
[2024-01-06] MEDS: clonazePAM 1 MG TAB PO SCH (20:27)
[2024-01-06] MEDS: GABAPENTIN 300 MG CAP PO SCH (20:28)
[2024-01-06] MEDS ORDERED: [UNRECOGNIZED DRUG - OTHER] OPB SCH (21:00)
[2024-01-07] MEDS: oxyCODONE HCL IR 5 MG TAB (IMMEDIATE RELEASE) PO STA (00:42)
[2024-01-07] MEDS: LEVOTHYROXINE SODIUM 75 MCG TABLET PO SCH (05:34)
[2024-01-07 07:55] LABS: Hematocrit (blood only) 38.2 % (37.0-47.0); Hemoglobin 12.4 g/dl (12.0-16.0); Mean Corpuscular Hgb Conc 32.5 g/dL (32.0-36.0); Mean Corpuscular Volume 95.5 fL (80.0-100.0); Mean Platelet Volume 9.7 fL (9.4-12.4); Platelet Count 238 K/uL (130-400); RDW Coefficient of Variation 12.7 % (11.5-14.5); RDW Standard Deviation 44.5 fL (36.4-46.3); White Blood Count 7.66 K/ul (4.8-10.8)
[2024-01-07] MEDS: clonazePAM 0.5 MG TAB PO SCH (08:11)
[2024-01-07] MEDS: CYANOCOBALAMIN (B-12) 500 MCG TABLET PO SCH (08:12)
[2024-01-07] MEDS: PANTOprazole 40 MG TAB PO SCH (08:12)
[2024-01-07] MEDS: ROSUVASTATIN CALCIUM 10 MG TAB PO SCH (08:12)
[2024-01-07] MEDS: lisinopril 40 MG TAB PO SCH (08:12)
[2024-01-07] MEDS: ASPIRIN 81 MG ECTAB PO SCH (08:12)
[2024-01-07] MEDS: VENLAFAXINE HCL XR 150 MG CAPXR PO SCH (08:12)
[2024-01-07] MEDS: DOCUSATE SODIUM 100 MG CAP PO SCH (08:13)
[2024-01-07] MEDS: FUROSEMIDE 40 MG/4 ML VIAL IV SCH (08:13)
[2024-01-07] MEDS: POLYETHYLENE (MIRALAX) 17 GM PACK PO SCH (08:13)
[2024-01-07] MEDS: FLUTICASONE PROPIONATE NA SPR 16 GM BTL NAE SCH (08:13)
[2024-01-07 08:29] LABS: BUN Creatinine Ratio 14.5 (10-20); Creatinine Clr Calc Pharmacy 13.9 ml/min; Est GFR (Non-African American) 17.2 ml/min; Magnesium 1.9 mg/dl (1.7-2.4); Potassium 4.6 mmol/L (3.5-5.1)
--- NOTE | 2024-01-07 14:21 | Hospitalist Progress Note ---
Date of Service January 07, 2024 Assessment & Plan (1) Acute hypoxic respiratory failure: (2) Back pain: (3) Extremity pain: (4) Abnormal urinalysis: (5) CKD (chronic kidney disease), stage IV: (6) HTN (hypertension): (7) CAD (coronary artery disease): (8) HLD (hyperlipidemia): (9) Anxiety: (10) Depression: (11) Hypothyroidism: (12) GERD (gastroesophageal reflux disease): Plan Ms. Greenfield is an 83 year old female with PMH HTN, HLD, CAD s/p CABG, hypothyroidism, CKD IV, GERD, anxiety, depression, osteoporosis, RBBB presented to ER with c/o hip and leg pain, low back pain worse after fall out of wheelchair 01/02/24. On 01/03/24 had pelvis, sacrum and coccyx x-rays that were negative for acute fracture and CT lumbar spine without acute fracture. Pain continued and has become intolerable. In ER afebrile, P: 71, R: 20, BP 171/90, 90% on room air. Was noted to drop to 88% on room air and up to 98% on 2 L nasal cannula #Acute hypoxic respiratory failure #Acute on chronic heart failure with preserved EF No leukocytosis, Negative [employer] respiratory panel, BNP: 103 CXR: Cardiomegaly, pulmonary vascular congestion ECHO 60-65%, GIDD, mild regurg aortic (01/06), stable from 2019 echo Possible secondary to presumed diastolic heart failure Supplemental oxygen, wean as able Stop lasix 2/2 DIANE Monitor I's and O's, daily weight, low-sodium diet Incentive spirometry CBC, BMP in a.m. #DIANE on CKD IV Cr: 2.2. Recent baseline 2.0-2.1 Monitor renal functions, avoid NSAIDs and other nephrotoxic agents 2.48 this am, will hold IV lasix at this time #Severe central canal stenosis, c/f neurogenic claudication # Intractable Back pain: Hip/pelvis x-ray: No acute fractures Lumbar x-ray: No acute fracture MRI with severe central canal stenosis Scheduled Tylenol and tramadol per home schedule. Add lidocaine patch and voltaren Continue home gabapentin PT/OT eval ordered Uses wheelchair at baseline Ortho spine consult, appreciate recommendations #Acute uncomplicated cystitis UA: +nitrite, 1+ leuk esterase, 4+ bacteria GNB Patient denies dysuria, urinary frequency or urgency continue CTX # HTN (hypertension): BP elevated in ER may be secondary to underlying pain and anxiety Monitor Continue home lisinopril #CAD S/P CABG x3 1993 Status post coronary bypass grafting x 3 in August of 1993 for three vessel atherosclerotic coronary disease, JAMES graft to the LAD, a saphenous vein graft to the posterior circumflex and a saphenous vein graft to the right coronary artery. Denies CP, SOB Continue aspirin, rosuvastatin #HLD (hyperlipidemia): Continue rosuvastatin #Anxiety: #Depression: Continue venlafaxine, clonazepam #Hypothyroidism: Continue levothyroxine # GERD (gastroesophageal reflux disease): Continue PPI, H2 luis DVT Prophylaxis Heparin SQ Admit med/tele Full Code Follows with Dr Galeas for routine care Admission and Anticipated Discharge Date Admission Date: January 06, 2024 Subjective SCOT Reports continued pain in her back that comes and goes intermittently but is severe She states she cannot move--she does note that she is limited to her chair due to multiple orthopedic injuries She denies any other concerns at this time she endorses ongoing urinary incontience, as well as some stool incontinence, which is chronic in nature Physical Exam Constitutional: very uncomfortable, laying supine Respiratory: normal respiratory effort, lungs clear to auscultation Cardiovascular: KIANA+ Gastrointestinal (Abdomen): normal bowel sounds, soft, nontender, no hepatos plenomegaly Results & Data Results & Data Vital Signs (Past 12 Hours) Vital Signs Temp Pulse Pulse Resp BP Pulse Ox O2 Del Method 01/07/24 14:05 70 01/07/24 11:15 36.5 C 63 20 129/45 L 98 Nasal Cannula 01/07/24 08:15 Nasal Cannula 01/07/24 07:32 36.5 C 62 20 111/69 95 Nasal Cannula 01/07/24 07:20 59 L 01/07/24 03:58 36.5 C 66 16 133/69 96 Nasal Cannula O2 Flow Rate 01/07/24 14:05 01/07/24 11:15 2 01/07/24 08:15 1 01/07/24 07:32 2 01/07/24 07:20 01/07/24 03:58 2 Laboratory Results Short CBC 01/07/24 Range/Units 07:08 WBC 7.66 (4.8-10.8) K/ul Hgb 12.4 (12.0-16.0) g/dl Hct 38.2 (37.0-47.0) % Plt Count 238 (130-400) K/uL [facility] 01/07/24 07:08 Sodium 140 Potassium 4.6 Chloride 103 Carbon Dioxide 29 BUN 36 H Creatinine 2.48 H Glucose 118 H Calcium 10.0 Urine 01/06/24 Range/Units 16:11 Urine Color Yellow Urine Appearance Clear (Clear) Urine pH 5.5 (4.5-7.5) Ur Specific [place] 1.014 (1.000-1.030) Urine Protein 2+ H (Negative) Urine Glucose (UA) Negative (Negative) Medications Administered Home Medications Medication Instructions Recorded Confirmed Last Taken acetaminophen 500 mg tablet 1,000 mg PO TID 06/13/22 01/06/24 01/03/24 (Tylenol Extra Strength) alendronate 70 mg tablet 70 mg PO WK 06/13/22 01/06/24 01/03/24 aspirin 81 mg tablet,delayed 81 mg PO DAILY 06/13/22 01/06/24 01/03/24 release cimetidine 400 mg tablet 400 mg PO HS 06/13/22 01/06/24 01/03/24 clonazepam 0.5 mg tablet 0.5 mg PO BID 06/13/22 01/06/24 01/03/24 clonazepam 0.5 mg tablet 1 mg PO HS 06/13/22 01/06/24 01/03/24 cyanocobalamin (vitamin B-12) 1,000 mcg PO Q OTHER DAY 06/13/22 01/06/24 01/03/24 1,000 mcg tablet (Vitamin B-12) cyclosporine 0.05 % eye drops in a 1 drp OPB BID 06/13/22 01/06/24 01/03/24 dropperette docusate sodium 100 mg capsule 100 mg PO DAILY 06/13/22 01/06/24 01/03/24 gabapentin 300 mg capsule 300 mg PO BID 06/13/22 01/06/24 01/03/24 gabapentin 300 mg capsule 600 mg PO HS 06/13/22 01/06/24 01/03/24 levothyroxine 75 mcg tablet 75 mcg PO DAILYBB 06/13/22 01/06/24 01/03/24 pantoprazole 40 mg tablet,delayed 40 mg PO DAILY 06/13/22 01/06/24 01/03/24 release polyethylene glycol 3350 17 gram 17 g PO Q OTHER DAY 06/13/22 01/06/24 01/02/24 oral powder packet (Miralax) rosuvastatin 10 mg tablet 10 mg PO DAILY 06/13/22 01/06/24 01/03/24 tramadol 50 mg tablet 50 mg PO TID Pain 06/13/22 01/06/24 01/03/24 trazodone 100 mg tablet 100 mg PO HS 06/13/22 01/06/24 01/03/24 venlafaxine 150 mg 150 mg PO DAILY 06/13/22 01/06/24 01/03/24 capsule,extended release 24 hr biotin 5 mg tablet 5 mg PO DAILY 01/03/24 01/06/24 01/03/24 fluticasone propionate 50 2 spray intranasal DAILY 01/03/24 01/06/24 01/03/24 mcg/actuation nasal spray,suspension lidocaine HCl 4 %-menthol 1 % 1 applic topical QID PRN KNEE PAIN 01/03/24 01/06/24 Unknown topical cream (Icy Hot Max (lidocaine HCl-menthol)) lisinopril 40 mg tablet 40 mg PO QAM 01/03/24 01/06/24 01/03/24 polyethylene glycol 3350 17 17 g PO DAILY PRN Constipation 01/03/24 01/06/24 Unknown gram/dose oral powder (Miralax) polyvinyl alcohol-povidone 0.5 1 drp OPB BID 01/03/24 01/06/24 01/03/24 %-0.6 % eye drops (Artificial Tears (polyvinyl alcohol/povidone)) Active Medications Generic Name Dose Route Start Last Admin Trade Name Freq PRN Reason Stop Dose Admin Acetaminophen 1,000 mg 01/06/24 22:00 01/07/24 13:40 Acetaminophen 500 Mg Tab PO 02/05/24 21:59 1,000 mg Q8 SAHRA Administration Aspirin 81 mg 01/07/24 09:00 01/07/24 08:12 Aspirin 81 Mg Ectab PO 02/06/24 08:59 81 mg DAILY SAHRA Administration Clonazepam 0.5 mg 01/07/24 08:00 01/07/24 13:39 Clonazepam 0.5 Mg Tab PO 02/06/24 07:59 0.5 mg BID@0800,1300 SAHRA Administration Clonazepam 1 mg 01/06/24 21:00 01/06/24 20:27 Clonazepam 1 Mg Tab PO 02/05/24 20:59 1 mg HS SAHRA Administration Cyanocobalamin 1,000 mcg 01/07/24 09:00 01/07/24 08:12 Cyanocobalamin (B-12) 500 Mcg Tablet PO 02/06/24 08:59 1,000 mcg Q2D SAHRA Administration Docusate Sodium 100 mg 01/07/24 09:00 01/07/24 08:13 Docusate Sodium 100 Mg Cap PO 02/06/24 08:59 100 mg DAILY SAHRA Administration Famotidine 20 mg 01/06/24 21:00 01/06/24 20:27 Famotidine 20 Mg Tab PO 02/05/24 20:59 20 mg HS SAHRA Administration Protocol Fluticasone Propionate 2 sprays 01/07/24 09:00 01/07/24 08:13 Fluticasone Propionate Na Spr 16 Gm Btl HAILEY 02/06/24 08:59 2 sprays DAILY SAHRA Administration Gabapentin 300 mg 01/06/24 21:00 01/07/24 08:13 Gabapentin 300 Mg Cap PO 02/05/24 18:29 300 mg BID SAHRA Administration Heparin Sodium (Porcine) 5,000 units 01/06/24 21:00 01/07/24 08:13 Heparin Sod 5,000 Unit/0.5 Ml Vial SQ 02/05/24 20:59 5,000 units Q12 SAHRA Administration Ceftriaxone Sodium 1,000 mg in 50 mls @ 100 mls/hr 01/06/24 18:00 01/06/24 19:04 Rocephin IV 01/11/24 17:59 Infused Q24H SAHRA Infusion Levothyroxine Sodium 75 mcg 01/07/24 06:30 01/07/24 05:34 Levothyroxine Sodium 75 Mcg Tablet PO 02/06/24 06:29 75 mcg DAILYBB SAHRA Administration Lisinopril 40 mg 01/07/24 09:00 01/07/24 08:12 Lisinopril 40 Mg Tab PO 02/06/24 08:59 40 mg QAM SAHRA Administration Pantoprazole Sodium 40 mg 01/07/24 09:00 01/07/24 08:12 Pantoprazole 40 Mg Tab PO 02/06/24 08:59 40 mg DAILY SAHRA Administration Polyethylene Glycol 17 gm 01/07/24 09:00 01/07/24 08:13 Polyethylene (Miralax) 17 Gm Pack PO 02/06/24 08:59 17 gm Q2D SAHRA Administration Rosuvastatin Calcium 10 mg 01/07/24 09:00 01/07/24 08:12 Rosuvastatin Calcium 10 Mg Tab PO 02/06/24 08:59 10 mg DAILY SAHRA Administration Tramadol HCl 50 mg 01/06/24 20:00 01/07/24 13:39 Tramadol Hcl 50 Mg Tablet PO 02/05/24 19:59 50 mg TID@0800,1400,2000 SAHRA Administration Trazodone HCl 100 mg 01/06/24 21:00 01/06/24 20:27 Trazodone Hcl 100 Mg Tab PO 02/05/24 20:59 100 mg HS SAHRA Administration Venlafaxine HCl 150 mg 01/07/24 09:00 01/07/24 08:12 Venlafaxine Hcl Xr 150 Mg Capxr PO 02/06/24 08:59 150 mg DAILY SAHRA Administration (6) HTN (hypertension) Hypertension type: unspecified Qualified Code(s): I10 - Essential (primary) hypertension
[2024-01-07] MEDS: LIDOCAINE 5% 1 PATCH TD SCH (15:53)
[2024-01-07] MEDS: DICLOFENAC SOD 1% GEL 100 GM TUBE EXT SCH (15:53)
--- NOTE | 2024-01-07 19:47 | Orthopedic Consultation ---
Date of Service January 07, 2024 Assessment & Plan (1) Low back pain radiating to both legs: (2) Lumbar disc herniation with radiculopathy: History of Present Illness Reason for Consultation: Lumbar disc herniation, lumbar stenosis. Requesting Physician: . Attending Physician: Alexsandra Bangura MD 83 year old female with PMH HTN, HLD, CAD s/p CABG, hypothyroidism, CKD IV, GERD, anxiety, depression, osteoporosis, RBBB presented to ER with c/o hip and leg pain. History obtained from patient, patient's granddaughter and outpatient chart review. Patient seen in ER 01/03/2024 for reported fall out of wheelchair onto her buttocks on 01/02/24 with negative pelvis, sacrum and coccyx x-rays and CT lumbar spine without acute fracture. Patient reports chronic bilateral hip and bilateral leg pain. States pain is aggravated with any movement of BLE extremities. Takes Tylenol and Tramadol chronically. Patient states did not have her dose this afternoon since being in ER and is requesting for pain control. She feels having more low back and bilateral leg pain since fall on 01/03/24. Uses wheelchair at baseline. Patient states no fall since her ER visit on 01/03/24 and denies hitting her head. Spoke to granddaughter on phone and she states patient always has bilateral knee pain but since last fall 01/03/24 patient has been complaining of more low back and bilateral hip pain. Patient states coughed a couple of days ago but doesn't feel she has been coughing much today. Patient seen and examined, she notes that her pain is mostly in the buttocks and posterior thighs as the main area, this developed with a recent fall out of the wheelchair but she is unsure whether it was from the more recent fall or perhaps another episode. She reports she does ambulate in her room where she was staying using a walker but she was having more difficulty with this recently. She reports that any bowel or bladder issues are chronic in nature. Exam reveals the patient to be nontender to palpation of the lower lumbar spine. She indicates the pain in the posterior thighs but no significant pain to palpation. On manual examination she demonstrates reasonably good strength with at least 4+ to 5/5 for bilateral EHL ankle dorsiflexion, knee extension, hip flexion and knee flexion with reasonable effort were at least in the 4-4+ range with the effort compromised secondary to back pain and pain in the posterior thighs. The patient reports diffuse decrease sensation in lower extremities. MR lumbar spine wo con from January 06, 2024 CLINICAL HISTORY: 83 years-old Female with Low back pain. Acute low back pain COMPARISON: Lumbar spine radiographs of same day TECHNIQUE: Multiplanar, multi sequence MRI of the lumbar spine was performed without intravenous contrast. 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 There is no acute fracture, subluxation, endplate erosion or marrow replacing process. Conus medullaris terminates at T12-L1. Bilateral perinephric stranding with a few renal cysts noted bilaterally. Colonic diverticulosis. T12-L1: Mild intervertebral disc space narrowing, spondylotic spurring and moderate facet arthrosis. No central canal or neural foraminal stenosis. L1-L2: Anterior bridging osteophytosis. Moderate facet arthrosis. No central canal or neural foraminal stenosis. L2-L3: Mild to moderate intervertebral disc space narrowing with spondylotic spurring. Circumferential annular disc bulging is noted in conjunction with a posterior annular fissure. Ligamentum flavum thickening with moderate facet arthrosis and trace facet effusions. Central disc extrusion demonstrates both cephalad and caudal migration measuring up to 1.5 x 0.5 x 1.5 cm (image 9 series 5 image 9 series 7). Stenosis with AP dimension of thecal sac measuring approximately 2 mm. There is a least moderate narrowing of the lateral recesses. Mild bilateral foraminal stenosis. L3-L4: Mild spondylotic spurring. Ligamentum flavum thickening with moderate facet arthrosis. No central canal or neural foraminal stenosis. L4-L5: Mild spondylotic spurring with ligamentum flavum thickening and severe facet arthrosis with trace facet effusions. Severe central canal stenosis with AP dimension of the thecal sac measuring 4 mm. There is a least mld narrowing of the lateral recesses. Mild bilateral foraminal stenosis. L5-S1: Mild spondylotic spurring. Ligamentum flavum thickening with severe facet arthrosis. Central canal is patent. Mild bilateral foraminal narrowing. IMPRESSION: 1. At L2-L3 there is a central disc extrusion with associated spondylotic spurring, ligamentum flavum thickening and facet arthrosis causing severe central canal stenosis. 2. No high-grade neural foraminal narrowing. 3. No acute fracture or significant bone marrow edema. Review of MRI images from January 06, [address] scan images, is my own review of these studies, this reveals the patient to have no obvious fractures involving the spine, there are bridging osteophytes either anteriorly or laterally bridging at most levels but to a lesser degree at the L2-3 level. MRI reveals no notable findings except at L2-3 where there is a central disc herniation resulting in severe stenosis. Impression: L2-3 lumbar disc herniation with severe stenosis, lower extremity pain as the main complaint no focal motor weakness. Plan: Today I talked with the patient, I related to her that she has a significant amount of stenosis that may require operative intervention to allow for improvement of her symptoms. I related that a discussion with the hospitalist relative to her ability to undergo an operative procedure at some point, will have to be discussed along with family. Current recommendations are for some appropriate steroids, pain medication and some limited mobilization if possible. Allergies Allergy/AdvReac Type Severity Reaction Status Date / Time No Known Allergies Allergy Verified 01/03/24 23:00 Home Medications Medication Instructions Recorded Confirmed Type alendronate 70 mg tablet 70 mg PO WK 06/13/22 01/06/24 History aspirin 81 mg tablet,delayed 81 mg PO DAILY 06/13/22 01/06/24 History release cimetidine 400 mg tablet 400 mg PO HS 06/13/22 01/06/24 History clonazepam 0.5 mg tablet 1 mg PO HS 06/13/22 01/06/24 History cyanocobalamin (vitamin B-12) 1,000 mcg PO Q OTHER DAY 06/13/22 01/06/24 History 1,000 mcg tablet (Vitamin B-12) docusate sodium 100 mg capsule 100 mg PO DAILY 06/13/22 01/06/24 History levothyroxine 75 mcg tablet 75 mcg PO DAILYBB 06/13/22 01/06/24 History pantoprazole 40 mg tablet,delayed 40 mg PO DAILY 06/13/22 01/06/24 History release polyethylene glycol 3350 17 gram 17 g PO Q OTHER DAY 06/13/22 01/06/24 History oral powder packet (Miralax) rosuvastatin 10 mg tablet 10 mg PO DAILY 06/13/22 01/06/24 History trazodone 100 mg tablet 100 mg PO HS 06/13/22 01/06/24 History venlafaxine 150 mg 150 mg PO DAILY 06/13/22 01/06/24 History capsule,extended release 24 hr fluticasone propionate 50 2 spray intranasal DAILY 01/03/24 01/06/24 History mcg/actuation nasal spray,suspension polyvinyl alcohol-povidone 0.5 1 drp OPB BID 01/03/24 01/06/24 History %-0.6 % eye drops (Artificial Tears (polyvinyl alcohol/povidone)) cyclosporine 0.05 % eye drops in a 1 drp OPB BID 01/09/24 01/09/24 History dropperette acetaminophen 500 mg tablet 1,000 mg (2 x 500 mg) PO Q8 30 01/11/24 Rx (Tylenol Extra Strength) days #180 tabs clonazepam 0.5 mg tablet 0.5 mg PO BID@0800,1300 #10 tabs 01/11/24 Rx gabapentin 300 mg capsule 300 mg PO TID #90 caps 01/11/24 Rx lidocaine 5 % topical patch 1 patch transdermal HS #30 ea 01/11/24 Rx tramadol 50 mg tablet 50 mg PO TID@0800,1400,2000 #20 01/11/24 Rx tabs Past Med/Surg History Problem List Hyperglycemia CKD (chronic kidney disease) (Acute) Acute kidney injury superimposed on stage 4 chronic kidney disease Lumbar disc herniation with radiculopathy Low back pain radiating to both legs Abnormal urinalysis GERD (gastroesophageal reflux disease) Anxiety CKD (chronic kidney disease), stage IV Extremity pain Acute hypoxic respiratory failure (Acute) Fall (Acute) Back pain (Acute) Contusion, hip Elbow contusion Shoulder strain Diabetes mellitus Weakness (Acute) COVID-19 (Acute) Hypomagnesemia (Acute) Acute electrocardiogram changes (Acute) Renal artery stenosis Back pain Palpitation Neck pain Chest pain (Acute) Acute pain of left shoulder (Acute) Esophageal dysphagia Dysphagia Encounter for pre-operative examination CAD (coronary artery disease) (Chronic) HTN (hypertension) (Chronic) HLD (hyperlipidemia) (Chronic) Depression (Chronic) Hypothyroidism (Chronic) CKD (chronic kidney disease), stage III (Chronic) CVA (cerebral vascular accident) (Chronic) Altered awareness, transient Hx of CABG (Chronic) History of appendectomy (Chronic) S/P cholecystectomy (Chronic) H/O: hysterectomy (Chronic) History of carpal tunnel surgery (Chronic) History of esophagogastroduodenoscopy (EGD) (Chronic) Medical History Syncope Chronic kidney disease (CKD) HTN (hypertension) Degenerative joint disease Gastritis Coronary artery disease Trigeminal neuralgia Dysphagia Neurotic depression Panic disorder Surgical History History of esophagogastroduodenoscopy (EGD) History of bilateral carpal tunnel release History of facial surgery facial nerve surgery History of surgery on extremity left leg/knee History of total abdominal hysterectomy and bilateral salpingo-oophorectomy History of cholecystectomy History of cardiac catheterization S/P CABG x 3 History of appendectomy Family History Other Family history non-contributory Social History Smoking Status: Never smoker Tobacco Type: Cigarettes Second Hand Exposure: No; Do You Dip or Chew Tobacco: No; Hx Alcohol Use: No Hx Substance Use: No Preferred Language: Armenian Communication Ability: Effective Rail Bender Required: No Beliefs That Will Affect Care: None Current Living Situation: Jail Feels Safe at Home: Yes Assistive Devices: Walker and Wheelchair Review of Systems All systems reviewed & are unremarkable except as noted in HPI & below. Physical Exam . Results & Data Results & Data Laboratory Results . Diagnostic Findings . PG Care Time/CCT Total # of Minutes Spent Total Time Spent with Patient: Total time spent is greater than 50% in coordination of care (as documented) at patient's floor/unit and/or counseling patient: Coding Level of Care Code 49891 IN/OBS CONSULT LVL 3,45M Diagnoses Low back pain radiating to both legs M54.50; M79.604; M79.605 Lumbar disc herniation with radiculopathy M51.16
[2024-01-08 07:48] LABS: Hematocrit (blood only) 40.9 % (37.0-47.0); Hemoglobin 12.9 g/dl (12.0-16.0); Mean Corpuscular Hemoglobin 30.8 pg (25.0-34.0); Mean Corpuscular Hgb Conc 31.5 g/dL (32.0-36.0); Mean Corpuscular Volume 97.6 fL (80.0-100.0); Mean Platelet Volume 9.6 fL (9.4-12.4); Platelet Count 239 K/uL (130-400); RDW Coefficient of Variation 12.9 % (11.5-14.5); RDW Standard Deviation 45.9 fL (36.4-46.3); Red Blood Count 4.19 M/uL (4.20-5.40); White Blood Count 7.61 K/ul (4.8-10.8)
[2024-01-08 08:06] LABS: BUN Creatinine Ratio 13.9 (10-20); Creatinine Clr Calc Pharmacy 10.1 ml/min; Est GFR (African American) 13.7 ml/min; Est GFR (Non-African American) 11.8 ml/min; Magnesium 1.8 mg/dl (1.7-2.4); Potassium 4.8 mmol/L (3.5-5.1)
--- NOTE | 2024-01-08 11:41 | Hospitalist Progress Note ---
Date of Service January 08, 2024 Assessment & Plan (1) Acute hypoxic respiratory failure: (2) Back pain: (3) Extremity pain: (4) Abnormal urinalysis: (5) CKD (chronic kidney disease), stage IV: (6) HTN (hypertension): (7) CAD (coronary artery disease): (8) HLD (hyperlipidemia): (9) Anxiety: (10) Depression: (11) Hypothyroidism: (12) GERD (gastroesophageal reflux disease): Plan Ms. Greenfield is an 83 year old female with PMH HTN, HLD, CAD s/p CABG, hypothyroidism, CKD IV, GERD, anxiety, depression, osteoporosis, RBBB presented to ER with c/o hip and leg pain, low back pain worse after fall out of wheelchair 01/02/24. On 01/03/24 had pelvis, sacrum and coccyx x-rays that were negative for acute fracture and CT lumbar spine without acute fracture. Pain continued and has become intolerable. In ER afebrile, P: 71, R: 20, BP 171/90, 90% on room air. Was noted to drop to 88% on room air and up to 98% on 2 L nasal cannula #Acute hypoxic respiratory failure #Acute on chronic heart failure with preserved EF No leukocytosis, Negative [employer] respiratory panel, BNP: 103 CXR: Cardiomegaly, pulmonary vascular congestion ECHO 60-65%, GIDD, mild regurg aortic (01/06), stable from 2019 echo Possible secondary to presumed diastolic heart failure Supplemental oxygen, wean as able Stop lasix 2/2 DIANE Monitor I's and O's, daily weight, low-sodium diet Incentive spirometry CBC, BMP in a.m. #DIANE on CKD IV Cr: 2.2. Recent baseline 2.0-2.1 Monitor renal functions, avoid NSAIDs and other nephrotoxic agents 2.48 this am, will hold IV lasix at this time increase in cr to 3.39, will try gentle bolus Nephrology consult #Severe central canal stenosis, c/f neurogenic claudication # Intractable Back pain: Hip/pelvis x-ray: No acute fractures Lumbar x-ray: No acute fracture MRI with severe central canal stenosis Scheduled Tylenol and tramadol per home schedule. Add lidocaine patch and voltaren Continue home gabapentin PT/OT eval:rehab Uses wheelchair at baseline Ortho spine consult, appreciate recommendations -MRI findings warrant surgery, however given risk factors, will attempt Medrol dose luís and rehab -If pain control unsuccessful will discuss surgical intervention with family once more. Family reluctant given multiple comorbitdies and risks for post-op complications; however, patient in notable pain reporting she "cannot live like this." #Acute uncomplicated cystitis UA: +nitrite, 1+ leuk esterase, 4+ bacteria GNB. pansensitive Ecoli Patient denies dysuria, urinary frequency or urgency continue CTX # HTN (hypertension): BP elevated in ER may be secondary to underlying pain and anxiety Monitor hold lisinopril 2/2 DIANE progressive #CAD S/P CABG x3 1993 Status post coronary bypass grafting x 3 in August of 1993 for three vessel atherosclerotic coronary disease, JAMES graft to the LAD, a saphenous vein graft to the posterior circumflex and a saphenous vein graft to the right coronary artery. Denies CP, SOB Continue aspirin, rosuvastatin #HLD (hyperlipidemia): Continue rosuvastatin #Anxiety: #Depression: Continue venlafaxine, clonazepam #Hypothyroidism: Continue levothyroxine # GERD (gastroesophageal reflux disease): Continue PPI, H2 luis DVT Prophylaxis Heparin SQ Admit med/tele Full Code Follows with Dr Galeas for routine care Admission and Anticipated Discharge Date Admission Date: January 06, 2024 Subjective Reports frustartation with situation, states pain is present with any movement and somewhat resolved when sitting or laying very still Denies any new concerns this am spoke to granddaughter for over 45 minutes to discuss options forward for patient. Plans for conservative management at this time Physical Exam Constitutional: WD/WN, vitals as above Respiratory: normal respiratory effort, lungs clear to auscultation Cardiovascular: RRR, no murmur, no edema Gastrointestinal (Abdomen): normal bowel sounds, soft, nontender, no hepatosplenomegaly Results & Data Results & Data Vital Signs (Past 12 Hours) Vital Signs Temp Pulse Pulse Resp BP BP Pulse Ox 01/08/24 09:09 01/08/24 08:14 36.5 C 66 18 90/56 L 95 01/08/24 07:19 58 L 01/08/24 05:00 104/52 L 01/08/24 04:37 36.7 C 66 16 91/46 L 93 01/07/24 23:51 110/67 O2 Del Method O2 Flow Rate 01/08/24 09:09 Nasal Cannula 1 01/08/24 08:14 Nasal Cannula 1 01/08/24 07:19 01/08/24 05:00 01/08/24 04:37 Nasal Cannula 01/07/24 23:51 Laboratory Results Short CBC 01/08/24 Range/Units 07:12 WBC 7.61 (4.8-10.8) K/ul Hgb 12.9 (12.0-16.0) g/dl Hct 40.9 (37.0-47.0) % Plt Count 239 (130-400) K/uL BMP 01/08/24 07:12 Sodium 136 Potassium 4.8 Chloride 98 Carbon Dioxide 30 BUN 47 H Creatinine 3.39 H D Glucose 113 H Calcium 10.0 Medications Administered Home Medications Medication Instructions Recorded Confirmed Last Taken acetaminophen 500 mg tablet 1,000 mg PO TID 06/13/22 01/06/24 01/03/24 (Tylenol Extra Strength) alendronate 70 mg tablet 70 mg PO WK 06/13/22 01/06/24 01/03/24 aspirin 81 mg tablet,delayed 81 mg PO DAILY 06/13/22 01/06/24 01/03/24 release cimetidine 400 mg tablet 400 mg PO HS 06/13/22 01/06/24 01/03/24 clonazepam 0.5 mg tablet 0.5 mg PO BID 06/13/22 01/06/24 01/03/24 clonazepam 0.5 mg tablet 1 mg PO HS 06/13/22 01/06/24 01/03/24 cyanocobalamin (vitamin B-12) 1,000 mcg PO Q OTHER DAY 06/13/22 01/06/24 01/03/24 1,000 mcg tablet (Vitamin B-12) cyclosporine 0.05 % eye drops in a 1 drp OPB BID 06/13/22 01/06/24 01/03/24 dropperette docusate sodium 100 mg capsule 100 mg PO DAILY 06/13/22 01/06/24 01/03/24 gabapentin 300 mg capsule 300 mg PO BID 06/13/22 01/06/24 01/03/24 gabapentin 300 mg capsule 600 mg PO HS 06/13/22 01/06/24 01/03/24 levothyroxine 75 mcg tablet 75 mcg PO DAILYBB 06/13/22 01/06/24 01/03/24 pantoprazole 40 mg tablet,delayed 40 mg PO DAILY 06/13/22 01/06/24 01/03/24 release polyethylene glycol 3350 17 gram 17 g PO Q OTHER DAY 06/13/22 01/06/24 01/02/24 oral powder packet (Miralax) rosuvastatin 10 mg tablet 10 mg PO DAILY 06/13/22 01/06/24 01/03/24 tramadol 50 mg tablet 50 mg PO TID Pain 06/13/22 01/06/24 01/03/24 trazodone 100 mg tablet 100 mg PO HS 06/13/22 01/06/24 01/03/24 venlafaxine 150 mg 150 mg PO DAILY 06/13/22 01/06/24 01/03/24 capsule,extended release 24 hr biotin 5 mg tablet 5 mg PO DAILY 01/03/24 01/06/24 01/03/24 fluticasone propionate 50 2 spray intranasal DAILY 01/03/24 01/06/24 01/03/24 mcg/actuation nasal spray,suspension lidocaine HCl 4 %-menthol 1 % 1 applic topical QID PRN KNEE PAIN 01/03/24 01/06/24 Unknown topical cream (Icy Hot Max (lidocaine HCl-menthol)) lisinopril 40 mg tablet 40 mg PO QAM 01/03/24 01/06/24 01/03/24 polyethylene glycol 3350 17 17 g PO DAILY PRN Constipation 01/03/24 01/06/24 Unknown gram/dose oral powder (Miralax) polyvinyl alcohol-povidone 0.5 1 drp OPB BID 01/03/24 01/06/24 01/03/24 %-0.6 % eye drops (Artificial Tears (polyvinyl alcohol/povidone)) Active Medications Generic Name Dose Route Start Last Admin Trade Name Freq PRN Reason Stop Dose Admin Acetaminophen 1,000 mg 01/06/24 22:00 01/08/24 05:28 Acetaminophen 500 Mg Tab PO 02/05/24 21:59 1,000 mg Q8 SAHRA Administration Aspirin 81 mg 01/07/24 09:00 01/08/24 08:50 Aspirin 81 Mg Ectab PO 02/06/24 08:59 81 mg DAILY SAHRA Administration Clonazepam 0.5 mg 01/07/24:00 01/08/24 09:04 Clonazepam 0.5 Mg Tab PO 02/06/24 07:59 0.5 mg BID@0800,1300 SAHRA Administration Clonazepam 1 mg 01/06/24 21:00 01/07/24 20:27 Clonazepam 1 Mg Tab PO 02/05/24 20:59 1 mg HS SAHRA Administration Cyanocobalamin 1,000 mcg 01/07/24 09:00 01/07/24 08:12 Cyanocobalamin (B-12) 500 Mcg Tablet PO 02/06/24 08:59 1,000 mcg Q2D SAHRA Administration Diclofenac Sodium 2 gm 01/07/24 14:15 01/08/24 05:16 Diclofenac Sod 1% Gel 100 Gm Tube EXT 02/06/24 14:14 2 gm Q8 SAHRA Administration Protocol Docusate Sodium 100 mg 01/07/24 09:00 01/08/24 09:04 Docusate Sodium 100 Mg Cap PO 02/06/24 08:59 100 mg DAILY SAHRA Administration Famotidine 20 mg 01/06/24 21:00 01/07/24 20:27 Famotidine 20 Mg Tab PO 02/05/24 20:59 20 mg HS SAHRA Administration Protocol Fluticasone Propionate 2 sprays 01/07/24 09:00 01/08/24 08:49 Fluticasone Propionate Na Spr 16 Gm Btl HAILEY 02/06/24 08:59 2 sprays DAILY SAHRA Administration Gabapentin 300 mg 01/06/24 21:00 01/08/24 08:50 Gabapentin 300 Mg Cap PO 02/05/24 18:29 300 mg BID SAHRA Administration Heparin Sodium (Porcine) 5,000 units 01/06/24 21:00 01/08/24 08:50 Heparin Sod 5,000 Unit/0.5 Ml Vial SQ 02/05/24 20:59 5,000 units Q12 SAHRA Administration Ceftriaxone Sodium 1,000 mg in 50 mls @ 100 mls/hr 01/06/24 18:00 01/07/24 18:22 Rocephin IV 01/11/24 17:59 Infused Q24H SAHRA Infusion Levothyroxine Sodium 75 mcg 01/07/24 06:30 01/08/24 05:16 Levothyroxine Sodium 75 Mcg Tablet PO 02/06/24 06:29 75 mcg DAILYBB SAHRA Administration Lidocaine 1 patch 01/07/24 14:15 01/08/24 08:50 Lidocaine 5% 1 Patch TD 02/06/24 14:14 1 patch QAM SAHRA Administration Lisinopril 40 mg 01/07/24 09:00 01/07/24 08:12 Lisinopril 40 Mg Tab PO 02/06/24 08:59 40 mg QAM SAHRA Administration Miscellaneous 1 each 01/07/24 23:30 01/07/24 22:37 Remove Lidoderm Patch N/A 02/06/24 23:29 1 each DAILY@2100 SAHRA Administration Pantoprazole Sodium 40 mg 01/07/24 09:00 01/08/24 08:50 Pantoprazole 40 Mg Tab PO 02/06/24 08:59 40 mg DAILY SAHRA Administration Polyethylene Glycol 17 gm 01/07/24 09:00 01/07/24 08:13 Polyethylene (Miralax) 17 Gm Pack PO 02/06/24 08:59 17 gm Q2D SAHRA Administration Rosuvastatin Calcium 10 mg 01/07/24 09:00 01/08/24 08:50 Rosuvastatin Calcium 10 Mg Tab PO 02/06/24 08:59 10 mg DAILY SAHRA Administration Tramadol HCl 50 mg 01/06/24 20:00 01/08/24 08:49 Tramadol Hcl 50 Mg Tablet PO 02/05/24 19:59 50 mg TID@0800,1400,2000 SAHRA Administration Trazodone HCl 100 mg 01/06/24 21:00 01/07/24 20:29 Trazodone Hcl 100 Mg Tab PO 02/05/24 20:59 100 mg HS SAHRA Administration Venlafaxine HCl 150 mg 01/07/24 09:00 01/08/24 08:50 Venlafaxine Hcl Xr 150 Mg Capxr PO 02/06/24 08:59 150 mg DAILY SAHRA Administration (6) HTN (hypertension) Hypertension type: unspecified Qualified Code(s): I10 - Essential (primary) hypertension
[2024-01-08] MEDS ORDERED: methylPREDNISolone 4 MG TAB, 6 DAY TAPER PO SCH (12:00)
[2024-01-08] MEDS: methylPREDNISolone 4 MG TAB PO SCH ×2 (13:08→14:00)
[2024-01-08] MEDS ORDERED: PHENAZOPYRIDINE HCL 200 MG TAB PO PRN (13:57)
[2024-01-08] MEDS: PHENAZOPYRIDINE HCL 200 MG TAB PO STA (14:35)
[2024-01-08] MEDS: LACTATED RINGER'S 500 ML IV ONE (16:02)
[2024-01-09] MEDS: methylPREDNISolone 4 MG TAB PO SCH ×2 (06:05→20:21)
[2024-01-09 08:19] LABS: BUN Creatinine Ratio 17.6 (10-20); Calcium 9.7 mg/dl (8.6-10.3); Creatinine Clr Calc Pharmacy 10.6 ml/min; Est GFR (African American) 14.5 ml/min; Est GFR (Non-African American) 12.5 ml/min; Potassium 5.1 mmol/L (3.5-5.1)
--- NOTE | 2024-01-09 10:11 | Hospitalist Progress Note ---
Date of Service January 09, 2024 Assessment & Plan (1) Acute hypoxic respiratory failure: (2) Back pain: (3) Extremity pain: (4) Abnormal urinalysis: (5) CKD (chronic kidney disease), stage IV: (6) HTN (hypertension): (7) CAD (coronary artery disease): (8) HLD (hyperlipidemia): (9) Anxiety: (10) Depression: (11) Hypothyroidism: (12) GERD (gastroesophageal reflux disease): Plan Ms. Greenfield is an 83 year old female with PMH HTN, HLD, CAD s/p CABG, hypothyroidism, CKD IV, GERD, anxiety, depression, osteoporosis, RBBB presented to ER with c/o hip and leg pain, low back pain worse after fall out of wheelchair 01/02/24. On 01/03/24 had pelvis, sacrum and coccyx x-rays that were negative for acute fracture and CT lumbar spine without acute fracture. Pain continued and has become intolerable. In ER afebrile, P: 71, R: 20, BP 171/90, 90% on room air. Was noted to drop to 88% on room air and up to 98% on 2 L nasal cannula Spoke to granddaughter who reports that the patient was doing multiple things independently. #Acute hypoxic respiratory failure #Acute on chronic heart failure with preserved EF*resolved No leukocytosis, Negative [employer] respiratory panel, BNP: 103 CXR: Cardiomegaly, pulmonary vascular congestion ECHO 60-65%, GIDD, mild regurg aortic (01/06), stable from 2019 echo Possible secondary to presumed diastolic heart failure Supplemental oxygen, wean as able Stop lasix 2/2 DIANE Monitor I's and O's, daily weight, low-sodium diet Incentive spirometry CBC, BMP in a.m. #DIANE on CKD IV Cr: 2.2. Recent baseline 2.0-2.1 Monitor renal functions, avoid NSAIDs and other nephrotoxic agents Renal function up to 3.39--down to 3.24 Nephrology consult huang in place start furosemide 40mg IV BID #Severe central canal stenosis, c/f neurogenic claudication # Intractable Back pain: Hip/pelvis x-ray: No acute fractures Lumbar x-ray: No acute fracture MRI with severe central canal stenosis Scheduled Tylenol and tramadol per home schedule. Add lidocaine patch and voltaren Continue home gabapentin PT/OT eval:rehab Uses wheelchair at baseline Ortho spine consult, appreciate recommendations -MRI findings warrant surgery, however given risk factors, will attempt Medrol dose luís and rehab -If pain control unsuccessful will discuss surgical intervention with family once more. Family reluctant given multiple co-morbidities and risks for post-op complications; however, patient in notable pain reporting she "cannot live like this." -Continue Medrol dose luís #Acute uncomplicated cystitis UA: +nitrite, 1+ leuk esterase, 4+ bacteria GNB. pansensitive Ecoli Patient denies dysuria, urinary frequency or urgency continue CTX # HTN (hypertension): BP elevated in ER may be secondary to underlying pain and anxiety Monitor hold lisinopril 2/2 DIANE progressive #CAD S/P CABG x3 1993 Status post coronary bypass grafting x 3 in August of 1993 for three vessel atherosclerotic coronary disease, JAMES graft to the LAD, a saphenous vein graft to the posterior circumflex and a saphenous vein graft to the right coronary artery. 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 reports concern of finanical stressors, discussed CM will come to explain nuances on Thursday, verbalized understanding Denies chest pain, palpitations or other acute concerns Physical Exam Constitutional: laying in bed, intermittently states she is in severe pain, however, will engage with out issue when discussing matters of placement Respiratory: normal respiratory effort, lungs clear to auscultation Cardiovascular: RRR, no murmur, no edema Gastrointestinal (Abdomen): normal bowel sounds, soft, nontender, no hepatosplenomegaly Results & Data Results & Data Vital Signs (Past 12 Hours) Vital Signs Temp Pulse Pulse Resp BP Pulse Ox O2 Del Method 01/09/24 09:52 Nasal Cannula 01/09/24 07:37 36.5 C 56 L 18 138/77 98 Nasal Cannula 01/09/24 07:10 58 L 01/09/24 04:42 113/61 01/09/24 02:55 36.8 C 63 16 94 Nasal Cannula 01/08/24 23:33 57 L 01/08/24 22:59 36.4 C L 63 16 100/62 92 Nasal Cannula O2 Flow Rate 01/09/24 09:52 1 01/09/24 07:37 2 01/09/24 07:10 01/09/24 04:42 01/09/24 02:55 2 01/08/24 23:33 01/08/24 22:59 2 Laboratory Results BMP 01/09/24 07:48 Sodium 133 L Potassium 5.1 Chloride 99 Carbon Dioxide 26 BUN 57 H Creatinine 3.24 H Glucose 131 H Calcium 9.7 Medications Administered Home Medications Medication Instructions Recorded Confirmed Last Taken acetaminophen 500 mg tablet 1,000 mg PO TID 06/13/22 01/06/24 01/03/24 (Tylenol Extra Strength) alendronate 70 mg tablet 70 mg PO WK 06/13/22 01/06/24 01/03/24 aspirin 81 mg tablet,delayed 81 mg PO DAILY 06/13/22 01/06/24 01/03/24 release cimetidine 400 mg tablet 400 mg PO HS 06/13/22 01/06/24 01/03/24 clonazepam 0.5 mg tablet 0.5 mg PO BID 06/13/22 01/06/24 01/03/24 clonazepam 0.5 mg tablet 1 mg PO HS 06/13/22 01/06/24 01/03/24 cyanocobalamin (vitamin B-12) 1,000 mcg PO Q OTHER DAY 06/13/22 01/06/24 01/03/24 1,000 mcg tablet (Vitamin B-12) cyclosporine 0.05 % eye drops in a 1 drp OPB BID 06/13/22 01/06/24 01/03/24 dropperette docusate sodium 100 mg capsule 100 mg PO DAILY 06/13/22 01/06/24 01/03/24 gabapentin 300 mg capsule 300 mg PO BID 06/13/22 01/06/24 01/03/24 gabapentin 300 mg capsule 600 mg PO HS 06/13/22 01/06/24 01/03/24 levothyroxine 75 mcg tablet 75 mcg PO DAILYBB 06/13/22 01/06/24 01/03/24 pantoprazole 40 mg tablet,delayed 40 mg PO DAILY 06/13/22 01/06/24 01/03/24 release polyethylene glycol 3350 17 gram 17 g PO Q OTHER DAY 06/13/22 01/06/24 01/02/24 oral powder packet (Miralax) rosuvastatin 10 mg tablet 10 mg PO DAILY 06/13/22 01/06/24 01/03/24 tramadol 50 mg tablet 50 mg PO TID Pain 06/13/22 01/06/24 01/03/24 trazodone 100 mg tablet 100 mg PO HS 06/13/22 01/06/24 01/03/24 venlafaxine 150 mg 150 mg PO DAILY 06/13/22 01/06/24 01/03/24 capsule,extended release 24 hr biotin 5 mg tablet 5 mg PO DAILY 01/03/24 01/06/24 01/03/24 fluticasone propionate 50 2 spray intranasal DAILY 01/03/24 01/06/24 01/03/24 mcg/actuation nasal spray,suspension lidocaine HCl 4 %-menthol 1 % 1 applic topical QID PRN KNEE PAIN 01/03/24 01/06/24 Unknown topical cream (Icy Hot Max (lidocaine HCl-menthol)) lisinopril 40 mg tablet 40 mg PO QAM 01/03/24 01/06/24 01/03/24 polyethylene glycol 3350 17 17 g PO DAILY PRN Constipation 01/03/24 01/06/24 Unknown gram/dose oral powder (Miralax) polyvinyl alcohol-povidone 0.5 1 drp OPB BID 01/03/24 01/06/24 01/03/24 %-0.6 % eye drops (Artificial Tears (polyvinyl alcohol/povidone)) cyclosporine 0.05 % eye drops in a 1 drp OPB BID 01/09/24 01/09/24 Unknown dropperette Active Medications Generic Name Dose Route Start Last Admin Trade Name Freq PRN Reason Stop Dose Admin Acetaminophen 1,000 mg 01/06/24 22:00 01/09/24 13:32 Acetaminophen 500 Mg Tab PO 02/05/24 21:59 1,000 mg Q8 SAHRA Administration Aspirin 81 mg 01/07/24 09:00 01/09/24 08:23 Aspirin 81 Mg Ectab PO 02/06/24 08:59 81 mg DAILY SAHRA Administration Clonazepam 0.5 mg 01/07/24 08:00 01/09/24 12:29 Clonazepam 0.5 Mg Tab PO 02/06/24 07:59 0.5 mg BID@0800,1300 SAHRA Administration Clonazepam 1 mg 01/06/24 21:00 01/08/24 21:10 Clonazepam 1 Mg Tab PO 02/05/24 20:59 1 mg HS SAHRA Administration Cyanocobalamin 1,000 mcg 01/07/24 09:00 01/09/24 08:23 Cyanocobalamin (B-12) 500 Mcg Tablet PO 02/06/24 08:59 1,000 mcg Q2D SAHRA Administration Diclofenac Sodium 2 gm 01/07/24 14:15 01/09/24 13:32 Diclofenac Sod 1% Gel 100 Gm Tube EXT 02/06/24 14:14 2 gm Q8 SAHRA Administration Protocol Docusate Sodium 100 mg 01/07/24 09:00 01/09/24 08:26 Docusate Sodium 100 Mg Cap PO 02/06/24 08:59 100 mg DAILY SAHRA Administration Famotidine 20 mg 01/06/24 21:00 01/08/24 21:10 Famotidine 20 Mg Tab PO 02/05/24 20:59 20 mg HS SAHRA Administration Protocol Fluticasone Propionate 2 sprays 01/07/24 09:00 01/09/24 08:23 Fluticasone Propionate Na Spr 16 Gm Btl HAILEY 02/06/24 08:59 2 sprays DAILY SAHRA Administration Furosemide 40 mg 01/09/24 14:00 01/09/24 15:27 Furosemide 40 Mg Tab PO 02/08/24 13:59 40 mg BID17 SAHRA Administration Gabapentin 300 mg 01/06/24 21:00 01/09/24 08:24 Gabapentin 300 Mg Cap PO 02/05/24 18:29 300 mg BID SAHRA Administration Heparin Sodium (Porcine) 5,000 units 01/06/24 21:00 01/09/24 08:24 Heparin Sod 5,000 Unit/0.5 Ml Vial SQ 02/05/24 20:59 5,000 units Q12 SAHRA Administration Ceftriaxone Sodium 1,000 mg in 50 mls @ 100 mls/hr 01/06/24 18:00 01/08/24 17:51 Rocephin IV 01/11/24 17:59 Infused Q24H SAHRA Infusion Levothyroxine Sodium 75 mcg 01/07/24 06:30 01/09/24 06:05 Levothyroxine Sodium 75 Mcg Tablet PO 02/06/24 06:29 75 mcg DAILYBB SAHRA Administration Lidocaine 1 patch 01/07/24 14:15 01/09/24 08:24 Lidocaine 5% 1 Patch TD 02/06/24 14:14 Not Given QAM SAHRA Methylprednisolone 4 mg 01/09/24 07:00 01/09/24 12:29 Methylprednisolone 4 Mg Tab PO 01/09/24 18:01 4 mg 0700,1300,1800 SAHRA Administration Miscellaneous 1 each 01/07/24 23:30 01/08/24 21:10 Remove Lidoderm Patch N/A 02/06/24 23:29 1 each DAILY@2100 SAHRA Administration Pantoprazole Sodium 40 mg 01/07/24 09:00 01/09/24 08:24 Pantoprazole 40 Mg Tab PO 02/06/24 08:59 40 mg DAILY SAHRA Administration Polyethylene Glycol 17 gm 01/07/24 09:00 01/09/24 08:26 Polyethylene (Miralax) 17 Gm Pack PO 02/06/24 08:59 17 gm Q2D SAHRA Administration Rosuvastatin Calcium 10 mg 01/07/24 09:00 01/09/24 08:24 Rosuvastatin Calcium 10 Mg Tab PO 02/06/24 08:59 10 mg DAILY SAHRA Administration Tramadol HCl 50 mg 01/06/24 20:00 01/09/24 12:29 Tramadol Hcl 50 Mg Tablet PO 02/05/24 19:59 50 mg TID@0800,1400,2000 SAHRA Administration Trazodone HCl 100 mg 01/06/24 21:00 01/08/24 21:10 Trazodone Hcl 100 Mg Tab PO 02/05/24 20:59 100 mg HS SAHRA Administration Venlafaxine HCl 150 mg 01/07/24 09:00 01/09/24 08:23 Venlafaxine Hcl Xr 150 Mg Capxr PO 02/06/24 08:59 150 mg DAILY SAHRA Administration (6) HTN (hypertension) Hypertension type: unspecified Qualified Code(s): I10 - Essential (primary) hypertension
[2024-01-09] MEDS: bisacodyL 5 MG TABEC PO ONE (12:20)
[2024-01-09] MEDS: bisacodyL 10 MG SUPP PR STA (12:20)
--- NOTE | 2024-01-09 13:32 | Nephrology Consultation ---
Date of Consultation January 09, 2024 Assessment & Plan (1) Acute kidney injury superimposed on stage 4 chronic kidney disease: Likely 2/ Volume overload/ ATN. She c/o decreased UOP, bladder scan,huang 's if residual >200 cc, - start on furosemide 40 mg Iv BID - Accurate I/O and daily weights, - DAILY bmp - D/C lisiNopril, use CCB , Hydralazine for BP control - (2) Low back pain radiating to both legs: Hip/pelvis x-ray: No acute fractures Lumbar x-ray: No acute fracture Scheduled Tylenol and tramadol per home schedule. nO nsaids - She is Stage 4 ckd , she will be at risk of needing dialysis , which may be life long with any Major surgeries (3) Abnormal urinalysis: - On aBX. History of Present Illness Reason for Consultation: Acute kidney injury on CKD Attending Physician: Alexsandra Bangura MD History of Present Illness 83 yo Female with PMH of Vit D deficiency, CKD stage 4, HTN, Dyslipidemia, Hypothyroidism, type 2 DM, anxiety, GERD, hyperparathyroidism who was admitted with c/o hip and leg pain.She is known to have left renal artery stenosis of 80%. Patient was seen in ER 01/03/2024 for reported fall out of wheelchair onto her buttocks on 01/02/24 with negative pelvis, sacrum and coccyx x-rays and CT lumbar spine without acute fracture.Denies diarrhea, dysuria, hematuria, urinary frequency, loss control of bowel or bladder or saddle paresthesias, although she does complain of decreased UOP. On admission her Cr was 2.2 , which has risen to 3.2 today , Her basline is likely in late 1.0's.U/a was suggestive on UTI and she is on Abx. Chest xray showed pulmonary vascular congestion and she received iv lasix on 01/06. c/o hip pain when examined in the morning today, no pedal edema w/ no shortness of breath Allergies Allergy/AdvReac Type Severity Reaction Status Date / Time No Known Allergies Allergy Verified 01/03/24 23:00 Home Medications Medication Instructions Recorded Confirmed Type acetaminophen 500 mg tablet 1,000 mg PO TID 06/13/22 01/06/24 History (Tylenol Extra Strength) alendronate 70 mg tablet 70 mg PO WK 06/13/22 01/06/24 History aspirin 81 mg tablet,delayed 81 mg PO DAILY 06/13/22 01/06/24 History release cimetidine 400 mg tablet 400 mg PO HS 06/13/22 01/06/24 History clonazepam 0.5 mg tablet 0.5 mg PO BID 06/13/22 01/06/24 History clonazepam 0.5 mg tablet 1 mg PO HS 06/13/22 01/06/24 History cyanocobalamin (vitamin B-12) 1,000 mcg PO Q OTHER DAY 06/13/22 01/06/24 History 1,000 mcg tablet (Vitamin B-12) cyclosporine 0.05 % eye drops in a 1 drp OPB BID 06/13/22 01/06/24 History dropperette docusate sodium 100 mg capsule 100 mg PO DAILY 06/13/22 01/06/24 History gabapentin 300 mg capsule 300 mg PO BID 06/13/22 01/06/24 History gabapentin 300 mg capsule 600 mg PO HS 06/13/22 01/06/24 History levothyroxine 75 mcg tablet 75 mcg PO DAILYBB 06/13/22 01/06/24 History pantoprazole 40 mg tablet,delayed 40 mg PO DAILY 06/13/22 01/06/24 History release polyethylene glycol 3350 17 gram 17 g PO Q OTHER DAY 06/13/22 01/06/24 History oral powder packet (Miralax) rosuvastatin 10 mg tablet 10 mg PO DAILY 06/13/22 01/06/24 History tramadol 50 mg tablet 50 mg PO TID Pain 06/13/22 01/06/24 History trazodone 100 mg tablet 100 mg PO HS 06/13/22 01/06/24 History venlafaxine 150 mg 150 mg PO DAILY 06/13/22 01/06/24 History capsule,extended release 24 hr biotin 5 mg tablet 5 mg PO DAILY 01/03/24 01/06/24 History fluticasone propionate 50 2 spray intranasal DAILY 01/03/24 01/06/24 History mcg/actuation nasal spray,suspension lidocaine HCl 4 %-menthol 1 % 1 applic topical QID PRN KNEE PAIN 01/03/24 01/06/24 History topical cream (Icy Hot Max (lidocaine HCl-menthol)) lisinopril 40 mg tablet 40 mg PO QAM 01/03/24 01/06/24 History polyethylene glycol 3350 17 17 g PO DAILY PRN Constipation 01/03/24 01/06/24 History gram/dose oral powder (Miralax) polyvinyl alcohol-povidone 0.5 1 drp OPB BID 01/03/24 01/06/24 History %-0.6 % eye drops (Artificial Tears (polyvinyl alcohol/povidone)) Patient History Medical History Syncope Chronic kidney disease (CKD) HTN (hypertension) Degenerative joint disease Gastritis Coronary artery disease Trigeminal neuralgia Dysphagia Neurotic depression Panic disorder Surgical History History of esophagogastroduodenoscopy (EGD) History of bilateral carpal tunnel release History of facial surgery facial nerve surgery History of surgery on extremity left leg/knee History of total abdominal hysterectomy and bilateral salpingo-oophorectomy History of cholecystectomy History of cardiac catheterization S/P CABG x 3 History of appendectomy Family History Other Family history non-contributory Social History Smoking Status: Never smoker Tobacco Type: Cigarettes Second Hand Exposure: No; Do You Dip or Chew Tobacco: No; Hx Alcohol Use: No Hx Substance Use: No Preferred Language: Mongolian Communication Ability: Effective General 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 Gastrointestinal: Abdomen is soft, non distended, non tender, bowel sounds are present CVS: Regular rate and rhythm. No murmurs, rubs or gallops Musculoskeletal: cervical tenderness Extremities: Non tender, no edema, peripheral pulses are present Neuro: Oriented, no tremors, no focal neurological deficits Skin: No rashes Results & Data Vital Signs (Past 12 Hours) Vital Signs Temp Pulse Pulse Resp BP Pulse Ox O2 Del Method 01/09/24 11:33 36.6 C 61 18 170/81 H 97 Nasal Cannula 01/09/24 09:52 Nasal Cannula 01/09/24 07:37 36.5 C 56 L 18 138/77 98 Nasal Cannula 01/09/24 07:10 58 L 01/09/24 04:42 113/61 01/09/24 02:55 36.8 C 63 16 94 Nasal Cannula O2 Flow Rate 01/09/24 11:33 2 01/09/24 09:52 1 01/09/24 07:37 1 01/09/24 07:10 01/09/24 04:42 01/09/24 02:55 2 Laboratory Results 01/08/24 07:12 01/09/24 07:48
[2024-01-09] MEDS: FUROSEMIDE 40 MG TAB PO SCH ×2 (15:27→20:23)
[2024-01-09] MEDS ORDERED: Nursing to Pharmacy Communication SCH (15:45)
[2024-01-09] MEDS: ARTIFICIAL TEARS OPB SCH (17:32)
[2024-01-10 06:33] LABS: Hematocrit (blood only) 38.8 % (37.0-47.0); Hemoglobin 12.8 g/dl (12.0-16.0); Mean Corpuscular Hemoglobin 31.1 pg (25.0-34.0); Mean Corpuscular Volume 94.2 fL (80.0-100.0); Mean Platelet Volume 9.9 fL (9.4-12.4); Platelet Count 263 K/uL (130-400); RDW Coefficient of Variation 12.3 % (11.5-14.5); RDW Standard Deviation 42.5 fL (36.4-46.3); Red Blood Count 4.12 M/uL (4.20-5.40); White Blood Count 7.29 K/ul (4.8-10.8)
[2024-01-10] MEDS: methylPREDNISolone 4 MG TAB PO SCH (06:38)
[2024-01-10 06:48] LABS: BUN Creatinine Ratio 21.8 (10-20); Calcium 10.5 mg/dl (8.6-10.3); Creatinine Clr Calc Pharmacy 13.1 ml/min; Est GFR (African American) 18.4 ml/min; Est GFR (Non-African American) 15.8 ml/min; Magnesium 2.1 mg/dl (1.7-2.4); Phosphorus 4.6 mg/dl (2.5-4.9); Potassium 5.4 mmol/L (3.5-5.1)
[2024-01-10] MEDS: FUROSEMIDE 40 MG/4 ML VIAL IV SCH (09:10)
--- NOTE | 2024-01-10 10:37 | Hospitalist Progress Note ---
Date of Service January 10, 2024 Assessment & Plan (1) Acute hypoxic respiratory failure: (2) Back pain: (3) Extremity pain: (4) Abnormal urinalysis: (5) CKD (chronic kidney disease), stage IV: (6) HTN (hypertension): (7) CAD (coronary artery disease): (8) HLD (hyperlipidemia): (9) Anxiety: (10) Depression: (11) Hypothyroidism: (12) GERD (gastroesophageal reflux disease): Plan Ms. Greenfield is an 83 year old female with PMH HTN, HLD, CAD s/p CABG, hypothyroidism, CKD IV, GERD, anxiety, depression, osteoporosis, RBBB presented to ER with c/o hip and leg pain, low back pain worse after fall out of wheelchair 01/02/24. On 01/03/24 had pelvis, sacrum and coccyx x-rays that were negative for acute fracture and CT lumbar spine without acute fracture. Pain continued and has become intolerable. In ER afebrile, P: 71, R: 20, BP 171/90, 90% on room air. Was noted to drop to 88% on room air and up to 98% on 2 L nasal cannula Patient was evaluated by Ortho who felt surgery could be reasonable however, patient very high risk given CKD IV and HFpEF. Desicion was made to pursue conservative measures with medrol dose luís and rehab, as well as OP follow up with Ortho Spine. Course complicated by DIANE on CKDIV. Renal function improved with IV lasix with plans to transition to PO torsemide tomorrow. #Acute hypoxic respiratory failure *resolved #Acute on chronic heart failure with preserved EF*resolved No leukocytosis, Negative [employer] respiratory panel, BNP: 103 CXR: Cardiomegaly, pulmonary vascular congestion ECHO 60-65%, GIDD, mild regurg aortic (01/06), stable from 2019 echo Possible secondary to presumed diastolic heart failure Supplemental oxygen, wean as able Stop lasix 2/2 DIANE; however, resumed at lasix 40mg BID Monitor I's and O's, daily weight, low-sodium diet Incentive spirometry CBC, BMP in a.m. #DIANE on CKD IV *improving -Recent baseline 2.0-2.1 Monitor renal functions, avoid NSAIDs and other nephrotoxic agents Nephrology consult huang in place 01/08 continue furosemide 40mg IV BID, possibly transition to Po in am #Severe central canal stenosis, c/f neurogenic claudication # Intractable Back pain: #ambulatory dysfunction Hip/pelvis x-ray: No acute fractures Lumbar x-ray: No acute fracture MRI with severe central canal stenosis Scheduled Tylenol and tramadol per home schedule. continue lidocaine patch and voltaren Continue home gabapentin PT/OT eval:rehab Uses intermittently wheelchair at baseline Ortho spine consult, appreciate recommendations -MRI findings warrant surgery, however given risk factors, will attempt Medrol dose luís and rehab -Continue Medrol dose luís Limit opioids 2/2 delirium #Acute uncomplicated cystitis UA: +nitrite, 1+ leuk esterase, 4+ bacteria GNB. pansensitive Ecoli Patient denies dysuria, urinary frequency or urgency continue CTX, course complete 01/09 # HTN (hypertension): BP elevated in ER may be secondary to underlying pain and anxiety Monitor hold lisinopril 2/2 DIANE progressive BP fluctuates, will hold further aggressive treatment 2/2 labile pressure iso pain consider low dose amlodipine if persistent #CAD S/P CABG x3 1993 Status post coronary bypass grafting x 3 in August of 1993 for three vessel atherosclerotic coronary disease, JAMES graft to the LAD, a saphenous vein graft to the posterior circumflex and a saphenous vein graft to the right coronary artery. Denies CP, SOB Continue aspirin, rosuvastatin #HLD (hyperlipidemia): Continue rosuvastatin #Anxiety: #Depression: Continue venlafaxine, clonazepam #Hypothyroidism: Continue levothyroxine # GERD (gastroesophageal reflux disease): Continue PPI, H2 luis DVT Prophylaxis Heparin SQ Admit med/tele Full Code Follows with Dr Galeas for routine care Admission and Anticipated Discharge Date Admission Date: January 06, 2024 Subjective NAEO Reports pain present, but manageable today Excited that home wheelchair is in room as she feels most comfortable in the chair She denies chest pain, abdominal pain, or other acute conerns Physical Exam Constitutional: WD/WN, vitals as above (sitting in bedside chair) Respiratory: normal respiratory effort, lungs clear to auscultation Cardiovascular: RRR, no murmur, no edema Results & Data Results & Data Vital Signs (Past 12 Hours) Vital Signs Temp Pulse Pulse Resp BP Pulse Ox O2 Del Method 01/10/24 08:21 Nasal Cannula 01/10/24 07:19 36.6 C 63 18 130/66 96 Nasal Cannula 01/10/24 07:07 59 L 01/10/24 03:37 36.8 C 61 18 117/63 96 Nasal Cannula 01/09/24 23:03 36.5 C 62 16 117/69 93 Nasal Cannula 01/09/24 22:46 56 L O2 Flow Rate 01/10/24 08:21 2 01/10/24 07:19 2 01/10/24 07:07 01/10/24 03:37 2 01/09/24 23:03 2 01/09/24 22:46 Laboratory Results Short CBC 01/10/24 Range/Units 06:16 WBC 7.29 (4.8-10.8) K/ul Hgb 12.8 (12.0-16.0) g/dl Hct 38.8 (37.0-47.0) % Plt Count 263 (130-400) K/uL BMP 01/10/24 06:16 Sodium 136 Potassium 5.4 H Chloride 99 Carbon Dioxide 28 BUN 58 H Creatinine 2.66 H D Glucose 145 H Calcium 10.5 H Medications Administered Home Medications Medication Instructions Recorded Confirmed Last Taken acetaminophen 500 mg tablet 1,000 mg PO TID 06/13/22 01/06/24 01/03/24 (Tylenol Extra Strength) alendronate 70 mg tablet 70 mg PO WK 06/13/22 01/06/24 01/03/24 aspirin 81 mg tablet,delayed 81 mg PO DAILY 06/13/22 01/06/24 01/03/24 release cimetidine 400 mg tablet 400 mg PO HS 06/13/22 01/06/24 01/03/24 clonazepam 0.5 mg tablet 0.5 mg PO BID 06/13/22 01/06/24 01/03/24 clonazepam 0.5 mg tablet 1 mg PO HS 06/13/22 01/06/24 01/03/24 cyanocobalamin (vitamin B-12) 1,000 mcg PO Q OTHER DAY 06/13/22 01/06/24 01/03/24 1,000 mcg tablet (Vitamin B-12) cyclosporine 0.05 % eye drops in a 1 drp OPB BID 06/13/22 01/06/24 01/03/24 dropperette docusate sodium 100 mg capsule 100 mg PO DAILY 06/13/22 01/06/24 01/03/24 gabapentin 300 mg capsule 300 mg PO BID 06/13/22 01/06/24 01/03/24 gabapentin 300 mg capsule 600 mg PO HS 06/13/22 01/06/24 01/03/24 levothyroxine 75 mcg tablet 75 mcg PO DAILYBB 06/13/22 01/06/24 01/03/24 pantoprazole 40 mg tablet,delayed 40 mg PO DAILY 06/13/22 01/06/24 01/03/24 release polyethylene glycol 3350 17 gram 17 g PO Q OTHER DAY 06/13/22 01/06/24 01/02/24 oral powder packet (Miralax) rosuvastatin 10 mg tablet 10 mg PO DAILY 06/13/22 01/06/24 01/03/24 tramadol 50 mg tablet 50 mg PO TID Pain 06/13/22 01/06/24 01/03/24 trazodone 100 mg tablet 100 mg PO HS 06/13/22 01/06/24 01/03/24 venlafaxine 150 mg 150 mg PO DAILY 06/13/22 01/06/24 01/03/24 capsule,extended release 24 hr biotin 5 mg tablet 5 mg PO DAILY 01/03/24 01/06/24 01/03/24 fluticasone propionate 50 2 spray intranasal DAILY 01/03/24 01/06/24 01/03/24 mcg/actuation nasal spray,suspension lidocaine HCl 4 %-menthol 1 % 1 applic topical QID PRN KNEE PAIN 01/03/24 01/06/24 Unknown topical cream (Icy Hot Max (lidocaine HCl-menthol)) lisinopril 40 mg tablet 40 mg PO QAM 01/03/24 01/06/24 01/03/24 polyethylene glycol 3350 17 17 g PO DAILY PRN Constipation 01/03/24 01/06/24 Unknown gram/dose oral powder (Miralax) polyvinyl alcohol-povidone 0.5 1 drp OPB BID 01/03/24 01/06/24 01/03/24 %-0.6 % eye drops (Artificial Tears (polyvinyl alcohol/povidone)) cyclosporine 0.05 % eye drops in a 1 drp OPB BID 01/09/24 01/09/24 Unknown dropperette Active Medications Generic Name Dose Route Start Last Admin Trade Name Freq PRN Reason Stop Dose Admin Acetaminophen 1,000 mg 01/06/24 22:00 01/10/24 06:37 Acetaminophen 500 Mg Tab PO 02/05/24 21:59 1,000 mg Q8 SAHRA Administration Artificial Tears 1 drops 01/09/24 17:00 01/10/24 11:56 Artificial Tears OPB 02/08/24 16:59 1 drops QID SAHRA Administration Aspirin 81 mg 01/07/24 09:00 01/10/24 09:09 Aspirin 81 Mg Ectab PO 02/06/24 08:59 81 mg DAILY SAHRA Administration Clonazepam 0.5 mg 01/07/24 08:00 01/10/24 11:58 Clonazepam 0.5 Mg Tab PO 02/06/24 07:59 0.5 mg BID@0800,1300 SAHRA Administration Clonazepam 1 mg 01/06/24 21:00 01/09/24 20:20 Clonazepam 1 Mg Tab PO 02/05/24 20:59 1 mg HS SAHRA Administration Cyanocobalamin 1,000 mcg 01/07/24 09:00 01/09/24 08:23 Cyanocobalamin (B-12) 500 Mcg Tablet PO 02/06/24 08:59 1,000 mcg Q2D SAHRA Administration Diclofenac Sodium 2 gm 01/07/24 14:15 01/10/24 06:35 Diclofenac Sod 1% Gel 100 Gm Tube EXT 02/06/24 14:14 2 gm Q8 SAHRA Administration Protocol Docusate Sodium 100 mg 01/07/24 09:00 01/10/24 09:10 Docusate Sodium 100 Mg Cap PO 02/06/24 08:59 100 mg DAILY SAHRA Administration Famotidine 20 mg 01/06/24 21:00 01/09/24 20:21 Famotidine 20 Mg Tab PO 02/05/24 20:59 20 mg HS SAHRA Administration Protocol Fluticasone Propionate 2 sprays 01/07/24 09:00 01/10/24 09:10 Fluticasone Propionate Na Spr 16 Gm Btl HAILEY 02/06/24 08:59 2 sprays DAILY SAHRA Administration Furosemide 40 mg 01/10/24 09:00 01/10/24 09:10 Furosemide 40 Mg/4 Ml Vial IV 02/09/24 08:59 40 mg BID SAHRA Administration Gabapentin 300 mg 01/06/24 21:00 01/10/24 09:11 Gabapentin 300 Mg Cap PO 02/05/24 18:29 300 mg BID SAHRA Administration Heparin Sodium (Porcine) 5,000 units 01/06/24 21:00 01/10/24 09:11 Heparin Sod 5,000 Unit/0.5 Ml Vial SQ 02/05/24 20:59 5,000 units Q12 SAHRA Administration Ceftriaxone Sodium 1,000 mg in 50 mls @ 100 mls/hr 01/06/24 18:00 01/09/24 18:46 Rocephin IV 01/11/24 17:59 Infused Q24H SAHRA Infusion Levothyroxine Sodium 75 mcg 01/07/24 06:30 01/10/24 06:36 Levothyroxine Sodium 75 Mcg Tablet PO 02/06/24 06:29 75 mcg DAILYBB SAHRA Administration Lidocaine 1 patch 01/07/24 14:15 01/10/24 09:11 Lidocaine 5% 1 Patch TD 02/06/24 14:14 1 patch QAM SAHRA Administration Methylprednisolone 4 mg 01/10/24 07:00 01/10/24 11:58 Methylprednisolone 4 Mg Tab PO 01/10/24 21:01 4 mg 0700,1300,1800,2100 SAHRA Administration Miscellaneous 1 each 01/07/24 23:30 01/09/24 20:18 Remove Lidoderm Patch N/A 02/06/24 23:29 1 each DAILY@2100 SAHRA Administration Miscellaneous 1 each 01/09/24 16:00 01/10/24 09:09 Restasis--Order Awaiting Action N/A 02/08/24 15:59 Not Given QS SAHRA Pantoprazole Sodium 40 mg 01/07/24 09:00 01/10/24 09:11 Pantoprazole 40 Mg Tab PO 02/06/24 08:59 40 mg DAILY SAHRA Administration Polyethylene Glycol 17 gm 01/07/24 09:00 01/09/24 08:26 Polyethylene (Miralax) 17 Gm Pack PO 02/06/24 08:59 17 gm Q2D SAHRA Administration Rosuvastatin Calcium 10 mg 01/07/24 09:00 01/10/24 09:12 Rosuvastatin Calcium 10 Mg Tab PO 02/06/24 08:59 10 mg DAILY SAHRA Administration Sodium Zirconium Cyclosilicate 10 gm 01/10/24 11:00 01/10/24 13:54 Sodium Zirconium Cyclosilicate 10 Gm Packet PO 01/11/24 23:01 10 gm TID@1100,1600,2300 SAHRA Administration Tramadol HCl 50 mg 01/06/24 20:00 01/10/24 09:16 Tramadol Hcl 50 Mg Tablet PO 02/05/24 19:59 50 mg TID@0800,1400,2000 SAHRA Administration Trazodone HCl 100 mg 01/06/24 21:00 01/09/24 20:22 Trazodone Hcl 100 Mg Tab PO 02/05/24 20:59 100 mg HS SAHRA Administration Venlafaxine HCl 150 mg 01/07/24 09:00 01/10/24 09:12 Venlafaxine Hcl Xr 150 Mg Capxr PO 02/06/24 08:59 150 mg DAILY SAHRA Administration (6) HTN (hypertension) Hypertension type: unspecified Qualified Code(s): I10 - Essential (primary) hypertension
--- NOTE | 2024-01-10 12:27 | Nephrology Progress Note ---
Date of Service January 10, 2024 Assessment & Plan (1) Acute kidney injury superimposed on stage 4 chronic kidney disease: Plan: Likely 2/ Volume overload/ ATN. - Renal functions and UOP have improved - Continue on furosemide 40 mg Iv BID - Asses in am to change to ORAL IN AM.( torsemide 40 mg BID) - Accurate I/O and daily weights, - DAILY bmp - Continue to hold lisinopril, use CCB , Hydralazine for BP control - (2) Low back pain radiating to both legs: Plan: Hip/pelvis x-ray: No acute fractures Lumbar x-ray: No acute fracture Scheduled Tylenol and tramadol per home schedule. nO nsaids - She is Stage 4 ckd , she will be at risk of needing dialysis , which may be life long with any Major surgeries (3) Abnormal urinalysis: Plan: - On aBX. Admission and Anticipated Discharge Date Admission Date: January 06, 2024 Subjective Comfortable, No SOB Urine output has increased Denies chest pain, palpitations or other acute concerns Review of Systems 2 Review of Systems: All systems reviewed & are unremarkable except as noted in HPI & below Physical Exam 2 Physical Exam: General exam: Appears comfortable, no acute distress HEENT: Pupils are equal and reactive to light Neck: No JVD, neck is supple trachea is midline Respiratory system: Clear breath sounds bilaterally. Gastrointestinal: Abdomen is soft, non distended, non tender, bowel sounds are present CVS: Regular rate and rhythm. No murmurs, rubs or gallops Musculoskeletal: cervical tenderness Extremities: Non tender, no edema, peripheral pulses are present Neuro: Oriented, no tremors, no focal neurological deficits Skin: No rashes Results & Data Vital Signs (Past 12 Hours) Vital Signs Temp Pulse Pulse Resp BP Pulse Ox O2 Del Method 01/10/24 08:21 Nasal Cannula 01/10/24 07:19 36.6 C 63 18 130/66 96 Nasal Cannula 01/10/24 07:07 59 L 01/10/24 03:37 36.8 C 61 18 117/63 96 Nasal Cannula O2 Flow Rate 01/10/24 08:21 2 01/10/24 07:19 2 01/10/24 07:07 01/10/24 03:37 2 Laboratory Results 01/10/24 06:16 01/10/24 06:16
[2024-01-10] MEDS: SODIUM ZIRCONIUM CYCLOSILICATE 10 GM PACKET PO SCH (13:54)
[2024-01-10] MEDS ORDERED: Nursing to Pharmacy Communication SCH (18:30)
[2024-01-11] MEDS: methylPREDNISolone 4 MG TAB PO SCH (06:33)
[2024-01-11 08:37] LABS: BUN Creatinine Ratio 21.6 (10-20); Calcium 10.4 mg/dl (8.6-10.3); Creatinine Clr Calc Pharmacy 10.7 ml/min; Est GFR (Non-African American) 12.9 ml/min; Potassium 4.6 mmol/L (3.5-5.1)
--- NOTE | 2024-01-11 13:54 | Discharge Summary ---
Discharge Summary Date of Service January 11, 2024 Principal Dx & Hospital Course #1 = Principal Diagnosis (1) Lumbar disc herniation with radiculopathy: (2) CKD (chronic kidney disease), stage IV: (3) Acute hypoxic respiratory failure: (4) HTN (hypertension): (5) CAD (coronary artery disease): (6) HLD (hyperlipidemia): (7) Anxiety: (8) Depression: (9) Hypothyroidism: (10) GERD (gastroesophageal reflux disease): Plan Patient initially presented to the emergency room with complaints of leg and hip pain and low back pain. This exacerbated after she had fallen out of her wheelchair. In the emergency room imaging was negative for acute fractures she was also noted to be slightly hypoxic. She was admitted to the hospital for ongoing pain control and management. She was scheduled some pain medications as well as having as needed pain medications. Patient underwent MRI of the lumbar spine which showed significant herniated disc L2-L3 with central spinal stenosis. Spine surgery was consulted. They reviewed the patient's medical history and comorbidities and felt his that she was at significantly high risk for any type of surgical intervention and recommended medical intervention. She was started on steroids for anti-inflammatory effect in addition to her pain medications. She was seen by therapies. Case management was involved in her care. Rehab facilities were contacted and applied. During her hospitalization she was also seen by nephrology for chronic renal failure. She also had some mild decompensation in her chronic heart failure with preserved ejection fraction. She was given some additional diuresis with IV Lasix for some volume overload and she significantly improved.. She will be transition to oral diuretics as recommended by nephrology at time of discharge. She will continue to follow with nephrology as an outpatient. She was also treated for an uncomplicated UTI while here in the hospital. She completed a course of antibiotic therapy. If her overall medical comorbidities with improved we could consider a second opinion or reevaluation by spine surgery for possible surgical intervention especially if she does not show continued improvement with her pain and mobility.The day of discharge her pain overall is significantly improved. She was participating with therapies. She was titrated off oxygen. She can be discharged to a rehab facility for ongoing physical therapy and rehabilitation. On the day of discharge her pain overall is significantly improved. She was participating with therapies. She was titrated off oxygen. She can be discharged to a rehab facility for ongoing physical therapy and rehabilitation Notes For Next Care Provider Continue with therapies Consider base metabolic profile in 10 to 14 days Can consider reevaluation by spine surgery if comorbidities stabilize and patient does not progress with her back issues Medication Changes From Visit Patient scheduled Tylenol, tramadol for pain Lidoderm patch added for pain control Admission HPI Per Admitting Provider Patient is 83 year old female with PMH HTN, HLD, CAD s/p CABG, hypothyroidism, CKD IV, GERD, anxiety, depression, osteoporosis, RBBB presented to ER with c/o hip and leg pain. History obtained from patient, patient's granddaughter and outpatient chart review. Patient seen in ER 01/03/2024 for reported fall out of wheelchair onto her buttocks on 01/02/24 with negative pelvis, sacrum and coccyx x-rays and CT lumbar spine without acute fracture. Patient reports chronic bilateral hip and bilateral leg pain. States pain is aggravated with any movement of BLE extremities. Takes Tylenol and Tramadol chronically. Patient states did not have her dose this afternoon since being in ER and is requesting for pain control. She feels having more low back and bilateral leg pain since fall on 01/03/24. Uses wheelchair at baseline. Patient states no fall since her ER visit on 01/03/24 and denies hitting her head. Spoke to granddaughter on phone and she states patient always has bilateral knee pain but since last fall 01/03/24 patient has been complaining of more low back and bilateral hip pain. Patient states coughed a couple of days ago but doesn't feel she has been coughing much today. She states chronically has issues with her esophagus and sometimes feels like food gets stuck. Denies dysphagia with liquids. Patient denies recent choking. States for months having some nasal congestion. States usually has BM every 2-3 days and uses Miralax. Denies diarrhea, dysuria, hematuria, urinary frequency, loss control of bowel or bladder or saddle paresthesias. Denies fever/chills, diaphoresis, N/V, PETERS, dizziness, syncope, new vision changes, increased neck pain, CP, SOB, orthopnea, palpitations, hemoptysis, sore throat, otalgia, abdominal pain, extremity edema, rashes. Admission Exam Per Admitting Provider See H&P Discharge Exam Constitutional: Alert HEENT: Mucous membranes moist. Lungs: Clear to auscultation, decreased, no wheezes rales or rhonchi CV: S1-S2, regular Abdomen: Soft, nontender, nondistended Extremities: No significant edema Musculoskeletal: Mild tenderness to palpation over the lumbar sacral region and paravertebral musculature. Neuro: No focal deficits Psych: Cooperative, normal mood Updated Medication List Medication Instructions Recorded Confirmed Type acetaminophen 500 mg tablet 1,000 mg PO TID 06/13/22 01/06/24 History (Tylenol Extra Strength) alendronate 70 mg tablet 70 mg PO WK 06/13/22 01/06/24 History aspirin 81 mg tablet,delayed 81 mg PO DAILY 06/13/22 01/06/24 History release cimetidine 400 mg tablet 400 mg PO HS 06/13/22 01/06/24 History clonazepam 0.5 mg tablet 0.5 mg PO BID 06/13/22 01/06/24 History clonazepam 0.5 mg tablet 1 mg PO HS 06/13/22 01/06/24 History cyanocobalamin (vitamin B-12) 1,000 mcg PO Q OTHER DAY 06/13/22 01/06/24 History 1,000 mcg tablet (Vitamin B-12) cyclosporine 0.05 % eye drops in a 1 drp OPB BID 06/13/22 01/06/24 History dropperette docusate sodium 100 mg capsule 100 mg PO DAILY 06/13/22 01/06/24 History gabapentin 300 mg capsule 300 mg PO BID 06/13/22 01/06/24 History gabapentin 300 mg capsule 600 mg PO HS 06/13/22 01/06/24 History levothyroxine 75 mcg tablet 75 mcg PO DAILYBB 06/13/22 01/06/24 History pantoprazole 40 mg tablet,delayed 40 mg PO DAILY 06/13/22 01/06/24 History release polyethylene glycol 3350 17 gram 17 g PO Q OTHER DAY 06/13/22 01/06/24 History oral powder packet (Miralax) rosuvastatin 10 mg tablet 10 mg PO DAILY 06/13/22 01/06/24 History tramadol 50 mg tablet 50 mg PO TID Pain 06/13/22 01/06/24 History trazodone 100 mg tablet 100 mg PO HS 06/13/22 01/06/24 History venlafaxine 150 mg 150 mg PO DAILY 06/13/22 01/06/24 History capsule,extended release 24 hr biotin 5 mg tablet 5 mg PO DAILY 01/03/24 01/06/24 History fluticasone propionate 50 2 spray intranasal DAILY 01/03/24 01/06/24 History mcg/actuation nasal spray,suspension lidocaine HCl 4 %-menthol 1 % 1 applic topical QID PRN KNEE PAIN 01/03/24 01/06/24 History topical cream (Icy Hot Max (lidocaine HCl-menthol)) lisinopril 40 mg tablet 40 mg PO QAM 01/03/24 01/06/24 History polyethylene glycol 3350 17 17 g PO DAILY PRN Constipation 01/03/24 01/06/24 History gram/dose oral powder (Miralax) polyvinyl alcohol-povidone 0.5 1 drp OPB BID 01/03/24 01/06/24 History %-0.6 % eye drops (Artificial Tears (polyvinyl alcohol/povidone)) cyclosporine 0.05 % eye drops in a 1 drp OPB BID 01/09/24 01/09/24 History dropperette acetaminophen 500 mg tablet 1,000 mg (2 x 500 mg) PO Q8 30 01/11/24 Rx (Tylenol Extra Strength) days #180 tabs clonazepam 0.5 mg tablet 0.5 mg PO BID@0800,1300 #10 tabs 01/11/24 Rx diclofenac sodium 1 % topical gel 2 g EXT Q8 msk pain #100 grams 01/11/24 Rx (Voltaren Arthritis Pain) gabapentin 300 mg capsule 300 mg PO TID #90 caps 01/11/24 Rx lidocaine 5 % topical patch 1 patch transdermal HS #30 ea 01/11/24 Rx methylprednisolone 4 mg tablet See Rx Instructions .Route 01/11/24 Rx (Medrol) .COMPLEX #12 tabs torsemide 40 mg tablet 40 mg PO BID #60 tabs 01/11/24 Rx tramadol 50 mg tablet 50 mg PO TID@0800,1400,2000 #20 01/11/24 Rx tabs Hospital Stay Data Consultations 01/06/24 14:50 ED Decision to Admit Stat 01/07/24 07:41 Consult Orthopedic Spine Surgery Routine 01/08/24 15:34 Consult Nephrology Routine Diagnostic Imagining Performed Reviewed imaging, laboratory and diagnostic studies. Pertinent findings as below. Creatinine 3.15, baseline Sodium 134 Lumbar spine MRI showed L2-L3 herniated disc with central spinal stenosis, no significant high-grade neuroforaminal stenosis, no fractures Urine culture grew out pansensitive E. coli, completed course of antibiotics in the hospital 01/06/24 16:13 MRI Lumbar Spine [MR lumbar spine wo con] Routine Pending Results Patient Have Any Pending Studies at Discharge: No Discharge Instructions Given to Patient (Per Discharging Provider) Recommend physical therapy and Occupational Therapy Patient may request second opinion on surgical intervention, to be coordinated through her efforts. Total Time Total Time Spent Total Time Spent (In Minutes): 40
--- NOTE | 2024-01-11 17:32 | Hospitalist Progress Note ---
Date of Service January 11, 2024 Assessment & Plan (1) Lumbar disc herniation with radiculopathy: (2) Acute kidney injury superimposed on stage 4 chronic kidney disease: (3) HTN (hypertension): (4) CAD (coronary artery disease): (5) Anxiety: (6) Depression: (7) Acute hypoxic respiratory failure: (8) Hypothyroidism: Plan Patient with lumbar radiculopathy due to L2-L3 herniated disc and central stenosis, continue medical treatment with steroids, pain control and therapies Renal dysfunction has been fluctuating. Question if this is new baseline versus continued acute on chronic renal failure. Communication with nephrology, Dr. Guerra, concern patient might be heading towards dialysis. Unclear diuretic regimen for discharge. Recommending canceling discharge until renal function/dysfunction has stabilized. High risk for readmission due to progressive renal dysfunction. Discontinue Voltaren gel Continue to hold all nephrotoxins Okay to MedSurg Follow creatinine Continue therapies Admission and Anticipated Discharge Date Admission Date: January 06, 2024 Subjective No acute issues overnight. Pain is fairly well-controlled Physical Exam Physical Exam: Constitutional: Alert HEENT: Mucous membranes moist. Lungs: Clear to auscultation, decreased, no wheezes rales or rhonchi CV: S1-S2, regular Abdomen: Soft, nontender, nondistended Extremities: No significant edema Musculoskeletal: lumbar paravertebral musculature tenderness Neuro: No focal deficits Psych: Cooperative, normal mood Results & Data Results & Data Vital Signs (Past 12 Hours) Vital Signs Temp Pulse Pulse Resp BP Pulse Ox O2 Del Method 01/11/24 15:35 58 L 01/11/24 15:13 36.7 C 18 122/71 95 01/11/24 11:20 36.7 C 56 L 18 122/71 95 Room Air 01/11/24 10:14 Room Air 01/11/24 07:38 56 L 145/76 H 94 Room Air 01/11/24 07:25 53 L Diagnostic Findings Reviewed imaging, laboratory and diagnostic studies. Pertinent findings as below. Creatinine 3.1 (3) HTN (hypertension) Hypertension type: unspecified Qualified Code(s): I10 - Essential (primary) hypertension
[2024-01-11] MEDS: LIDOCAINE 5% 1 PATCH TD SCH (20:07)
[2024-01-12] MEDS: methylPREDNISolone 4 MG TAB PO SCH (05:29)
[2024-01-12 10:06] LABS: BUN Creatinine Ratio 25.7 (10-20); Calcium 10.6 mg/dl (8.6-10.3); Creatinine Clr Calc Pharmacy 9.8 ml/min; Est GFR (African American) 13.4 ml/min; Est GFR (Non-African American) 11.5 ml/min; Potassium 4.3 mmol/L (3.5-5.1)
--- NOTE | 2024-01-12 12:57 | Hospitalist Progress Note ---
Date of Service January 12, 2024 Assessment & Plan (1) Lumbar disc herniation with radiculopathy: (2) Acute kidney injury superimposed on stage 4 chronic kidney disease: (3) Hyperglycemia: (4) HTN (hypertension): (5) CAD (coronary artery disease): (6) Anxiety: (7) Depression: (8) Acute hypoxic respiratory failure: (9) Hypothyroidism: Plan Patient with acute on chronic renal failure, creatinine slightly increased today, not unexpected with IV diuresis that occurred previously. Continue to monitor renal function daily Communication with nephrology, Dr. Guerra will manage diuretics as needed and recommendations for any additional renal testing Continue to encourage therapies Patient A1c 5.7% approximately 2 years ago. Hyperglycemia definitely impacted by steroid use we will check and update her A1c Continue current pain medications Anticipate discharge to rehab when renal function has stabilized Admission and Anticipated Discharge Date Admission Date: January 06, 2024 Subjective No acute issues overnight. Pain fairly well-controlled. Physical Exam Physical Exam: Constitutional: Alert sitting on edge of bed eating breakfast HEENT: Mucous membranes moist. Lungs: Clear to auscultation, decreased, no wheezes rales or rhonchi CV: S1-S2, regular Abdomen: Soft, nontender, nondistended Extremities: No significant edema Neuro: No focal deficits, lower extremity weakness Psych: Cooperative, normal mood Results & Data Results & Data Vital Signs (Past 12 Hours) Vital Signs Temp Pulse Resp BP Pulse Ox O2 Del Method 01/12/24 08:51 Room Air 01/12/24 07:37 36.5 C 57 L 16 115/69 95 Room Air 01/12/24 05:37 36.3 C L 63 20 128/75 93 Room Air 01/12/24 01:20 Room Air Diagnostic Findings Creatinine 3.46 Glucose 242 (4) HTN (hypertension) Hypertension type: unspecified Qualified Code(s): I10 - Essential (primary) hypertension
--- NOTE | 2024-01-12 14:05 | Nephrology Progress Note ---
Date of Service January 12, 2024 Assessment & Plan (1) Acute kidney injury superimposed on stage 4 chronic kidney disease: Plan: worsening nonoliguric stage 1 DIANE on CKD4 w/ significant dysfunction in a range where she may have uremic complications potentially if stays her long enough. Likely 2/2 overdiuresis in mgt of her volume overload. Baseline creatinine 2.0 w/ 1.2 gm daily proteinuria >> CKD 4 w/ eGFR 20-25 and at least moderate ESRD risk; follows w/ Dr Gillette, last seen earlier this month. Also w/ hx of L proximal renal aretry stenosis dx'd 2017, last imaging Jun 2022; last renal imaging 06/2022 w/ creat at/near current baseline. Admitted 01/05 w/ creat 2.2 w/ subsequent upward progression to peak at 3.4 on 01/07, then down to 2.7 on 01/09 and up to 3.5 today after initiation of/transition to po diuretics yesterday. this patient was essentially diuretic naive on presentation and was given higher doses initially likely d/t hypoxia/HFpEF and d/t advanced CKD. Now w/ DIANE and emerging anion gap and hyponatremia; creatinine worsens and wt goes down w/ presence/increase of diuretic dosing; volume OL beginning to reemerge on physical exam though no sx date creat diuretic dose bedweight 01/05 2.2 40 mg IV lasix 1530 66.1>65.5 01/06 2.5 40 mg IV lasix 0800 65 01/07 3.4 none 64.8 01/08 3.3 40 mg po lasix x 2 doses 66.4 01/09 2.7 40 mg IV lasix x 2 doses 66.7 01/10 3.2 40 mg IV lasix x 1 dose 62.4 01/11 3.5 none 62.8 - continue to check daily bmp; continue strict I/O, daily weights - no indication yet to repeat renal imaging - repeat bmp with serum/urine osms, urine electrolytes, repeat UACM this PM > consider small bolus of IVF versus gentle FR - continue to hold diuretics for now though suspect will need a small standing dose ultimately - Continue to hold lisinopril; use CCB , Hydralazine for BP control >> generally well controlled - will refer to CKD correctional casework specialist at d/c for ESRD planning Medically complex patient with worsening DIANE on already severe CKD; high risk for ocmplications. Care coordinated w/ Dr Bolivar (2) Low back pain radiating to both legs: Plan: Hip/pelvis x-ray: No acute fractures Lumbar x-ray: No acute fracture Scheduled Tylenol and tramadol per home schedule. nO nsaids - She is Stage 4 ckd , she will be at risk of needing dialysis , which may be life long with any Major surgeries (3) Abnormal urinalysis: Plan: - On aBX. Admission and Anticipated Discharge Date Admission Date: January 06, 2024 Subjective pt d/c postponed yesterday after d/w Dr Bolivar d/t worsening renal function. no c/o sob, n/v, edema, orthopnea. Review of Systems 2 Review of Systems: All systems reviewed & are unremarkable except as noted in Subjective Physical Exam 2 Constitutional: well developed (lying flat on her side in bed on RA), well nourished and cooperative; no acute distress Eyes: EOM intact bilaterally ENMT: Ears: no external ear abnormality Nose: no external nose abnormality Mouth: + dry oral mucous membranes Neck: no nuchal rigidity Respiratory: normal respiratory effort Auscultation: + diminished lung sounds and + crackles (bibasilar) Cardiovascular: RRR, no murmur, no edema Gastrointestinal (Abdomen): Inspection/Auscultation: normal bowel sounds P ercussion/Palpation: abdomen soft; abdomen nontender Musculoskeletal: Extremities: strength 5/5 throughout Skin: no rashes, warm and dry Neurologic: perez, fluent speech, no tremor Results & Data Vital Signs (Past 12 Hours) Vital Signs Temp Pulse Resp BP Pulse Ox O2 Del Method 01/12/24 08:51 Room Air 01/12/24 07:37 36.5 C 57 L 16 115/69 95 Room Air 01/12/24 05:37 36.3 C L 63 20 128/75 93 Room Air Laboratory Results 01/10/24 06:16 01/12/24 09:29
[2024-01-12 16:18] LABS: Appearance Urine Clear (Clear); Bacteria Urine Automated None Seen (None Seen); Bilirubin Urine Negative (Negative); Blood Urine Negative (Negative); Cast Urine Automated 0-2 /lpf (0-2); Color Urine Yellow; Epithelial Cell Urine Auto 0-2 /hpf (0-2); Glucose Urine UA Negative (Negative); Ketones Urine Negative (Negative); Leukocyte Esterase Urine Negative (Negative); Nitrite Urine Negative (Negative); Protein Urine 1+ (Negative); RBC Urine Automated 0-2 /hpf (0-2); Specific Gravity Urine 1.014 (1.000-1.030); Urobilinogen Urine Negative (Negative); WBC Urine Automated 0-5 /hpf (0-5); pH Urine 5.5 (4.5-7.5)
[2024-01-12 16:36] LABS: Urine Chloride < 15 mmol/L; Urine Sodium 40 mmol/L
[2024-01-12 22:47] LABS: Calcium 10.3 mg/dl (8.6-10.3); Potassium 4.3 mmol/L (3.5-5.1)
[2024-01-12 22:48] LABS: BUN Creatinine Ratio 29.4 (10-20); Creatinine Clr Calc Pharmacy 11.4 ml/min; Est GFR (African American) 16.1; Est GFR (Non-African American) 13.9
[2024-01-13] MEDS: methylPREDNISolone 4 MG TAB PO SCH (06:08)
[2024-01-13 06:57] LABS: BUN Creatinine Ratio 32.9 (10-20); Calcium 10.3 mg/dl (8.6-10.3); Creatinine Clr Calc Pharmacy 12.1 ml/min; Est GFR (African American) 17.3 ml/min; Est GFR (Non-African American) 14.9 ml/min; Potassium 4.6 mmol/L (3.5-5.1)
[2024-01-13 07:08] LABS: Estimated Average Glucose 123 mg/dl; Hemoglobin A1C 5.9 % (4.5-5.6)
--- NOTE | 2024-01-13 09:34 | Nephrology Progress Note ---
Date of Service January 13, 2024 Assessment & Plan (1) Acute kidney injury superimposed on stage 4 chronic kidney disease: Plan: improving nonoliguric stage 1 DIANE on CKD4 w/ significant dysfunction to a degree where she may have uremic complications potentially if stays in this range long enough. Likely 2/2 overdiuresis in mgt of her volume overload. Baseline creatinine 2.0 w/ 1.2 gm daily proteinuria >> CKD 4 w/ eGFR 20-25 and at least moderate ESRD risk; follows w/ Dr Gillette, last seen earlier this month. Also w/ hx of L proximal renal aretry stenosis dx'd 2017, last imaging Jun 2022; last renal imaging 06/2022 w/ creat at/near current baseline. Admitted 01/05 w/ creat 2.2 w/ subsequent upward progression to peak at 3.4 on 01/07, then down to 2.7 on 01/09 and up to 3.5 today after initiation of/transition to po diuretics yesterday. this patient was essentially diuretic naive on presentation and was given higher doses initially likely d/t hypoxia/HFpEF in combination with advanced CKD. Now w/ improving DIANE and also improving anion gap and hyponatremia; creatinine worsens and wt goes down w/ presence/increase of diuretic dosing; >>>>>>>>>>>>>>urine studies suggest mild volume depletion > will give 500 mL NS today if CXR is OK >> mild volume OL beginning to reemerge on physical exam though no sx date creat diuretic dose bedweight 01/05 2.2 40 mg IV lasix 1530 66.1>65.5 01/06 2.5 40 mg IV lasix 0800 65 01/07 3.4 none 64.8 01/08 3.3 40 mg po lasix x 2 doses 66.4 01/09 2.7 40 mg IV lasix x 2 doses 66.7 01/10 3.2 40 mg IV lasix x 1 dose 62.4 01/11 3.5 none 62.8 01/12 3.0 none not done 01/13 2.8 none not done - continue to check daily bmp; continue strict I/O, daily weights - no indication yet to repeat renal imaging - continue to hold diuretics for now though suspect will need a small standing dose ultimately - Continue to hold lisinopril; use CCB , Hydralazine for BP control if needed >> so far though BP generally well controlled - will refer to CKD director case at d/c for ESRD planning and be sure her granddaughter is along for that visit >>>>>hoping she will be able to be d/c tomorrow if renal function stable / slightly improved compared to today Medically complex patient with DIANE on already severe CKD; high risk for complications, slowly improving. Care coordinated w/ Dr Bolivar (2) Low back pain radiating to both legs: Plan: Hip/pelvis x-ray: No acute fractures Lumbar x-ray: No acute fracture Scheduled Tylenol and tramadol per home schedule. nO nsaids - She is Stage 4 ckd , she will be at risk of needing dialysis , which may be life long with any Major surgeries (3) Abnormal urinalysis: Plan: - On aBX. Admission and Anticipated Discharge Date Admission Date: January 06, 2024 Subjective no interval events clinically. sitting up in chair; denies dyspnea; does endorse some HB related pain, issues w/ swallowing whcih are not new but she believes are worse. no edema. thinks she's eating less b/c of pain. seen on am rounds. Review of Systems 2 Review of Systems: All systems reviewed & are unremarkable except as noted in Subjective Physical Exam 2 Constitutional: well developed (siting up in chair on RA), well nourished and cooperative; no acute distress Eyes: EOM intact bilaterally ENMT: Ears: no external ear abnormality Nose: no external nose abnormality Mouth: + dry oral mucous membranes Neck: no nuchal rigidity Respiratory: normal respiratory effort Auscultation: + diminished lung sounds and + crackles (occasional) Cardiovascular: RRR, no murmur, no edema Gastrointestinal (Abdomen): Inspection/Auscultation: normal bowel sounds P ercussion/Palpation: abdomen soft; abdomen nontender Musculoskeletal: Extremities: strength 5/5 throughout Skin: no rashes, warm and dry Results & Data Vital Signs (Past 12 Hours) Vital Signs Temp Pulse Resp BP Pulse Ox O2 Del Method 01/13/24 08:38 36.4 C L 55 L 16 128/64 96 Room Air 01/13/24 02:54 36.3 C L 54 L 16 126/66 94 Room Air Laboratory Results 01/10/24 06:16 01/13/24 05:25
--- NOTE | 2024-01-13 13:21 | Hospitalist Progress Note ---
Date of Service January 13, 2024 Assessment & Plan (1) Lumbar disc herniation with radiculopathy: (2) Acute kidney injury superimposed on stage 4 chronic kidney disease: (3) Hyperglycemia: (4) HTN (hypertension): (5) CAD (coronary artery disease): (6) Anxiety: (7) Depression: (8) Acute hypoxic respiratory failure: (9) Hypothyroidism: (10) Esophageal dysphagia: Plan Patient has shown steady improvement in her creatinine Communication with nephrology, noted plans for possible some mild fluid replacement. Continue to monitor creatinine Discussion with speech therapist at the bedside. Patient is well-known to speech therapy. She has had video swallowing the past showing significant esophageal dysmotility. Patient is aware of this condition and aware that she needs to eat and drink small amounts more frequently. She understands need to take oral liquids. She knows to stop her oral intake when she is feels a sensation of getting full. Continue therapies Patient completed course of Medrol dose pulse, continue other pain medications Case management to pursue authorization for rehab placement Admission and Anticipated Discharge Date Admission Date: January 06, 2024 Subjective Patient offers no new complaints. Is seen at the bedside with speech. Patient aware she has chronic esophageal dysmotility and aware of the measures that she needs to implement to minimize her cough. Physical Exam Physical Exam: Constitutional: Alert HEENT: Mucous membranes moist. Lungs: Clear to auscultation, decreased, no wheezes rales or rhonchi CV: S1-S2, regular Abdomen: Soft, nontender, nondistended Extremities: No significant edema Neuro: No focal deficits Psych: Cooperative, normal mood Results & Data Results & Data Vital Signs (Past 12 Hours) Vital Signs Temp Pulse Resp BP Pulse Ox O2 Del Method 01/13/24 08:38 36.4 C L 55 L 16 128/64 96 Room Air 01/13/24 02:54 36.3 C L 54 L 16 126/66 94 Room Air Diagnostic Findings Reviewed imaging, laboratory and diagnostic studies. Pertinent findings as below. Sodium 133 Creatinine 2.8, improved Hemoglobin A1c 5.9% (4) HTN (hypertension) Hypertension type: unspecified Qualified Code(s): I10 - Essential (primary) hypertension
[2024-01-13] MEDS: SODIUM CHLORIDE 0.9% 1,000 ML IV SCH (16:00)
--- NOTE | 2024-01-13 16:11 | XRay Report ---
XR chest 1V portable CLINICAL HISTORY: chf TECHNIQUE: Single frontal radiograph of the chest was obtained. Comparison: Comparison is made to chest radiograph 01/06/2024 FINDINGS: Median sternotomy wires are unchanged. Calcified aortic knob is seen. The lungs are clear. No evidenc e of pleural effusion or pneumothorax. IMPRESSION: No evidence of pulmonary edema. ACT 112: Negative or not required by law. Electronically signed by: Robe Gerard M.D. 01/13/2024 4:09 PM
[2024-01-13 22:01] VITALS: TEMP 97.5
[2024-01-14 06:28] LABS: BUN Creatinine Ratio 37.6 (10-20); Creatinine Clr Calc Pharmacy 13.2 ml/min; Est GFR (African American) 19.3 ml/min; Est GFR (Non-African American) 16.7 ml/min; Potassium 4.2 mmol/L (3.5-5.1)
[2024-01-14 07:46] VITALS: BP 110/66; PULSE 56; RESP 15; O2SAT 97
--- NOTE | 2024-01-14 10:11 | Nephrology Progress Note ---
Date of Service January 14, 2024 Assessment & Plan (1) Acute kidney injury superimposed on stage 4 chronic kidney disease: Plan: improving nonoliguric stage 1 DIANE on CKD4 w/ significant dysfunction to a degree where she may have uremic complications potentially if stays in this range long enough. Likely 2/2 overdiuresis in mgt of her volume overload. Baseline creatinine 2.0 w/ 1.2 gm daily proteinuria >> CKD 4 w/ eGFR 20-25 and at least moderate ESRD risk; follows w/ Dr Gillette, last seen earlier this month. Also w/ hx of L proximal renal aretry stenosis dx'd 2017, last imaging Jun 2022; last renal imaging 06/2022 w/ creat at/near current baseline. Admitted 01/05 w/ creat 2.2 w/ subsequent upward progression to peak at 3.4 on 01/07, then down to 2.7 on 01/09 and up to 3.5 today after initiation of/transition to po diuretics yesterday. this patient was essentially diuretic naive on presentation and was given higher doses initially likely d/t hypoxia/HFpEF in combination with advanced CKD. Now w/ improving DIANE and also improving anion gap and mild hyponatremia; creatinine worsens and wt goes down w/ presence/increase of diuretic dosing; urine studies w/ DIANE suggest mild volume depletion. Stable for d/c from neph standpoint. NEPHRO D/C RECOMMENDATIONS -nephro will arrange ESRD Treatment Options class for pt and her granddaughter w/ nephro RN in 2-3 wks' time -[facility] d/c OV w/ Dr Gillette in 2-4 wks w/ nephro RN to order BMP, ACR, UACM, urine electrolytes, hgb, albumin, phos to be drawn up to 72 hrs before appt -facility to check BMP in one week and contact [facility] nephro / me if issues -hold lisinopri at d/c -no diuretics at d/c -for now no fluid limit -otherwise resume prior to admission medications, though low threshold for facility team to lower gabapentin dose if any concerns about MS or if renal function worsens -encourage PO intake >>pls sign out to accepting rehab team about pt's well known swallowing issues and how best to manage; encouraged her to sit up for every meal, preferably at a table Medically complex patient with DIANE on already severe CKD; high risk for complications, slowly improving. Care coordinated w/ Dr Bolivar (2) Low back pain radiating to both legs: Plan: Hip/pelvis x-ray: No acute fractures Lumbar x-ray: No acute fracture Scheduled Tylenol and tramadol per home schedule. nO nsaids - She is Stage 4 ckd , she will be at risk of needing dialysis , which may be life long with any Major surgeries (3) Abnormal urinalysis: Plan: - On aBX. Admission and Anticipated Discharge Date Admission Date: January 06, 2024 Subjective still struggling to take po at times but tells me she's discovered it's easier, food goes down better if sits up while eating. no cough, no n/v; some chest "fullness" no sob. no edema. little knowledge about renal function and asking some about that Review of Systems 2 Review of Systems: All systems reviewed & are unremarkable except as noted in Subjective Physical Exam 2 Constitutional: well developed (siting up in wheelchair on RA), well nourished and cooperative; no acute distress Eyes: EOM intact bilaterally ENMT: Ears: no external ear abnormality Nose: no external nose abnormality Mouth: + dry oral mucous membranes Neck: no nuchal rigidity Respiratory: normal respiratory effort Auscultation: + diminished lung sounds Cardiovascular: RRR, no murmur, no edema Gastrointestinal (Abdomen): Inspection/Auscultation: normal bowel sounds P ercussion/Palpation: abdomen soft; abdomen nontender Musculoskeletal: Extremities: strength 5/5 throughout Skin: no rashes, warm and dry Neurologic: perez, fluent speech, no tremor Psychiatric: Orientation: alert and oriented x 3 Insight: + limited insight Results & Data Vital Signs (Past 12 Hours) Vital Signs Temp Pulse Resp BP Pulse Ox O2 Del Method 01/14/24 07:45 36.4 C L 56 L 15 110/66 97 Room Air Laboratory Results 01/10/24 06:16 01/14/24 05:30
--- NOTE | 2024-01-14 10:57 | Discharge Summary ---
Discharge Summary Date of Service January 14, 2024 Principal Dx & Hospital Course #1 = Principal Diagnosis (1) Lumbar disc herniation with radiculopathy: (2) Acute kidney injury superimposed on stage 4 chronic kidney disease: (3) Hyperglycemia: (4) HTN (hypertension): (5) CAD (coronary artery disease): (6) Anxiety: (7) Depression: (8) Acute hypoxic respiratory failure: (9) Hypothyroidism: (10) Esophageal dysphagia: Plan Patient initially presented to the emergency room with complaints of leg and hip pain and low back pain. This exacerbated after she had fallen out of her wheelchair. In the emergency room imaging was negative for acute fractures she was also noted to be slightly hypoxic. She was admitted to the hospital for ongoing pain control and management. She was scheduled some pain medications as well as having as needed pain medications. Patient underwent MRI of the lumbar spine which showed significant herniated disc L2-L3 with central spinal stenosis. Spine surgery was consulted. They reviewed the patient's medical history and comorbidities and felt his that she was at significantly high risk for any type of surgical intervention and recommended medical intervention. She was started on steroids for anti-inflammatory effect in addition to her pain medications. She was seen by therapies. Case management was involved in her care. Rehab facilities were contacted and applied. During her hospitalization she was also seen by nephrology for acute on chronic renal failure. She also had some mild decompensation in her chronic heart failure with preserved ejection fraction. She was given some additional diuresis with IV Lasix for some volume overload and she significantly improved from a volume status, however, her acute kidney injury pro progressed. Nephrology continue to follow patient throughout her hospitalization. All nephrotoxins and any additional diuretics were held. Additional studies reveal that she may have some mild prerenal azotemia in addition to her chronic renal failure. With holding diuretics and nephrotoxins her renal function gradually improved. On the day of discharge her renal function had improved and is recommend that continue to hold nephrotoxins and she did not need any scheduled diuretics. She will be closely followed by nephrology as an outpatient. She was also treated for an uncomplicated UTI while here in the hospital. She completed a course of antibiotic therapy. Patient has known chronic esophageal dysmotility was seen by speech therapy. They continue to stress and remind her of the swallowing techniques she has been taught before and stressed the importance of her to have soft chopped meals that are small and frequent throughout the day. If her overall medical comorbidities improve, she could consider a second opinion or reevaluation by spine surgery for possible surgical intervention especially if she does not show continued improvement with her pain and mobility.The day of discharge her pain overall is significantly improved. She was participating with therapies. Her mobility was steadily improving. She was titrated off oxygen. She can be discharged to a rehab facility for ongoing physical therapy and rehabilitation. Notes For Next Care Provider Follow-up with nephrology in 2 to 4 weeks Laboratory studies prior to nephrology visit as outlined below Basic metabolic profile in 1 week Can consider secondary opinion from neurosurgery after her overall medical and physical issues improve Medication Changes From Visit Lisinopril discontinued Voltaren gel discontinued Admission HPI Per Admitting Provider Patient is 83 year old female with PMH HTN, HLD, CAD s/p CABG, hypothyroidism, CKD IV, GERD, anxiety, depression, osteoporosis, RBBB presented to ER with c/o hip and leg pain. History obtained from patient, patient's granddaughter and outpatient chart review. Patient seen in ER 01/03/2024 for reported fall out of wheelchair onto her buttocks on 01/02/24 with negative pelvis, sacrum and coccyx x-rays and CT lumbar spine without acute fracture. Patient reports chronic bilateral hip and bilateral leg pain. States pain is aggravated with any movement of BLE extremities. Takes Tylenol and Tramadol chronically. Patient states did not have her dose this afternoon since being in ER and is requesting for pain control. She feels having more low back and bilateral leg pain since fall on 01/03/24. Uses wheelchair at baseline. Patient states no fall since her ER visit on 01/03/24 and denies hitting her head. Spoke to granddaughter on phone and she states patient always has bilateral knee pain but since last fall 01/03/24 patient has been complaining of more low back and bilateral hip pain. Patient states coughed a couple of days ago but doesn't feel she has been coughing much today. She states chronically has issues with her esophagus and sometimes feels like food gets stuck. Denies dysphagia with liquids. Patient denies recent choking. States for months having some nasal congestion. States usually has BM every 2-3 days and uses Miralax. Denies diarrhea, dysuria, hematuria, urinary frequency, loss control of bowel or bladder or saddle paresthesias. Denies fever/chills, diaphoresis, N/V, PETERS, dizziness, syncope, new vision changes, increased neck pain, CP, SOB, orthopnea, palpitations, hemoptysis, sore throat, otalgia, abdominal pain, extremity edema, rashes. Admission Exam Per Admitting Provider See H&P Discharge Exam Constitutional: Alert HEENT: Mucous membranes moist. Lungs: Clear to auscultation, decreased, no wheezes rales or rhonchi CV: S1-S2, regular Abdomen: Soft, nontender, nondistended Extremities: No significant edema Neuro: No focal deficits, moving bilateral lower extremities Psych: Cooperative, normal mood Updated Medication List Medication Instructions Recorded Confirmed Type alendronate 70 mg tablet 70 mg PO WK 06/13/22 01/06/24 History aspirin 81 mg tablet,delayed 81 mg PO DAILY 06/13/22 01/06/24 History release cimetidine 400 mg tablet 400 mg PO HS 06/13/22 01/06/24 History clonazepam 0.5 mg tablet 1 mg PO HS 06/13/22 01/06/24 History cyanocobalamin (vitamin B-12) 1,000 mcg PO Q OTHER DAY 06/13/22 01/06/24 History 1,000 mcg tablet (Vitamin B-12) docusate sodium 100 mg capsule 100 mg PO DAILY 06/13/22 01/06/24 History levothyroxine 75 mcg tablet 75 mcg PO DAILYBB 06/13/22 01/06/24 History pantoprazole 40 mg tablet,delayed 40 mg PO DAILY 06/13/22 01/06/24 History release polyethylene glycol 3350 17 gram 17 g PO Q OTHER DAY 06/13/22 01/06/24 History oral powder packet (Miralax) rosuvastatin 10 mg tablet 10 mg PO DAILY 06/13/22 01/06/24 History trazodone 100 mg tablet 100 mg PO HS 06/13/22 01/06/24 History venlafaxine 150 mg 150 mg PO DAILY 06/13/22 01/06/24 History capsule,extended release 24 hr fluticasone propionate 50 2 spray intranasal DAILY 01/03/24 01/06/24 History mcg/actuation nasal spray,suspension polyvinyl alcohol-povidone 0.5 1 drp OPB BID 01/03/24 01/06/24 History %-0.6 % eye drops (Artificial Tears (polyvinyl alcohol/povidone)) cyclosporine 0.05 % eye drops in a 1 drp OPB BID 01/09/24 01/09/24 History dropperette acetaminophen 500 mg tablet 1,000 mg (2 x 500 mg) PO Q8 30 01/11/24 Rx (Tylenol Extra Strength) days #180 tabs clonazepam 0.5 mg tablet 0.5 mg PO BID@0800,1300 #10 tabs 01/11/24 Rx gabapentin 300 mg capsule 300 mg PO TID #90 caps 01/11/24 Rx lidocaine 5 % topical patch 1 patch transdermal HS #30 ea 01/11/24 Rx tramadol 50 mg tablet 50 mg PO TID@0800,1400,2000 #20 01/11/24 Rx tabs Hospital Stay Data Consultations 01/06/24 14:50 ED Decision to Admit Stat 01/07/24 07:41 Consult Orthopedic Spine Surgery Routine 01/08/24 15:34 Consult Nephrology Routine Diagnostic Imagining Performed Reviewed imaging, laboratory and diagnostic studies. Pertinent findings as below. Sodium 132, chloride 94 BUN 96, creatinine 2.55 improved Chest x-ray no acute pulmonary edema Lumbar spine MRI showed L2-L3 herniated disc with central spinal stenosis, no significant high-grade neuroforaminal stenosis, no fractures Urine culture grew out pansensitive E. coli, completed course of antibiotics in the hospital 01/06/24 16:13 MRI Lumbar Spine [MR lumbar spine wo con] Routine Pending Results Patient Have Any Pending Studies at Discharge: No Discharge Instructions Given to Patient (Per Discharging Provider) Recommend physical therapy and Occupational Therapy Patient may request second opinion on surgical intervention, to be coordinated through her efforts. BMP in 1 week, notify nephrology with concerns 1 to 3 days prior to nephrology visit please obtain: BMP, ACR, UACM, urine electrolytes, hgb, albumin, phos Patient has chronic esophageal dysmotility. She eats best when she has soft, finely chopped food that she is able to eat and small frequent meals throughout the day. Also strongly encouraged her to drink small amounts of fluid throughout the entire day. She does not have any fluid restriction at this time. Total Time Total Time Spent Total Time Spent (In Minutes): 39
== END 2024-01-14 15:37 | DRG 291 ==
LOC: ED 11:16 → SUATTDRO 14:59 → EDINP 14:59 → 2W 18:05 → 3E 01-13 21:39

== ENCOUNTER 2025-01-13 12:12 | Inpatient (IN) ==
--- NOTE | 2025-01-13 12:42 | Emergency Department Note ---
Impression & Plan Pulmonary embolism, Chest pain, Abnormal EKG, Elevated troponin I level ED Provider Note NAME: SOPHIA JORDAN AGE: 84 SEX: F : 1940 ARRIVES VIA: Ambulance INFORMANT: Patient, the patient's daughter, EMS ED PROVIDER(S): Suhail De Souza DO CHIEF COMPLAINT: Chest pain HPI: The patient is a 84-year-old female who presented to the emergency department for an evaluation of chest pain. The patient describes anterior chest pain that she describes as a pressure and a fist in her anterior chest. Apparently the patient does have a history of chronic back pain. She presented to the emergency department by ambulance. The patient did not receive any treatment prior to arrival according to nursing. ROS: See above HPI for pertinent positives & negatives. A total of 10 systems reviewed and were otherwise negative. PAST MEDICAL HISTORY: See Below PAST SURGICAL HISTORY: See Below FAMILY HISTORY: See Below SOCIAL HISTORY: See Below HOME MEDICATIONS: See Below ALLERGIES: See Below VITALS: See Below PHYSICAL EXAMINATION: GENERAL: Patient is awake alert in no acute distress patient is resting comfortably and showing no signs of anxiety EYES: The conjunctivae are clear. The pupils are round and reactive. EARS, NOSE, MOUTH AND THROAT: The nose is without any evidence of any deformity. Mucous membranes are moist. Tongue is midline. NECK: The neck is nontender and supple. RESPIRATORY: Normal respiratory effort is noted there is no evidence of wheezing rhonchi or rales CARDIOVASCULAR: Regular rate and rhythm noted there no murmurs rubs or gallops normal S1 normal S2. GASTROINTESTINAL: The abdomen was soft and nondistended. There is diffuse tenderness to palpation but no specific guarding or rigidity. MUSCULOSKELETAL/EXTREMITIES: There is no evidence of gross deformity full range of motion is noted in the hips and shoulders. SKIN: There is no obvious evidence of any rash. There are no petechiae, pallor or cyanosis noted. A sacral ulcer was noted. NEUROLOGIC: Patient is awake alert and oriented to person place and situation. Strength is symmetric but diminished. MEDICAL DECISION MAKING: The patient is an 84-year-old female who presented to the emergency department with multiple complaints. The patient was complaining of back pain recently. This is not a new complaint for her but then she started having chest pain. She was sent to the emergency department from her personal-residential because of the chest pain. The patient denies having any vomiting at this time. I discussed the patient's laboratory and radiographic studies with her. Given her age and comorbidities extensive laboratory and radiographic studies were obtained. She does appear to have EKG changes with significant T wave inversions. She was also found of a slight elevation in troponin. Given this further radiographic studies were obtained. She was found to have signs of a pulmonary embolism on CT of the chest. Patient was started on heparin. She was also treated with pain medication. She was reevaluated multiple times. I [facility] her condition [facility] They have agreed to evaluate the patient in the emergency department for further management and disposition. Triage Nursing notes reviewed. Prior medical records reviewed Vital Signs: reviewed and remarkable for hypertension Differential diagnosis: Cardiac ischemia, aortic dissection, pulmonary embolism, pneumothorax, pneumonia, pericarditis, myocarditis, esophageal rupture, GERD, cholecystitis, pancreatitis, musculoskeletal, as well as other pathologies. ER treatment provided: See below Diagnostics interpreted by me: ECG: EKG was obtained in the emergency department. My interpretation is normal sinus rhythm at 64 bpm. There is no ectopy noted. Right bundle branch block pattern was noted with diffuse symmetric T wave inversions. This was compared to a tracing from December 21, 2024. The T wave inversions are more pronounced today compared to previous but present on earlier tracing. Cardiac Monitoring: An order was placed for continuous cardiac monitoring. The monitor shows a rate of 68 bpm with sinus rhythm. Laboratory studies: As stated above and show below. Imaging studies: See below. Radiographic imaging was reviewed by myself Consultation(s): I discussed this case with Erica who is on-call [facility]. ED COURSE: Procedures: none Critical Care: I have personally spent greater than 40 minutes of critical care time in the direct management of this patient. This includes bedside care, interpretation of diagnostic studies, and testing, discussion with consultants, patient, and family members, and other required patient management activities. This 40 minutes is in excess of all separately billable procedures. Past Med/Surg History Problem List Elevated troponin Postprandial vomiting Acute pulmonary embolism Elevated troponin I level (Acute) Abnormal EKG (Acute) Chest pain (Acute) Pulmonary embolism (Acute) Hyperglycemia CKD (chronic kidney disease) (Acute) Acute kidney injury superimposed on stage 4 chronic kidney disease Lumbar disc herniation with radiculopathy Low back pain radiating to both legs Abnormal urinalysis GERD (gastroesophageal reflux disease) Anxiety CKD (chronic kidney disease), stage IV Extremity pain Acute hypoxic respiratory failure (Acute) Back pain (Acute) Contusion, hip Elbow contusion Shoulder strain Diabetes mellitus Weakness (Acute) COVID-19 (Acute) Hypomagnesemia (Acute) Acute electrocardiogram changes (Acute) Renal artery stenosis Back pain Palpitation Neck pain Chest pain (Acute) Acute pain of left shoulder (Acute) Esophageal dysphagia Dysphagia Encounter for pre-operative examination CAD (coronary artery disease) (Chronic) HTN (hypertension) (Chronic) HLD (hyperlipidemia) (Chronic) Depression (Chronic) Hypothyroidism (Chronic) CKD (chronic kidney disease), stage III (Chronic) CVA (cerebral vascular accident) (Chronic) Altered awareness, transient Hx of CABG (Chronic) History of appendectomy (Chronic) S/P cholecystectomy (Chronic) H/O: hysterectomy (Chronic) History of carpal tunnel surgery (Chronic) History of esophagogastroduodenoscopy (EGD) (Chronic) Medical History Syncope Chronic kidney disease (CKD) HTN (hypertension) Degenerative joint disease Gastritis Coronary artery disease Trigeminal neuralgia Dysphagia Neurotic depression Panic disorder Surgical History History of esophagogastroduodenoscopy (EGD) History of bilateral carpal tunnel release History of facial surgery facial nerve surgery History of surgery on extremity left leg/knee History of total abdominal hysterectomy and bilateral salpingo-oophorectomy History of cholecystectomy History of cardiac catheterization S/P CABG x 3 History of appendectomy Family History Other Family history non-contributory Social History Smoking Status: Never smoker Tobacco Type: Cigarettes Second Hand Exposure: No; Do You Dip or Chew Tobacco: No; Hx Alcohol Use: No Hx Substance Use: No Preferred Language: Belarusian Communication Ability: Effective Coin Box Inspector Required: No Beliefs That Will Affect Care: None Current Living Situation: [facility] Feels Safe at Home: Yes Assistive Devices: Walker and Wheelchair Allergies Allergies Allergy/AdvReac Type Severity Reaction Status Date / Time No Known Allergies Allergy Verified 12/21/24 19:53 Home Meds Home Medications Medication Instructions Recorded Confirmed aspirin 81 mg tablet,delayed 81 mg PO DAILY 06/13/22 01/13/25 release cimetidine 400 mg tablet 400 mg PO HS 06/13/22 01/13/25 clonazepam 0.5 mg tablet 1 mg PO HS 06/13/22 01/13/25 cyanocobalamin (vitamin B-12) 1,000 mcg PO Q OTHER DAY 06/13/22 01/13/25 1,000 mcg tablet (Vitamin B-12) docusate sodium 100 mg capsule 100 mg PO DAILY 06/13/22 01/13/25 levothyroxine 75 mcg tablet 75 mcg PO QAM 06/13/22 01/13/25 pantoprazole 40 mg tablet,delayed 40 mg PO DAILY 06/13/22 01/13/25 release polyethylene glycol 3350 17 gram 17 g PO Q OTHER DAY PRN 06/13/22 01/13/25 oral powder packet (Miralax) Constipation rosuvastatin 10 mg tablet 10 mg PO DAILY 06/13/22 01/13/25 trazodone 100 mg tablet 100 mg PO HS 06/13/22 01/13/25 fluticasone propionate 50 2 spray intranasal DAILY 01/03/24 01/13/25 mcg/actuation nasal spray,suspension polyvinyl alcohol-povidone 0.5 1 drp OPB QID 01/03/24 01/13/25 %-0.6 % eye drops (Artificial Tears (polyvinyl alcohol/povidone)) acetaminophen 500 mg tablet 1,000 mg PO TID 12/21/24 01/13/25 (Tylenol Extra Strength) biotin 1 mg tablet 1 mg PO DAILY 12/21/24 01/13/25 cholecalciferol (vitamin D3) 25 25 mcg PO DAILY 12/21/24 01/13/25 mcg (1,000 unit) capsule (Vitamin D3) gabapentin 400 mg capsule 400 mg PO BID 12/21/24 01/13/25 gabapentin 400 mg capsule 800 mg PO HS 12/21/24 01/13/25 lidocaine 4 % topical patch 1 patch topical DAILY 12/21/24 01/13/25 lidocaine HCl 4 %-menthol 1 % 1 applic topical QID PRN NECK PAIN 12/21/24 01/13/25 topical cream (Icy Hot Max (lidocaine HCl-menthol)) lisinopril 10 mg tablet 10 mg PO QAM 12/21/24 01/13/25 tramadol 50 mg tablet 50 mg PO QID 12/21/24 01/13/25 venlafaxine 75 mg capsule,extended 75 mg PO QAM 12/21/24 01/13/25 release 24 hr white petrolatum (Petroleum Jelly 1 applic topical BID 12/21/24 01/13/25 topical) Previous Rx's Medication Instructions Recorded clonazepam 0.5 mg tablet 0.5 mg PO BID@0800,1300 #10 tabs 01/11/24 Results & Data (ED) Vital Signs Vital Signs - 24 hr 01/13/25 12:19 01/13/25 12:25 01/13/25 12:42 Temperature 36.6 C Temperature Source Temporal Artery Scan Pulse Rate 71 Pulse Rate [Finger] 65 Pulse Rate from SpO2 Sensor Respiratory Rate 18 18 Respiratory Effort / Characteristics Non-Labored Spontaneous Non-Labored Spontaneous Respiratory Depth Normal Normal Respiratory Pattern Regular Regular Blood Pressure 179/69 H Blood Pressure [Right Arm] 215/81 H Blood Pressure Mean 105 Blood Pressure Mean [Right Arm] 125 Blood Pressure Position [Right Arm] Sitting Pulse Oximetry 99 98 98 Oxygen Delivery Method Room Air Room Air Room Air Sepsis Recent Fever Within 48 Hours No Sepsis New/Unexplained Change in Mental Status N/A Sepsis Action Taken by Nursing No Action Required 01/13/25 13:01 01/13/25 13:14 01/13/25 13:31 Temperature Temperature Source Pulse Rate 64 59 L Pulse Rate [Finger] Pulse Rate from SpO2 Sensor 63 58 L Respiratory Rate 19 18 Respiratory Effort / Characteristics Respiratory Depth Respiratory Pattern Blood Pressure 209/67 H 181/48 H Blood Pressure [Right Arm] Blood Pressure Mean 114 99 Blood Pressure Mean [Right Arm] Blood Pressure Position [Right Arm] Pulse Oximetry 93 93 94 Oxygen Delivery Method Room Air Sepsis Recent Fever Within 48 Hours Sepsis New/Unexplained Change in Mental Status Sepsis Action Taken by Nursing 01/13/25 13:44 01/13/25 14:00 01/13/25 14:01 Temperature Temperature Source Pulse Rate 60 59 L Pulse Rate [Finger] 56 L Pulse Rate from SpO2 Sensor 60 Respiratory Rate 16 Respiratory Effort / Characteristics Non-Labored Spontaneous Respiratory Depth Normal Respiratory Pattern Blood Pressure 191/56 H Blood Pressure [Right Arm] 185/85 H Blood Pressure Mean 137 Blood Pressure Mean [Right Arm] 118 Blood Pressure Position [Right Arm] Pulse Oximetry 93 Oxygen Delivery Method Room Air Sepsis Recent Fever Within 48 Hours Sepsis New/Unexplained Change in Mental Status Sepsis Action Taken by Nursing 01/13/25 14:30 01/13/25 15:44 01/13/25 16:15 Temperature Temperature Source Pulse Rate 57 L 56 L 81 Pulse Rate [Finger] Pulse Rate from SpO2 Sensor 55 L 56 L 73 Respiratory Rate 19 18 15 Respiratory Effort / Characteristics Respiratory Depth Respiratory Pattern Blood Pressure 185/85 H 225/141 H 221/99 H Blood Pressure [Right Arm] Blood Pressure Mean 153 150 139 Blood Pressure Mean [Right Arm] Blood Pressure Position [Right Arm] Pulse Oximetry 94 93 97 Oxygen Delivery Method Sepsis Recent Fever Within 48 Hours Sepsis New/Unexplained Change in Mental Status Sepsis Action Taken by Nursing 01/13/25 16:30 01/13/25 17:00 01/13/25 17:30 Temperature Temperature Source Pulse Rate 67 76 68 Pulse Rate [Finger] Pulse Rate from SpO2 Sensor 65 74 68 Respiratory Rate 22 17 18 Respiratory Effort / Characteristics Respiratory Depth Respiratory Pattern Blood Pressure 221/99 H 208/79 H 194/95 H Blood Pressure [Right Arm] Blood Pressure Mean 165 144 163 Blood Pressure Mean [Right Arm] Blood Pressure Position [Right Arm] Pulse Oximetry 96 98 Oxygen Delivery Method Sepsis Recent Fever Within 48 Hours Sepsis New/Unexplained Change in Mental Status Sepsis Action Taken by [facility] Medications Current Medication List: was personally reviewed by me Laboratory Data Attestation: I reviewed the patient's lab results. 01/13/25 12:30 01/13/25 12:30 Lab Results 01/13/25 01/13/25 Range/Units 12:30 15:46 WBC 7.91 (4.8-10.8) K/ul RBC 4.36 (4.20-5.40) M/uL Hgb 13.6 (12.0-16.0) g/dl Hct 42.2 (37.0-47.0) % MCV 96.8 (80.0-100.0) fL MCH 31.2 (25.0-34.0) pg MCHC 32.2 (32.0-36.0) g/dL RDW Std Deviation 49.3 H (36.4-46.3) fL RDW Coeff of Keshia 13.7 (11.5-14.5) % Plt Count 235 (130-400) K/uL MPV 9.2 L (9.4-12.4) fL Immature Gran % (Auto) 0.4 % Neut % (Auto) 66.7 % Lymph % (Auto) 21.1 % Pershing % (Auto) 9.1 % Eos % (Auto) 1.8 % Baso % (Auto) 0.9 % Neut # (Auto) 5.28 (1.40-6.50) K/uL Lymph # (Auto) 1.67 (1.20-3.40) K/uL [place] # (Auto) 0.72 H (0.11-0.59) K/uL Eos # (Auto) 0.14 (0.00-0.50) K/uL Baso # (Auto) 0.07 (0.00-0.20) K/uL Immature Gran # (Auto) 0.03 (0.01-0.20) K/uL PT 10.0 (9.0-12.0) Seconds INR 0.9 (0.9-1.1) APTT 26 (21-31) Seconds PTT Ratio 1.0 Sodium 138 (136-145) mmol/L Potassium 5.1 (3.5-5.1) mmol/L Chloride 106 (98-107) mmol/L Carbon Dioxide 26 (21-32) mmol/L Anion Gap 6 (3-11) BUN 38 H (6-23) mg/dl Creatinine 1.75 H (0.6-1.2) mg/dl Est Cr Clr Drug Dosing 18.6 ml/min eGFR 28.21 BUN/Creatinine Ratio 21.7 H (10-20) Glucose 95 (70-99(Fasting)) mg/dl Calcium 10.6 H (8.6-10.3) mg/dl Total Bilirubin 0.3 (0.2-1.0) mg/dl AST 10 L (13-39) U/L ALT 6 L (7-52) U/L Alkaline Phosphatase 83 (34-104) U/L Troponin I High Sens 15.8 H (0-14) pg/ml Total Protein 7.2 (6.0-8.3) gm/dl Albumin 4.1 (3.4-5.0) gm/dl Globulin 3.1 (2.5-4.0) gm/dl Albumin/Globulin Ratio 1.3 (0.9-2) Lipase 22 (11-82) U/L Urine Color Yellow Urine Appearance Clear (Clear) Urine pH 5.5 (4.5-7.5) Ur Specific [place] 1.017 (1.000-1.030) Urine Protein 2+ H (Negative) Urine Glucose (UA) Negative (Negative) Urine Ketones Negative (Negative) Urine Blood Negative (Negative) Urine Nitrite Negative (Negative) Urine Bilirubin Negative (Negative) Urine Urobilinogen Negative (Negative) Ur Leukocyte Esterase Negative (Negative) Urine WBC (Auto) 0-5 (0-5) /hpf Urine RBC (Auto) 0-2 (0-2) /hpf U Hyaline Cast (Auto) 0-2 (0-2) /lpf U Epithel Cells (Auto) 0-2 (0-2) /hpf Urine Bacteria (Auto) None Seen (None Seen) Urine Comment Administered Medications Discontinued Medications Al Hydrox/Mg Hydrox/Simethicone (Aluminum/Magnesium Susp 30 Ml Udc) 30 ml PO NOW STA Stop: 01/13/25 12:37 Last Admin: 01/13/25 12:55 Dose: 30 ml Documented By: DEBBIE Aspirin (Aspirin Chew 324 Mg) 324 mg PO NOW STA Stop: 01/13/25 12:37 Last Admin: 01/13/25 12:55 Dose: 324 mg Documented By: DEBBIE Heparin Sodium/Dextrose (Heparin Iv Adult Wt-Based Standard *No* Initial Bolus Protocol) 1 each IV ONE STA; Protocol Stop: 01/13/25 16:31 Last Admin: 01/13/25 17:34 Dose: Not Given Documented By: BUZZ Acetaminophen (Ofirmev) 1,000 mg in 100 mls @ 400 mls/hr IV NOW STA Stop: 01/13/25 12:50 Last Infusion: 01/13/25 14:42 Dose: Infused Documented By: Admin: 01/13/25 12:55 Dose: 400 mls/hr Documented By: DEBBIE Ioversol (Optiray 320 125ml) 115 ml IV ONCE ONE Stop: 01/13/25 15:29 Last Admin: 01/13/25 15:28 Dose: 115 ml Documented By: ABS Morphine Sulfate (Morphine Sulfate 4 Mg/Ml 1 Ml Carp\Vial) 4 mg IV NOW STA Stop: 01/13/25 16:18 Last Admin: 01/13/25 16:38 Dose: 4 mg Documented By: BS Ondansetron HCl (Ondansetron Inj 2 Mg/Ml 2 Ml Vial) 4 mg IV NOW STA Stop: 01/13/25 16:18 Last Admin: 01/13/25 16:38 Dose: 4 mg Documented By: BS Imaging Data Attestation: I personally reviewed and interpreted this imaging study as follows: My Impression: 1 view chest x-ray was obtained in the emergency department. My interpretation is no free air or definite infiltrate, final report below. Radiologist's Impression: Chest X-Ray 01/13/25 12:36 XR chest 1V portable CLINICAL HISTORY: Chest pain, nonspecific COMPARISON STUDY: 12/21/2024 FINDINGS: Stable CABG. Stable mild cardiomegaly without pulmonary vascular congestion. No consolidation or pleural effusion. No pneumothorax. IMPRESSION: No acute findings. ACT 112: Negative or not required by law. Electronically signed by: Andreas Vazquez M.D. 01/13/2025 1:01 PM Abdomen/Pelvis CT 01/13/25 12:55 CT SCAN OF THE ABDOMEN AND PELVIS WITH IV CONTRAST CLINICAL HISTORY: Back pain. Generalized abdominal pain. COMPARISON STUDY: Abdominal CT dated 07/12/2022. TECHNIQUE: Following the IV administration of 115 cc of Optiray 320, CT scan of the abdomen and pelvis is performed from the lung bases to the proximal femora. Images are reviewed in the axial, sagittal, and coronal planes. IV contrast was administered without complication. A dose lowering technique was utilized adhering to the principles of ALARA. The examination is degraded by streak artifact from the arms which could not be elevated above the abdomen. The examination is also degraded by motion artifact. FINDINGS: Lung bases: The patient is status post midline sternotomy. The heart heart is enlarged and without pericardial effusion. The coronary arteries are densely calcified. There is bibasilar scarring/atelectasis. No airspace consolidation or pleural effusion is identified. Liver: The contrast-enhanced liver is normal in size, contour, and attenuation. There is mild intrahepatic biliary ductal dilatation. Pneumobilia similar to previous. The hepatic veins and portal veins are patent. Gallbladder: Surgically absent noting clips in the gallbladder fossa. Spleen: Normal in size and attenuation. There are calcified splenic granulomas. Pancreas: Atrophic and grossly unremarkable. Adrenal glands: Unremarkable. Kidneys: The contrast enhanced kidneys are atrophic and without hydronephrosis. The kidneys enhance symmetrically. A 2.6 cm cyst is noted on the right. Additional scattered subcentimeter cortical hypodensities also likely represent cysts but are too small for definitive characterization. Abdominal vasculature: There is advanced atherosclerotic calcification and ectasia of the abdominal aorta. Bowel: There is advanced colonic diverticulosis without CT evidence of acute diverticulitis. No bowel obstruction is seen. There is also diverticulosis of the small bowel. Hlfh-ed-[id number] fecal retention is noted throughout the colon. The appendix is not visualized. Peritoneum: There is no intraperitoneal free air or abdominal ascites. Lymphadenopathy: None. Pelvic viscera: The bladder is mildly distended but otherwise normal in appearance. The uterus is surgically absent. No adnexal lesion is seen. A surgical clip is seen in the right groin. Skeletal structures: The skeletal structures are osteopenic. There are mild chronic superior endplate compression deformities of T11 and L1. There is mild to moderate lumbosacral spondylosis. Chronic deformity is again seen at the sacrococcygeal junction. There are subacute/healing right-sided rib fractures. No lytic or blastic lesions are seen. IMPRESSION: 1. No acute infectious or inflammatory findings are identified in the abdomen or pelvis. 2. Advanced diverticulosis of the colon, as well as diverticulosis of the small bowel without CT evidence of acute diverticulitis. 3. Cardiomegaly noting advanced coronary artery atherosclerosis. 4. There are subacute/healing right-sided rib fractures. 5. Additional findings as above. ACT 112: Negative or not required by law. Electronically signed by: Todd Perales M.D. 01/13/2025 3:47 PM Chest CTA 01/13/25 12:55 CT angio chest PE protocol CT DOSE: 1970.74 mGy.cm HISTORY: PE. TECHNIQUE: Multiple CTA images of the chest were obtained after the intravenous administration of 120 ml Optiray. Coronal and sagittal MIPS were obtained from the axial data set and were submitted for review. All measurements were obtained according to NASCET criteria. A dose lowering technique was utilized adhering to the principles of ALARA. COMPARISON STUDY: 04/12/2023 FINDINGS: There is no pulmonary consolidation or pleural effusion. No pneumothorax. There is mild dependent atelectasis in the lung bases. No enlarged adenopathy. No pericardial effusion. There are diffuse coronary artery calcifications. No thoracic aortic dissection or aneurysm. There is a small pulmonary embolism distally in the right middle lobe pulmonary artery. There is a tiny pulmonary embolism distally in a right lower lobe pulmonary artery. No large pulmonary emboli seen. RV LV ratio is less than 1. Biliary gas again seen at the visualized upper liver. There are splenic calcifications consistent with prior granulomatous disease. There is a cyst at the partially visualized right upper kidney. There is an old healed lower right rib fracture. There is mild diffuse degenerative change at the thoracic spine. Stable mild sclerosis at the T8 vertebral body. Stable mild height loss at the T11 and L1 vertebral bodies. No acute fracture seen at the visualized osseous structures. IMPRESSION: 1. Low volume pulmonary embolism with no evidence of right heart strain. 2. Otherwise as described. ACT 112: Negative or not required by law. The above report was generated using voice recognition software. It may contain grammatical, syntax or spelling errors. Electronically signed by: Andreas Vazquez M.D. 01/13/2025 3:51 PM Discharge Plan Visit Data Chief Complaint: Chest Pain ED Provider: Suhail De Souza Discharge Problem: Pulmonary embolism, Chest pain, Abnormal EKG, Elevated troponin I level Patient Disposition: Being Evaluated by Hospitalist Condition: Fair Forms Stand Alone Forms: My [facility] Prescriptions Prescriptions: No Action polyethylene glycol 3350 [Miralax] 17 gram Powder In Packet 17 g PO Q OTHER DAY PRN (Reason: Constipation) Rx Instructions: hold if pt has diarrhea cimetidine 400 mg tablet 400 mg PO HS clonazepam 0.5 mg tablet 1 mg PO HS cyanocobalamin (vitamin B-12) [Vitamin B-12] 1,000 mcg Tablet 1,000 mcg PO Q OTHER DAY aspirin 81 mg Tablet,Delayed Release (Dr/Ec) 81 mg PO DAILY levothyroxine 75 mcg tablet 75 mcg PO QAM trazodone 100 mg tablet 100 mg PO HS pantoprazole 40 mg tablet,delayed release (DR/EC) 40 mg PO DAILY docusate sodium 100 mg Capsule 100 mg PO DAILY rosuvastatin 10 mg tablet 10 mg PO DAILY fluticasone propionate 50 mcg/actuation [place],Suspension 2 spray INTRANASAL DAILY Rx Instructions: administer into each nostril Artificial Tears(pvalch-povid) 0.5-0.6 % Drops 1 drp OPB QID clonazepam 0.5 mg Tablet 0.5 mg PO BID@0800,1300 Qty: 10 0RF venlafaxine 75 mg capsule,extended release 24hr 75 mg PO QAM lidocaine 4 % Adhesive Patch,Medicated 1 patch TOPICAL DAILY Rx Instructions: APPLY TO LEFT SHOULDER, ON 12 HRS, OFF 12 HRS. gabapentin 400 mg capsule 800 mg PO HS gabapentin 400 mg capsule 400 mg PO BID acetaminophen [Tylenol Extra Strength] 500 mg Tablet 1,000 mg PO TID lisinopril 10 mg tablet 10 mg PO QAM white petrolatum [Petroleum Jelly] Gel 1 applic TOPICAL BID Rx Instructions: WOUND CARE cholecalciferol (vitamin D3) [Vitamin D3] 25 mcg (1,000 unit) Capsule 25 mcg PO DAILY biotin 1 mg Tablet 1 mg PO DAILY Icy Hot Max (lido HCl-menthol) 4-1 % Cream 1 applic TOPICAL QID PRN (Reason: NECK PAIN) tramadol 50 mg tablet 50 mg PO QID Referrals Referrals: Dillon Ureña III, MD [Outside Practitioners] - Discharge Problem: Chest pain Qualifiers: Chest pain type: unspecified Qualified Code(s): R07.9 - Chest pain, unspecified
[2025-01-13] MEDS: ASPIRIN CHEW 324 MG PO STA (12:55)
[2025-01-13] MEDS: ACETAMINOPHEN 1,000 MG/100 ML VIAL IV STA (12:55)
[2025-01-13] MEDS: ALUMINUM/MAGNESIUM SUSP 30 ML UDC PO STA (12:55)
[2025-01-13 13:00] LABS: Hematocrit (blood only) 42.2 % (37.0-47.0); Hemoglobin 13.6 g/dl (12.0-16.0); Immature Granulocytes # (auto) 0.03 K/uL (0.01-0.20); Immature Granulocytes % (auto) 0.4 %; Mean Corpuscular Hemoglobin 31.2 pg (25.0-34.0); Mean Corpuscular Volume 96.8 fL (80.0-100.0); Platelet Count 235 K/uL (130-400); RDW Standard Deviation 49.3 fL (36.4-46.3); Red Blood Count 4.36 M/uL (4.20-5.40); White Blood Count 7.91 K/ul (4.8-10.8)
--- NOTE | 2025-01-13 13:02 | XRay Report ---
XR chest 1V portable CLINICAL HISTORY: Chest pain, nonspecific COMPARISON STUDY: 12/21/2024 FINDINGS: Stable CABG. Stable mild cardiomegaly without pulmonary vascular congestion. No consolidati on or pleural effusion. No pneumothorax. IMPRESSION: No acute findings. ACT 112: Negative or not required by law. Electronically signed by: Andreas Vazquez M.D. 01/13/2025 1:01 PM
[2025-01-13 13:26] LABS: Alanine Aminotransferase 6.0 U/L (7-52); Albumin Globulin Ratio 1.3 (0.9-2); Alkaline Phosphatase 83.0 U/L (34-104); Anion Gap 6.0 (3-11); Bilirubin,Total 0.3 mg/dl (0.2-1.0); Blood Urea Nitrogen 38.0 mg/dl (6-23); Calcium 10.6 mg/dl (8.6-10.3); Carbon Dioxide 26.0 mmol/L (21-32); Chloride 106.0 mmol/L (98-107); Creatinine Clr Calc Pharmacy 18.6 ml/min; Globulin 3.1 gm/dl (2.5-4.0); Glucose 95.0 mg/dl (70-99(Fasting)); Lipase 22.0 U/L (11-82); Potassium 5.1 mmol/L (3.5-5.1); Sodium 138.0 mmol/L (136-145); Total Protein 7.2 gm/dl (6.0-8.3)
[2025-01-13 13:35] LABS: INR 0.9 (0.9-1.1); Partial Thromboplastin Time 26 Seconds (21-31); Prothrombin Time 10.0 Seconds (9.0-12.0)
[2025-01-13] MEDS: OPTIRAY 320 125ml IV ONE (15:28)
--- NOTE | 2025-01-13 15:48 | CT Scan Report ---
CT SCAN OF THE ABDOMEN AND PELVIS WITH IV CONTRAST CLINICAL HISTORY: Back pain. Generalized abdominal pain. COMPARISON STUDY: Abdominal CT dated 07/12/2022. TECHNIQUE: Following the IV administration of 115 cc of Optiray 320, CT scan of the abdomen and pelv is is performed from the lung bases to the proximal femora. Images are reviewed in the axial, sagitta l, and coronal planes. IV contrast was administered without complication. A dose lowering technique w as utilized adhering to the principles of ALARA. The examination is degraded by streak artifact from the arms which could not be elevated above the abdomen. The examination is also degraded by motion ar tifact. FINDINGS: Lung bases: The patient is status post midline sternotomy. The heart heart is enlarged and without pe ricardial effusion. The coronary arteries are densely calcified. There is bibasilar scarring/atelecta sis. No airspace consolidation or pleural effusion is identified. Liver: The contrast-enhanced liver is normal in size, contour, and attenuation. There is mild intrahe patic biliary ductal dilatation. Pneumobilia similar to previous. The hepatic veins and portal veins are patent. Gallbladder: Surgically absent noting clips in the gallbladder fossa. Spleen: Normal in size and attenuation. There are calcified splenic granulomas. Pancreas: Atrophic and grossly unremarkable. Adrenal glands: Unremarkable. Kidneys: The contrast enhanced kidneys are atrophic and without hydronephrosis. The kidneys enhance s ymmetrically. A 2.6 cm cyst is noted on the right. Additional scattered subcentimeter cortical hypode nsities also likely represent cysts but are too small for definitive characterization. Abdominal vasculature: There is advanced atherosclerotic calcification and ectasia of the abdominal a alberto. Bowel: There is advanced colonic diverticulosis without CT evidence of acute diverticulitis. No bowel obstruction is seen. There is also diverticulosis of the small bowel. [id number] fecal retenti on is noted throughout the colon. The appendix is not visualized. Peritoneum: There is no intraperitoneal free air or abdominal ascites. Lymphadenopathy: None. Pelvic viscera: The bladder is mildly distended but otherwise normal in appearance. The uterus is antoinette gically absent. No adnexal lesion is seen. A surgical clip is seen in the right groin. Skeletal structures: The skeletal structures are osteopenic. There are mild chronic superior endplate compression deformities of T11 and L1. There is mild to moderate lumbosacral spondylosis. Chronic de formity is again seen at the sacrococcygeal junction. There are subacute/healing right-sided rib frac tures. No lytic or blastic lesions are seen. IMPRESSION: 1. No acute infectious or inflammatory findings are identified in the abdomen or pelvis. 2. Advanced diverticulosis of the colon, as well as diverticulosis of the small bowel without CT evid ence of acute diverticulitis. 3. Cardiomegaly noting advanced coronary artery atherosclerosis. 4. There are subacute/healing right-sided rib fractures. 5. Additional findings as above. ACT 112: Negative or not required by law. Electronically signed by: Todd Perales M.D. 01/13/2025 3:47 PM
--- NOTE | 2025-01-13 15:53 | CT Scan Report ---
CT angio chest PE protocol CT DOSE: 1970.74 mGy.cm HISTORY: PE. TECHNIQUE: Multiple CTA images of the chest were obtained after the intravenous administration of 120 ml Optiray. Coronal and sagittal MIPS were obtained from the axial data set and were submitted for review. All measurements were obtained according to NASCET criteria. A dose lowering technique was u tilized adhering to the principles of ALARA. COMPARISON STUDY: 04/12/2023 FINDINGS: There is no pulmonary consolidation or pleural effusion. No pneumothorax. There is mild dep endent atelectasis in the lung bases. No enlarged adenopathy. No pericardial effusion. There are diff use coronary artery calcifications. No thoracic aortic dissection or aneurysm. There is a small pulmonary embolism distally in the right middle lobe pulmonary artery. There is a ti ny pulmonary embolism distally in a right lower lobe pulmonary artery. No large pulmonary emboli seen . RV LV ratio is less than 1. Biliary gas again seen at the visualized upper liver. There are splenic calcifications consistent wit h prior granulomatous disease. There is a cyst at the partially visualized right upper kidney. There is an old healed lower right rib fracture. There is mild diffuse degenerative change at the thoracic spine. Stable mild sclerosis at the T8 vertebral body. Stable mild height loss at the T11 and L1 vert ebral bodies. No acute fracture seen at the visualized osseous structures. IMPRESSION: 1. Low volume pulmonary embolism with no evidence of right heart strain. 2. Otherwise as described. ACT 112: Negative or not required by law. The above report was generated using voice recognition software. It may contain grammatical, syntax o r spelling errors. Electronically signed by: Andreas Vazquez M.D. 01/13/2025 3:51 PM
[2025-01-13 16:06] LABS: Appearance Urine Clear (Clear); Bacteria Urine Automated None Seen (None Seen); Cast Urine Automated 0-2 /lpf (0-2); Epithelial Cell Urine Auto 0-2 /hpf (0-2); Glucose Urine UA Negative (Negative); RBC Urine Automated 0-2 /hpf (0-2); WBC Urine Automated 0-5 /hpf (0-5)
--- NOTE | 2025-01-13 16:35 | History & Physical Report ---
<Statement entered by Hill Abraham, DO - 01/13/25 18:32> patient seen and examined #Acute unprovoked PE -No O2 requirements -Continue heparin drip. transition to eliquis starter pack tomorrow -Would favor indefinite therapy -TTE in AM Date of Service January 13, 2025 Assessment & Plan (1) Chest pain: (2) Elevated troponin: (3) Acute pulmonary embolism: (4) Dysphagia: (5) Postprandial vomiting: (6) Right rib fracture: (7) Hypertensive urgency: Plan Pt is an 84y/o F from [facility] with PMHx significant for ASCVD s/p CABG x 3 in August 1993, nonrheumatic aortic valve insufficiency, bradycardia, HTN, HLD, DMII, diabetic peripheral neuropathy, persistent proteinuria, CKD stage IV, secondary renal hyperparathyroidism, hypothyroidism, external hemorrhoids, GERD, vit D deficiency, stress urinary incontinence, age- related osteoporosis, generalized osteoarthritis and anxiety/depression who presented to the ED via EMS with complaint of chest pain and was found to have acute R-sided pulmonary emboli. #Chest pain #Elevated troponin #Acute pulmonary emboli Pt mostly wheelchair bound at baseline - pt states "my legs are very weak" Chest CTA: small PE distally in the R middle lobe pulmonary artery, a tiny PE distally in a R lower lobe pulmonary artery [no large pulmonary emboli seen, no R heart strain] IV heparin drip started in ED --> will continue for now w/ tentative plan for transition to Eliquis soon (possibly tomorrow) S/p 324mg ASA in ED EKG: no acute ST segment changes personally seen to indicate ACS Likely trop elevation 2/2 demand ischemia ISO acute pulmonary emboli, uncontrolled HTN Follow trop trend, EKG w/ CP PRN Check BLE venous doppler US #Dysphagia #Postprandial vomiting Pt admits to "food getting stuck" intermittency x several weeks with subsequent postprandial vomiting Pt states she has a h/o esophageal strictures requiring EGD dilation Was transitioned to pured diet at [facility] last wk which she has been tolerating Will keep on pured diet for now Appreciate speech therapy eval, re: formal swallow study Routine GI consult for possible EGD eval -Given active chemical AC, would likely need to be future consideration Aspiration precautions #Subacute/healing right-sided rib fractures incidentally noted on CTAP Avoid ISP for now ISO above PRN lidocaine patch ordered #HTN urgency Will give lisinopril now as pt did not receive it this AM PRN IV hydralazine 2.5mg Q4H for SBP>190 Continue to monitor #ASCVD s/p CABG x 3 in August 1993 F/w [facility] cards Continue ASA, statin #CKD stage IV Cr stable on admission Baseline Cr 1.9-2.1 per OP chart review #Diabetic peripheral neuropathy Continue gabapentin #Vit D deficiency Continue vit D supplementation #Depression/anxiety Continue venlafaxine Will hold home saul Klonopin for now 2/2 risk of developing delirium given age and suspected underlying MCI (frequent periods of forgetfulness); will also home saul trazodone for now #GERD Continue cimetidine, PPI #Hypothyroidism Continue levothyroxine #Chronic low back pain Unchanged from baseline per pt DVT Prophylaxis: IV heparin Disposition: Admit to med/telemetry, appreciate PT/OT evals for routine DC planning Patient seen in collaboration with Dr. Arbaham. Please see addendum. I spent a total of 62 minutes coordinating, documenting, and providing care for this patient excluding time spent in the performance of separately billed services or time spent by another provider/QHP. This included personally reviewing all current laboratories and imaging studies, medical reconciliation, outpatient chart review and discussion with specialists. This chart was completed in part utilizing Speech Voice Recognition Software. Grammatical errors, random word insertions, pronoun errors, and incomplete sentences are an occasional consequence of this system due to software limitations, ambient noise, and hardware issues. Any formal questions or concerns about the content, text, or information contained within the body of this dictation should be directly addressed to the provider for clarification. History of Present Illness Chief Complaint: Chest pain Primary Care Provider: [facility] Pt is an 84y/o F from [facility] with PMHx significant for ASCVD s/p CABG x 3 in August 1993, nonrheumatic aortic valve insufficiency, bradycardia, HTN, HLD, DMII, diabetic peripheral neuropathy, persistent proteinuria, CKD stage IV, secondary renal hyperparathyroidism, hypothyroidism, external hemorrhoids, GERD, vit D deficiency, stress urinary incontinence, age-related osteoporosis, generalized osteoarthritis and anxiety/depression who presented to the ED via EMS with complaint of chest pain. History obtained from the pt, discussion with ED provider and associated chart review. Pt c/o sharp chest pain beginning this morning. Describes it as stabbing and sometimes heavy as nature - "feels like something is pushing on my chest." Also felt some mild SOB with this initially, but now feels both are improving since being in the ED. Mostly wheelchair bound at baseline. Distant smoking history during teenage years. Has chronic low back pain which feels unchanged from baseline. Denies any urinary or bowel habit changes. Feels appetite has been unchanged, however, she admits to experiencing episodes of significant dysphagia and postprandial vomiting for the past several weeks. Mentions she has had esophageal strictures before which required EGD dilation in the past. States she has been tolerating a pured diet at her assisted-living facility for the past week or so. No reported fevers, cough or congestion. Denies any episodes of carmen aspiration. Allergies Allergy/AdvReac Type Severity Reaction Status Date / Time No Known Allergies Allergy Verified 12/21/24 19:53 Home Medications Medication Instructions Recorded Confirmed Type aspirin 81 mg tablet,delayed 81 mg PO DAILY 06/13/22 01/13/25 History release cimetidine 400 mg tablet 400 mg PO HS 06/13/22 01/13/25 History clonazepam 0.5 mg tablet 1 mg PO HS 06/13/22 01/13/25 History cyanocobalamin (vitamin B-12) 1,000 mcg PO Q OTHER DAY 06/13/22 01/13/25 History 1,000 mcg tablet (Vitamin B-12) docusate sodium 100 mg capsule 100 mg PO DAILY 06/13/22 01/13/25 History levothyroxine 75 mcg tablet 75 mcg PO QAM 06/13/22 01/13/25 History pantoprazole 40 mg tablet,delayed 40 mg PO DAILY 06/13/22 01/13/25 History release polyethylene glycol 3350 17 gram 17 g PO Q OTHER DAY PRN 06/13/22 01/13/25 History oral powder packet (Miralax) Constipation rosuvastatin 10 mg tablet 10 mg PO DAILY 06/13/22 01/13/25 History trazodone 100 mg tablet 100 mg PO HS 06/13/22 01/13/25 History fluticasone propionate 50 2 spray intranasal DAILY 01/03/24 01/13/25 History mcg/actuation nasal spray,suspension polyvinyl alcohol-povidone 0.5 1 drp OPB QID 01/03/24 01/13/25 History %-0.6 % eye drops (Artificial Tears (polyvinyl alcohol/povidone)) clonazepam 0.5 mg tablet 0.5 mg PO BID@0800,1300 #10 tabs 01/11/24 01/13/25 Rx acetaminophen 500 mg tablet 1,000 mg PO TID 12/21/24 01/13/25 History (Tylenol Extra Strength) biotin 1 mg tablet 1 mg PO DAILY 12/21/24 01/13/25 History cholecalciferol (vitamin D3) 25 25 mcg PO DAILY 12/21/24 01/13/25 History mcg (1,000 unit) capsule (Vitamin D3) gabapentin 400 mg capsule 400 mg PO BID 12/21/24 01/13/25 History lidocaine 4 % topical patch 1 patch topical DAILY 12/21/24 01/13/25 History lidocaine HCl 4 %-menthol 1 % 1 applic topical QID PRN NECK PAIN 12/21/24 01/13/25 History topical cream (Icy Hot Max (lidocaine HCl-menthol)) lisinopril 10 mg tablet 10 mg PO QAM 12/21/24 01/13/25 History tramadol 50 mg tablet 50 mg PO QID 12/21/24 01/13/25 History venlafaxine 75 mg capsule,extended 75 mg PO QAM 12/21/24 01/13/25 History release 24 hr white petrolatum (Petroleum Jelly 1 applic topical BID 12/21/24 01/13/25 History topical) Past Med/Surg History Problem List Hypertensive urgency Right rib fracture Elevated troponin Postprandial vomiting Acute pulmonary embolism Elevated troponin I level (Acute) Abnormal EKG (Acute) Chest pain (Acute) Pulmonary embolism (Acute) Hyperglycemia CKD (chronic kidney disease) (Acute) Acute kidney injury superimposed on stage 4 chronic kidney disease Lumbar disc herniation with radiculopathy Low back pain radiating to both legs Abnormal urinalysis GERD (gastroesophageal reflux disease) Anxiety CKD (chronic kidney disease), stage IV Extremity pain Acute hypoxic respiratory failure (Acute) Back pain (Acute) Contusion, hip Elbow contusion Shoulder strain Diabetes mellitus Weakness (Acute) COVID-19 (Acute) Hypomagnesemia (Acute) Acute electrocardiogram changes (Acute) Renal artery stenosis Back pain Palpitation Neck pain Chest pain (Acute) Acute pain of left shoulder (Acute) Esophageal dysphagia Dysphagia Encounter for pre-operative examination CAD (coronary artery disease) (Chronic) HTN (hypertension) (Chronic) HLD (hyperlipidemia) (Chronic) Depression (Chronic) Hypothyroidism (Chronic) CKD (chronic kidney disease), stage III (Chronic) CVA (cerebral vascular accident) (Chronic) Altered awareness, transient Hx of CABG (Chronic) History of appendectomy (Chronic) S/P cholecystectomy (Chronic) H/O: hysterectomy (Chronic) History of carpal tunnel surgery (Chronic) History of esophagogastroduodenoscopy (EGD) (Chronic) Medical History Syncope Chronic kidney disease (CKD) HTN (hypertension) Degenerative joint disease Gastritis Coronary artery disease Trigeminal neuralgia Dysphagia Neurotic depression Panic disorder Surgical History History of esophagogastroduodenoscopy (EGD) History of bilateral carpal tunnel release History of facial surgery facial nerve surgery History of surgery on extremity left leg/knee History of total abdominal hysterectomy and bilateral salpingo-oophorectomy History of cholecystectomy History of cardiac catheterization S/P CABG x 3 History of appendectomy Family History Other Family history non-contributory Social History Smoking Status: Never smoker Tobacco Type: Cigarettes Second Hand Exposure: No; Do You Dip or Chew Tobacco: No; Hx Alcohol Use: No Hx Substance Use: No Preferred Language: Bhutanese Communication Ability: Effective Java Spring Developer Required: No Beliefs That Will Affect Care: None Current Living Situation: [facility] Feels Safe at Home: Yes Assistive Devices: Walker and Wheelchair Review of Systems Review of Systems: At least ten systems reviewed and negative, except as noted in the HPI. Physical Exam Physical Exam: General/Neurologic: Elderly F, NAD, laying down in bed, A&Ox3 with intermittent periods of forgetfulness but otherwise conversing appropriately, [place], very pleasant, no overt focal deficits, CN's II-XI not formally tested but appear grossly intact bilaterally HEENT: Normocephalic, atraumatic, oropharynx appears somewhat dry Respiratory: Normal respiratory effort, decreased air entry bilaterally otherwise no crackles/wheezing Cardiovascular: Bradycardic (HR 50-60s), regular rhythm, normal peripheral pulses, no BLE edema Abdomen/GI: Active bowel sounds, soft, nondistended, nontender to palpation in all quadrants Extremities/MSK: No cyanosis or clubbing, actively moves all extremities, some TTP on b/l posterior calf regions Results & Data Results & Data Vital Signs (Past 12 Hours) Vital Signs Temp Pulse Pulse Resp BP BP Pulse Ox 01/13/25 14:00 56 L 16 185/85 H 93 01/13/25 13:44 60 01/13/25 13:14 93 01/13/25 12:42 65 18 215/81 H 98 01/13/25 12:25 98 01/13/25 12:19 36.6 C 71 18 179/69 H 99 O2 Del Method 01/13/25 14:00 Room Air 01/13/25 13:44 01/13/25 13:14 Room Air 01/13/25 12:42 Room Air 01/13/25 12:25 Room Air 01/13/25 12:19 Room Air Laboratory Results Short CBC 01/13/25 Range/Units 12:30 WBC 7.91 (4.8-10.8) K/ul Hgb 13.6 (12.0-16.0) g/dl Hct 42.2 (37.0-47.0) % Plt Count 235 (130-400) K/uL BMP 01/13/25 12:30 Sodium 138 Potassium 5.1 Chloride 106 Carbon Dioxide 26 BUN 38 H Creatinine 1.75 H Glucose 95 Calcium 10.6 H Liver Function 01/13/25 Range/Units 12:30 Total Bilirubin 0.3 (0.2-1.0) mg/dl AST 10 L (13-39) U/L ALT 6 L (7-52) U/L Alkaline Phosphatase 83 (34-104) U/L Albumin 4.1 (3.4-5.0) gm/dl Urine 01/13/25 Range/Units 15:46 Urine Color Yellow Urine Appearance Clear (Clear) Urine pH 5.5 (4.5-7.5) Ur Specific [place] 1.017 (1.000-1.030) Urine Protein 2+ H (Negative) Urine Glucose (UA) Negative (Negative) Diagnostic Findings Chest X-Ray 01/13/25 12:36 XR chest 1V portable CLINICAL HISTORY: Chest pain, nonspecific COMPARISON STUDY: 12/21/2024 FINDINGS: Stable CABG. Stable mild cardiomegaly without pulmonary vascular congestion. No consolidation or pleural effusion. No pneumothorax. IMPRESSION: No acute findings. ACT 112: Negative or not required by law. Electronically signed by: Andreas Vazquez M.D. 01/13/2025 1:01 PM Abdomen/Pelvis CT 01/13/25 12:55 CT SCAN OF THE ABDOMEN AND PELVIS WITH IV CONTRAST CLINICAL HISTORY: Back pain. Generalized abdominal pain. COMPARISON STUDY: Abdominal CT dated 07/12/2022. TECHNIQUE: Following the IV administration of 115 cc of Optiray 320, CT scan of the abdomen and pelvis is performed from the lung bases to the proximal femora. Images are reviewed in the axial, sagittal, and coronal planes. IV contrast was administered without complication. A dose lowering technique was utilized adhering to the principles of ALARA. The examination is degraded by streak artifact from the arms which could not be elevated above the abdomen. The examination is also degraded by motion artifact. FINDINGS: Lung bases: The patient is status post midline sternotomy. The heart heart is enlarged and without pericardial effusion. The coronary arteries are densely calcified. There is bibasilar scarring/atelectasis. No airspace consolidation or pleural effusion is identified. Liver: The contrast-enhanced liver is normal in size, contour, and attenuation. There is mild intrahepatic biliary ductal dilatation. Pneumobilia similar to previous. The hepatic veins and portal veins are patent. Gallbladder: Surgically absent noting clips in the gallbladder fossa. Spleen: Normal in size and attenuation. There are calcified splenic granulomas. Pancreas: Atrophic and grossly unremarkable. Adrenal glands: Unremarkable. Kidneys: The contrast enhanced kidneys are atrophic and without hydronephrosis. The kidneys enhance symmetrically. A 2.6 cm cyst is noted on the right. Additional scattered subcentimeter cortical hypodensities also likely represent cysts but are too small for definitive characterization. Abdominal vasculature: There is advanced atherosclerotic calcification and ectasia of the abdominal aorta. Bowel: There is advanced colonic diverticulosis without CT evidence of acute diverticulitis. No bowel obstruction is seen. There is also diverticulosis of the small bowel. [id number] fecal retention is noted throughout the colon. The appendix is not visualized. Peritoneum: There is no intraperitoneal free air or abdominal ascites. Lymphadenopathy: None. Pelvic viscera: The bladder is mildly distended but otherwise normal in appearance. The uterus is surgically absent. No adnexal lesion is seen. A surg ical clip is seen in the right groin. Skeletal structures: The skeletal structures are osteopenic. There are mild chronic superior endplate compression deformities of T11 and L1. There is mild to moderate lumbosacral spondylosis. Chronic deformity is again seen at the sacrococcygeal junction. There are subacute/healing right-sided rib fractures. No lytic or blastic lesions are seen. IMPRESSION: 1. No acute infectious or inflammatory findings are identified in the abdomen or pelvis. 2. Advanced diverticulosis of the colon, as well as diverticulosis of the small bowel without CT evidence of acute diverticulitis. 3. Cardiomegaly noting advanced coronary artery atherosclerosis. 4. There are subacute/healing right-sided rib fractures. 5. Additional findings as above. ACT 112: Negative or not required by law. Electronically signed by: Todd Perales M.D. 01/13/2025 3:47 PM Chest CTA 01/13/25 12:55 CT angio chest PE protocol CT DOSE: 1970.74 mGy.cm HISTORY: PE. TECHNIQUE: Multiple CTA images of the chest were obtained after the intravenous administration of 120 ml Optiray. Coronal and sagittal MIPS were obtained from the axial data set and were submitted for review. All measurements were obtained according to NASCET criteria. A dose lowering technique was utilized adhering to the principles of ALARA. COMPARISON STUDY: 04/12/2023 FINDINGS: There is no pulmonary consolidation or pleural effusion. No pneumothorax. There is mild dependent atelectasis in the lung bases. No enlarged adenopathy. No pericardial effusion. There are diffuse coronary artery calcifications. No thoracic aortic dissection or aneurysm. There is a small pulmonary embolism distally in the right middle lobe pulmonary artery. There is a tiny pulmonary embolism distally in a right lower lobe pulmonary artery. No large pulmonary emboli seen. RV LV ratio is less than 1. Biliary gas again seen at the visualized upper liver. There are splenic calcifications consistent with prior granulomatous disease. There is a cyst at the partially visualized right upper kidney. There is an old healed lower right rib fracture. There is mild diffuse degenerative change at the thoracic spine. Stable mild sclerosis at the T8 vertebral body. Stable mild height loss at the T11 and L1 vertebral bodies. No acute fracture seen at the visualized osseous structures. IMPRESSION: 1. Low volume pulmonary embolism with no evidence of right heart strain. 2. Otherwise as described. ACT 112: Negative or not required by law. The above report was generated using voice recognition software. It may contain grammatical, syntax or spelling errors. Electronically signed by: Andreas Vazquez M.D. 01/13/2025 3:51 PM Medications Administered Discontinued Medications Al Hydrox/Mg Hydrox/Simethicone (Aluminum/Magnesium Susp 30 Ml Udc) 30 ml PO NOW STA Stop: 01/13/25 12:37 Last Admin: 01/13/25 12:55 Dose: 30 ml Documented By: DEBBIE Aspirin (Aspirin Chew 324 Mg) 324 mg PO NOW STA Stop: 01/13/25 12:37 Last Admin: 01/13/25 12:55 Dose: 324 mg Documented By: DEBBIE Acetaminophen (Ofirmev) 1,000 mg in 100 mls @ 400 mls/hr IV NOW STA Stop: 01/13/25 12:50 Last Infusion: 01/13/25 14:42 Dose: Infused Documented By: Admin: 01/13/25 12:55 Dose: 400 mls/hr Documented By: DEBBIE Ioversol (Optiray 320 125ml) 115 ml IV ONCE ONE Stop: 01/13/25 15:29 Last Admin: 01/13/25 15:28 Dose: 115 ml Documented By: ABS Code Status & VTE Plan Code Status DNR/DNI - As per thorough discussion with the pt at bedside in the ED. (1) Chest pain Chest pain type: unspecified Qualified Code(s): R07.9 - Chest pain, unspecified (3) Acute pulmonary embolism Acute cor pulmonale presence: unspecified Pulmonary embolism type: unspecified Qualified Code(s): I26.99 - Other pulmonary embolism without acute cor pulmonale (4) Dysphagia Dysphagia type: unspecified Qualified Code(s): R13.10 - Dysphagia, unspecified (6) Right rib fracture Encounter type: initial encounter Rib fracture type: multiple ribs Fracture type: closed Qualified Code(s): S22.41XA - Multiple fractures of ribs, right side, initial encounter for closed fracture
[2025-01-13] MEDS: MoRPHine SULFATE 4 MG/ML 1 ML CARP\\VIAL IV STA (16:38)
[2025-01-13] MEDS: ONDANSETRON INJ 2 MG/ML 2 ML VIAL IV STA (16:38)
[2025-01-13] MEDS: Heparin IV Adult Wt-Based Standard *NO* INITIAL Bolus Protocol IV STA (17:34)
[2025-01-13] MEDS ORDERED: REMOVE LIDODERM PATCH PRN (18:14)
[2025-01-13] MEDS ORDERED: LIDOCAINE 5% 1 PATCH TD PRN (18:14)
[2025-01-13] MEDS: HEPARIN 25000 UNIT/500 ML D5W 25,000 UNITS/500 ML BAG IV SCH (18:17)
[2025-01-13] MEDS ORDERED: PHARMACY GLYCEMIC MGMT CONSULT PRN (19:08)
[2025-01-13] MEDS ORDERED: POLYETHYLENE (MIRALAX) 17 GM PACK PO PRN (19:08)
[2025-01-13] MEDS ORDERED: GLUCAGON FOR INJ 1 MG VIAL SQ PRN (19:08)
[2025-01-13] MEDS ORDERED: MAGNESIUM HYDROXIDE SUSP 30 ML UDC PO PRN (19:08)
[2025-01-13] MEDS ORDERED: ONDANSETRON INJ 2 MG/ML 2 ML VIAL IV PRN (19:08)
[2025-01-13] MEDS ORDERED: CARBOHYDRATES FOR HYPOGLYCEMIA PO PRN (19:08)
[2025-01-13] MEDS ORDERED: DEXTROSE 50% 50 ML SYRINGE IV PRN (19:08)
[2025-01-13] MEDS ORDERED: GLUCOSE 40% GEL 15 GM TUBE PO PRN (19:08)
[2025-01-13] MEDS ORDERED: GLUCOSE 10 TAB/TUBE PO PRN (19:08)
[2025-01-13] MEDS: ACETAMINOPHEN 325 MG TAB PO PRN (19:46)
[2025-01-13] MEDS: GABAPENTIN 100 MG CAP PO SCH (19:47)
[2025-01-13] MEDS: FAMOTIDINE 20 MG TAB PO SCH (21:10)
[2025-01-13] MEDS: INSULIN ASPART PER UNIT CHARGE SC SCH (21:10)
--- NOTE | 2025-01-13 22:59 | Ultrasound Report ---
Exam(s): US VENOUS BILATERAL LOWER EXTREMITIES EXAM: US Duplex Bilateral Lower Extremities Veins CLINICAL HISTORY: Acute PE, Concern for Deep vein thrombosis. TECHNIQUE: Real-time duplex ultrasound scan of the bilateral lower extremity veins integrating B-mode two-dimensional vascular structure, Doppler spectral analysis, color flow Doppler imaging and compression. COMPARISON: No relevant prior studies available. FINDINGS: Right deep veins: Unremarkable. No Deep vein thrombosis in the right common femoral, femoral, proximal deep femoral or popliteal veins. The veins demonstrate normal color flow, are normally compressible, with normal phasic flow and/or augmentation response. Right superficial veins: Unremarkable. No thrombus in the visualized right great saphenous vein. Left deep veins: Unremarkable. No Deep vein thrombosis in the left common femoral, femoral, proximal deep femoral or popliteal veins. The veins demonstrate normal color flow, are normally compressible, with normal phasic flow and/or augmentation response. Left superficial veins: Unremarkable. No thrombus in the visualized left great saphenous vein. Soft tissues: No acute findings. No popliteal cyst. IMPRESSION: No deep vein thrombosis of either lower extremity. Electronically signed by: Glory Guevara MD 01/13/25 22:58 PM
[2025-01-14 01:55] LABS: ANTI-Xa, UFH(UnfractionatedHep 0.72 IU/ml (0.3-0.7)
[2025-01-14] MEDS: TROLAMINE SALICYLATE 10% CRM 255 APPLN/85 GM TUBE EXT PRN (04:02)
[2025-01-14] MEDS: LEVOTHYROXINE SODIUM 75 MCG TABLET PO SCH (05:53)
[2025-01-14 08:09] LABS: Hematocrit (blood only) 36.8 % (37.0-47.0); Hemoglobin 11.8 g/dl (12.0-16.0); Immature Granulocytes # (auto) 0.02 K/uL (0.01-0.20); Immature Granulocytes % (auto) 0.4 %; Mean Corpuscular Hemoglobin 31.1 pg (25.0-34.0); Mean Corpuscular Volume 96.8 fL (80.0-100.0); Platelet Count 190 K/uL (130-400); RDW Standard Deviation 49.0 fL (36.4-46.3); Red Blood Count 3.80 M/uL (4.20-5.40); White Blood Count 5.60 K/ul (4.8-10.8)
[2025-01-14 08:25] LABS: Anion Gap 4.0 (3-11); Blood Urea Nitrogen 35.0 mg/dl (6-23); Calcium 9.9 mg/dl (8.6-10.3); Carbon Dioxide 27.0 mmol/L (21-32); Chloride 105.0 mmol/L (98-107); Creatinine Clr Calc Pharmacy 24.6 ml/min; Glucose 95.0 mg/dl (70-99(Fasting)); Magnesium 1.9 mg/dl (1.7-2.4); Potassium 5.4 mmol/L (3.5-5.1); Sodium 136.0 mmol/L (136-145)
[2025-01-14 08:38] LABS: ANTI-Xa, UFH(UnfractionatedHep 1.00 IU/ml (0.3-0.7); Hemoglobin A1C 5.7 % (4.5-5.6)
--- NOTE | 2025-01-14 09:35 | Pharmacy Report ---
Pharmacy Glycemic Short Note 2 - Date of Service January 14, 2025 - Glycemic Short BSG Results (Last 24 hours): 01/13/25 01/13/25 01/13/25 12:30 19:53 19:55 Glucose 95 POC Glucose 154 H 01/13/25 01/14/25 21:50 07:53 Glucose 95 POC Glucose 183 H OUTPATIENT ANTIDIABETIC REGIMEN: * 5.7% 01/14/25 * No anti-diabetic medications as outpatient ASSESSMENT: * 84 YO F admitted from [facility] with acute PE, on heparin drip. * Blood sugar 183mg/dl last night, receive 1 unit of correctional NovoLog insulin, fasting BG of 95mg/dl this AM. * Patient started on NovoLog only, continue this, may need to remove CR if not needed. Will see how patient tolerates breakfast carb coverage. PLAN FOR INPATIENT GLYCEMIC CONTROL: * Basal insulin * none at this time * Bolus insulin * NovoLog per scale ACHS or Q6hrs while NPO * Goal Range: Low 110 mg/dL - High 140 mg/dL * Correction Factor: 40 mg/dL/unit * Nutritional / Prandial insulin per carb ratio of 1 unit per 14 grams CHO consumed
[2025-01-14] MEDS: CHOLECALCIFEROL 25 MCG (1000 UNITS) TAB PO SCH (10:35)
[2025-01-14] MEDS: FLUTICASONE PROPIONATE NA SPR 16 GM BTL SCH (10:35)
[2025-01-14] MEDS: DOCUSATE SODIUM 100 MG CAP PO SCH (10:35)
[2025-01-14] MEDS: ASPIRIN 81 MG ECTAB PO SCH (10:35)
[2025-01-14] MEDS: VENLAFAXINE HCL XR 75 MG CAPXR PO SCH (10:36)
[2025-01-14] MEDS: ROSUVASTATIN CALCIUM 10 MG TAB PO SCH (10:36)
--- NOTE | 2025-01-14 10:44 | Gastrointestinal Consultation ---
Date of Consultation January 14, 2025 Assessment & Plan (1) Dysphagia: Dysphagia which is progressive and occurring multiple times in a single week is a concern. Potential for neoplasm is present. Also concern for esophageal obstruction in a patient fully anticoagulated with Eliquis should be considered. Her pulmonary emboli appear to be small without right heart strain. I believe she would tolerate anesthesia and spoke to the hospitalist heparin can be held for 4 to 5 hours prior to the procedure. Patient admitting team and GI in agreement. EGD tomorrow 8 AM. Hold heparin 3 AM (2) Pulmonary embolism: Small without right heart strain Plan EGD and esophageal dilatation tomorrow heparin on hold for 5 hours pre- History of Present Illness Reason for Consultation: Dysphagia Attending Physician: Allen Bolivar, History of Present Illness Patient admitted with pulmonary embolism. However for the last couple of weeks in the nursing facility she has noted progressive dysphagia. She gets esophageal obstruction symptoms 3-4 times per week. During those episodes she is unable to even swallow water and spits up. Chart says she was started on a pured diet though she denies this. Remote endoscopy and esophageal dilatation. Seen by speech who feel the problem more esophageal obstruction then oropharyngeal dysphagia. See their notes. I agree. Patient would benefit from an upper endoscopy and dilatation. Complicating this is her need for anticoagulation due to pulmonary embolism.. Review of CT shows small pulmonary emboli with right right heart strain. Based on this I believe she would tolerate anesthesia. I would be concerned about complete esophageal obstruction and the need for urgent intervention in a patient on anticoagulation. I think it would be better to do electively with heparin held for 4 to 5 hours. Reviewed with hospitalist we will plan to do this tomorrow. Reviewed with patient. With new pulmonary emboli and progressive dysphagia is possible that this represents a neoplasm. Allergies Allergy/AdvReac Type Severity Reaction Status Date / Time No Known Allergies Allergy Verified 12/21/24 19:53 Home Medications Medication Instructions Recorded Confirmed Type aspirin 81 mg tablet,delayed 81 mg PO DAILY 06/13/22 01/13/25 History release cimetidine 400 mg tablet 400 mg PO HS 06/13/22 01/13/25 History clonazepam 0.5 mg tablet 1 mg PO HS 06/13/22 01/13/25 History cyanocobalamin (vitamin B-12) 1,000 mcg PO Q OTHER DAY 06/13/22 01/13/25 History 1,000 mcg tablet (Vitamin B-12) docusate sodium 100 mg capsule 100 mg PO DAILY 06/13/22 01/13/25 History levothyroxine 75 mcg tablet 75 mcg PO QAM 06/13/22 01/13/25 History pantoprazole 40 mg tablet,delayed 40 mg PO DAILY 06/13/22 01/13/25 History release polyethylene glycol 3350 17 gram 17 g PO Q OTHER DAY PRN 06/13/22 01/13/25 History oral powder packet (Miralax) Constipation rosuvastatin 10 mg tablet 10 mg PO DAILY 06/13/22 01/13/25 History trazodone 100 mg tablet 100 mg PO HS 06/13/22 01/13/25 History fluticasone propionate 50 2 spray intranasal DAILY 01/03/24 01/13/25 History mcg/actuation nasal spray,suspension polyvinyl alcohol-povidone 0.5 1 drp OPB QID 01/03/24 01/13/25 History %-0.6 % eye drops (Artificial Tears (polyvinyl alcohol/povidone)) clonazepam 0.5 mg tablet 0.5 mg PO BID@0800,1300 #10 tabs 01/11/24 01/13/25 Rx acetaminophen 500 mg tablet 1,000 mg PO TID 12/21/24 01/13/25 History (Tylenol Extra Strength) biotin 1 mg tablet 1 mg PO DAILY 12/21/24 01/13/25 History cholecalciferol (vitamin D3) 25 25 mcg PO DAILY 12/21/24 01/13/25 History mcg (1,000 unit) capsule (Vitamin D3) gabapentin 400 mg capsule 400 mg PO BID 12/21/24 01/13/25 History lidocaine 4 % topical patch 1 patch topical DAILY 12/21/24 01/13/25 History lidocaine HCl 4 %-menthol 1 % 1 applic topical QID PRN NECK PAIN 12/21/2412/24 History topical cream (Icy Hot Max (lidocaine HCl-menthol)) lisinopril 10 mg tablet 10 mg PO QAM 12/21/24 01/13/25 History tramadol 50 mg tablet 50 mg PO QID 12/21/24 01/13/25 History venlafaxine 75 mg capsule,extended 75 mg PO QAM 12/21/24 01/13/25 History release 24 hr white petrolatum (Petroleum Jelly 1 applic topical BID 12/21/24 01/13/25 History topical) Patient History Medical History Syncope Chronic kidney disease (CKD) HTN (hypertension) Degenerative joint disease Gastritis Coronary artery disease Trigeminal neuralgia Dysphagia Neurotic depression Panic disorder Surgical History History of esophagogastroduodenoscopy (EGD) History of bilateral carpal tunnel release History of facial surgery facial nerve surgery History of surgery on extremity left leg/knee History of total abdominal hysterectomy and bilateral salpingo-oophorectomy History of cholecystectomy History of cardiac catheterization S/P CABG x 3 History of appendectomy Family History Other Family history non-contributory Social History Smoking Status: Never smoker Tobacco Type: Cigarettes Second Hand Exposure: No; Do You Dip or Chew Tobacco: No; Hx Alcohol Use: Yes Alcohol type: beer Hx Substance Use: No Preferred Language: Kiswahili Communication Ability: Effective 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 Chest discomfort as per admitting H&P. Cardiovascular no exertional chest pain GI as mentioned patient presenting illness progressive dysphagia to breads [employer] and meats. Review systems otherwise as per admitting H&P which were reviewed without change Physical Exam 2 Physical Exam: Pleasant 84-year-old female sitting up at the edge of the bed does not appear in any acute distress. Being evaluated by speech pathology. No focal neurological changes alert and orientated No obvious neck adenopathy Abdomen benign Chest heart and other exams as per admitting H&P without change Results & Data Vital Signs (Past 12 Hours) Vital Signs Temp Pulse Resp BP Pulse Ox O2 Del Method O2 Flow Rate 08/23/25 08:14 36.4 C L 57 L 20 159/80 H 100 Nasal Cannula 2 01/14/25 03:41 36.7 C 63 18 128/71 99 Nasal Cannula 2 01/14/25 00:05 36.8 C 57 L 18 159/70 H 99 Nasal Cannula 2 PG Care Time/CCT Total # of Minutes Spent Total Time Spent with Patient: Total time spent is greater than 50% in coordination of care (as documented) at patient's floor/unit and/or counseling patient: Coding Level of Care Code 10355 INT INP/OBS CARE 2/55MIN Diagnoses Dysphagia R13.10 Pulmonary embolism I26.99
--- NOTE | 2025-01-14 12:18 | Hospitalist Progress Note ---
Date of Service January 14, 2025 Assessment & Plan (1) Acute pulmonary embolism: (2) Right rib fracture: (3) Esophageal dysphagia: (4) Stricture and stenosis of esophagus: (5) HTN (hypertension): (6) Lumbar disc herniation with radiculopathy: (7) CKD (chronic kidney disease), stage IV: (8) Chronic pain syndrome: Plan Patient 84-year-old female presented with chest discomfort and noted to have a acute pulmonary embolism. Continue IV heparin, transition to oral anticoag ulation after procedure Patient also has a history of esophageal stricture requiring dilatation, current history indicates that she has significant issues again, communication with GI, planning EGD with dilatation tomorrow. Recommending stopping heparin drip approximately 3 AM for anticipated procedure around 8 AM Continue to monitor renal function overall improving N.p.o. 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 Reports that she has this chronically and actually even had some outpatient injections of her back. None of this is really new. Describes her chest discomfort as more of a squeezing type of pain. Denies any shortness of breath. Gives a history of emesis multiple times throughout the week most likely due to an esophageal stricture. Physical Exam Physical Exam: Constitutional: Alert, sitting in chair, nontoxic HEENT: Mucous membranes moist. Lungs: Decreased breath sounds, no wheezes CV: S1-S2, regular Abdomen: Soft, nontender, nondistended Extremities: No significant edema Neuro: No focal deficits, weak Psych: Cooperative, normal mood Results & Data Results & Data Vital Signs (Past 12 Hours) Vital Signs Temp Pulse Pulse Resp BP Pulse Ox O2 Del Method 01/14/25 11:44 53 L 01/14/25 11:19 36.4 C L 58 L 20 186/64 H 95 Room Air 01/14/25 11:08 Room Air 01/14/25 08:14 36.4 C L 57 L 20 159/80 H 100 Nasal Cannula 01/14/25 03:41 36.7 C 63 18 128/71 99 Nasal Cannula O2 Flow Rate 01/14/25 11:44 01/14/25 11:19 01/14/25 11:08 01/14/25 08:14 2 01/14/25 03:41 2 Diagnostic Findings Reviewed imaging, laboratory and diagnostic studies. Pertinent findings as below. Hemoglobin 11.8 Potassium 5.4 Creatinine 1.67 improved Troponin reviewed, flat no significant delta change Ultrasound lower extremities negative for DVT CT of the abdomen reviewed, subacute rib fractures noted (1) Acute pulmonary embolism Pulmonary embolism type: unspecified Acute cor pulmonale presence: unspecified Qualified Code(s): I26.99 - Other pulmonary embolism without acute cor pulmonale (2) Right rib fracture Encounter type: initial encounter Rib fracture type: multiple ribs Fracture type: closed Qualified Code(s): S22.41XA - Multiple fractures of ribs, right side, initial encounter for closed fracture (5) HTN (hypertension) Hypertension type: unspecified Qualified Code(s): I10 - Essential (primary) hypertension
[2025-01-14] MEDS: GABAPENTIN 100 MG CAP PO SCH (13:25)
[2025-01-14] MEDS: ACETAMINOPHEN 500 MG TAB PO SCH (13:25)
[2025-01-14] MEDS ORDERED: clonazePAM 0.5 MG TAB PO PRN (16:00)
[2025-01-14 17:25] LABS: ANTI-Xa, UFH(UnfractionatedHep 0.48 IU/ml (0.3-0.7)
[2025-01-14] MEDS: ARTIFICIAL TEARS OP SCH (18:28)
[2025-01-14] MEDS ORDERED: Nursing to Pharmacy Communication SCH (19:00)
[2025-01-15] MEDS ORDERED: Nursing to Pharmacy Communication SCH (03:45)
[2025-01-15 05:27] LABS: Hematocrit (blood only) 38.6 % (37.0-47.0); Hemoglobin 12.3 g/dl (12.0-16.0); Mean Corpuscular Hemoglobin 30.6 pg (25.0-34.0); Mean Corpuscular Volume 96.0 fL (80.0-100.0); Platelet Count 175 K/uL (130-400); RDW Standard Deviation 48.5 fL (36.4-46.3); Red Blood Count 4.02 M/uL (4.20-5.40); White Blood Count 5.70 K/ul (4.8-10.8)
[2025-01-15 05:45] LABS: Anion Gap 4.0 (3-11); Blood Urea Nitrogen 39.0 mg/dl (6-23); Calcium 10.5 mg/dl (8.6-10.3); Carbon Dioxide 28.0 mmol/L (21-32); Chloride 104.0 mmol/L (98-107); Creatinine Clr Calc Pharmacy 19.8 ml/min; Glucose 97.0 mg/dl (70-99(Fasting)); Magnesium 1.9 mg/dl (1.7-2.4); Potassium 5.4 mmol/L (3.5-5.1); Sodium 136.0 mmol/L (136-145)
[2025-01-15 05:57] LABS: ANTI-Xa, UFH(UnfractionatedHep 0.14 IU/ml (0.3-0.7)
[2025-01-15 06:01] LABS: Partial Thromboplastin Time 30 Seconds (21-31)
[2025-01-15] MEDS: INSULIN ASPART PER UNIT CHARGE SC SCH ×2 (06:05→13:18)
--- NOTE | 2025-01-15 07:12 | Anesthesiology Consultation ---
Date of Service January 15, 2025 Assessment & Plan Chart Review Chart Review: Acceptable Risk for Surgery and Patient NOT seen in Pre Admission Testing Consults Requested none ASA ASA4 Proposed Anesthesia Anesthesia Type: General History Surgery Operation Date: 01/15/25 09:00 Proposed Procedures p Esophagogastroduodenoscopy Dr. Dada Garland MD Height/Weight Height: 5 ft 2 in Weight: 57 kg Allergies Allergy/AdvReac Type Severity Reaction Status Date / Time No Known Allergies Allergy Verified 12/21/24 19:53 Medications Home Medications Medication Instructions Recorded Confirmed Last Taken aspirin 81 mg tablet,delayed 81 mg PO DAILY 06/13/22 01/13/25 12/21/24 release cimetidine 400 mg tablet 400 mg PO HS 06/13/22 01/13/25 12/20/24 clonazepam 0.5 mg tablet 1 mg PO HS 06/13/22 01/13/25 12/20/24 cyanocobalamin (vitamin B-12) 1,000 mcg PO Q OTHER DAY 06/13/22 01/13/25 12/20/24 1,000 mcg tablet (Vitamin B-12) docusate sodium 100 mg capsule 100 mg PO DAILY 06/13/22 01/13/25 12/21/24 levothyroxine 75 mcg tablet 75 mcg PO QAM 06/13/22 01/13/25 12/21/24 pantoprazole 40 mg tablet,delayed 40 mg PO DAILY 06/13/22 01/13/25 12/21/24 release polyethylene glycol 3350 17 gram 17 g PO Q OTHER DAY PRN 06/13/22 01/13/25 01/02/24 oral powder packet (Miralax) Constipation rosuvastatin 10 mg tablet 10 mg PO DAILY 06/13/22 01/13/25 12/21/24 trazodone 100 mg tablet 100 mg PO HS 06/13/22 01/13/25 12/20/24 fluticasone propionate 50 2 spray intranasal DAILY 01/03/24 01/13/25 12/21/24 mcg/actuation nasal spray,suspension polyvinyl alcohol-povidone 0.5 1 drp OPB QID 01/03/24 01/13/25 12/21/24 16:00 %-0.6 % eye drops (Artificial Tears (polyvinyl alcohol/povidone)) clonazepam 0.5 mg tablet 0.5 mg PO BID@0800,1300 #10 tabs 01/11/24 01/13/25 12/21/24 acetaminophen 500 mg tablet 1,000 mg PO TID 12/21/24 01/13/25 12/21/24 14:00 (Tylenol Extra Strength) biotin 1 mg tablet 1 mg PO DAILY 12/21/24 01/13/25 12/21/24 cholecalciferol (vitamin D3) 25 25 mcg PO DAILY 12/21/24 01/13/25 12/21/24 mcg (1,000 unit) capsule (Vitamin D3) gabapentin 400 mg capsule 400 mg PO BID 12/21/24 01/13/25 12/21/24 lidocaine 4 % topical patch 1 patch topical DAILY 12/21/24 01/13/25 12/21/24 lidocaine HCl 4 %-menthol 1 % 1 applic topical QID PRN NECK PAIN 12/21/24 01/13/25 Unknown topical cream (Icy Hot Max (lidocaine HCl-menthol)) lisinopril 10 mg tablet 10 mg PO QAM 12/21/24 01/13/25 12/21/24 tramadol 50 mg tablet 50 mg PO QID 12/21/24 01/13/25 12/21/24 16:00 venlafaxine 75 mg capsule,extended 75 mg PO QAM 12/21/24 01/13/25 12/21/24 release 24 hr white petrolatum (Petroleum Jelly 1 applic topical BID 12/21/24 01/13/25 12/21/24 08:00 topical) Active Medications Generic Name Dose Route Start Last Admin Trade Name Freq PRN Reason Stop Dose Admin Acetaminophen 1,000 mg 01/14/25 14:00 01/14/25 21:29 Acetaminophen 500 Mg Tab PO 02/13/25 13:59 1,000 mg TID SAHRA Administration Amlodipine Besylate 2.5 mg 01/14/25 12:15 01/14/25 13:24 Amlodipine Besylate 5 Mg Tab PO 02/13/25 12:14 2.5 mg QAM SAHRA Administration Artificial Tears 1 drops 01/14/25 17:00 01/14/25 21:29 Artificial Tears OP 02/13/25 16:59 1 ea QID SAHRA Administration Aspirin 81 mg 01/14/25 09:00 01/14/25 10:35 Aspirin 81 Mg Ectab PO 02/13/25 08:59 81 mg DAILY SAHRA Administration Docusate Sodium 100 mg 01/14/25 09:00 01/14/25 10:35 Docusate Sodium 100 Mg Cap PO 02/13/25 08:59 100 mg DAILY SAHRA Administration Famotidine 20 mg 01/13/25 21:00 01/14/25 21:29 Famotidine 20 Mg Tab PO 02/12/25 20:59 20 mg HS SAHRA Administration Fluticasone Propionate 2 sprays 01/14/25 09:00 01/14/25 10:35 Fluticasone Propionate Na Spr 16 Gm Btl NA 02/13/25 08:59 2 sprays DAILY SAHRA Administration Gabapentin 200 mg 01/14/25 14:00 01/14/25 21:29 Gabapentin 100 Mg Cap PO 02/13/25 13:59 200 mg TID SAHRA Administration Insulin Aspart 0 units 01/15/25 06:00 01/15/25 06:05 Insulin Aspart Per Unit Charge SC 02/14/25 05:59 Not Given Q6 SAHRA Levothyroxine Sodium 75 mcg 01/14/25 06:30 01/15/25 06:03 Levothyroxine Sodium 75 Mcg Tablet PO 02/13/25 06:29 Not Given DAILYBB SAHRA Lisinopril 20 mg 01/14/25 12:15 01/14/25 13:25 Lisinopril 20 Mg Tab PO 02/13/25 12:14 20 mg QAM SAHRA Administration Pantoprazole Sodium 40 mg 01/14/25 09:00 01/14/25 10:36 Pantoprazole 40 Mg Tab PO 02/13/25 08:59 40 mg DAILY SAHRA Administration Rosuvastatin Calcium 10 mg 01/14/25 09:00 01/14/25 10:36 Rosuvastatin Calcium 10 Mg Tab PO 02/13/25 08:59 10 mg DAILY SAHRA Administration Tramadol HCl 50 mg 01/14/25 16:00 01/14/25 16:15 Tramadol Hcl 50 Mg Tablet PO 02/13/25 16:59 50 mg QID PRN Administration pain Trazodone HCl 100 mg 01/14/25 21:00 01/14/25 21:51 Trazodone Hcl 100 Mg Tab PO 09/22/25 20:59 100 mg HS SAHRA Administration Trolamine Salicylate 1 appln 01/14/25 03:24 01/15/25 05:41 Trolamine Salicylate 10% Crm 255 Appln/85 Gm Tube EXT 02/13/25 03:23 1 appln QID PRN Administration leg pain Venlafaxine HCl 75 mg 01/14/25 09:00 01/14/25 10:36 Venlafaxine Hcl Xr 75 Mg Capxr PO 02/13/25 08:59 75 mg QAM SAHRA Administration Vitamin D 25 mcg 01/14/25 09:00 01/14/25 10:35 Cholecalciferol 25 Mcg (1000 Units) Tab PO 02/13/25 08:59 25 mcg DAILY SAHRA Administration Past Medical History Medical History Syncope Chronic kidney disease (CKD) HTN (hypertension) Degenerative joint disease Gastritis Coronary artery disease Trigeminal neuralgia Dysphagia Neurotic depression Panic disorder CAD s/p CABG HLD ASCVD S/P CVA PE NIDDM Renal Artery Stenosis Exercise / Class Metabolic Activity III < 4 Walking/Shop/Light housework Past Family History Family History Other Family history non-contributory Past Surgical History Surgical History History of esophagogastroduodenoscopy (EGD) History of bilateral carpal tunnel release History of facial surgery facial nerve surgery History of surgery on extremity left leg/knee History of total abdominal hysterectomy and bilateral salpingo-oophorectomy History of cholecystectomy History of cardiac catheterization S/P CABG x 3 History of appendectomy Past Anesthesia History No Hx of Anesthesia Complications and No Family Hx of Anesthesia Complications History of PONV No Hx of PONV and No Hx of Motion Sickness Social History Smoking Status: Never smoker tobacco type: cigarettes Do You Dip or Chew Tobacco: No Hx Alcohol Use: Yes Alcohol type: beer alcohol intake frequency: holidays/special occasions only Hx Substance Use: No substance use type: does not use Last Used Substance: Unknown Last Used Substance Other:: history in 2018 Physical Exam Vital Signs Last Vital Signs Temp 36.5 C 01/15/25 01:00 Pulse 62 01/15/25 01:00 Resp 18 01/15/25 01:00 BP 139/72 01/15/25 01:00 Pulse Ox 94 01/15/25 01:00 O2 Del Method Room Air 01/15/25 01:00 O2 Flow Rate 2 01/14/25 08:14 Testing Laboratory Results 01/15/25 05:08 01/15/25 05:08 PT 10.0 Seconds (9.0-12.0) 01/13/25 12:30 INR 0.9 (0.9-1.1) 01/13/25 12:30 APTT 30 Seconds (21-31) 01/15/25 05:08 Hemoglobin A1c 5.7 % (4.5-5.6) H 01/14/25 07:53 Urine Color Yellow 01/13/25 15:46 Urine Appearance Clear (Clear) 01/13/25 15:46 Urine pH 5.5 (4.5-7.5) 01/13/25 15:46 Ur Specific [place] 1.017 (1.000-1.030) 01/13/25 15:46 Urine Protein 2+ (Negative) H 01/13/25 15:46 Urine Glucose (UA) Negative (Negative) 01/13/25 15:46 Urine Ketones Negative (Negative) 01/13/25 15:46 Urine Nitrite Negative (Negative) 01/13/25 15:46 Ur Leukocyte Esterase Negative (Negative) 01/13/25 15:46 Urine WBC (Auto) 0-5 /hpf (0-5) 01/13/25 15:46 Urine RBC (Auto) 0-2 /hpf (0-2) 01/13/25 15:46 U Hyaline Cast (Auto) 0-2 /lpf (0-2) 01/13/25 15:46 U Epithel Cells (Auto) 0-2 /hpf (0-2) 01/13/25 15:46 Urine Bacteria (Auto) None Seen (None Seen) 01/13/25 15:46 01/15/25 01/14/25 05:57 20:21 POC Glucose 120 H 147 H Electrocardiogram Date: 12/21/24 Findings: + NSR @ (@ 66 w/ SA; infer. infarct,age ?) and + RBBB Chest X-Ray Date: 01/13/25 Findings: + NAD and + cardiomegaly Echocardiogram Date: 01/14/25 EF: 55% LV Function: normal RWMA: + hypokinetic (subtle HK posterior wall) Other Findings: + LVH (mod.) Valvular Disease: + AI (mod.) and + MR (mild) TR-mild
--- NOTE | 2025-01-15 07:19 | Communication Note ---
Date of Service: January 15, 2025 Patient's serum potassium is 5.4 and must be corrected prior to OR
[2025-01-15] MEDS ORDERED: NON-FORMULARY MEDICATION (Lidocaine 4 % Adhesive Patch,Medicated) TOP SCH (09:15)
--- NOTE | 2025-01-15 09:23 | Gastroenterology Progress Note ---
Date of Service January 15, 2025 Assessment & Plan (1) Stricture and stenosis of esophagus: Plan: Power of business attorney wishes to hold on endoscopy today. They will review with family. Reviewed with hospitalist they plan to start Eliquis typically this will put the procedure on hold . Typically we would cycle back in 3 to 4 months and consider endoscopy and dilatation at that time. Patient will need to be on a mechanical soft pured type diet due to the risk of esophageal obstruction. I would continue long-term PPI therapy. GI signs off reconsult as needed Admission and Anticipated Discharge Date Admission Date: January 13, 2025 Subjective Dysphagia Patient was booked for upper endoscopy today for potential esophageal dilatat ion. Received a call from her power of business attorney Renita there extremely reluctant for her to undergo procedures they are worried about potential anesthesia risks. Reviewed in detail clinical symptoms of esophageal stricture potential esophageal dilatation. They wish to to continue with pured diet which she tolerates. Did review with them the patient feels her symptoms are worsening but Renita notes that Yvonne often says this. Symptoms been present dating back at least to 2021. Examination of those endoscopy pictures do suggest a distal esophageal stricture there are rings noted at the GE junction. Renita wishes to speak to the son and primary doctor about an risks of endoscopy prior to proceeding. Will reintroduce anticoagulation I will speak to the hospitalist. They said they may consider endoscopy in a day or 2 however we did discuss the risks of repeated anticoagulation interruption in the face of a recent pulmonary embolism. Also with oral anticoagulation timeframe to stop anticoagulation will be longer. She voices understanding. Also discussed the risks of esophageal obstruction and need for urgent endoscopy with poor visualization and risks of an anticoagulated patient at that time. They do not wish to proceed today. I reviewed this with the patient Yvonne. Nurses do note though she is orientated she is often confused. Review of Systems Review of Systems: Currently no chest pain shortness of breath or swallowing issues. Physical Exam Physical Exam: Patient examined at the bedside. In no distress. Abdomen benign Results & Data Results & Data Vital Signs (Past 12 Hours) Vital Signs Temp Pulse Resp BP BP Pulse Ox O2 Del Method 01/15/25 07:00 36.6 C 73 14 178/82 H 98 Room Air 01/15/25 01:00 Room Air 01/15/25 01:00 36.5 C 62 18 139/72 94 Room Air PG Care Time/CCT Total # of Minutes Spent Total Time Spent with Patient: Total time spent is greater than 50% in coordination of care (as documented) at patient's floor/unit and/or counseling patient: Coding Level of Care Code 51695 SUB INP/OBS CARE 1/25MIN Diagnoses Stricture and stenosis of esophagus K22.2
[2025-01-15] MEDS: clonazePAM 1 MG TAB PO SCH ×2 (10:34→20:29)
[2025-01-15] MEDS: APIXABAN 5 MG TABLET PO SCH (11:12)
[2025-01-15] MEDS: VENLAFAXINE HCL XR 150 MG CAPXR PO SCH (11:13)
[2025-01-15] MEDS: LIDOCAINE 5% 1 PATCH TD SCH (11:13)
--- NOTE | 2025-01-15 12:16 | Hospitalist Progress Note ---
Date of Service January 15, 2025 Assessment & Plan (1) Acute pulmonary embolism: (2) Stricture and stenosis of esophagus: (3) Esophageal dysphagia: (4) HTN (hypertension): (5) Right rib fracture: (6) Lumbar disc herniation with radiculopathy: (7) CKD (chronic kidney disease), stage IV: (8) Chronic pain syndrome: Plan Patient presented with acute chest pain found to have pulmonary embolism. Patient also has longstanding history of dysphagia and esophageal stricture with previous dilatations. Communication with GI and family. Last dilatation was extremely risky. At this point patient and family do not want to pursue EGD with esophageal dilatation. Will continue to reinforce a pured diet. Reinforced the need to remain on a pured diet with the patient In the light of no procedure will transition to oral Eliquis for treatment of her pulmonary embolism Continue therapies Continue current antihypertensive regimen Continue to monitor potassium and renal function. Potassium has been chronically mildly elevated Phone conversation with patient's granddaughter Becca and updated. Case management to pursue possible return to [facility] tomorrow Admission and Anticipated Discharge Date Admission Date: January 13, 2025 Subjective Patient denies any acute issues overnight. Very hesitant about going through EGD. But also does not like being restricted to pured diet. Nursing reports that patient's chronic meds have been updated and patient being underdosed on some of her medications that she has been on chronically. Physical Exam Physical Exam: Constitutional: Alert, nontoxic HEENT: Mucous membranes moist. Lungs: Clear to auscultation, decreased, no wheezes rales or rhonchi CV: S1-S2, regular Abdomen: Soft, nontender, nondistended Extremities: No significant edema Neuro: No focal deficits, generally weak Psych: Cooperative, normal mood Results & Data Results & Data Vital Signs (Past 12 Hours) Vital Signs Temp Pulse Resp BP BP Pulse Ox O2 Del Method 01/15/25 07:00 36.6 C 73 14 178/82 H 98 Room Air 01/15/25 01:00 Room Air 01/15/25 01:00 36.5 C 62 18 139/72 94 Room Air Diagnostic Findings Reviewed imaging, laboratory and diagnostic studies. Pertinent findings as below. WBCs 5.7 Hemoglobin 12.3 Potassium 5.4, stable Creatinine 1.64, stable Magnesium 1.9 Echocardiogram showed no evidence of right ventricular strain, normal ejection fraction 55 to 60% with some moderate left ventricular hypertrophy (1) Acute pulmonary embolism Pulmonary embolism type: unspecified Acute cor pulmonale presence: unspecified Qualified Code(s): I26.99 - Other pulmonary embolism without acute cor pulmonale (4) HTN (hypertension) Hypertension type: unspecified Qualified Code(s): I10 - Essential (primary) hypertension (5) Right rib fracture Encounter type: initial encounter Rib fracture type: multiple ribs Fracture type: closed Qualified Code(s): S22.41XA - Multiple fractures of ribs, right side, initial encounter for closed fracture
[2025-01-15 14:52] VITALS: RESP 16
[2025-01-15] MEDS: GABAPENTIN 400 MG CAP PO SCH (14:58)
[2025-01-15] MEDS: REMOVE LIDODERM PATCH SCH (20:29)
[2025-01-16 07:12] LABS: Anion Gap 6.0 (3-11); Blood Urea Nitrogen 42.0 mg/dl (6-23); Calcium 10.6 mg/dl (8.6-10.3); Carbon Dioxide 26.0 mmol/L (21-32); Chloride 105.0 mmol/L (98-107); Creatinine Clr Calc Pharmacy 18.0 ml/min; Glucose 113.0 mg/dl (70-99(Fasting)); Potassium 5.1 mmol/L (3.5-5.1); Sodium 137.0 mmol/L (136-145)
[2025-01-16 08:58] VITALS: TEMP 97.9
--- NOTE | 2025-01-16 11:26 | Discharge Summary ---
Discharge Summary Date of Service January 16, 2025 Principal Dx & Hospital Course #1 = Principal Diagnosis (1) Acute pulmonary embolism: (2) Stricture and stenosis of esophagus: (3) Esophageal dysphagia: (4) HTN (hypertension): (5) Right rib fracture: (6) Lumbar disc herniation with radiculopathy: (7) CKD (chronic kidney disease), stage IV: (8) Chronic pain syndrome: Plan Patient 84-year-old female who initially presented to the emergency room from retirement facility with complaints of some chest heaviness. In the emergency room imaging was consistent with pulmonary embolism. Patient was admitted for anticoagulation. She was initially started heparin drip. The patient also was complaining of acute on chronic dysphagia and regurgitation. GI consultation was obtained. Patient has a longstanding history of esophageal stricture and has had previous dilatations. Initial plan was to continue her on heparin and hold it so she could undergo an additional dilatation. However after additional evaluation of her history and communication with the patient's granddaughter they were told that it would be very high risk to do future dilatations due to how thin her esophagus is. With this information it was determined that we would hold off in any dilatation. She will be kept on a pured and liquid diet. She was transition to oral Eliquis. Patient tolerated this well. She tolerated the Eliquis. Patient has some chronic hyperkalemia which is stable. Case management was involved in her care And helped assist coordinating transfer back to retirement facility. Lisinopril was increased for better blood pressure control. Patient also has some chronic pain from compression fracture and rib fractures that were present on admission. Gabapentin was increased and this did seem to help. Also ensured that patient was getting her usual outpatient doses of clonazepam which she has been on chronically for many years. On the day of discharge patient's granddaughter was updated and aware of plans for discharge back to retirement facility. 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 History obtained from the pt, discussion with ED provider and associated chart review. Pt c/o sharp chest pain beginning this morning. Describes it as stabbing and sometimes heavy as nature - "feels like something is pushing on my chest." Also felt some mild SOB with this initially, but now feels both are improving since being in the ED. Mostly wheelchair bound at baseline. Distant smoking history during teenage years. Has chronic low back pain which feels unchanged from baseline. Denies any urinary or bowel habit changes. Feels appetite has been unchanged, however, she admits to experiencing episodes of significant dysphagia and postprandial vomiting for the past several weeks. Mentions she has had esophageal strictures before which required EGD dilation in the past. States she has been tolerating a pured diet at her assisted-living facility for the past week or so. No reported fevers, cough or congestion. Denies any episodes of carmen aspiration. Admission Exam Per Admitting Provider See H&P Discharge Exam Constitutional: Alert HEENT: Mucous membranes moist. Lungs: Clear to auscultation, decreased, no wheezes rales or rhonchi CV: S1-S2, regular Abdomen: Soft, nontender, nondistended Extremities: No significant edema Neuro: No focal deficits, generally weak Psych: Cooperative, normal mood Updated Medication List Medication Instructions Recorded Confirmed Type aspirin 81 mg tablet,delayed 81 mg PO DAILY 06/13/22 01/13/25 History release cimetidine 400 mg tablet 400 mg PO HS 06/13/22 01/13/25 History clonazepam 0.5 mg tablet 1 mg PO HS 06/13/22 01/13/25 History cyanocobalamin (vitamin B-12) 1,000 mcg PO Q OTHER DAY 06/13/22 01/13/25 History 1,000 mcg tablet (Vitamin B-12) docusate sodium 100 mg capsule 100 mg PO DAILY 06/13/22 01/13/25 History levothyroxine 75 mcg tablet 75 mcg PO QAM 06/13/22 01/13/25 History pantoprazole 40 mg tablet,delayed 40 mg PO DAILY 06/13/22 01/13/25 History release polyethylene glycol 3350 17 gram 17 g PO Q OTHER DAY PRN 06/13/22 01/13/25 History oral powder packet (Miralax) Constipation rosuvastatin 10 mg tablet 10 mg PO DAILY 06/13/22 01/13/25 History trazodone 100 mg tablet 100 mg PO HS 06/13/22 01/13/25 History fluticasone propionate 50 2 spray intranasal DAILY 01/03/24 01/13/25 History mcg/actuation nasal spray,suspension polyvinyl alcohol-povidone 0.5 1 drp OPB QID 01/03/24 01/13/25 History %-0.6 % eye drops (Artificial Tears (polyvinyl alcohol/povidone)) clonazepam 0.5 mg tablet 0.5 mg PO BID@0800,1300 #10 tabs 01/11/24 01/13/25 Rx acetaminophen 500 mg tablet 1,000 mg PO TID 12/21/24 01/13/25 History (Tylenol Extra Strength) biotin 1 mg tablet 1 mg PO DAILY 12/21/24 01/13/25 History cholecalciferol (vitamin D3) 25 25 mcg PO DAILY 12/21/24 01/13/25 History mcg (1,000 unit) capsule (Vitamin D3) lidocaine 4 % topical patch 1 patch topical DAILY 12/21/24 01/13/25 History lidocaine HCl 4 %-menthol 1 % 1 applic topical QID PRN NECK PAIN 12/21/24 01/13/25 History topical cream (Icy Hot Max (lidocaine HCl-menthol)) lisinopril 10 mg tablet 10 mg PO QAM 12/21/24 01/13/25 History tramadol 50 mg tablet 50 mg PO QID 12/21/24 01/13/25 History venlafaxine 75 mg capsule,extended 75 mg PO QAM 12/21/24 01/13/25 History release 24 hr white petrolatum (Petroleum Jelly 1 applic topical BID 12/21/24 01/13/25 History topical) amlodipine 5 mg tablet 5 mg PO QAM #30 tabs 01/16/25 Rx apixaban 5 mg tablet (Eliquis) See Rx Instructions .Route 01/16/25 Rx .COMPLEX #60 tabs clonazepam 1 mg tablet 1 mg PO BID17 #20 tabs 01/16/25 Rx gabapentin 400 mg capsule 400 mg PO TID #90 caps 01/16/25 Rx lisinopril 20 mg tablet 20 mg PO QAM #30 tabs 01/16/25 Rx Hospital Stay Data Consultations 01/13/25 16:30 ED Decision to Admit Stat 01/13/25 18:00 Consult Gastroenterology Routine Procedures Performed Operation Date: 01/15/25 09:00 <No data on this case meets the specified criteria> Diagnostic Imagining Performed 01/13/25 12:55 CT abd pelvis IV con only Stat CT angio chest PE protocol Stat 01/13/25 17:07 US venous doppler LE BI Stat Reviewed imaging, laboratory and diagnostic studies. Pertinent findings as below. Echocardiogram showed ejection fraction 55 to 60%, no significant right ventricular dysfunction in the setting of pulmonary embolism. WBCs 5.7 Hemoglobin 12.3 175 Potassium 5.1 Creatinine 1.81, baseline Hemoglobin A1c 5.7% Pending Results Patient Have Any Pending Studies at Discharge: No Discharge Instructions Given to Patient (Per Discharging Provider) Recommend you be on lifelong anticoagulation for unprovoked pulmonary embolism It is critical that you only eat a pured diet. You are at high risk for complete obstruction of your esophagus from any chunky/hard food. Consider monitor BMP in 10 to 14 days Total Time Total Time Spent Total Time Spent (In Minutes): 37
--- NOTE | 2025-01-16 11:27 | Pharmacy Report ---
Pharmacy Glycemic Sign Off Nt - Date of Service January 16, 2025 - Assessment & Plan ASSESSMENT: * Pharmacy was consulted by ISIDRO Johnson on 01/13 for glycemic control and to write orders per [facility] inpatient glycemic control protocol. * Major changes made by pharmacy to antidiabetic regimen include: * added novolog * Patient has been receiving minimal insulin PLAN FOR INPATIENT GLYCEMIC CONTROL: No changes needed to current regimen. * Hold basal insulin * Continue NovoLog per scale ACHS/Q6hrs while NPO * Goal range = 110-140 mg/dl * CF = 40 mg/dl/unit * CR = 1 unit for ever -- g CHO consumed * Pharmacy is signing off of glycemic consult and will no longer be making adjustments to inpatient regimen. Please feel free to re-consult if needed. Thank you.
--- NOTE | 2025-01-16 14:46 | CT Scan Report ---
CT head/brain wo con CLINICAL HISTORY: 84 years-old Female with fall/trauma. Acute head trauma status post fall TECHNIQUE: Multiple axial CT images of the head were obtained without contrast. A dose lowering tech nique was utilized adhering to the principles of ALARA. CT DOSE: 625.8 mGy.cm COMPARISON: 12/21/2024 FINDINGS: No acute intracranial hemorrhage, midline shift, intracranial mass, hydrocephalus, territorial ischem ia or abnormal extra-axial collection. Involutional changes with white matter hypodensities suggestiv e of chronic microvascular ischemic disease. Partially empty sella. No acute calvarial fracture. Postoperative changes of the right temporal calvarium right mastoid air cells are clear. Large left mastoid and middle ear effusions, unchanged. IMPRESSION: 1. No acute intracranial abnormality or calvarial fracture. 2. Large left mastoid and middle ear effusions redemonstrated. ACT 112: Negative or not required by law. The above report was generated using voice recognition software. It may contain grammatical, syntax o r spelling errors. Electronically signed by: Fuentes Han M.D. 01/16/2025 2:45 PM
[2025-01-16] MEDS: SODIUM CHLORIDE 0.9% 500 ML IV ONE (15:23)
[2025-01-16 16:14] VITALS: BP 105/61; PULSE 60; O2SAT 98
== END 2025-01-16 17:28 | DRG 176 ==
LOC: ED 12:12 → SUATTDRO 16:49 → 2N 16:49 → 3E 01-15 01:03

== ENCOUNTER 2025-02-05 10:14 | Inpatient (IN) ==
--- NOTE | 2025-02-05 10:26 | Emergency Department Note ---
Impression & Plan Recurrent falls, Bilateral leg pain, Ambulatory dysfunction ED Provider Note CHIEF COMPLAINT: Fall HISTORY OF PRESENTING ILLNESS: The patient is an 84-year-old female who arrives to the emergency department from an assisted living facility for persistent falling over the last few days. The patient reports she has not been receiving her pain medication, and has stated that that has caused her lower extremities to be too painful to stand. She reports she is in a wheelchair, which is not new. She states most falls occur when she is trying to use the restroom, however today she was trying to go to the nurses station to talk about pain medication, when she became unsteady and fell onto her bottom. She reports pain is worse in the left hip. She states no loss of sensation of the lower extremities, no saddle anesthesia, and no loss of bladder or bowel. Patient states no nausea, or vomiting. She denies any precipitating factors to the fall. She does report her belly is painful, and is tender. She denies hitting her head. 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 REVIEW OF SYSTEMS: See HPI for pertinent positives and pertinent negatives. ALLERGIES: See below MEDICATIONS: See below PAST MEDICAL HISTORY: See below PHYSICAL EXAM: VITALS: Vitals are noted on the nurse's note and reviewed by myself. Vital signs stable. GENERAL: 84-year-old female, in no acute distress, nondiaphoretic, well- developed well-nourished. SKIN: The skin was without rashes, erythema, or edema. HEAD: Normocephalic atraumatic. EARS: External auditory canals clear, tympanic membranes pearly mireles without erythema or effusion bilaterally. No hemotympanum. EYES: Pupils equal round and reactive to light and accommodation. Conjunctivae without injection, sclerae without icterus. Extraocular movements intact. No nystagmus. NOSE: Patent, turbinates without inflammation or discharge. No sinus tenderness. MOUTH: Mucous membranes moist. No tonsillar hypertrophy. Pharynx without erythema or exudate. Uvula midline. Airway patent. Tongue does not deviate. NECK: Supple without nuchal rigidity. No lymphadenopathy. Cervical spine is nontender. No JVD. HEART: Regular rate and rhythm without murmurs gallops or rubs. LUNGS: Clear to auscultation bilaterally without wheezes, rales or rhonchi. No retractions or accessory muscle use. BACK: No ecchymosis, no tenderness to palpation over lumbar, or thoracic spinous process. ABDOMEN: Positive bowel sounds x 4. Soft, diffuse tenderness to palpation throughout abdomen, no rebound tenderness or guarding. MUSCULOSKELETAL: Pain with ROM of bilateral hips. Limited ROM secondary to pain. Sensation intact to dull and sharp BLE. DP pulse intact. NEURO: Patient was alert and oriented to person place and time. No focal neurological deficits. DIFFERENTIAL DIAGNOSIS: Fracture, dislocation, contusion, intra-abdominal, pneumothorax, intrathoracic, intracranial, neurologic, compartment syndrome, as well as other pathologies. ED COURSE AND MEDICAL DECISION MAKING: HISTORY FROM INDEPENDENT HISTORIAN: EMS MEDICATIONS GIVEN: Acetaminophen 1 g IV, 4 mg IV morphine MONITOR: Continuous environmental monitoring specialist: Order was placed for continuous environmental monitoring specialist. Patient was placed on the environmental monitoring specialist and continuous pulse ox. Patient was noted to be in normal sinus rhythm at an initial rate of 75 bpm per my interpretation. EKG: EKG was interpreted by myself as normal sinus rhythm at a rate of 64 bpm, with right bundle branch block, which was noted on previous EKG from January 13, 2025. INTERPRETATION OF LABS: I interpreted the labs with full lab results as below in the lab section of this note. Pertinent lab results discussed in the MDM section below. INTERPRETATION OF IMAGING: Imaging studies were interpreted by myself and read by radiology as per the imaging section of this note. EXTERNAL RECORDS REVIEWED: Medication list from [facility] CHRONIC MEDICAL/SOCIAL CONDITIONS AFFECTING CARE: Chronic pain syndrome, PE, elevated troponin, CKD, chronic low back pain ESCALATION OF CARE CONSIDERED: Admission considered for this patient, as pain is uncontrolled in the lower extremities with IV medications. MDM SUMMARY: The patient is a pleasant, 84-year-old female who arrives to the emergency department for evaluation of the above-stated complaint. Saline lock was established, lab work was obtained. CBC shows no leukocytosis, no anemia. CMP shows hyponatremia 132, elevated creatinine 1.8 consistent with patient's baseline. Patient troponin 20.01, repeat 16.4, no chest pain noted. Lipase 20. Urinalysis shows 2+ protein, no concerning signs of infection. Negative COVID/flu/RSV. CT imaging of the abdomen and pelvis without IV contrast shows no acute findings. Chest x-ray imaging per my interpretation shows no acute cardiopulmonary process. Patient was provided pain control as above, without successful relief of symptoms. Due to patient's multiple falls, uncontrolled pain, and her concern for inappropriate medication administration at [facility], I do believe admission is indicated at this time. Patient will be admitted for pain control, and further evaluation. Patient was accepted by the [facility] hospitalist group. Please refer to their documentation for further patient workup and care. DIAGNOSIS: Recurrent falls, ambulatory dysfunction, bilateral leg pain The patient's case was discussed with Dr. Petersen, who agreed with my evaluation and treatment plan. The chart was completed utilizing [employer] voice recognition software. Grammatical errors, random word insertions, pronoun errors, and incomplete sentences are an occasional consequence of this system due to software limitations, ambient noise, and hardware issues. Any formal questions or concerns about the content, text, or information contained within the body of this dictation should be directly addressed to the provider for clarification. Past Med/Surg History Problem List Ambulatory dysfunction (Acute) Bilateral leg pain (Acute) Recurrent falls (Acute) Recurrent falls Ambulatory dysfunction Bilateral leg pain Chronic pain syndrome Stricture and stenosis of esophagus Hypertensive urgency Right rib fracture Elevated troponin Postprandial vomiting Acute pulmonary embolism Elevated troponin I level (Acute) Abnormal EKG (Acute) Chest pain (Acute) Pulmonary embolism (Acute) Hyperglycemia CKD (chronic kidney disease) (Acute) Acute kidney injury superimposed on stage 4 chronic kidney disease Lumbar disc herniation with radiculopathy Low back pain radiating to both legs Abnormal urinalysis GERD (gastroesophageal reflux disease) Anxiety CKD (chronic kidney disease), stage IV Extremity pain Acute hypoxic respiratory failure (Acute) Back pain (Acute) Contusion, hip Elbow contusion Shoulder strain Diabetes mellitus Weakness (Acute) COVID-19 (Acute) Hypomagnesemia (Acute) Acute electrocardiogram changes (Acute) Renal artery stenosis Back pain Palpitation Neck pain Chest pain (Acute) Acute pain of left shoulder (Acute) Esophageal dysphagia Dysphagia Encounter for pre-operative examination CAD (coronary artery disease) (Chronic) HTN (hypertension) (Chronic) HLD (hyperlipidemia) (Chronic) Depression (Chronic) Hypothyroidism (Chronic) CKD (chronic kidney disease), stage III (Chronic) CVA (cerebral vascular accident) (Chronic) Altered awareness, transient Hx of CABG (Chronic) History of appendectomy (Chronic) S/P cholecystectomy (Chronic) H/O: hysterectomy (Chronic) History of carpal tunnel surgery (Chronic) History of esophagogastroduodenoscopy (EGD) (Chronic) Medical History Syncope Chronic kidney disease (CKD) HTN (hypertension) Degenerative joint disease Gastritis Coronary artery disease Trigeminal neuralgia Dysphagia Neurotic depression Panic disorder Surgical History History of esophagogastroduodenoscopy (EGD) History of bilateral carpal tunnel release History of facial surgery facial nerve surgery History of surgery on extremity left leg/knee History of total abdominal hysterectomy and bilateral salpingo-oophorectomy History of cholecystectomy History of cardiac catheterization S/P CABG x 3 History of appendectomy Family History Other Family history non-contributory Social History Smoking Status: Never smoker Tobacco Type: Cigarettes Second Hand Exposure: No; Do You Dip or Chew Tobacco: No; Tobacco Cessation Education Requested by Patient: No Hx Alcohol Use: No Hx Substance Use: No Preferred Language: Georgian Communication Ability: Effective Performance Improvement Analyst Required: No Beliefs That Will Affect Care: None Current Living Situation: Prison Current Living Situation Comment: [facility] Other Information That Helps Us Care for You: No Feels Safe at Home: Yes Safety Concerns: Feels Safe At This Time Assistive Devices: Wheelchair Allergies Allergies Allergy/AdvReac Type Severity Reaction Status Date / Time No Known Allergies Allergy Verified 02/05/25 15:17 Home Meds Home Medications Medication Instructions Recorded Confirmed aspirin 81 mg tablet,delayed 81 mg PO DAILY 06/13/22 02/05/25 release cimetidine 400 mg tablet 400 mg PO HS 06/13/22 02/05/25 clonazepam 0.5 mg tablet 1 mg PO HS 06/13/22 02/05/25 cyanocobalamin (vitamin B-12) 1,000 mcg PO Q OTHER DAY 06/13/22 02/05/25 1,000 mcg tablet (Vitamin B-12) docusate sodium 100 mg capsule 100 mg PO DAILY 06/13/22 02/05/25 levothyroxine 75 mcg tablet 75 mcg PO DAILYBB 06/13/22 02/05/25 pantoprazole 40 mg tablet,delayed 40 mg PO DAILY 06/13/22 02/05/25 release polyethylene glycol 3350 17 gram 17 g PO Q OTHER DAY PRN 06/13/22 02/05/25 oral powder packet (Miralax) Constipation rosuvastatin 10 mg tablet 10 mg PO DAILY 06/13/22 02/05/25 trazodone 100 mg tablet 100 mg PO HS 06/13/22 02/05/25 fluticasone propionate 50 2 spray intranasal DAILY 01/03/24 02/05/25 mcg/actuation nasal spray,suspension polyvinyl alcohol-povidone 0.5 2 drp OPB BID 01/03/24 02/05/25 %-0.6 % eye drops (Artificial Tears (polyvinyl alcohol/povidone)) acetaminophen 500 mg tablet 1,000 mg PO TID 12/21/24 02/05/25 (Tylenol Extra Strength) cholecalciferol (vitamin D3) 25 25 mcg PO DAILY 12/21/24 02/05/25 mcg (1,000 unit) capsule (Vitamin D3) lidocaine 4 % topical patch 1 patch topical DAILY 12/21/24 02/05/25 lidocaine HCl 4 %-menthol 1 % 1 applic topical QID PRN NECK PAIN 12/21/24 02/05/25 topical cream (Icy Hot Max (lidocaine HCl-menthol)) venlafaxine 75 mg capsule,extended 75 mg PO QAM 12/21/24 02/05/25 release 24 hr white petrolatum (Petroleum Jelly 1 applic topical BID 12/21/24 02/05/25 topical) amlodipine 5 mg tablet 5 mg PO DAILY 02/05/25 02/05/25 apixaban 2.5 mg tablet (Eliquis) 2.5 mg PO BID 02/05/25 02/05/25 biotin 5 mg tablet 5 mg PO DAILY 02/05/25 02/05/25 clonazepam 0.5 mg tablet 0.5 mg PO BID17 02/05/25 02/05/25 cyclosporine 0.05 % eye drops in a 1 drp OPB Q12H 02/05/25 02/05/25 dropperette (Restasis) diclofenac sodium 1 % topical gel 2 g topical BID 02/05/25 02/05/25 gabapentin 400 mg capsule See Rx Instructions .Route .COMPLEX 02/05/25 02/05/25 nitroglycerin 0.4 mg sublingual 0.4 mg sublingual DIRECTED PRN 02/05/25 02/05/25 tablet (Nitrostat) Chest Pain nitroglycerin 2 % transdermal 1 inch topical BID 02/05/25 02/05/25 ointment nystatin 100,000 unit/gram topical 1 applic topical BID PRN Skin 02/05/25 02/05/25 cream Irritation tramadol 50 mg tablet 50 mg PO QID 02/05/25 02/05/25 Previous Rx's Medication Instructions Recorded lisinopril 20 mg tablet 20 mg PO QAM #30 tabs 01/16/25 Results & Data (ED) Vital Signs Vital Signs - 24 hr 02/05/25 10:21 02/05/25 10:21 02/05/25 10:28 Temperature 36.7 C 36.7 C Temperature Source Oral Oral Pulse Rate 75 77 Pulse Rate [Apical] 75 Respiratory Rate 18 18 Respiratory Effort / Characteristics Non-Labored Spontaneous Non-Labored Spontaneous Respiratory Depth Normal Normal Blood Pressure 168/88 H Blood Pressure [Left Arm] 168/88 H Blood Pressure Mean 114 Blood Pressure Mean [Left Arm] 114 Pulse Oximetry 95 98 Oxygen Delivery Method Room Air Room Air Sepsis Recent Fever Within 48 Hours No Sepsis New/Unexplained Change in Mental Status No Sepsis Action Taken by Nursing No Action Required 02/05/25 11:09 Temperature Temperature Source Pulse Rate Pulse Rate [Apical] 68 Respiratory Rate 15 Respiratory Effort / Characteristics Respiratory Depth Blood Pressure Blood Pressure [Left Arm] 174/71 H Blood Pressure Mean Blood Pressure Mean [Left Arm] 105 Pulse Oximetry 95 Oxygen Delivery Method Room Air Sepsis Recent Fever Within 48 Hours Sepsis New/Unexplained Change in Mental Status Sepsis Action Taken by Prison Medications Current Medication List: was personally reviewed by me Laboratory Data Attestation: I reviewed the patient's lab results. 02/07/25 07:36 02/07/25 07:36 Lab Results 02/05/25 02/05/25 02/05/25 Range/Units 10:35 10:57 11:20 WBC 7.46 (4.8-10.8) K/ul RBC 4.24 (4.20-5.40) M/uL Hgb 12.9 (12.0-16.0) g/dl Hct 39.9 (37.0-47.0) % MCV 94.1 (80.0-100.0) fL MCH 30.4 (25.0-34.0) pg MCHC 32.3 (32.0-36.0) g/dL RDW Std Deviation 48.4 H (36.4-46.3) fL RDW Coeff of Keshia 14.0 (11.5-14.5) % Plt Count 306 (130-400) K/uL MPV 8.8 L (9.4-12.4) fL Immature Gran % (Auto) 2.3 % Neut % (Auto) 71.4 % Lymph % (Auto) 14.9 % Het[place] % (Auto) 11.1 % Eos % (Auto) 0.0 % Baso % (Auto) 0.3 % Neut # (Auto) 5.33 (1.40-6.50) K/uL Lymph # (Auto) 1.11 L (1.20-3.40) K/uL Het[place]er # (Auto) 0.83 H (0.11-0.59) K/uL Eos # (Auto) 0.00 (0.00-0.50) K/uL Baso # (Auto) 0.02 (0.00-0.20) K/uL Immature Gran # (Auto) 0.17 (0.01-0.20) K/uL Sodium 132 L (136-145) mmol/L Potassium 5.1 (3.5-5.1) mmol/L Chloride 103 (98-107) mmol/L Carbon Dioxide 22 (21-32) mmol/L Anion Gap 7 (3-11) BUN 30 H (6-23) mg/dl Creatinine 1.80 H (0.6-1.2) mg/dl Est Cr Clr Drug Dosing 18.9 ml/min eGFR 27.27 BUN/Creatinine Ratio 16.7 (10-20) Glucose 130 H (70-99(Fasting)) mg/dl Lactate 1.5 (0.4-2.0) mmol/L Calcium 10.2 (8.6-10.3) mg/dl Magnesium 1.7 (1.7-2.4) mg/dl Total Bilirubin 0.3 (0.2-1.0) mg/dl AST 19 (13-39) U/L ALT 12 (7-52) U/L Alkaline Phosphatase 70 (34-104) U/L Troponin I High Sens 20.1 H (0-14) pg/ml Total Protein 7.0 (6.0-8.3) gm/dl Albumin 3.8 (3.4-5.0) gm/dl Globulin 3.2 (2.5-4.0) gm/dl Albumin/Globulin Ratio 1.2 (0.9-2) Lipase 20 (11-82) U/L Urine Color Urine Appearance (Clear) Urine pH (4.5-7.5) Ur Specific [place] (1.000-1.030) Urine Protein (Negative) Urine Glucose (UA) (Negative) Urine Ketones (Negative) Urine Blood (Negative) Urine Nitrite (Negative) Urine Bilirubin (Negative) Urine Urobilinogen (Negative) Ur Leukocyte Esterase (Negative) Urine WBC (Auto) (0-5) /hpf Urine RBC (Auto) (0-2) /hpf U Hyaline Cast (Auto) (0-2) /lpf U Epithel Cells (Auto) (0-2) /hpf Urine Bacteria (Auto) (None Seen) Urine Comment SARS-CoV-2 (PCR) NEGATIVE (Negative) Influenza Type A (PCR) Negative (Neg) Influenza Type B (PCR) Negative (Neg) RSV (RT-PCR) Negative (Neg) 02/05/25 02/05/25 Range/Units 12:04 13:16 WBC (4.8-10.8) K/ul RBC (4.20-5.40) M/uL Hgb (12.0-16.0) g/dl Hct (37.0-47.0) % MCV (80.0-100.0) fL MCH (25.0-34.0) pg MCHC (32.0-36.0) g/dL RDW Std Deviation (36.4-46.3) fL RDW Coeff of Keshia (11.5-14.5) % Plt Count (130-400) K/uL MPV (9.4-12.4) fL Immature Gran % (Auto) % Neut % (Auto) % Lymph % (Auto) % Het[place] % (Auto) % Eos % (Auto) % Baso % (Auto) % Neut # (Auto) (1.40-6.50) K/uL Lymph # (Auto) (1.20-3.40) K/uL [place] # (Auto) (0.11-0.59) K/uL Eos # (Auto) (0.00-0.50) K/uL Baso # (Auto) (0.00-0.20) K/uL Immature Gran # (Auto) (0.01-0.20) K/uL Sodium (136-145) mmol/L Potassium (3.5-5.1) mmol/L Chloride (98-107) mmol/L Carbon Dioxide (21-32) mmol/L Anion Gap (3-11) BUN (6-23) mg/dl Creatinine (0.6-1.2) mg/dl Est Cr Clr Drug Dosing ml/min eGFR BUN/Creatinine Ratio (10-20) Glucose (70-99(Fasting)) mg/dl Lactate (0.4-2.0) mmol/L Calcium (8.6-10.3) mg/dl Magnesium (1.7-2.4) mg/dl Total Bilirubin (0.2-1.0) mg/dl AST (13-39) U/L ALT (7-52) U/L Alkaline Phosphatase (34-104) U/L Troponin I High Sens 16.4 H (0-14) pg/ml Total Protein (6.0-8.3) gm/dl Albumin (3.4-5.0) gm/dl Globulin (2.5-4.0) gm/dl Albumin/Globulin Ratio (0.9-2) Lipase (11-82) U/L Urine Color Yellow Urine Appearance Clear (Clear) Urine pH 5.5 (4.5-7.5) Ur Specific [place] 1.009 (1.000-1.030) Urine Protein 2+ H (Negative) Urine Glucose (UA) Negative (Negative) Urine Ketones Negative (Negative) Urine Blood Negative (Negative) Urine Nitrite Negative (Negative) Urine Bilirubin Negative (Negative) Urine Urobilinogen Negative (Negative) Ur Leukocyte Esterase Negative (Negative) Urine WBC (Auto) 0-5 (0-5) /hpf Urine RBC (Auto) 0-2 (0-2) /hpf U Hyaline Cast (Auto) 0-2 (0-2) /lpf U Epithel Cells (Auto) 0-2 (0-2) /hpf Urine Bacteria (Auto) None Seen (None Seen) Urine Comment SARS-CoV-2 (PCR) (Negative) Influenza Type A (PCR) (Neg) Influenza Type B (PCR) (Neg) RSV (RT-PCR) (Neg) Administered Medications Acetaminophen (Acetaminophen 500 Mg Tab) 1,000 mg PO Q8H SAHRA Stop: 03/07/25 19:59 Last Admin: 02/07/25 12:51 Dose: 1,000 mg Documented By: Admin: 02/07/25 04:53 Dose: 1,000 mg Documented By: Admin: 02/06/25 20:32 Dose: 1,000 mg Documented By: Admin: 02/06/25 11:54 Dose: 1,000 mg Documented By: Admin: 02/06/25 05:28 Dose: 1,000 mg Documented By: Admin: 02/05/25 20:13 Dose: 1,000 mg Documented By: MANUEL Amlodipine Besylate (Amlodipine Besylate 5 Mg Tab) 10 mg PO DAILY SAHRA Stop: 03/09/25 08:59 Last Admin: 02/07/25 08:34 Dose: 10 mg Documented By: TARIQ Apixaban (Apixaban 2.5 Mg Tab) 2.5 mg PO BID SAHRA Stop: 03/07/25 20:59 Last Admin: 02/07/25 08:35 Dose: 2.5 mg Documented By: Admin: 02/06/25 20:32 Dose: 2.5 mg Documented By: Admin: 02/06/25 09:58 Dose: 2.5 mg Documented By: Admin: 02/05/25 20:13 Dose: 2.5 mg Documented By: MANUEL Artificial Tears (Artificial Tears) 2 drops OP BID SAHRA Stop: 03/07/25 20:59 Last Admin: 02/07/25 08:36 Dose: Not Given Documented By: Admin: 02/06/25 20:32 Dose: Not Given Documented By: Admin: 02/06/25 09:57 Dose: Not Given Documented By: Admin: 02/05/25 20:13 Dose: 2 drops Documented By: MANUEL Aspirin (Aspirin 81 Mg Ectab) 81 mg PO DAILY SAHRA Stop: 03/08/25 08:59 Last Admin: 02/07/25 08:34 Dose: 81 mg Documented By: Admin: 02/06/25 09:58 Dose: 81 mg Documented By: KELSI Clonazepam (Clonazepam 0.5 Mg Tab) 0.5 mg PO BID17 SAHRA Stop: 03/07/25 17:56 Last Admin: 02/07/25 17:00 Dose: 0.5 mg Documented By: Admin: 02/07/25 08:42 Dose: 0.5 mg Documented By: Admin: 02/06/25 17:42 Dose: 0.5 mg Documented By: Admin: 02/06/25 10:07 Dose: 0.5 mg Documented By: Admin: 02/05/25 18:48 Dose: 0.5 mg Documented By: KATHY Clonazepam (Clonazepam 1 Mg Tab) 1 mg PO HS SAHRA Stop: 03/07/25 20:59 Last Admin: 02/06/25 20:33 Dose: 1 mg Documented By: Admin: 02/05/25 20:13 Dose: 1 mg Documented By: MANUEL Nitroglycerin 7.5 inch/Emollient Ointment 67.5 gm/BARCODE IDENTIFIER 1 each 0 inch EXT BID SA[facility]RA Stop: 03/07/25 22:59 Last Admin: 02/07/25 09:27 Dose: Not Given Documented By: Admin: 02/06/25 20:35 Dose: 1 appln Documented By: Admin: 02/06/25 10:44 Dose: 1 appln Documented By: Admin: 02/05/25 23:52 Dose: 1 appln Documented By: MANUEL Cyanocobalamin (Cyanocobalamin (B-12) 500 Mcg Tablet) 1,000 mcg PO Q2D@0900 SA[facility]RA Stop: 03/08/25 08:59 Last Admin: 02/06/25 09:58 Dose: 1,000 mcg Documented By: KELSI Diclofenac Sodium (Diclofenac Sod 1% Gel 100 Gm Tube) 2 gm EXT BID SAHRA; Protocol Stop: 03/07/25 20:59 Last Admin: 02/07/25 08:42 Dose: 2 gm Documented By: Admin: 02/06/25 20:33 Dose: 2 gm Documented By: Admin: 02/06/25 09:59 Dose: 2 gm Documented By: Admin: 02/05/25 20:11 Dose: 2 gm Documented By: MANUEL Docusate Sodium (Docusate Sodium 100 Mg Cap) 100 mg PO BID SAHRA Stop: 03/07/25 20:59 Last Admin: 02/07/25 08:42 Dose: 100 mg Documented By: Admin: 02/06/25 20:34 Dose: 100 mg Documented By: Admin: 02/06/25 10:08 Dose: 100 mg Documented By: Admin: 02/05/25 20:13 Dose: 100 mg Documented By: MANUEL Famotidine (Famotidine 20 Mg Tab) 20 mg PO HS SAHRA Stop: 03/07/25 20:59 Last Admin: 02/06/25 20:32 Dose: 20 mg Documented By: Admin: 02/05/25 20:14 Dose: 20 mg Documented By: MANUEL Fluticasone Propionate (Fluticasone Propionate Na Spr 16 Gm Btl) 2 sprays HAILEY DAILY SAHRA Stop: 03/08/25 08:59 Last Admin: 02/07/25 08:43 Dose: Not Given Documented By: Admin: 02/06/25 10:01 Dose: 2 sprays Documented By: KELSI Gabapentin (Gabapentin 400 Mg Cap) 400 mg PO TID SAHRA Stop: 03/07/25 20:59 Last Admin: 02/07/25 13:34 Dose: 400 mg Documented By: Admin: 02/07/25 08:34 Dose: 400 mg Documented By: Admin: 02/06/25 20:32 Dose: 400 mg Documented By: Admin: 02/06/25 13:05 Dose: 400 mg Documented By: CFFrancisco Admin: 02/06/25 10:00 Dose: 400 mg Documented By: Admin: 02/05/25 20:14 Dose: 400 mg Documented By: MANUEL Hydralazine HCl (Hydralazine 10 Mg Tab) 10 mg PO TID SAHRA Stop: 03/08/25 17:29 Last Admin: 02/07/25 13:33 Dose: 10 mg Documented By: Admin: 02/07/25 08:35 Dose: 10 mg Documented By: Admin: 02/06/25 20:46 Dose: 10 mg Documented By: Admin: 02/06/25 18:22 Dose: 10 mg Documented By: VGS Levothyroxine Sodium (Levothyroxine Sodium 75 Mcg Tablet) 75 mcg PO DAILYBB [facility] Stop: 03/08/25 06:29 Last Admin: 02/07/25 06:13 Dose: 75 mcg Documented By: Admin: 02/06/25 05:29 Dose: 75 mcg Documented By: MANUEL Lidocaine (Lidocaine 5% 1 Patch) 1 patch TD DAILY [facility] Stop: 03/08/25 08:59 Last Admin: 02/07/25 08:43 Dose: 1 patch Documented By: Admin: 02/06/25 10:04 Dose: 1 patch Documented By: MUD Lisinopril (Lisinopril 20 Mg Tab) 20 mg PO QAM [facility] Stop: 03/08/25 08:59 Last Admin: 02/07/25 08:37 Dose: Not Given Documented By: Admin: 02/06/25 10:40 Dose: 20 mg Documented By: KELSI Miscellaneous (Remove Lidoderm Patch) 1 each N/A HS [facility] Stop: 03/07/25 20:59 Last Admin: 02/06/25 20:32 Dose: Not Given Documented By: Admin: 02/05/25 20:14 Dose: 1 each Documented By: MANUEL Morphine Sulfate (Morphine Sulfate 2 Mg/Ml Carp) 2 mg IV Q6H PRN PRN Reason: Severe Pain (Scale 7, 8, 9,10) Stop: 02/19/25 17:56 Last Admin: 02/06/25 05:27 Dose: 2 mg Documented By: MANUEL Oxycodone HCl (Oxycodone Hcl Ir 5 Mg Tab (Immediate Release)) 5 mg PO Q6H PRN PRN Reason: Moderate Pain (Scale 4, 5, 6) Stop: 02/19/25 17:56 Last Admin: 02/07/25 18:24 Dose: 5 mg Documented By: Admin: 02/07/25 04:48 Dose: 5 mg Documented By: Admin: 02/06/25 15:30 Dose: 5 mg Documented By: Admin: 02/06/25 08:03 Dose: 5 mg Documented By: Admin: 02/05/25 20:14 Dose: 5 mg Documented By: MANUEL Pantoprazole Sodium (Pantoprazole 40 Mg Tab) 40 mg PO DAILY [facility] Stop: 03/08/25 08:59 Last Admin: 02/07/25 08:34 Dose: 40 mg Documented By: Admin: 02/06/25 10:00 Dose: 40 mg Documented By: CFD Polyethylene Glycol (Polyethylene (Miralax) 17 Gm Pack) 17 gm PO BID [facility] Stop: 03/08/25 20:59 Last Admin: 02/07/25 08:43 Dose: 17 gm Documented By: Admin: 02/06/25 20:35 Dose: Not Given Documented By: ALEX Polymyxin/Trimethoprim Sulfate (Trimethoprim/Polymyxin B) 1 drops OPL QID [facility] Stop: 02/11/25 12:59 Last Admin: 02/07/25 17:01 Dose: 1 drops Documented By: Admin: 02/07/25 12:52 Dose: 1 drops Documented By: Admin: 02/07/25 08:43 Dose: 1 drops Documented By: Admin: 02/06/25 20:32 Dose: Not Given Documented By: Admin: 02/06/25 17:42 Dose: 1 drops Documented By: Admin: 02/06/25 11:57 Dose: 1 drops Documented By: CFD Rosuvastatin Calcium (Rosuvastatin Calcium 10 Mg Tab) 10 mg PO DAILY [facility] Stop: 03/08/25 08:59 Last Admin: 02/07/25 08:35 Dose: 10 mg Documented By: Admin: 02/06/25 10:00 Dose: 10 mg Documented By: CFD Trazodone HCl (Trazodone Hcl 100 Mg Tab) 100 mg PO HS [facility] Stop: 03/07/25 20:59 Last Admin: 02/06/25 20:32 Dose: 100 mg Documented By: Admin: 02/05/25 20:14 Dose: 100 mg Documented By: MANUEL Venlafaxine HCl (Venlafaxine Hcl Xr 75 Mg Capxr) 75 mg PO QAM [facility] Stop: 03/08/25 08:59 Last Admin: 02/07/25 08:38 Dose: 75 mg Documented By: Admin: 02/06/25 10:00 Dose: 75 mg Documented By: CFD Vitamin D (Cholecalciferol 25 Mcg (1000 Units) Tab) 25 mcg PO DAILY [facility]RA Stop: 03/08/25 08:59 Last Admin: 02/07/25 08:36 Dose: 25 mcg Documented By: Admin: 02/06/25 09:58 Dose: 25 mcg Documented By: KELSI Discontinued Medications Amlodipine Besylate (Amlodipine Besylate 5 Mg Tab) 5 mg PO DAILY [facility] Stop: 03/08/25 08:59 Last Admin: 02/06/25 09:57 Dose: 5 mg Documented By: KELSI Hydralazine HCl (Hydralazine 10 Mg Tab) 10 mg PO BID SAHRA Stop: 03/08/25 11:59 Last Admin: 02/06/25 12:23 Dose: 10 mg Documented By: KELSI Sodium Chloride (Nss) 1,000 mls @ 999 mls/hr IV .Q1H1M ONE Stop: 02/05/25 11:36 Last Infusion: 02/05/25 12:59 Dose: Infused Documented By: Admin: 02/05/25 10:46 Dose: 999 mls/hr Documented By: SOFIA Acetaminophen (Ofirmev) 1,000 mg in 100 mls @ 400 mls/hr IV NOW STA Stop: 02/05/25 12:46 Last Infusion: 02/05/25 13:03 Dose: Infused Documented By: Admin: 02/05/25 12:38 Dose: 400 mls/hr Documented By: SOFIA Methylprednisolone (Methylprednisolone 4 Mg Tab) 8 mg PO 1300,1800,2100 SAHRA Stop: 02/06/25 21:01 Last Admin: 02/06/25 20:32 Dose: 8 mg Documented By: Admin: 02/06/25 18:28 Dose: 8 mg Documented By: ANA CRISTINAS Admin: 02/06/25 13:05 Dose: 8 mg Documented By: KELSI Methylprednisolone (Methylprednisolone 4 Mg Tab) 4 mg PO 0700,1300,1800 SAHRA Stop: 02/07/25 18:01 Last Admin: 02/07/25 06:13 Dose: 4 mg Documented By: ALEX Morphine Sulfate (Morphine Sulfate 4 Mg/Ml 1 Ml Carp\Vial) 4 mg IV NOW STA Stop: 02/05/25 13:21 Last Admin: 02/05/25 13:25 Dose: 4 mg Documented By: SOFIA Oxycodone HCl (Oxycodone Hcl Ir 5 Mg Tab (Immediate Release)) 5 mg PO NOW STA Stop: 02/05/25 16:14 Last Admin: 02/05/25 16:30 Dose: 5 mg Documented By: CARL Polyethylene Glycol (Polyethylene (Miralax) 17 Gm Pack) 17 gm PO DAILY SAHRA Stop: 03/08/25 08:59 Last Admin: 02/06/25 10:08 Dose: 17 gm Documented By: CFD Imaging Data Attestation: I personally reviewed and interpreted this imaging study as follows: Radiologist's Impression: Chest X-Ray 02/05/25 10:36 XR chest 1V portable CLINICAL HISTORY: falls COMPARISON STUDY: 01/13/2025 FINDINGS: Stable CABG. Heart size and pulmonary vasculature are normal. No consolidation or pleural effusion seen. No pneumothorax. IMPRESSION: No acute findings. ACT 112: Negative or not required by law. Electronically signed by: Andreas Vazquez M.D. 02/05/2025 11:09 AM Head Trauma GCS Score: 15 Discharge Plan Visit Data Chief Complaint: Fall Stated Complaint: FALL, CONFUSION ED Provider: Esau Petersen ED Midlevel Provider: Paty Enriquez Discharge Problem: Recurrent falls, Bilateral leg pain, Ambulatory dysfunction Patient Disposition: Admitted As Inpatient Condition: Fair Discharge Instructions Interventions: ED Discharge Assessment Last Done: 02/05/25 17:18
[2025-02-05] MEDS: SODIUM CHLORIDE 0.9% 1,000 ML IV ONE (10:46)
[2025-02-05 10:53] LABS: Hematocrit (blood only) 39.9 % (37.0-47.0); Hemoglobin 12.9 g/dl (12.0-16.0); Immature Granulocytes # (auto) 0.17 K/uL (0.01-0.20); Immature Granulocytes % (auto) 2.3 %; Mean Corpuscular Hemoglobin 30.4 pg (25.0-34.0); Mean Corpuscular Volume 94.1 fL (80.0-100.0); Platelet Count 306 K/uL (130-400); RDW Standard Deviation 48.4 fL (36.4-46.3); Red Blood Count 4.24 M/uL (4.20-5.40); White Blood Count 7.46 K/ul (4.8-10.8)
--- NOTE | 2025-02-05 11:11 | XRay Report ---
XR chest 1V portable CLINICAL HISTORY: falls COMPARISON STUDY: 01/13/2025 FINDINGS: Stable CABG. Heart size and pulmonary vasculature are normal. No consolidation or pleural e ffusion seen. No pneumothorax. IMPRESSION: No acute findings. ACT 112: Negative or not required by law. Electronically signed by: Andreas Vazquez M.D. 02/05/2025 11:09 AM
[2025-02-05 11:12] LABS: Alanine Aminotransferase 12.0 U/L (7-52); Albumin Globulin Ratio 1.2 (0.9-2); Alkaline Phosphatase 70.0 U/L (34-104); Anion Gap 7.0 (3-11); Bilirubin,Total 0.3 mg/dl (0.2-1.0); Blood Urea Nitrogen 30.0 mg/dl (6-23); Calcium 10.2 mg/dl (8.6-10.3); Carbon Dioxide 22.0 mmol/L (21-32); Chloride 103.0 mmol/L (98-107); Creatinine Clr Calc Pharmacy 18.9 ml/min; Globulin 3.2 gm/dl (2.5-4.0); Glucose 130.0 mg/dl (70-99(Fasting)); Lipase 20.0 U/L (11-82); Magnesium 1.7 mg/dl (1.7-2.4); Potassium 5.1 mmol/L (3.5-5.1); Sodium 132.0 mmol/L (136-145); Total Protein 7.0 gm/dl (6.0-8.3)
[2025-02-05 11:46] LABS: Influenza A virus by PCR Negative (Neg); Influenza B virus by PCR Negative (Neg); SARS CoV2 RNA(COVID-19) Ceph NEGATIVE (Negative)
[2025-02-05 12:23] LABS: Appearance Urine Clear (Clear); Bacteria Urine Automated None Seen (None Seen); Cast Urine Automated 0-2 /lpf (0-2); Epithelial Cell Urine Auto 0-2 /hpf (0-2); Glucose Urine UA Negative (Negative); RBC Urine Automated 0-2 /hpf (0-2); WBC Urine Automated 0-5 /hpf (0-5)
[2025-02-05] MEDS: ACETAMINOPHEN 1,000 MG/100 ML VIAL IV STA (12:38)
--- NOTE | 2025-02-05 12:53 | CT Scan Report ---
ABDOMEN AND PELVIS CT WITHOUT CONTRAST CT DOSE: 1179.15 mGy.cm HISTORY: diffuse ttp TECHNIQUE: Multiaxial CT images of the abdomen and pelvis were performed without contrast. A dose lo wering technique was utilized adhering to the principles of ALARA. COMPARISON STUDY: 01/13/2025 FINDINGS: ABDOMEN: Stable cholecystectomy. Stable biliary gas. Stable splenic calcifications consistent with pr ior granulomatous disease. Liver, spleen, pancreas, and adrenal glands otherwise have an unremarkable noncontrast appearance. Stable small renal cysts. There is no hydronephrosis bilaterally. No renal c alculi. There are scattered atherosclerotic calcifications. No abdominal aortic aneurysm. Pelvis: Uterus is absent. No adnexal mass. Urinary bladder is mildly distended. There is extensive si gmoid diverticulosis. No acute diverticulitis. There is moderate retained stool. No bowel inflammatio n or obstruction. No free fluid or free air. No enlarged adenopathy. Osseous structures: Stable minimal height loss at a few lower thoracic vertebral bodies and the L1 ve rtebral body. Stable spinal degenerative changes. No acute fracture seen at the visualized osseous st ructures. IMPRESSION: No acute findings. ACT 112: Negative or not required by law. The above report was generated using voice recognition software. It may contain grammatical, syntax o r spelling errors. Electronically signed by: Andreas Vazquez M.D. 02/05/2025 12:51 PM
[2025-02-05] MEDS: MoRPHine SULFATE 4 MG/ML 1 ML CARP\\VIAL IV STA (13:25)
--- NOTE | 2025-02-05 15:15 | History & Physical Report ---
Date of Service February 05, 2025 Assessment & Plan (1) Bilateral leg pain: (2) Chronic pain syndrome: (3) Ambulatory dysfunction: (4) Recurrent falls: (5) Pulmonary embolism: (6) CKD (chronic kidney disease), stage IV: Plan: Patient is 84 year old female with recent PE, anticoagulated on Eliquis, PMH HTN, HLD, CAD s/p CABG, hypothyroidism, CKD IV, GERD, anxiety, depression, osteoporosis, RBBB, neuropathy, chronic pain, and others listed below presented to ER with c/o recurrent falls and left hip and bilateral leg pain. Daily fall past 3 days. Reports chronic BLE pain, feels LLE more painful since falls. #Ambulatory Dysfunction #Chronic pain. Chronic low back pain #Chronic BLE pain #Chronic neuropathy Uses wheelchair at baseline. Has been able to transfer to bathroom and getting out of bed/chair Reports chronic low back pain is at baseline Chronic BLE pain, reports LLE worse and left hip pain worse since falls CT Abd/Pelvis: no acute findings In ER given IV Tylenol, IV morphine 4mg, 1L NSS Obtain left hip and femur x-ray to R/O Fracture Per outpatient chart review PCP prescribed gabapentin 400 mg twice daily and 800 mg at bedtime for chronic neuropathy. Per med list from facility pt has been getting gabapentin 400 mg 3 times daily Voltaren BID, Scheduled Tylenol, Hold home tramadol. Give oxycodone, morphine prn Fall precautions PT/OT eval #Recent PE dx in 12/2024 Anticoagulated on Eliquis Continue Eliquis #Elevated troponin EKG: sinus rhythm, rate 64, RBBB, no ST elevation noted per my interpretation Troponin: 20-->16 01/14/25 Echo: EF: 55-60%, moderate concentric LVH, mild-mod AR, mild MR, mild TR Denies CP #Chronic constipation CT abd/pelvis shows moderate retained stool ?if pt experiences stool overflow Will start Miralax daily and docusate BID #History anal fissure On topical nitro Followed with general surgery, Dr Irene. Has upcoming appointment with rectal surgeon #CKD stage IV: Cr: 1.8. Recent baseline 2.0 Monitor renal functions, avoid NSAIDs and other nephrotoxic agents #HTN (hypertension): BP elevated in ER may be secondary to underlying pain and anxiety Monitor Continue home lisinopril, amlodipine. May need to add additional agent #CAD (coronary artery disease): S/P CABG Denies CP, SOB Continue aspirin, rosuvastatin #HLD (hyperlipidemia): Continue rosuvastatin #Anxiety: #Depression: Continue venlafaxine, clonazepam, trazodone #Hypothyroidism: Continue levothyroxine #GERD (gastroesophageal reflux disease): Continue PPI, H2 luis DVT Prophylaxis On Eliquis Admit med surg DNR/DNI as per discussion with pt Follows with Dr Galeas for routine care Pt was seen and care coordinated with Dr Lion. See addendum I spent a total of 65 minutes reviewing notes, outpatient records, labs, medication, coordinating, documenting and providing care for this patient excluding time spent in the performance of separately billed services and excluding time spent by another provider/QHP. History of Present Illness Chief Complaint: fall and bilateral leg pain Primary Care Provider: [facility] Patient is 84 year old female with recent PE, anticoagulated on Eliquis, PMH HTN, HLD, CAD s/p CABG, hypothyroidism, CKD IV, GERD, anxiety, depression, osteoporosis, RBBB, neuropathy, chronic pain, and others listed below presented to ER with c/o recurrent falls and left hip and bilateral leg pain. Per inpatient chart review patient with recent hospital admission 01/13/2025- 01/16/2025 for acute PE and is anticoagulated on Eliquis. Patient currently resides at personal care facility. She reports has used wheelchair for many years but is able to transfer out to use bathroom and get herself in and out of bed. She reports chronic bilateral leg weakness and reports chronic bilateral leg pain. She takes Tylenol and tramadol as needed for pain. She reports also has topical cream that she feels helps with pain as well. Patient states today was standing at her dresser when legs felt weak and she fell. She denies hitting head. She states yesterday was in bathroom and attempted getting back in wheelchair and fell. Denies hitting head at that time. Patient reports she often forgets to use the brakes on wheelchair and often wheelchair moves when attempting to get in and out. Patient states 3 days ago had dizziness with standing up out of bed and sat back down and dizziness resolved. States later in the day she was standing and felt like her legs got weak and fell and denies hitting head. She denies getting dizzy prior to the falls the past 3 days and denies CP or SOB. Patient states today she asked for more of topical pain cream and was instructed wasn't ordered that often and patient reports she upset because feels that cream helps control pain. States has chronic low back pain and feels this is baseline. She reports past 3 days with lower abdominal pain. She reports constipation and states receives Miralax as needed. She states had dose couple days ago and today had BM. She states sometimes will have "diarrhea" however when patient describes "diarrhea" she describes it as she doesn't have BM and denies watery stool. Denies fever/chills, diaphoresis, N/V, PETERS, syncope, LOC, CP, SOB, palpitations, cough, rhinorrhea, extremity edema, rashes, dysuria, hematuria. Allergies Allergy/AdvReac Type Severity Reaction Status Date / Time No Known Allergies Allergy Verified 02/05/25 15:17 Home Medications Medication Instructions Recorded Confirmed Type aspirin 81 mg tablet,delayed 81 mg PO DAILY 06/13/22 02/05/25 History release cimetidine 400 mg tablet 400 mg PO HS 06/13/22 02/05/25 History clonazepam 0.5 mg tablet 1 mg PO HS 06/13/22 02/05/25 History cyanocobalamin (vitamin B-12) 1,000 mcg PO Q OTHER DAY 06/13/22 02/05/25 History 1,000 mcg tablet (Vitamin B-12) docusate sodium 100 mg capsule 100 mg PO DAILY 06/13/22 02/05/25 History levothyroxine 75 mcg tablet 75 mcg PO DAILYBB 06/13/22 02/05/25 History pantoprazole 40 mg tablet,delayed 40 mg PO DAILY 06/13/22 02/05/25 History release polyethylene glycol 3350 17 gram 17 g PO Q OTHER DAY PRN 06/13/22 02/05/25 History oral powder packet (Miralax) Constipation rosuvastatin 10 mg tablet 10 mg PO DAILY 06/13/22 02/05/25 History trazodone 100 mg tablet 100 mg PO HS 06/13/22 02/05/25 History fluticasone propionate 50 2 spray intranasal DAILY 01/03/24 02/05/25 History mcg/actuation nasal spray,suspension polyvinyl alcohol-povidone 0.5 2 drp OPB BID 01/03/24 02/05/25 History %-0.6 % eye drops (Artificial Tears (polyvinyl alcohol/povidone)) acetaminophen 500 mg tablet 1,000 mg PO TID 12/21/24 02/05/25 History (Tylenol Extra Strength) cholecalciferol (vitamin D3) 25 25 mcg PO DAILY 12/21/24 02/05/25 History mcg (1,000 unit) capsule (Vitamin D3) lidocaine 4 % topical patch 1 patch topical DAILY 12/21/24 02/05/25 History lidocaine HCl 4 %-menthol 1 % 1 applic topical QID PRN NECK PAIN 12/21/24 02/05/25 History topical cream (Icy Hot Max (lidocaine HCl-menthol)) venlafaxine 75 mg capsule,extended 75 mg PO QAM 12/21/24 02/05/25 History release 24 hr white petrolatum (Petroleum Jelly 1 applic topical BID 12/21/24 02/05/25 History topical) lisinopril 20 mg tablet 20 mg PO QAM #30 tabs 01/16/25 02/05/25 Rx amlodipine 5 mg tablet 5 mg PO DAILY 02/05/25 02/05/25 History apixaban 2.5 mg tablet (Eliquis) 2.5 mg PO BID 02/05/25 02/05/25 History biotin 5 mg tablet 5 mg PO DAILY 02/05/25 02/05/25 History clonazepam 0.5 mg tablet 0.5 mg PO BID17 02/05/25 02/05/25 History cyclosporine 0.05 % eye drops in a 1 drp OPB Q12H 02/05/25 02/05/25 History dropperette (Restasis) diclofenac sodium 1 % topical gel 2 g topical BID 02/05/25 02/05/25 History gabapentin 400 mg capsule See Rx Instructions .Route .COMPLEX 02/05/25 02/05/25 History nitroglycerin 0.4 mg sublingual 0.4 mg sublingual DIRECTED PRN 02/05/25 02/05/25 History tablet (Nitrostat) Chest Pain nitroglycerin 2 % transdermal 1 inch topical BID 02/05/25 02/05/25 History ointment nystatin 100,000 unit/gram topical 1 applic topical BID PRN Skin 02/05/25 02/05/25 History cream Irritation tramadol 50 mg tablet 50 mg PO QID 02/05/25 02/05/25 History Past Med/Surg History Problem List Recurrent falls Ambulatory dysfunction Bilateral leg pain Chronic pain syndrome Stricture and stenosis of esophagus Hypertensive urgency Right rib fracture Elevated troponin Postprandial vomiting Acute pulmonary embolism Elevated troponin I level (Acute) Abnormal EKG (Acute) Chest pain (Acute) Pulmonary embolism (Acute) Hyperglycemia CKD (chronic kidney disease) (Acute) Acute kidney injury superimposed on stage 4 chronic kidney disease Lumbar disc herniation with radiculopathy Low back pain radiating to both legs Abnormal urinalysis GERD (gastroesophageal reflux disease) Anxiety CKD (chronic kidney disease), stage IV Extremity pain Acute hypoxic respiratory failure (Acute) Back pain (Acute) Contusion, hip Elbow contusion Shoulder strain Diabetes mellitus Weakness (Acute) COVID-19 (Acute) Hypomagnesemia (Acute) Acute electrocardiogram changes (Acute) Renal artery stenosis Back pain Palpitation Neck pain Chest pain (Acute) Acute pain of left shoulder (Acute) Esophageal dysphagia Dysphagia Encounter for pre-operative examination CAD (coronary artery disease) (Chronic) HTN (hypertension) (Chronic) HLD (hyperlipidemia) (Chronic) Depression (Chronic) Hypothyroidism (Chronic) CKD (chronic kidney disease), stage III (Chronic) CVA (cerebral vascular accident) (Chronic) Altered awareness, transient Hx of CABG (Chronic) History of appendectomy (Chronic) S/P cholecystectomy (Chronic) H/O: hysterectomy (Chronic) History of carpal tunnel surgery (Chronic) History of esophagogastroduodenoscopy (EGD) (Chronic) Medical History Syncope Chronic kidney disease (CKD) HTN (hypertension) Degenerative joint disease Gastritis Coronary artery disease Trigeminal neuralgia Dysphagia Neurotic depression Panic disorder Surgical History History of esophagogastroduodenoscopy (EGD) History of bilateral carpal tunnel release History of facial surgery facial nerve surgery History of surgery on extremity left leg/knee History of total abdominal hysterectomy and bilateral salpingo-oophorectomy History of cholecystectomy History of cardiac catheterization S/P CABG x 3 History of appendectomy Family History Other Family history non-contributory Social History Smoking Status: Never smoker Tobacco Type: Cigarettes Second Hand Exposure: No; Do You Dip or Chew Tobacco: No; Hx Alcohol Use: Yes Alcohol type: beer Hx Substance Use: No Preferred Language: Albanian Communication Ability: Effective Hand Kiss Setter Required: No Beliefs That Will Affect Care: None Current Living Situation: Personal Care Facility Current Living Situation Comment: [facility] Feels Safe at Home: Yes Assistive Devices: Wheelchair Review of Systems Review of Systems: All systems reviewed & are unremarkable except as noted in HPI & below Physical Exam Physical Exam: General: no distress when lying on left side in position as reported position of comfort for her bilateral leg pain, WDWN elderly female Head: normocephalic, atraumatic Eyes: PERRL, EOM's intact, conjunctiva non-injected, anicteric ENT: +hard of hearing, normal inspection external ears, nose, mucous membranes moist Neck: supple, trachea midline, no spinous process tenderness to palpation Lungs: clear, no respiratory distress, no wheezing/rhonchi/rales CV: RRR, no pretibial edema Abd: normal BS, soft, +diffuse tenderness to palpation RLQ, LLQ without rebound or guarding Ext: no cyanosis, no erythema, no calf tenderness; LLE: Left hip +tenderness to palpation lateral hip, +tenderness with minimal active ROM of extension and internal and external rotation. Holds left leg and hip in flexed position for comfort. +tenderness to palpation entire anterior and posterior proximal leg, worse over thigh region. Knee without ecchymosis or erythema, non-tender to palpation at this time (reports chronic knee pain), able to dorsiflex and plantar flex foot, sensation to light touch intact, distal pulses palpable. RLE: Right hip is non-tender to palpation however +tenderness with moderate active ROM of flexion and extension, internal and external rotation, however ROM intact but painful. +tenderness to palpation entire anterior and posterior proximal leg, Knee non-tender to palpation at this time (reports chronic knee pain), able to dorsiflex and plantar flex foot, sensation to light touch intact, distal pulses palpable. Neuro: A&O x 3, no focal deficits noted, normal affect Skin: warm, dry, right buttock/ichial region with pressure ulcer without surrounding erythema and no discharge noted Results & Data Results & Data Vital Signs (Past 12 Hours) Vital Signs Temp Pulse Pulse Resp BP BP Pulse Ox 02/05/25 14:25 70 02/05/25 14:00 77 14 141/47 H 98 02/05/25 13:00 68 18 177/68 H 97 02/05/25 12:00 81 17 194/92 H 98 02/05/25 11:09 68 15 174/71 H 95 02/05/25 10:28 77 02/05/25 10:21 36.7 C 75 18 168/88 H 98 02/05/25 10:21 36.7 C 75 18 168/88 H 95 O2 Del Method 02/05/25 14:25 02/05/25 14:00 Room Air 02/05/25 13:00 Room Air 02/05/25 12:00 Room Air 02/05/25 11:09 Room Air 02/05/25 10:28 02/05/25 10:21 Room Air 02/05/25 10:21 Room Air Laboratory Results Short CBC 02/05/25 Range/Units 10:35 WBC 7.46 (4.8-10.8) K/ul Hgb 12.9 (12.0-16.0) g/dl Hct 39.9 (37.0-47.0) % Plt Count 306 (130-400) K/uL BMP 02/05/25 10:35 Sodium 132 L Potassium 5.1 Chloride 103 Carbon Dioxide 22 BUN 30 H Creatinine 1.80 H Glucose 130 H Calcium 10.2 Liver Function 02/05/25 Range/Units 10:35 Total Bilirubin 0.3 (0.2-1.0) mg/dl AST 19 (13-39) U/L ALT 12 (7-52) U/L Alkaline Phosphatase 70 (34-104) U/L Albumin 3.8 (3.4-5.0) gm/dl Urine 02/05/25 Range/Units 12:04 Urine Color Yellow Urine Appearance Clear (Clear) Urine pH 5.5 (4.5-7.5) Ur Specific [place] 1.009 (1.000-1.030) Urine Protein 2+ H (Negative) Urine Glucose (UA) Negative (Negative) Diagnostic Findings Abdomen/Pelvis CT 02/05/25 10:[address] WITHOUT CONTRAST CT DOSE: 1179.15 mGy.cm HISTORY: diffuse ttp TECHNIQUE: Multiaxial CT images of the abdomen and pelvis were performed without contrast. A dose lowering technique was utilized adhering to the principles of ALARA. COMPARISON STUDY: 01/13/2025 FINDINGS: ABDOMEN: Stable cholecystectomy. Stable biliary gas. Stable splenic calcifications consistent with prior granulomatous disease. Liver, spleen, pancreas, and adrenal glands otherwise have an unremarkable noncontrast appearance. Stable small renal cysts. There is no hydronephrosis bilaterally. No renal calculi. There are scattered atherosclerotic calcifications. No abdominal aortic aneurysm. Pelvis: Uterus is absent. No adnexal mass. Urinary bladder is mildly distended. There is extensive sigmoid diverticulosis. No acute diverticulitis. There is moderate retained stool. No bowel inflammation or obstruction. No free fluid or free air. No enlarged adenopathy. Osseous structures: Stable minimal height loss at a few lower thoracic vertebral bodies and the L1 vertebral body. Stable spinal degenerative changes. No acute fracture seen at the visualized osseous structures. IMPRESSION: No acute findings. ACT 112: Negative or not required by law. The above report was generated using voice recognition software. It may contain grammatical, syntax or spelling errors. Electronically signed by: Andreas Vazquez M.D. 02/05/2025 12:51 PM Chest X-Ray 02/05/25 10:36 XR chest 1V portable CLINICAL HISTORY: falls COMPARISON STUDY: 01/13/2025 FINDINGS: Stable CABG. Heart size and pulmonary vasculature are normal. No consolidation or pleural effusion seen. No pneumothorax. IMPRESSION: No acute findings. ACT 112: Negative or not required by law. Electronically signed by: Andreas Vazquez M.D. 02/05/2025 11:09 AM Code Status & VTE Plan VTE Prophylaxis Plan VTE Prophylaxis will be ordered: Yes Supervising Physician Co-Signing Physician Notes Patient is an 84-year-old female with multiple comorbidities presents with history of bilateral hip, leg pain secondary to recurrent falls. She also states having right rib pain which she attributes to recent fall. She is mostly wheelchair-bound but was able to transfer to go to bathroom. Anxious during my encounter. Denies any chest pain, dyspnea, nausea, vomiting but admits to have some abdominal discomfort. She denies head trauma. Also had minimal dizziness 3 days ago which resolved. Please review HPI for complete details of presentation. I personally reviewed blood work and imaging studies. Blood work suggestive of hyponatremia sodium 132, high normal potassium 5.1, creatinine 1.8, BUN 30, glucose 130, lactate 1.5, mild chronic troponin elevation. UA showed some chronic proteinuria but otherwise within normal limits. COVID, influenza, RSV screen negative. Chest x-ray showed no acute process. Imaging studies showed S/P old distal femoral fracture with compression plate but otherwise no acute fractures noted. EKG showed normal sinus rhythm, right bundle branch block, QTc 406. On exam patient is moderately built and nourished, elderly, anxious, normocephalic atraumatic, EOMI, decreased hearing, lungs are clear to auscultation, S1-S2,? Murmur, no significant pedal edema, abdomen soft, mild tenderness, alert, awake, oriented, grossly moves all extremities, left hip mild tenderness. Patient is admitted for management of ambulatory dysfunction, recurrent falls and musculoskeletal pain. If pain persists, will obtain CT/MRI to rule out occult fractures. Pain control as needed. PT OT, fall precautions. Imaging studies also suggestive of moderate constipation. Started on bowel regimen. Renal function at baseline. Blood pressure elevated likely situational secondary to pain. Monitor and adjust medications as needed. Incentive spirometry for rib pain. May need higher level of care like SNF on discharge. I personally interviewed and examined the patient at bedside. I have reviewed the advanced practitioner's documentation on the date of service referred in note and agree with plan. Patient's care is coordinated with Brittany Rodas PA-C. Please refer to the documentation above for details of patient's presentation and for discussion of other issues. I spent a total [id number] coordinating, documenting, and providing care for this patient excluding time spent in the performance of separately billed services or time spent by another provider/QHP.
--- NOTE | 2025-02-05 16:50 | XRay Report ---
Exam: Left femur Reason for exam: Patient fell. Previous studies: 06/13/2022 FINDINGS: Again the compression plate is seen on the lateral distal femur with evidence of old fracture. The hip is somewhat suboptimally evaluated due to overlying soft tissue density. Moderate DJD seen in the hip itself. Severe degenerative changes seen in the knee. Atherosclerotic vascular calcifications with extensive neurovascular surgical clips present. IMPRESSION: 1. No definite evidence of acute bony trauma, although evaluation of the proximal femurs limited due to large amount of overlying soft tissue density. If hip or proximal femoral fracture is further suggested, CT study would be recommended. 2. DJD of the hip and knee. 3. Status post old distal femoral fracture with compression plate remaining in place. Electronically signed by Andreas Jones 02-05-2025 4:50 PM
--- NOTE | 2025-02-05 16:54 | XRay Report ---
Exam: Pelvis Reason for exam: Patient fell. Previous studies: 01/06/2024. FINDINGS: Moderate DJD seen in both hips. There is generalized osteoporosis. Surgical clips in the right inguinal region. This time no acute fracture, dislocation or destructive lesion is visualized. IMPRESSION: No acute bony trauma visualized at this time. Should symptoms referable to the pelvis or hip persist however, more sensitive evaluation with CT or preferably MRI study would be recommended to rule out occult fracture is not visualized on initial radiographic exams. Electronically signed by Andreas Jones 02-05-2025 4:53 PM
[2025-02-05] MEDS ORDERED: MAGNESIUM HYDROXIDE SUSP 30 ML UDC PO PRN (17:57)
[2025-02-05] MEDS ORDERED: ONDANSETRON INJ 2 MG/ML 2 ML VIAL IV PRN (17:57)
[2025-02-05] MEDS: clonazePAM 0.5 MG TAB PO SCH (18:48)
[2025-02-05] MEDS: DICLOFENAC SOD 1% GEL 100 GM TUBE EXT SCH (20:11)
[2025-02-05] MEDS: APIXABAN 2.5 MG TAB PO SCH (20:13)
[2025-02-05] MEDS: ARTIFICIAL TEARS OP SCH (20:13)
[2025-02-05] MEDS: DOCUSATE SODIUM 100 MG CAP PO SCH (20:13)
[2025-02-05] MEDS: ACETAMINOPHEN 500 MG TAB PO SCH (20:13)
[2025-02-05] MEDS: clonazePAM 1 MG TAB PO SCH (20:13)
[2025-02-05] MEDS: FAMOTIDINE 20 MG TAB PO SCH (20:14)
[2025-02-05] MEDS: GABAPENTIN 400 MG CAP PO SCH (20:14)
[2025-02-05] MEDS: REMOVE LIDODERM PATCH SCH (20:14)
[2025-02-05] MEDS ORDERED: NITROGLYCERIN 2% OINTMENT 30GM TUBE EXT SCH (21:00)
[2025-02-05] MEDS: NITROGLYCERIN 2% 7.5 INCH, AQUAPHOR 67.5 GM, BARCODE IDENTIFIER 1 EACH EXT SCH (23:52)
[2025-02-06] MEDS: MoRPHine SULFATE 2 MG/ML CARP IV PRN (05:27)
[2025-02-06] MEDS: LEVOTHYROXINE SODIUM 75 MCG TABLET PO SCH (05:29)
--- NOTE | 2025-02-06 07:30 | Hospitalist Progress Note ---
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[employer] Reports chronic BLE pain, but feels LLE (primarily L hip and L ankle) more painful since falls CTAP, 02/05: no acute findings L femur XR, 02/05: no acute bony trauma, hip/knee DJD, old distal femoral fx with compression plate remaining in place Pelvis XR, 02/05: no acute bony trauma L ankle XR, 02/06: no acute bony abnormality L hip CT, 02/06: no acute fxs within hip, moderate L hip osteoarthritis Reports minimal improvement of acute on chronic LLE pain --> will trial Medrol Dosepak starting today and monitor response Continue Voltaren twice daily, scheduled Tylenol, as needed oxy IR/morphine (hoping to reduce narcotic usage with Medrol Dosepak) Fall precautions PT/OT recommending SNF -Discussed with pt's granddaughter/POA, Becca, @ [phone]. Becca brought up discussion regarding hospice. Had been considering hospice transition over the past few months given pt's progressive functional decline and chronic pain with resultant poor overall quality of life. Previously was able to perform transfers without hands on assistance at [facility]; now requiring moderate assistance. She would like to see how pt responds to Medrol Dosepak and above therapies over next few days before making decision to transition pt to hospice care. Will continue to readdress this conversation with her. #Chronic constipation KUB, 02/06: moderate retained stool No BM since admission MiraLAX increased to scheduled twice daily dosing, continue Colace twice daily As needed Fleet enema #Diabetic peripheral neuropathy Continue gabapentin 400mg TID #Chronic low back pain Pt reports this is unchanged from baseline #Recent PE dx in 12/2024 Continue Eliquis #Elevated troponin EKG: sinus rhythm, rate 64, RBBB, no acute ischemic changes per my interpretation 01/14/25 TTE: EF: 55-60%, moderate concentric LVH, mild-mod AR, mild MR, mild TR Pt denies any cardiopulmonary complaints Troponin downtrended #History of anal fissure On topical nitro Followed with general surgery, Dr Irene Has upcoming appointment with colorectal surgeon at [facility] on 02/13/25 #Acute bacterial conjunctivitis L eye with dried purulent drainage in inner corner on exam this AM TMP-SMX drops ordered, monitor response #CKD stage IV Baseline Cr 1.8-2 per chart review Cr stable at 1.44 today Continue to monitor and avoid nephrotoxic agents as able #HTN #HTN urgency BP remained rather elevated this AM Amlodipine increased to 10mg daily Continue lisinopril 20mg daily Monitor BP trend #HLD #ASCVD s/p CABG x 3 in August [address] [facility] cardiology Continue ASA, statin #Anxiety #Depression Continue venlafaxine Can continue clonazepam, trazodone for now but will need to hold if pt develops any delirious behaviors and/or is exhibiting any s/sx of oversedation #Hypothyroidism Continue levothyroxine #GERD Continue PPI, H2 luis DVT Prophylaxis: Eliquis Code Status: DNR/DNI PCP: Roberto Galeas MD Disposition: DC plans uncertain at this time Patient seen in collaboration with Dr. Bangura. Please see addendum. I spent a total of 48 minutes coordinating, documenting, and providing care for this patient excluding time spent in the performance of separately billed services or time spent by another provider/QHP. This included personally reviewing all current laboratories and imaging studies, medical reconciliation, outpatient chart review and discussion with specialists. This chart was completed in part utilizing Speech Voice Recognition Software. Grammatical errors, random word insertions, pronoun errors, and incomplete sentences are an occasional consequence of this system due to software limitations, ambient noise, and hardware issues. Any formal questions or concerns about the content, text, or information contained within the body of this dictation should be directly addressed to the provider for clarification. Admission and Anticipated Discharge Date Admission Date: February 05, 2025 Supervising Physician Co-Signing Physician Notes I have seen and discussed the case with the collaborating advanced practitioner. I agree with the above progress note. I have reviewed and confirmed the patients medical history, the findings on physical examination, and the patients diagnosis and treatment plan with Justice RENE and agree with the information documented. Patient evaluated. CT reviewed--no acute fracture, degenerative changes noted. Plan to start medrol dose pack Hypertensive--starting hydralazine 10mg tid Patient CKD IV with tenuous renal function, will avoid additional mara uptitration, will continue to monitor and consider nephrology doesnt appear overloaded will assess response to medrol dosepak at this time I spent a total of 20 minutes coordinating, documenting, and providing care for this patient excluding time spent in the performance of separately billed services. All of the aforementioned completed outside of collaborating with the assigned advanced practitioner for a full treatment plan. I have reviewed the advanced practitioner's documentation, and I agree with, and take responsibility for the plan of care Subjective Patient seen and examined in room 383-2. Still complaining of BLE pain, which is chronic but worse when compared to baseline. Reports LLE pain worse than RLE, primarily in the left hip/femoral region. Uses wheelchair at baseline. Also reports chronic lower abdominal pain but tolerating diet without issue. Denies any N/V. Review of Systems Review of Systems: At least ten systems reviewed and negative, except as noted in the subjective se ction. Physical Exam Physical Exam: General: Elderly F, NAD with laying down in bed (primarily on L side as reported position of comfort with her BLE pain), A&Ox3 with transient forgetfulness HEENT: Normocephalic, atraumatic, + dried purulent drainage in medial corner of L eye, + mild L supraorbital hollow and infraorbital hollow erythema, moist mucous membranes Respiratory: Normal respiratory effort, somewhat diminished on RA but otherwise CTAB Cardiovascular: RRR, normal peripheral pulses, no BLE edema Abdomen/GI: Active bowel sounds, soft, nondistended, nontender to palpation in all quadrants Extremities/MSK: No cyanosis or clubbing, + L hip TTP, keeps L leg/hip in flexed position for comfort, + mod pain with minimal active ROM of LLE, + scattered ecchymosis on LLE, R hip nontender to palpation, + mild pain with active ROM of RLE Neurologic: No overt focal deficits, CN's II-XI not formally tested but appear grossly intact bilaterally Skin: Pressure ulcer on R buttock/ischial region with minimal surrounding erythema but no discharge/drainage noted Results & Data Results & Data Vital Signs (Past 12 Hours) Vital Signs Temp Pulse Resp BP Pulse Ox O2 Del Method 02/06/25 00:16 Room Air 02/06/25 00:04 36.4 C L 73 20 177/69 H 96 Room Air Laboratory Results Short CBC 02/06/25 Range/Units 07:53 WBC 8.22 (4.8-10.8) K/ul Hgb 13.0 (12.0-16.0) g/dl Hct 38.6 (37.0-47.0) % Plt Count 294 (130-400) K/uL BMP 02/06/25 07:53 Sodium 137 Potassium 5.0 Chloride 106 Carbon Dioxide 25 BUN 22 Creatinine 1.44 H D Glucose 126 H Calcium 9.8 (5) Pulmonary embolism Acute cor pulmonale presence: unspecified Chronicity: unspecified Pulmonary embolism type: unspecified Qualified Code(s): I26.99 - Other pulmonary embolism without acute cor pulmonale
[2025-02-06 08:08] LABS: Hematocrit (blood only) 38.6 % (37.0-47.0); Hemoglobin 13.0 g/dl (12.0-16.0); Mean Corpuscular Hemoglobin 31.5 pg (25.0-34.0); Mean Corpuscular Volume 93.5 fL (80.0-100.0); Platelet Count 294 K/uL (130-400); RDW Standard Deviation 46.3 fL (36.4-46.3); Red Blood Count 4.13 M/uL (4.20-5.40); White Blood Count 8.22 K/ul (4.8-10.8)
--- NOTE | 2025-02-06 08:34 | XRay Report ---
KUB HISTORY: constipation COMPARISON STUDY: 02/05/2025 FINDINGS: Stable right upper quadrant surgical clips. There is moderate retained stool, grossly stabl e. No bowel obstruction seen. IMPRESSION: Moderate retained stool. ACT 112: Negative or not required by law. The above report was generated using voice recognition software. It may contain grammatical, syntax o r spelling errors. Electronically signed by: Andreas Vazquez M.D. 02/06/2025 8:33 AM
[2025-02-06 08:36] LABS: Anion Gap 6.0 (3-11); Blood Urea Nitrogen 22.0 mg/dl (6-23); Calcium 9.8 mg/dl (8.6-10.3); Carbon Dioxide 25.0 mmol/L (21-32); Chloride 106.0 mmol/L (98-107); Creatinine Clr Calc Pharmacy 23.6 ml/min; Glucose 126.0 mg/dl (70-99(Fasting)); Potassium 5.0 mmol/L (3.5-5.1); Sodium 137.0 mmol/L (136-145)
[2025-02-06] MEDS: ASPIRIN 81 MG ECTAB PO SCH (09:58)
[2025-02-06] MEDS: CYANOCOBALAMIN (B-12) 500 MCG TABLET PO SCH (09:58)
[2025-02-06] MEDS: CHOLECALCIFEROL 25 MCG (1000 UNITS) TAB PO SCH (09:58)
[2025-02-06] MEDS: ROSUVASTATIN CALCIUM 10 MG TAB PO SCH (10:00)
[2025-02-06] MEDS: VENLAFAXINE HCL XR 75 MG CAPXR PO SCH (10:00)
[2025-02-06] MEDS: FLUTICASONE PROPIONATE NA SPR 16 GM BTL NAE SCH (10:01)
[2025-02-06] MEDS: LIDOCAINE 5% 1 PATCH TD SCH (10:04)
[2025-02-06] MEDS: POLYETHYLENE (MIRALAX) 17 GM PACK PO SCH ×2 (10:08→20:35)
--- NOTE | 2025-02-06 10:28 | XRay Report ---
LEFT ANKLE 3 VIEWS CLINICAL HISTORY: Left ankle pain. FINDINGS: 3 views of the left ankle are compared to study dated 12/17/2020. The skeletal structures ar e osteopenic. No fracture is seen. The mortise is maintained. There are large dorsal and small planta r heel spurs. Enthesophytes arise from the medial and lateral malleoli. The overlying soft tissues ar e normal in appearance. There is atherosclerotic calcification of the regional arteries. Spurring is seen along the dorsal aspect of the tarsal bones. IMPRESSION: No acute bony abnormality is identified. Electronically signed by: Todd Perales M.D. 02/06/2025 10:26 AM
--- NOTE | 2025-02-06 11:56 | CT Scan Report ---
CT hip LT wo con CLINICAL HISTORY: Left hip pain. Recent falls. COMPARISON STUDY: CT of the abdomen and pelvis February 05, 2025. Pelvis and left femur radiographs February 05, 2025. TECHNIQUE: Axial images of the left hip were obtained without IV contrast. Sagittal and coronal refor mats were viewed. A dose lowering technique was utilized adhering to the principles of ALARA. FINDINGS: Alignment of the left hip is anatomic. No acute fractures are identified. There is moderate joint space narrowing and osteophytosis of the left hip. No osseous lesions are identified within th e left hip. There is no evidence for avascular necrosis of the left femoral head. Incidental note is made of sigmoid diverticulosis. No hematoma is identified within the soft tissues adjacent to the lef t hip. IMPRESSION: 1. No acute fractures within the left hip. 2. Moderate left hip osteoarthritis. ACT 112: Negative or not required by law. Electronically signed by: Marvin Larsen M.D. 02/06/2025 11:55 AM
[2025-02-06] MEDS: TRIMETHOPRIM/POLYMYXIN B OPL SCH (11:57)
[2025-02-06] MEDS: hydrALAZINE 10 MG TAB PO SCH ×2 (12:23→18:22)
[2025-02-06] MEDS ORDERED: methylPREDNISolone 4 MG TAB, 6 DAY TAPER PO SCH (12:30)
[2025-02-06] MEDS ORDERED: SOD PHOSPHATE/SOD BIPHOSPHATE ENEMA 132 ML BTL PR PRN (12:31)
[2025-02-06] MEDS: methylPREDNISolone 4 MG TAB PO SCH (13:05)
[2025-02-07] MEDS: methylPREDNISolone 4 MG TAB PO SCH (06:13)
[2025-02-07 08:18] LABS: Hematocrit (blood only) 38.0 % (37.0-47.0); Hemoglobin 12.9 g/dl (12.0-16.0); Mean Corpuscular Hemoglobin 31.9 pg (25.0-34.0); Mean Corpuscular Volume 93.8 fL (80.0-100.0); Platelet Count 317 K/uL (130-400); RDW Standard Deviation 47.8 fL (36.4-46.3); Red Blood Count 4.05 M/uL (4.20-5.40); White Blood Count 8.76 K/ul (4.8-10.8)
[2025-02-07 08:37] LABS: Anion Gap 7.0 (3-11); Blood Urea Nitrogen 31.0 mg/dl (6-23); Calcium 10.1 mg/dl (8.6-10.3); Carbon Dioxide 24.0 mmol/L (21-32); Chloride 103.0 mmol/L (98-107); Creatinine Clr Calc Pharmacy 21.3 ml/min; Glucose 136.0 mg/dl (70-99(Fasting)); Potassium 5.1 mmol/L (3.5-5.1); Sodium 134.0 mmol/L (136-145)
--- NOTE | 2025-02-07 14:02 | Hospitalist Progress Note ---
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[employer] Chronic BLE pain, but LLE (primarily L hip and L ankle) more painful since falls CTAP, 02/05: no acute findings L femur XR, 02/05: no acute bony trauma, hip/knee DJD, old distal femoral fx with compression plate remaining in place Pelvis XR, 02/05: no acute bony trauma L ankle XR, 02/06: no acute bony abnormality L hip CT, 02/06: no acute fxs within hip, moderate L hip osteoarthritis Pt previously able to perform transfers without hands on assistance at [facility]; now requiring moderate assistance for transfers per PT/OT evals Medrol Dosepak ordered yesterday to trial and see if it would provide any relief as pain wasn't improving much with PRN morphine, oxy IR Pt extremely confused and disoriented this AM during my eval, was previously A&Ox2 and cooperative with questioning yesterday AM Was impulsive and standing up without assistance, setting the alarm off multiple times per discussion with RN -Discussed mentation level changes over the phone with pt's Becca Arias, @ [phone] -We had prior discussion yesterday regarding consideration of palliative care vs hospice vs SNF -Becca agreeable with stopping Medrol Dosepak to see if this provides any improvement in her mentation (systemic steroids are known to cause confusion, memory issues and even delirium/psychosis in the elderly - thoroughly explained to Becca and she expressed understanding) -Strongly feel pt would be unable to tolerate SNF/rehab participation -Becca planning on coming in this afternoon for in-person GOC conversation to determine next steps -Becca and the pt's son, Benitez Greenfield, have been involved with conversation so far; did chat with Benitez @ [phone] this AM --> agreeable with consideration of palliative care vs hospice, will chat with Becca following our GOC conversation - feel both on same page regarding pt's overall functional decline and poor quality of life; seem to be favoring palliative > hospice Continue Voltaren twice daily, scheduled Tylenol, as needed oxy IR/morphine (only for severe pain) Fall precautions #Chronic constipation KUB, 02/06: moderate retained stool MiraLAX increased to scheduled twice daily dosing, continue Colace twice daily Had BM this afternoon As needed Fleet enema #Stage III R ischium pressure ulcer Appreciate WOCN consult #Diabetic peripheral neuropathy Continue gabapentin 400mg TID #Chronic low back pain Appears unchanged from baseline #Recent PE dx in 12/2024 Continue Eliquis #Elevated troponin EKG: sinus rhythm, rate 64, RBBB, no acute ischemic changes per my inter pretation 01/14/25 TTE: EF: 55-60%, moderate concentric LVH, mild-mod AR, mild MR, mild TR Pt denies any cardiopulmonary complaints Troponin downtrended #History of anal fissure On topical nitro Followed with general surgery, Dr Irene Has upcoming appointment with colorectal surgeon at [facility] on 02/13/25 #Acute bacterial conjunctivitis L eye with dried purulent drainage in inner corner on exam yesterday AM TMP-SMX drops ordered x 5-day course, monitor response #CKD stage IV Baseline Cr 1.8-2 per chart review Cr stable at 1.6 today Continue to monitor and avoid nephrotoxic agents as able #HTN #HTN urgency BP rather elevated this admission Amlodipine increased to 10mg daily Started on hydralazine 10mg TID [employer] lisinopril 20mg daily placed on hold this AM as K = 5.1 Monitor BP trend --> seems to be improving slowly with above med changes #HLD #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 Bangura. Please see addendum. I spent a total of 52 minutes coordinating, documenting, and providing care for this patient excluding time spent in the performance of separately billed services or time spent by another provider/QHP. This included personally reviewing all current laboratories and imaging studies, medical reconciliation, outpatient chart review and discussion with specialists. This chart was completed in part utilizing Speech Voice Recognition Software. Grammatical errors, random word insertions, pronoun errors, and incomplete sentences are an occasional consequence of this system due to software limitations, ambient noise, and hardware issues. Any formal questions or concerns about the content, text, or information contained within the body of this dictation should be directly addressed to the provider for clarification. Admission and Anticipated Discharge Date Admission Date: February 05, 2025 Supervising Physician Co-Signing Physician Notes I have seen and discussed the case with the collaborating advanced practitioner. I agree with the above progress note. I have reviewed and confirmed the patients medical history, the findings on physical examination, and the patients diagnosis and treatment plan with Justice RENE and agree with the information documented. Worsening confusion iso medrol dose pack. Hypertensive--continue hydralazine 10mg tid with hold parameters Patient CKD IV with tenuous renal function, will avoid additional mara uptitration, will continue to monitor and consider nephrology doesn't appear overloaded continue current pain regimen plan to d/c to [facility] with palliative services likely tomorrow I spent a total of 15 minutes coordinating, documenting, and providing care for this patient excluding time spent in the performance of separately billed services. All of the aforementioned completed outside of collaborating with the assigned advanced practitioner for a full treatment plan. I have reviewed the advanced practitioner's documentation, and I agree with, and take responsibility for the plan of care Subjective Patient seen and examined in room 383-2 earlier this morning. Very confused, repeatedly states "I want to go home." Unable to appropriately participate in questioning. Ate breakfast however. Review of Systems Review of Systems: Unable to properly obtain 2/2 pt's mentation level. Physical Exam Physical Exam: General: Elderly F, sitting up in bedside chair, confused, mostly oriented to self HEENT: Normocephalic, atraumatic, moist mucous membranes Respiratory: Normal respiratory effort, somewhat diminished on RA but otherwise CTAB Cardiovascular: RRR, normal peripheral pulses, no BLE edema Abdomen/GI: Active bowel sounds, soft, nondistended, nontender to palpation in all quadrants Extremities/MSK: No cyanosis or clubbing, + L hip TTP, keeps L leg/hip in mostly flexed position for comfort, + mod pain with minimal active ROM of LLE, + scattered ecchymoses on BLE, R hip nontender to palpation, + mild pain with active ROM of RLE Neurologic: No overt focal deficits, CN's II-XI not formally tested but appear grossly intact bilaterally Results & Data Results & Data Vital Signs (Past 12 Hours) Vital Signs Temp Pulse Resp BP Pulse Ox O2 Del Method 02/07/25 13:32 84 162/63 H 02/07/25 10:27 85 153/66 H 02/07/25 08:31 182/78 H 02/07/25 07:25 37.2 C 85 20 157/65 H 98 Room Air Laboratory Results Short CBC 02/07/25 Range/Units 07:36 WBC 8.76 (4.8-10.8) K/ul Hgb 12.9 (12.0-16.0) g/dl Hct 38.0 (37.0-47.0) % Plt Count 317 (130-400) K/uL BMP 02/07/25 07:36 Sodium 134 L Potassium 5.1 Chloride 103 Carbon Dioxide 24 BUN 31 H Creatinine 1.60 H Glucose 136 H Calcium 10.1 (5) Pulmonary embolism Acute cor pulmonale presence: unspecified Chronicity: unspecified Pulmonary embolism type: unspecified Qualified Code(s): I26.99 - Other pulmonary embolism without acute cor pulmonale
--- NOTE | 2025-02-07 16:19 | Advance Care Plan Prog Note ---
Advanced Care Planning Note Date of Discussion February 07, 2025 ACP Discussion Diagnoses requiring ACP discussion: Geriatric failure to thrive A [id number] discussion with the the patient's granddaughter/POA, Becca, regarding the patient's advanced care planning took place during this hospitalization on the above date. The discussion included the explanation and discussion of advance directives and associated forms/documents, as well as the patient's current code status. We also discussed at length the patient's medical conditions (both acute and chronic), general prognosis, treatment options, and goals of care. The following summarizes the discussion: Patient with progressive state of decline over the past several months. Wheelchair bound at baseline. History of chronic pain syndrome. Previously able to perform wheelchair transfers without hands on assistance plus ADLs including bathing and dressing. Now requiring max 2-person assistance this admission. 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 Unable to care for self and cannot perform ADLs independently. Chronic low back pain and BLE pain exacerbated by recurrent falls which significantly impairs her already limited mobility. Given this, likelihood of patient being able to participate in rehabilitation services is poor. Plan to focus now on patient comfort and overall quality of life. Becca would like to pursue outpatient palliative care services and for patient to return back to her prior living arrangement at [facility]. If patient's pain and comfort not being relieved with palliative care options, family would then be open to pursuing hospice transition. Will plan on continuing all home medications at this time. Status Resuscitation Status DNR/DNI No Resuscitation Total Time I spent a total of [30] minutes on this discussion, including counseling, answering questions, and completing, if any, pertinent advanced care planning forms/documents.
[2025-02-07] MEDS ORDERED: methylPREDNISolone 4 MG TAB PO SCH (21:00)
[2025-02-08] MEDS ORDERED: methylPREDNISolone 4 MG TAB PO SCH (07:00)
--- NOTE | 2025-02-08 11:32 | Electrocardiogram Report ---
Test Reason : Blood Pressure : */* mmHG Vent. Rate : 64 BPM Atrial Rate : 64 BPM P-R Int : 158 ms QRS Dur : 140 ms QT Int : 394 ms P-R-T Axes : 17 9 16 degrees QTcB Int : 406 ms Normal sinus rhythm Right bundle branch block Inferior infarct , age undetermined Abnormal ECG When compared with ECG of 13-Jan-2025 12:31, Inferior infarct is now Present Confirmed by Jerrell Tavares ([id number]) on 02/08/2025 11:32:40 AM Referred By: Melody Lopez [place] Confirmed By: Jerrell Tavares
--- NOTE | 2025-02-08 11:34 | Discharge Summary ---
<Statement entered by Hill Abraham DO - 02/08/25 12:46> patient seen and examined Will f/u with palliative care as OP See below for full details 13 minutes were spent in care for patient Discharge Summary Date of Service February 08, 2025 Principal Dx & Hospital Course #1 = Principal Diagnosis (1) Recurrent falls: (2) Ambulatory dysfunction: (3) Bilateral leg pain: (4) Chronic pain syndrome: (5) Adult failure to thrive syndrome: (6) Pulmonary embolism: (7) CKD (chronic kidney disease), stage IV: Plan Pt is an 84y/o F from [facility] with PMHx significant for recent PE diagnosed in December 2024 anticoagulated on Eliquis, ASCVD s/p CABG x 3 in August 1993, nonrheumatic aortic valve insufficiency, bradycardia, HTN, HLD, DMII, diabetic peripheral neuropathy, persistent proteinuria, CKD stage IV, secondary renal hyperparathyroidism, hypothyroidism, external hemorrhoids, GERD, vit D deficiency, stress urinary incontinence, age-related osteoporosis, generalized osteoarthritis, anxiety/depression and chronic pain syndrome who presented to the ED on 02/05/25 with c/o BLE and L hip pain 2/2 recurrent falls. 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 Chronic BLE pain, but LLE (primarily L hip and L ankle) more painful since falls CTAP, 02/05: no acute findings L femur XR, 02/05: no acute bony trauma, hip/knee DJD, old distal femoral fx with compression plate remaining in place Pelvis XR, 02/05: no acute bony trauma L ankle XR, 02/06: no acute bony abnormality L hip CT, 02/06: no acute fxs within hip, moderate L hip osteoarthritis Pt previously able to perform transfers without hands on assistance at [facility]; now requiring moderate assistance for transfers per PT/OT evals Medrol Dosepak ordered on 02/06 to trial and see if it would provide any relief -Pt extremely confused and disoriented in AM 02/07 -- was impulsive and standing up without assistance, setting the alarm off multiple times per discussion with RN -Medrol Dosepak was subsequently stopped on 02/07 Had ACP discussion with pt pt's POA/granddaughter, Becca, on 02/07 given her progressive functional decline: Patient with progressive state of decline over the past several months. Wheelchair bound at baseline. History of chronic pain syndrome. Previously able to perform wheelchair transfers without hands on assistance plus ADLs including bathing and dressing. Now requiring max 2-person assistance this admission. 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 Unable to care for self and cannot perform ADLs independently. Chronic low back pain and BLE pain exacerbated by recurrent falls which significantly impairs her already limited mobility. Given this, likelihood of patient being able to participate in rehabilitation services is poor. Plan to focus now on patient comfort and overall quality of life. Becca would like to pursue outpatient palliative care services and for patient to return back to her prior living arrangement at [facility]. If patient's pain and comfort not being relieved with palliative care options, family would then be open to pursuing hospice transition. Will plan on continuing all home medications at this time. Spoke with Becca again this AM: pt set to return back to [facility] this afternoon with OP palliative care f/u Will continue PRN oxy IR 5mg Q4H as this seems to be working well to control her pain --> script sent for pickup Arranging for pt to see [facility] palliative care -- d/w our nurse navigator, Nadja #Chronic constipation KUB, 02/06: moderate retained stool MiraLAX increased to scheduled twice daily dosing Has had a few BMs, most recently this AM Continue Colace BID and daily MiraLAX on DC #Chronic esophageal dysfunction #H/o esophageal strictures requiring EGD dilation Continue pured diet and thin liquids as previously recommended by [facility] Education provided on aspiration precautions #Stage III R ischium pressure ulcer Appreciate WOCN consult Continue wound care recs #Diabetic peripheral neuropathy Continue gabapentin 400mg TID #Chronic low back pain Appears unchanged from baseline #Subacute pulmonary embolism diagnosed December 2024 treated with Eliquis Continue Eliquis #Elevated troponin EKG: sinus rhythm, rate 64, RBBB, no acute ischemic changes per my interpretation 01/14/25 TTE: EF: 55-60%, moderate concentric LVH, mild-mod AR, mild MR, mild TR Pt denies any cardiopulmonary complaints Troponin downtrended #History of anal fissure On topical nitro Followed with general surgery, Dr Irene Has upcoming appointment with colorectal surgeon at [facility] on 02/13/25 #Acute bacterial conjunctivitis L eye with dried purulent drainage in inner corner on exam yesterday AM TMP-SMX drops ordered x 5-day course #CKD stage IV Baseline Cr 1.8-2 per chart review Cr stable remained stable around baseline #HTN #HTN urgency BP rather elevated this admission Amlodipine increased to 10mg daily Started on hydralazine 10mg TID Lisinopril discontinued as was previously causing hyperK #HLD #ASCVD s/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 Abraham. Please see addendum. I spent a total of 55 minutes coordinating, documenting, and providing care for this patient excluding time spent in the performance of separately billed services or time spent by another provider/QHP. This included personally reviewing all current laboratories and imaging studies, medical reconciliation, outpatient chart review and discussion with specialists. This chart was completed in part utilizing Speech Voice Recognition Software. Grammatical errors, random word insertions, pronoun errors, and incomplete sentences are an occasional consequence of this system due to software limitations, ambient noise, and hardware issues. Any formal questions or concerns about the content, text, or information contained within the body of this dictation should be directly addressed to the provider for clarification. Notes For Next Care Provider Medication Changes From Visit Amlodipine increased to 10mg daily Started on hydralazine 10mg TID Lisinopril discontinued Admission HPI Per Admitting Provider Patient is 84 year old female with recent PE, anticoagulated on Eliquis, PMH HTN, HLD, CAD s/p CABG, hypothyroidism, CKD IV, GERD, anxiety, depression, osteoporosis, RBBB, neuropathy, chronic pain, and others listed below presented to ER with c/o recurrent falls and left hip and bilateral leg pain. Per inpatient chart review patient with recent hospital admission 01/13/2025- 01/16/2025 for acute PE and is anticoagulated on Eliquis. Patient currently resides at personal care facility. She reports has used wheelchair for many years but is able to transfer out to use bathroom and get herself in and out of bed. She reports chronic bilateral leg weakness and reports chronic bilateral leg pain. She takes Tylenol and tramadol as needed for pain. She reports also has topical cream that she feels helps with pain as well. Patient states today was standing at her dresser when legs felt weak and she fell. She denies hitting head. She states yesterday was in bathroom and attempted getting back in wheelchair and fell. Denies hitting head at that time. Patient reports she often forgets to use the brakes on wheelchair and often wheelchair moves when attempting to get in and out. Patient states 3 days ago had dizziness with standing up out of bed and sat back down and dizziness resolved. States later in the day she was standing and felt like her legs got weak and fell and denies hitting head. She denies getting dizzy prior to the falls the past 3 days and denies CP or SOB. Patient states today she asked for more of topical pain cream and was instructed wasn't ordered that often and patient reports she upset because feels that cream helps control pain. States has chronic low back pain a nd feels this is baseline. She reports past 3 days with lower abdominal pain. She reports constipation and states receives Miralax as needed. She states had dose couple days ago and today had BM. She states sometimes will have "diarrhea" however when patient describes "diarrhea" she describes it as she doesn't have BM and denies watery stool. Denies fever/chills, diaphoresis, N/V, PETERS, syncope, LOC, CP, SOB, palpitations, cough, rhinorrhea, extremity edema, rashes, dysuria, hematuria. Admission Exam Per Admitting Provider General: no distress when lying on left side in position as reported position of comfort for her bilateral leg pain, WDWN elderly female Head: normocephalic, atraumatic Eyes: PERRL, EOM's intact, conjunctiva non-injected, anicteric ENT: +hard of hearing, normal inspection external ears, nose, mucous membranes moist Neck: supple, trachea midline, no spinous process tenderness to palpation Lungs: clear, no respiratory distress, no wheezing/rhonchi/rales CV: RRR, no pretibial edema Abd: normal BS, soft, +diffuse tenderness to palpation RLQ, LLQ without rebound or guarding Ext: no cyanosis, no erythema, no calf tenderness; LLE: Left hip +tenderness to palpation lateral hip, +tenderness with minimal active ROM of extension and internal and external rotation. Holds left leg and hip in flexed position for comfort. +tenderness to palpation entire anterior and posterior proximal leg, worse over thigh region. Knee without ecchymosis or erythema, non-tender to palpation at this time (reports chronic knee pain), able to dorsiflex and plantar flex foot, sensation to light touch intact, distal pulses palpable. RLE: Right hip is non-tender to palpation however +tenderness with moderate active ROM of flexion and extension, internal and external rotation, however ROM intact but painful. +tenderness to palpation entire anterior and posterior proximal leg, Knee non-tender to palpation at this time (reports chronic knee pain), able to dorsiflex and plantar flex foot, sensation to light touch intact, distal pulses palpable. Neuro: A&O x 3, no focal deficits noted, normal affect Skin: warm, dry, right buttock/ichial region with pressure ulcer without surrounding erythema and no discharge noted Discharge Exam General: Elderly F, laying down in bed, sleepy but easily arousable, A&Ox2 with periods of confusion HEENT: Normocephalic, atraumatic, moist mucous membranes Respiratory: Normal respiratory effort, somewhat diminished on RA but otherwise CTAB Cardiovascular: RRR, normal peripheral pulses, no BLE edema Abdomen/GI: Active bowel sounds, soft, nondistended, nontender to palpation in all quadrants Extremities/MSK: No cyanosis or clubbing, + L hip TTP, keeps L leg/hip in mostly flexed position for comfort, + mild/mod pain with minimal active ROM of LLE, + scattered ecchymoses on BLE, R hip nontender to palpation, + mild pain with active ROM of RLE Neurologic: No overt focal deficits, CN's II-XI not formally tested but appear grossly intact bilaterally Updated Medication List Medication Instructions Recorded Confirmed Type aspirin 81 mg tablet,delayed 81 mg PO DAILY 06/13/22 02/05/25 History release cimetidine 400 mg tablet 400 mg PO HS 06/13/22 02/05/25 History clonazepam 0.5 mg tablet 1 mg PO HS 06/13/22 02/05/25 History cyanocobalamin (vitamin B-12) 1,000 mcg PO Q OTHER DAY 06/13/22 02/05/25 History 1,000 mcg tablet (Vitamin B-12) docusate sodium 100 mg capsule 100 mg PO DAILY 06/13/22 02/05/25 History levothyroxine 75 mcg tablet 75 mcg PO DAILYBB 06/13/22 02/05/25 History pantoprazole 40 mg tablet,delayed 40 mg PO DAILY 06/13/22 02/05/25 History release polyethylene glycol 3350 17 gram 17 g PO Q OTHER DAY PRN 06/13/22 02/05/25 History oral powder packet (Miralax) Constipation rosuvastatin 10 mg tablet 10 mg PO DAILY 06/13/22 02/05/25 History trazodone 100 mg tablet 100 mg PO HS 06/13/22 02/05/25 History fluticasone propionate 50 2 spray intranasal DAILY 01/03/24 02/05/25 History mcg/actuation nasal spray,suspension polyvinyl alcohol-povidone 0.5 2 drp OPB BID 01/03/24 02/05/25 History %-0.6 % eye drops (Artificial Tears (polyvinyl alcohol/povidone)) acetaminophen 500 mg tablet 1,000 mg PO TID 12/21/24 02/05/25 History (Tylenol Extra Strength) cholecalciferol (vitamin D3) 25 25 mcg PO DAILY 12/21/24 02/05/25 History mcg (1,000 unit) capsule (Vitamin D3) lidocaine 4 % topical patch 1 patch topical DAILY 12/21/24 02/05/25 History lidocaine HCl 4 %-menthol 1 % 1 applic topical QID PRN NECK PAIN 12/21/24 History topical cream (Icy Hot Max (lidocaine HCl-menthol)) venlafaxine 75 mg capsule,extended 75 mg PO QAM 12/21/24 02/05/25 History release 24 hr white petrolatum (Petroleum Jelly 1 applic topical BID 12/21/24 02/05/25 History topical) lisinopril 20 mg tablet 20 mg PO QAM #30 tabs 01/16/25 02/05/25 Rx amlodipine 5 mg tablet 5 mg PO DAILY 02/05/25 02/05/25 History apixaban 2.5 mg tablet (Eliquis) 2.5 mg PO BID 02/05/25 02/05/25 History biotin 5 mg tablet 5 mg PO DAILY 02/05/25 02/05/25 History clonazepam 0.5 mg tablet 0.5 mg PO BID17 02/05/25 02/05/25 History cyclosporine 0.05 % eye drops in a 1 drp OPB Q12H 02/05/25 02/05/25 History dropperette (Restasis) diclofenac sodium 1 % topical gel 2 g topical BID 02/05/25 02/05/25 History gabapentin 400 mg capsule See Rx Instructions .Route .COMPLEX 02/05/25 02/05/25 History nitroglycerin 0.4 mg sublingual 0.4 mg sublingual DIRECTED PRN 02/05/25 02/05/25 History tablet (Nitrostat) Chest Pain nitroglycerin 2 % transdermal 1 inch topical BID 02/05/25 02/05/25 History ointment nystatin 100,000 unit/gram topical 1 applic topical BID PRN Skin 02/05/25 02/05/25 History cream Irritation tramadol 50 mg tablet 50 mg PO QID 02/05/25 02/05/25 History Hospital Stay Data Consultations 02/05/25 14:18 ED Decision to Admit Stat Diagnostic Imagining Performed 02/05/25 10:36 CT abd pelvis wo con Stat 02/06/25 10:01 CT hip LT wo con Urgent Total Time Total Time Spent Total Time Spent (In Minutes): 55
[2025-02-08 14:10] VITALS: RESP 16; TEMP 98.6; O2SAT 94
[2025-02-08 14:18] VITALS: PULSE 73
[2025-02-08 14:40] VITALS: BP 152/74
[2025-02-09] MEDS ORDERED: methylPREDNISolone 4 MG TAB PO SCH (07:00)
[2025-02-10] MEDS ORDERED: methylPREDNISolone 4 MG TAB PO SCH (07:00)
[2025-02-11] MEDS ORDERED: methylPREDNISolone 4 MG TAB PO SCH (07:00)
== END 2025-02-08 15:39 | disposition home or self-care (01) | DRG 91 ==
LOC: ED 10:14 → SUATTDRO 14:56 → 3N 14:56